=== PATIENT | male | born 1955 | race Caucasian/White ===

== ENCOUNTER 2017-02-09 18:12 | Inpatient (IN) | payer OTHER ==
[~2017-02-09] VITALS: Ht 177.8 cm; Wt 50.4 kg
[~2017-02-09 18:12] MED LIST: DICL75 PO; ROBA750T3 PO
[2017-02-09 18:24] VITALS: BP 123/77; PULSE 144; RESP 22; TEMP 100; TEMP 101.3; O2SAT 97
[2017-02-09 18:28] VITALS: O2SAT 97
--- NOTE | 2017-02-09 18:53 | PD ---
HPI Chief Complaint: Altered Mental Status Time Seen by Provider: 18:18 Travel History International Travel<30 days: No Contact w/Intl Traveler<30days: No Traveled to known affect area: No History of Present Illness HPI This is a 61-year-old gentleman with a history of alcoholism, who is brought in via [facility] under [place] act after [place] The beach district resource officer states he saw him earlier this morning and he was appropriate and talking to him. He states he saw him several hours later laying in the same spot confused and not responding. When [facility] arrived they found his temperature to be 103. He had obvious sunburns to his face chest and arms. The patient was given 1 L of IV fluid. His GCS went from a 6 to 12-13. The patient is confused he knows he is at the hospital does not know the day of the week or the year or month. PFSH Past Medical History Diminished Hearing: No Hypertension: Yes Tetanus Vaccination: Unknown Influenza Vaccination: No Past Surgical History Surgical History: No Previous Surgery Social History Alcohol Use: Yes (1 PINT OF VODKA/WEEKLY OR 1 6-PK OF BEER/DAILY X 20 YRS) Tobacco Use: Yes (2 PKS/DAILY X 35 YRS) Substance Use: No Allergies-Medications (Allergen,Severity, Reaction): Coded Allergies: No Known Allergies (Verified , 02/09/17) Reported Meds & Prescriptions Reported Meds & Active Scripts Active No Active Prescriptions or Reported Medications Review of Systems ROS Limitations: Clinical Condition (able to obtain review of systems.), Altered Mental Status Physical Exam Narrative GENERAL: Ill appearing gentleman in no acute respiratory distress. SKIN: Focused skin assessment warm/dry. Sunburn to face chest and arms. HEAD: Atraumatic. Normocephalic. EYES: Extraocular muscles were intact. No scleral icterus. Slight injected sclera.. ENT: No nasal bleeding or discharge. Mucous membranes pink and dry. NECK: Trachea midline. Supple. CARDIOVASCULAR: Tachycardic in the 130s. No murmur appreciated. RESPIRATORY: No accessory muscle use. Clear to auscultation. Breath sounds equal bilaterally. GASTROINTESTINAL: Abdomen soft, non-tender, nondistended. MUSCULOSKELETAL: No obvious deformities. No clubbing. No cyanosis. No edema. No tenting. NEUROLOGICAL: Awake and confused. No obvious cranial nerve deficits. Motor grossly within normal limits. Normal speech. PSYCHIATRIC: Appropriate mood and affect; insight and judgment normal. Data Data Last Documented VS Vital Signs Date Time Temp Pulse Resp B/P Pulse Ox O2 Delivery O2 Flow Rate FiO2 02/09/17 18:29 Nasal Cannula 2 02/09/17 18:28 97 02/09/17 18:24 101.3 144 22 123/77 Orders Electrocardiogram (02/09/17 18:18) Complete Blood Count With Diff (02/09/17 18:18) Comprehensive Metabolic Panel (02/09/17 18:18) Ckmb (Isoenzyme) Profile (02/09/17 18:18) Troponin I (02/09/17 18:18) Urinalysis - C+S If Indicated (02/09/17 18:18) Magnesium (Mg) (02/09/17 18:18) Phosphorus (Po4) (02/09/17 18:18) Chest, Single Ap (02/09/17 18:18) Ct Brain W/O Iv Contrast(Rout) (02/09/17 18:18) Ecg Monitoring (02/09/17 18:18) Oximetry (02/09/17 18:18) Urinary Catheter Insert/Apply (02/09/17 18:18) Drug Screen, Random Urine (02/09/17 18:18) Alcohol (Ethanol) (02/09/17 18:18) Sodium Chlor 0.9% 1000 Ml Inj (Ns 1000 M (02/09/17 19:00) MDM Medical Decision Making Medical Screen Exam Complete: Yes Emergency Medical Condition: Yes Differential Diagnosis Heat stroke versus metabolic arrangement versus CVA Narrative Course 61 year-old gentleman [place] the beach with altered mental status. The patient was hyperthermic when [facility] arrived. His temperature was 103. Is currently 101.3. He has ice packs in his axillary areas. A temperature probe has been placed in his bladder. He has had no urine output. He's been given 2 L of IVD fluid. Labs and CT are pending at this time. She'll be signed out to Dr. Ladd, physician placing me at change of shift. Diagnosis Primary Impression: Heat stroke Scripts No Active Prescriptions or Reported Meds Brian Leyva MD Feb 09, 2017 18:53
[2017-02-09] MEDS ORDERED: SODIUM CHLOR 0.9% 1000 ML INJ 1,000 ML IV ONE (19:00)
[2017-02-09 19:10] LABS: AUTOMATED NEUTROPHIL # 9.1 TH/MM3 (1.8-7.7); BASOPHIL % 0.2 % (0.0-2.0); EOSINOPHIL % 0.1 % (0.0-4.0); HEMATOCRIT 38.4 % (39.0-51.0); HEMO FLAGS DIFF FINAL; LYMPH % 7.4 % (9.0-44.0); LYMPHOCYTE # 0.8 TH/MM3 (1.0-4.8); MEAN CORPUSCULAR HEMOGLOBIN 36.6 PG (27.0-34.0); MEAN CORPUSCULAR HGB CONC 34.2 % (32.0-36.0); NEUT % 81.3 % (16.0-70.0); PLATELET COUNT 175 TH/MM3 (150-450); RED BLOOD COUNT 3.59 MIL/MM3 (4.50-5.90); RED CELL DISTRIBUTION WIDTH 15.8 % (11.6-17.2); WHITE BLOOD COUNT 11.2 TH/MM3 (4.0-11.0)
--- NOTE | 2017-02-09 19:30 | RADRPT ---
EXAM DATE/TIME: 02/09/2017 18:40 [facility] COMPARISON: No previous studies available for comparison. INDICATIONS : Shortness of breath. Fever. MEDICAL HISTORY : Unobtainable. SURGICAL HISTORY : Unobtainable. ENCOUNTER: Initial ACUITY: 1 day PAIN SCORE: Non-responsive. LOCATION: chest FINDINGS: The heart size is normal. The lungs are free of focal consolidation. There is a calcified granuloma a t the right lower lung. The hilar regions are normal. A significant effusion is not seen. Old left ri b fractures are seen. There is compressive changes at the T8 and L1 vertebral bodies. CONCLUSION: 1. No acute cardiopulmonary process. 2. Old left rib fractures. 3. Compression deformities at T8 and L1. The age of these deformities is not known. Heranndez Santillan MD on February 09, 2017 at 19:27 Board Certified Radiologist. This report was verified electronically.
[2017-02-09 19:52] LABS: ALKALINE PHOSPHATASE 183 U/L (45-117); ALT (GPT) 89 U/L (12-78); ANION GAP 28 MEQ/L (5-15); AST (GOT) 150 U/L (15-37); BICARBONATE 14.2 MEQ/L (21.0-32.0); BLOOD UREA NITROGEN 27 MG/DL (7-18); CHLORIDE 97 MEQ/L (98-107); GLOMERULAR FILTRATION RATE 40 ML/MIN (>89); MAGNESIUM 1.9 MG/DL (1.5-2.5); SODIUM (NA) 139 MEQ/L (136-145); TOTAL BILIRUBIN ADULT 2.3 MG/DL (0.2-1.0)
[2017-02-09 19:53] LABS: ALCOHOL LESS THAN 3 MG/DL (0-5); CREATINE KINASE 100 U/L (39-308)
--- NOTE | 2017-02-09 19:53 | RADRPT ---
EXAM DATE/TIME: 02/09/2017 19:19 [facility] COMPARISON: CT BRAIN W/O CONTRAST, April 09, 2016, 23:22. INDICATIONS : Altered mental status. RADIATION DOSE: 33.87 CTDIvol (mGy) MEDICAL HISTORY : Hypertension. SURGICAL HISTORY : None. ENCOUNTER: Initial ACUITY: 1 day PAIN SCALE: Non-responsive LOCATION: cranial TECHNIQUE: Multiple contiguous axial images were obtained of the head. Using automated exposure control and adj ustment of the mA and/or kV according to patient size, radiation dose was kept as low as reasonably a chievable to obtain optimal diagnostic quality images. DICOM format image data is available electro nically for review and comparison. FINDINGS: CEREBRUM: The ventricles and cortical sulci are widened. No evidence of midline shift, mass lesion, hemorrhage or acute infarction. No extra-axial fluid collections are seen. POSTERIOR FOSSA: The cerebellum and brainstem are intact. The 4th ventricle is midline. The cerebellopontine angle i s unremarkable. EXTRACRANIAL: The visualized portion of the orbits is intact. SKULL: The calvaria is intact. No evidence of skull fracture. CONCLUSION: 1. No acute abnormality is seen. 2. Atrophy. Hernandez Santillan MD on February 09, 2017 at 19:51 Board Certified Radiologist. This report was verified electronically.
[2017-02-09 19:59] LABS: POTASSIUM 2.6 MEQ/L (3.5-5.1)
--- NOTE | 2017-02-09 20:00 | PD ---
Physical Exam Exam Limitations: Altered Mental Status Date Seen by Provider: Feb 09, 2017 Narrative GENERAL: disheveled appearance, unkempt aldrich/hair SKIN: Warm and dry.sunburn to exposed areas (wearing paper blue scrubs) HEAD: Atraumatic. Normocephalic. EYES: Pupils equal and round. No scleral icterus. No injection or drainage. ENT: No nasal bleeding or discharge. Mucous membranes pink and moist. NECK: Trachea midline. No JVD. CARDIOVASCULAR: tachycardic but Regular rhythm. RESPIRATORY: No accessory muscle use. Clear to auscultation. Breath sounds equal bilaterally, however tachypneic GASTROINTESTINAL: Abdomen soft, non-tender, nondistended. Hepatic and splenic margins not palpable. MUSCULOSKELETAL: Extremities without clubbing, cyanosis, or edema. No obvious deformities. NEUROLOGICAL: easily arousable responsive, gcs 14/15 (knows name, place but not time/year). No obvious cranial nerve deficits. Motor grossly within normal limits. Five out of 5 muscle strength in the arms and legs. Normal speech. PSYCHIATRIC: Appropriate mood and affect; insight and judgment normal. Data Data Last Documented VS Vital Signs Date Time Temp Pulse Resp B/P Pulse Ox O2 Delivery O2 Flow Rate FiO2 02/09/17 20:10 99.3 110 22 141/68 100 Nasal Cannula 2 Orders Electrocardiogram (02/09/17 18:18) Complete Blood Count With Diff (02/09/17 18:18) Comprehensive Metabolic Panel (02/09/17 18:18) Ckmb (Isoenzyme) Profile (02/09/17 18:18) Troponin I (02/09/17 18:18) Urinalysis - C+S If Indicated (02/09/17 18:18) Magnesium (Mg) (02/09/17 18:18) Phosphorus (Po4) (02/09/17 18:18) Chest, Single Ap (02/09/17 18:18) Ct Brain W/O Iv Contrast(Rout) (02/09/17 18:18) Ecg Monitoring (02/09/17 18:18) Oximetry (02/09/17 18:18) Urinary Catheter Insert/Apply (02/09/17 18:18) Drug Screen, Random Urine (02/09/17 18:18) Alcohol (Ethanol) (02/09/17 18:18) Sodium Chlor 0.9% 1000 Ml Inj (Ns 1000 M (02/09/17 19:00) Enteric Path (Stool) (02/09/17 19:44) C Diff Toxin Pcr (02/09/17 19:44) Giardia Antigen (Stool) (02/09/17 19:44) Stool Ova And Parasite Screen (02/09/17 19:44) Stool Wbc (Leukocytes) (02/09/17 19:44) Arterial Blood Gas (Abg) (02/09/17 20:03) Potassium Chlor 20 Meq Premix (Kcl 20 Me (02/09/17 20:15) Metronidazole 500 Mg Inj (Flagyl 500 Mg (02/09/17 20:30) Urine Culture (02/09/17 18:40) Labs Laboratory Tests Test 02/09/17 02/09/17 18:30 18:40 White Blood Count 11.2 TH/MM3 Red Blood Count 3.59 MIL/MM3 Hemoglobin 13.1 GM/DL Hematocrit 38.4 % Mean Corpuscular Volume 107.0 FL Mean Corpuscular Hemoglobin 36.6 PG Mean Corpuscular Hemoglobin 34.2 % Concent Red Cell Distribution Width 15.8 % Platelet Count 175 TH/MM3 Mean Platelet Volume 10.1 FL Neutrophils (%) (Auto) 81.3 % Lymphocytes (%) (Auto) 7.4 % Monocytes (%) (Auto) 11.0 % Eosinophils (%) (Auto) 0.1 % Basophils (%) (Auto) 0.2 % Neutrophils # (Auto) 9.1 TH/MM3 Lymphocytes # (Auto) 0.8 TH/MM3 Monocytes # (Auto) 1.2 TH/MM3 Eosinophils # (Auto) 0.0 TH/MM3 Basophils # (Auto) 0.0 TH/MM3 CBC Comment DIFF FINAL Differential Comment Sodium Level 139 MEQ/L Potassium Level 2.6 MEQ/L Chloride Level 97 MEQ/L Carbon Dioxide Level 14.2 MEQ/L Anion Gap 28 MEQ/L Blood Urea Nitrogen 27 MG/DL Creatinine 1.75 MG/DL Estimat Glomerular Filtration 40 ML/MIN Rate Random Glucose 104 MG/DL Calcium Level 8.2 MG/DL Phosphorus Level 5.4 MG/DL Magnesium Level 1.9 MG/DL Total Bilirubin 2.3 MG/DL Aspartate Amino Transf 150 U/L (AST/SGOT) Alanine Aminotransferase 89 U/L (ALT/SGPT) Alkaline Phosphatase 183 U/L Total Creatine Kinase 100 U/L Troponin I 0.05 NG/ML Total Protein 7.4 GM/DL Albumin 3.4 GM/DL Ethyl Alcohol Level LESS THAN 3 MG/DL Urine Color DARK-YELLOW Urine Turbidity HAZY Urine pH 6.0 Urine Specific [place] 1.016 Urine Protein 100 mg/dL Urine Glucose (UA) TRACE mg/dL Urine Ketones 40 mg/dL Urine Occult Blood SMALL Urine Nitrite NEG Urine Bilirubin SMALL Urine Urobilinogen 4.0 MG/DL Urine Leukocyte Esterase NEG Urine RBC 8 /hpf Urine WBC 12 /hpf Urine Squamous Epithelial 9 /hpf Cells Urine Transitional Epithelial 1 /hpf Cells Urine Amorphous Sediment RARE Urine Bacteria FEW /hpf Urine Hyaline Casts 96 /lpf Urine Mucus MANY /lpf Microscopic Urinalysis Comment CULTURE INDICATED Urine Opiates Screen NEG Urine Barbiturates Screen NEG Urine Amphetamines Screen NEG Urine Benzodiazepines Screen NEG Urine Cocaine Screen NEG Urine Cannabinoids Screen NEG MDM Medical Record Reviewed: Yes Supervised Visit with KAYLEY: No Critical Care Narrative CRITICAL CARE NOTE: With evaluation of the patient, labs, EKG, receipt of radiologic studies, administration of medications, reevaluation the patient and discussion of the patient with the admitting physicians, the total critical care time was [60] minutes. Time to perform other separately billable procedures was not included in the critical care time. Physician Communication Physician Communication d/w dr alvarado, currently awaiting for abg results and if no severe acidosis, patient may be eligible for stepdown to hospitalist. Diagnosis Primary Impression: Heat stroke Qualified Code: T67.0XXA - Heat stroke, initial encounter Additional Impressions: Hypokalemia Metabolic acidosis, increased anion gap Admitting Information Admitting Physician Requests: Admit Scripts No Active Prescriptions or Reported Jeanmarie Gomez MD Feb 09, 2017 20:00
[2017-02-09 20:10] VITALS: BP 141/68; PULSE 110; RESP 22; TEMP 99.3; O2SAT 100
[2017-02-09 20:20] LABS: BACTERIA, URINE FEW /hpf; BLOOD, URINE SMALL (NEG); COMMENT (UR) CULTURE INDICATED; CULTURE IF INDICATED CULTURE INDICATED; GLUCOSE,URINE TRACE mg/dL (NEG); HYALINE CAST, URINE 96 /lpf (RARE); KETONE, URINE 40 mg/dL (NEG); MUCUS URINE MANY /lpf (OCC); NITRITE,URINE NEG (NEG); SQUAMOUS EPITHELIAL CELL URINE 9 /hpf (0-5); TRANSITIONAL EPI CELLS, URINE 1 /hpf; URINE COLOR DARK-YELLOW (YELLW/STRAW)
[2017-02-09] MEDS: POTASSIUM CHLOR 20 MEQ PREMIX 100 ML IV SCH ×2 (20:24→23:23)
[2017-02-09] MEDS ORDERED: metroNIDAZOLE 500 MG INJ 100 ML IV ONE (20:30)
[2017-02-09 20:47] LABS: BLOOD GAS BASE EXCESS -13.7 mmol/L (-2-2); BLOOD GAS CARBOXYHEMOGLOBIN 1.7 % (0-4); BLOOD GAS HCO3 11 mmol/L (22-26); BLOOD GAS METHEMOGLOBIN 0.6 % (0-2); BLOOD GAS O2 HGB SATURATION 95 % (90-100); BLOOD GAS OXYGEN CONTENT 15.5 Vol % (12.0-20.0); BLOOD GAS PCO2 22 mmHg (38-42); BLOOD GAS PO2 110 mmHG (61-120); BLOOD GAS TOTAL HGB 11.5 G/DL (12.0-16.0); TEMP CORR TO 98.6
[2017-02-09 20:48] LABS: CRITICAL VALUE YES; DRAW SITE LT RADIAL; FIO2 21 %; NUMBER OF ARTERIAL PUNCTURES 1; ULNAR PULSE PRESENT
[2017-02-09 20:49] LABS: STAT YES
[2017-02-09 21:01] VITALS: BP 108/66; PULSE 97; RESP 18; O2SAT 100
[2017-02-09 21:17] LABS: C. DIFF EPI 027 PRESUMPTIVE NEGATIVE (NEGATIVE)
[2017-02-09] MEDS ORDERED: SODIUM CHLORIDE 0.9% FLUSH 10 ML FLUSH IV FLUSH PRN (21:30)
[2017-02-09] MEDS ORDERED: NALOXONE HCL 0.4 MG/ML AMP IV PRN (21:30)
[2017-02-09 22:51] LABS: BICARBONATE 13.4 MEQ/L (21.0-32.0)
[2017-02-09 23:09] LABS: POTASSIUM 2.8 MEQ/L (3.5-5.1)
[2017-02-09 23:45] VITALS: BP 122/83; PULSE 103; RESP 20; TEMP 97.7; O2SAT 92
[2017-02-09 23:47] LABS: CALCIUM-PROTEIN CORRECTED 7.2 MG/DL (8.5-10.1)
[2017-02-10] VITALS (12 sets, daily range): BP systolic 97–110; BP diastolic 58–65; PULSE 69–102; RESP 13–24; TEMP 97.5–98.8; O2SAT 98–100
--- NOTE | 2017-02-10 02:54 | HHI.HP ---
HPI Service [facility] Primary Care Physician No Primary Care Physician Admission Diagnosis HEAT STROKE, ANION GAP ACIDOSIS, HYPOKALEMIA Diagnoses: Chief Complaint: heat stroke Travel History International Travel<30 Days: No Contact w/Intl Traveler <30 Da: No Traveled to Known Affected Are: No History of Present Illness Written by Nicol Logan, acting as scribe for [Tate] on 02/10/17 at 02:50. 61 y/o male with no medical history and on no medication was brought in by [facility] after being found on the beach. Patient states he went to the beach, had a beer and then fell asleep. He was then found by beach patrol in the evening after being in the sun all day long. Per ER he did have diarrhea when he arrived. He denies any chest pain, worsening sob, fever, chills, nausea, or vomiting. He does complaining of getting dizzy at times when he stands up and it has been going on for at least a year. Also reports of urinary burning and pain. Noted to have poor dentition, congested cough (which according to him is chronic with worsening, and due to smoking). Reports he has been on the streets/ homeless. Review of Systems Except as stated in HPI: all other systems reviewed are Neg Past Family Social History Past Medical History Patient denies any medical history Past Surgical History Right hip and femur repair Reported Medications Reported Meds & Active Scripts Active No Active Prescriptions or Reported Medications Allergies: Coded Allergies: No Known Allergies (Verified , 02/09/17) Active Ordered Medications Current Medications Medications (Trade) Dose Ordered Sig/[place] Route Start Time Stop Time Status Last Admin (NS Flush) 2 ml UNSCH PRN IV FLUSH 02/09/17 21:30 (NS Flush) 2 ml BID IV FLUSH 02/10/17 09:00 (Narcan Inj) 0.4 mg UNSCH PRN IV 02/09/17 21:30 Family History Patient denies any family history, no heart disease or cancer. Social History Tobacco use: 1 PPD Alcohol use: at least 6 beers a day Illicit drug use: Marijuana Patient is homeless, Physical Exam Vital Signs Vital Signs Date Time Temp Pulse Resp B/P Pulse Ox O2 Delivery O2 Flow Rate FiO2 02/10/17 00:00 102 02/09/17 23:45 97.7 103 20 122/83 92 02/09/17 21:01 97 18 108/66 100 Nasal Cannula 2 02/09/17 20:10 99.3 110 22 141/68 100 Nasal Cannula 2 02/09/17 18:29 Nasal Cannula 2 02/09/17 18:28 97 Nasal Cannula 2 02/09/17 18:24 101.3 144 22 123/77 97 Physical Exam GENERAL: This is a thin in no apparent distress. SKIN: dry scaly skin, sun burned skin, HEAD: Atraumatic. Normocephalic. EYES: Pupils equal round and reactive. ENT: Nose without bleeding, purulent drainage or septal hematoma. Airway patent. Poor dentition NECK: Trachea midline. No JVD CARDIOVASCULAR: Regular rate and rhythm without murmurs, gallops, or rubs. RESPIRATORY: Clear to auscultation. Breath sounds equal bilaterally. Expiratory wheezes. GASTROINTESTINAL: Abdomen soft, non-tender, nondistended. No hepato-splenomegaly , or palpable masses. No guarding. MUSCULOSKELETAL: Extremities without clubbing, cyanosis, or edema. No joint tenderness, effusion, or edema noted. No calf tenderness. NEUROLOGICAL: Awake and alert. Motor and sensory grossly within normal limits. Normal speech. Laboratory Laboratory Tests Test 02/09/17 02/09/17 02/09/17 02/09/17 18:30 18:40 19:50 20:31 White Blood Count 11.2 Red Blood Count 3.59 Hemoglobin 13.1 Hematocrit 38.4 Mean Corpuscular Volume 107.0 Mean Corpuscular Hemoglobin 36.6 Mean Corpuscular Hemoglobin 34.2 Concent Red Cell Distribution Width 15.8 Platelet Count 175 Mean Platelet Volume 10.1 Neutrophils (%) (Auto) 81.3 Lymphocytes (%) (Auto) 7.4 Monocytes (%) (Auto) 11.0 Eosinophils (%) (Auto) 0.1 Basophils (%) (Auto) 0.2 Neutrophils # (Auto) 9.1 Lymphocytes # (Auto) 0.8 Monocytes # (Auto) 1.2 Eosinophils # (Auto) 0.0 Basophils # (Auto) 0.0 CBC Comment DIFF FINAL Differential Comment Sodium Level 139 Potassium Level 2.6 Chloride Level 97 Carbon Dioxide Level 14.2 Anion Gap 28 Blood Urea Nitrogen 27 Creatinine 1.75 Estimat Glomerular Filtration 40 Rate Random Glucose 104 Calcium Level 8.2 Phosphorus Level 5.4 Magnesium Level 1.9 Total Bilirubin 2.3 Aspartate Amino Transf 150 (AST/SGOT) Alanine Aminotransferase 89 (ALT/SGPT) Alkaline Phosphatase 183 Total Creatine Kinase 100 Troponin I 0.05 Total Protein 7.4 Albumin 3.4 Ethyl Alcohol Level LESS THAN 3 Urine Color DARK-YELLOW Urine Turbidity HAZY Urine pH 6.0 Urine Specific [place] 1.016 Urine Protein 100 Urine Glucose (UA) TRACE Urine Ketones 40 Urine Occult Blood SMALL Urine Nitrite NEG Urine Bilirubin SMALL Urine Urobilinogen 4.0 Urine Leukocyte Esterase NEG Urine RBC 8 Urine WBC 12 Urine Squamous Epithelial 9 Cells Urine Transitional Epithelial 1 Cells Urine Amorphous Sediment RARE Urine Bacteria FEW Urine Hyaline Casts 96 Urine Mucus MANY Microscopic Urinalysis Comment CULTURE INDICATED Urine Opiates Screen NEG Urine Barbiturates Screen NEG Urine Amphetamines Screen NEG Urine Benzodiazepines Screen NEG Urine Cocaine Screen NEG Urine Cannabinoids Screen NEG Stool C. difficile Toxin (PCR) NEGATIVE Stl C. difficile Toxin PRESUMPTIVE Epiderm 027 NEGATIVE Blood Gas Puncture Site LT RADIAL Blood Gas Patient Temperature 98.6 Blood Gas HCO3 11 Blood Gas Base Excess -13.7 Blood Gas Oxygen Saturation 95 Arterial Blood pH 7.33 Arterial Blood Partial 22 Pressure CO2 Arterial Blood Partial 110 Pressure O2 Arterial Blood Oxygen Content 15.5 Arterial Blood 1.7 Carboxyhemoglobin Arterial Blood Methemoglobin 0.6 Blood Gas Hemoglobin 11.5 Blood Gas Inspired Oxygen 21 Test 02/09/17 02/09/17 21:05 21:50 Lactic Acid Level 1.4 Sodium Level 141 Potassium Level 2.8 Chloride Level 108 Carbon Dioxide Level 13.4 Anion Gap 20 Blood Urea Nitrogen 26 Creatinine 1.20 Estimat Glomerular Filtration 62 Rate Random Glucose 61 Calcium Level 6.7 Protein Corrected Calcium 7.2 Total Protein 6.1 Date/Time Procedure Status Source Growth 02/09/17 21:05 Aerobic Blood Culture Received Blood Peripheral Pending 02/09/17 21:05 Anaerobic Blood Culture Received Blood Peripheral Pending 02/09/17 19:50 Cryptosporidium Exam Received Stool Stool Pending 02/09/17 19:50 Stool Pus (RICH) Received Stool Stool Pending 02/09/17 19:50 Giardia Antigen (RICH) Received Stool Stool Pending 02/09/17 19:50 Received Stool Stool Pending 02/09/17 18:40 Urine Culture Received Urine Random Urine Pending Result Diagram: 02/09/17 1830 02/09/172149 Imaging Last Impressions Head CT 02/09/171817 Signed Impressions: Service Date/Time: Thursday, February 09, 2017 19:19 - CONCLUSION: 1. No acute abnormality is seen. 2. Atrophy. Hernandez Santillan MD Chest X-Ray 02/09/171817 Signed Impressions: Service Date/Time: Thursday, February 09, 2017 18:40 - CONCLUSION: 1. No acute cardiopulmonary process. 2. Old left rib fractures. 3. Compression deformities at T8 and L1. The age of these deformities is not known. Hernandez Santillan MD Assessment and Plan Problem List: (1) Heat stroke ICD Code: T67.0XXA Status: Acute (2) Metabolic acidosis, increased anion gap ICD Code: E87.2 Status: Acute Assessment and Plan 61 y/o male with no medical history and on no medication was brought in by [facility] [place] being found [place] the [place]. Patient states he went to the beach, had a beer and then fell asleep. Metabolic acidosis, increased anion gap related to heart stroke Head CT reviewed and was unremarkable Anion gap improving 28-->20, lactic 1.4 -IVF for hydration -Monitor telemetry Hypocalcemia and hypokalemia Potassium 2.6, protein corrected calcium 7.2 -Supplementation ordered -BMP in AM - check Mag Acute renal failure- secondary to dehydration- improving with fluid resuscitation DVT prophylaxis: SCDs This note was transcribed by julien [Nicol Logan]. I, Dr. Jerrica Ybarra personally performed the history, physical exam, and medical decision making; and confirmed the accuracy of the information in the transcribed note. Authenticated by Dr. Jerrica Ybarra on 02/10/17 at 02:50. Discussed Condition With Patient, RN and ED physician. Physician Certification 2 Midnight Certification Type: Admission for Inpatient Services Order for Inpatient Services The services are ordered in accordance with Medicare regulations or non- Medicare payer requirements, as applicable. In the case of services not specified as inpatient-only, they are appropriately provided as inpatient services in accordance with the 2-midnight benchmark. Estimated LOS (days): 2 days is the estimated time the patient will need to remain in the hospital, assuming treatment plan goals are met and no additional complications. Post-Hospital Plan: Home Problem Qualifiers (1) Heat stroke: Qualified Code: T67.0XXA - Heat stroke, initial encounter Nicol Logan Feb 10, 2017 02:54 Jerrica Ybarra MD Feb 10, 2017 09:53
[2017-02-10] MEDS ORDERED: CALCIUM GLUCONATE 10% 1 GM/10 ML VIAL IV PUSH ONE (03:45)
[2017-02-10] MEDS ORDERED: POTASSIUM CHLORIDE 25 MEQ EFFERVESCENT TAB PO ONE (03:45)
[2017-02-10] MEDS: POTASSIUM CHLOR 20 MEQ PREMIX 100 ML IV SCH ×2 (04:07→06:01)
[2017-02-10] MEDS: SODIUM CHLORIDE 0.9% FLUSH 10 ML FLUSH IV FLUSH SCH ×2 (09:00→21:00)
--- NOTE | 2017-02-10 09:11 | EKG ---
Date Performed: 02/09/2017 Time Performed: 18:32:03 PTAGE: 61 years EKG: SINUS TACHYCARDIA MARKED RIGHT AXIS DEVIATION PATTERN CONSISTENT WITH PULMONARY DISEASE INC OMPLETE RIGHT BUNDLE BRANCH BLOCK ABNORMAL ECG NO PREVIOUS TRACING DOCTOR: Jerrell Nair Interpretating Date/Time 02/10/2017 09:03:15
--- NOTE | 2017-02-10 09:19 | HHI.PR ---
Subjective Remarks Follow-up dehydration, hypokalemia, acidosis. The patient states that he feels a little better today. No chest pain or dyspnea. Denies nausea or vomiting. Objective Vitals Vital Signs Date Time Temp Pulse Resp B/P Pulse Ox O2 Delivery O2 Flow Rate FiO2 02/10/17 06:00 85 02/10/17 04:00 79 02/10/17 04:00 98.2 79 24 99/65 100 02/10/17 02:00 92 02/10/17 00:00 102 02/09/17 23:45 97.7 103 20 122/83 92 02/09/17 21:01 97 18 108/66 100 Nasal Cannula 2 02/09/17 20:10 99.3 110 22 141/68 100 Nasal Cannula 2 02/09/17 18:29 Nasal Cannula 2 02/09/17 18:28 97 Nasal Cannula 2 02/09/17 18:24 101.3 144 22 123/77 97 I/O 02/09/17 02/09/17 02/09/17 02/10/17 02/10/17 02/10/17 07:00 15:00 23:00 07:00 15:00 23:00 Intake Total 1733 ml Output Total 900 ml Balance 833 ml Intake Oral 720 ml IV Total 1013 ml Output Urine Total 900 ml # Bowel Movements 1 Result Diagram: 02/09/17 1830 02/09/17 2150 Imaging Last Impressions Head CT 02/09/171817 Signed Impressions: Service Date/Time: Thursday, February 09, 2017 19:19 - CONCLUSION: 1. No acute abnormality is seen. 2. Atrophy. Hernandez Santillan MD Chest X-Ray 02/09/171817 Signed Impressions: Service Date/Time: Thursday, February 09, 2017 18:40 - CONCLUSION: 1. No acute cardiopulmonary process. 2. Old left rib fractures. 3. Compression deformities at T8 and L1. The age of these deformities is not known. Hernandez Santillan MD Objective Remarks General: Thin male in no acute distress. Heart: Regular rate and rhythm. No murmur. Lungs: Scattered wheeze. Breathing is nonlabored. Abdomen: Soft, nontender, nondistended. Extremities: No lower extremity edema. Psych: Alert and oriented. Procedures None Urinary Catheter: Yes Assessment to: Remove Vascular Central Line Catheter: No A/P Problem List: (1) Heat stroke ICD Code: T67.0XXA Status: Acute (2) Metabolic acidosis, increased anion gap ICD Code: E87.2 Status: Acute (3) Hypokalemia ICD Code: E87.6 Status: Acute Assessment and Plan 1. Heat stroke with metabolic acidosis, increased anion gap: Continue IV fluid hydration. Monitor on telemetry. Labs are pending this morning. 2. Hypocalcemia, hypokalemia: Supplement. Labs are pending this morning. 3. Tobacco abuse: Counseled quit smoking. 4. Alcohol abuse: Monitor for signs of withdrawal. CIWA protocol. 5. DVT prophylaxis: SCDsIVET. Problem Qualifiers (1) Heat stroke: Qualified Code: T67.0XXA - Heat stroke, initial encounter Rolo Garcia MD Feb 10, 2017 09:18
[2017-02-10] MEDS ORDERED: LORazepam 2 MG TAB PO PRN (09:30)
[2017-02-10] MEDS ORDERED: LORazepam 1 MG TAB PO PRN (09:30)
[2017-02-10] MEDS ORDERED: LORazepam 2 MG/ML VIAL IV PUSH PRN ×3 (09:30)
[2017-02-10] MEDS ORDERED: FLUMAZENIL 0.5 MG/5 ML VIAL IV PUSH PRN (09:30)
[2017-02-10] MEDS ORDERED: SODIUM CHLOR 0.45% 1000 ML INJ 1,000 ML IV SCH (10:00)
[2017-02-10] MEDS ORDERED: THIAMINE HCL 100 MG TAB PO ONE (10:00)
[2017-02-10 10:34] LABS: AUTOMATED NEUTROPHIL # 5.6 TH/MM3 (1.8-7.7); BASOPHIL % 0.3 % (0.0-2.0); HEMATOCRIT 39.5 % (39.0-51.0); HEMO FLAGS DIFF FINAL; LYMPH % 13.6 % (9.0-44.0); LYMPHOCYTE # 1.1 TH/MM3 (1.0-4.8); MEAN CELL VOLUME 111.5 FL (80.0-100.0); MEAN CORPUSCULAR HEMOGLOBIN 36.8 PG (27.0-34.0); MONO % 13.8 % (0.0-8.0); NEUT % 72.3 % (16.0-70.0); PLATELET COUNT 121 TH/MM3 (150-450); RED BLOOD COUNT 3.55 MIL/MM3 (4.50-5.90); RED CELL DISTRIBUTION WIDTH 16.7 % (11.6-17.2); WHITE BLOOD COUNT 7.8 TH/MM3 (4.0-11.0)
[2017-02-10 10:56] LABS: ALKALINE PHOSPHATASE 150 U/L (45-117); ALT (GPT) 79 U/L (12-78); ANION GAP 15 MEQ/L (5-15); BLOOD UREA NITROGEN 21 MG/DL (7-18); CHLORIDE 104 MEQ/L (98-107); GLOMERULAR FILTRATION RATE 85 ML/MIN (>89); MAGNESIUM 1.9 MG/DL (1.5-2.5); SODIUM (NA) 138 MEQ/L (136-145); TOTAL BILIRUBIN ADULT 1.4 MG/DL (0.2-1.0)
[2017-02-10 10:57] LABS: AST (GOT) 139 U/L (15-37); POTASSIUM 4.3 MEQ/L (3.5-5.1)
[2017-02-10] MEDS: NS + KCL 20 MEQ INJ 1,000 ML IV SCH (17:51)
[2017-02-11] VITALS (13 sets, daily range): BP systolic 115–158; BP diastolic 69–85; PULSE 63–101; RESP 16–18; TEMP 98.4–99.3; O2SAT 99–100
[2017-02-11] MEDS: NS + KCL 20 MEQ INJ 1,000 ML IV SCH ×3 (00:15→17:19)
[2017-02-11] MEDS: SODIUM CHLORIDE 0.9% FLUSH 10 ML FLUSH IV FLUSH SCH ×2 (08:46→20:51)
[2017-02-11] MEDS: THIAMINE HCL 100 MG TAB PO SCH (08:47)
[2017-02-11] MEDS ORDERED: cefTRIAXone INJ 1,000 MG in SODIUM CHLORIDE 0.9% INJ 100 ML IV SCH (11:00)
[2017-02-11] MEDS ORDERED: Vancomycin Consult Pharmacy 1 EA OTHER SCH (11:30)
--- NOTE | 2017-02-11 11:35 | HHI.PR ---
Subjective Remarks Follow-up electrolyte abnormalities, bacteremia. The patient states that he feels better today. Reporting left upper chest pain that is pleuritic in nature. It is worse with coughing or deep breaths. Pain is described as sharp. Objective Vitals Vital Signs Date Time Temp Pulse Resp B/P Pulse Ox O2 Delivery O2 Flow Rate FiO2 02/11/17 10:00 87 02/11/17 08:00 99.0 80 18 118/69 99 02/11/17 08:00 81 02/11/17 06:00 84 02/11/17 04:00 98.4 85 16 136/79 100 02/11/17 04:00 84 02/11/17 02:00 101 02/11/17 00:00 76 02/11/17 00:00 98.8 78 16 115/69 99 02/10/17 22:00 76 02/10/17 20:00 98.4 83 16 97/63 98 02/10/17 20:00 87 02/10/17 18:00 77 02/10/17 16:00 98.8 69 13 97/58 99 02/10/17 16:00 69 02/10/17 14:00 91 02/10/17 12:00 78 02/10/17 12:00 98.0 78 22 110/59 98 I/O 02/10/17 02/10/17 02/10/17 02/11/17 02/11/17 02/11/17 07:00 15:00 23:00 07:00 15:00 23:00 Intake Total 1733 ml 1648 ml 1537 ml 1173 ml Output Total 900 ml 415 ml 300 ml 350 ml Balance 833 ml 1233 ml 1237 ml 823 ml Intake Oral 720 ml 680 ml 620 ml 240 ml IV Total 1013 ml 968 ml 917 ml 933 ml Output Urine Total 900 ml 415 ml 300 ml 350 ml # Bowel Movements 1 1 0 Result Diagram: 02/10/1791602/10/17916 Imaging Last Impressions Head CT 02/09/171817 Signed Impressions: Service Date/Time: Thursday, February 09, 2017 19:19 - CONCLUSION: 1. No acute abnormality is seen. 2. Atrophy. Hernandez Santillan MD Chest X-Ray 02/09/171817 Signed Impressions: Service Date/Time: Thursday, February 09, 2017 18:40 - CONCLUSION: 1. No acute cardiopulmonary process. 2. Old left rib fractures. 3. Compression deformities at T8 and L1. The age of these deformities is not known. Hernandez Santillan MD Objective Remarks General: Thin male in no acute distress. Heart: Regular rate and rhythm. No murmur. Lungs: Diffuse wheeze. Breathing is nonlabored. Abdomen: Soft, nontender, nondistended. Extremities: No lower extremity edema. Psych: Alert and oriented. Procedures None Urinary Catheter: No Vascular Central Line Catheter: No A/P Problem List: (1) Heat stroke ICD Code: T67.0XXA Status: Acute (2) Metabolic acidosis, increased anion gap ICD Code: E87.2 Status: Acute (3) Hypokalemia ICD Code: E87.6 Status: Acute (4) Bacteremia ICD Code: R78.81 Status: Acute Assessment and Plan 1. Heat stroke with metabolic acidosis, increased anion gap: Continue IV fluid hydration. Monitor on telemetry. Labs are pending this morning. 2. Hypocalcemia, hypokalemia: Supplement. Labs are pending this morning. 3. Tobacco abuse: Counseled to quit smoking. 4. Alcohol abuse: Monitor for signs of withdrawal. [facility] protocol. 5. Wheezing on exam: Suspect COPD given long-term smoking history. Add bronchodilators, steroids. 6. Bacteremia: Blood cultures growing staph coag negative. Start vancomycin. Consult infectious disease. 7. DVT prophylaxis: SCDs, IVET alonzo. Problem Qualifiers (1) Heat stroke: Qualified Code: T67.0XXA - Heat stroke, initial encounter Rolo Garcia MD Feb 11, 2017 11:35
[2017-02-11 11:47] LABS: AUTOMATED NEUTROPHIL # 6.2 TH/MM3 (1.8-7.7); BASOPHIL % 0.6 % (0.0-2.0); EOSINOPHIL % 0.2 % (0.0-4.0); HEMATOCRIT 31.5 % (39.0-51.0); HEMO FLAGS AUTO DIFF; LYMPH % 9.6 % (9.0-44.0); LYMPHOCYTE # 0.7 TH/MM3 (1.0-4.8); MEAN CELL VOLUME 108.2 FL (80.0-100.0); MEAN CORPUSCULAR HEMOGLOBIN 37.1 PG (27.0-34.0); MEAN CORPUSCULAR HGB CONC 34.3 % (32.0-36.0); NEUT % 79.6 % (16.0-70.0); PLATELET COUNT 89 TH/MM3 (150-450); RED BLOOD COUNT 2.91 MIL/MM3 (4.50-5.90); WHITE BLOOD COUNT 7.8 TH/MM3 (4.0-11.0)
[2017-02-11 11:50] LABS: BICARBONATE 23.7 MEQ/L (21.0-32.0); MAGNESIUM 1.3 MG/DL (1.5-2.5); POTASSIUM 3.5 MEQ/L (3.5-5.1)
[2017-02-11] MEDS ORDERED: VANCOMYCIN 1,000 MG/NS 250 ML IV ONE ×2 (12:15)
[2017-02-11] MEDS: MAGNESIUM SULFATE 1 GM PREMIX 100 ML IV SCH ×2 (12:27→13:54)
[2017-02-11 13:06] LABS: PLATELET ESTIMATE SMEAR LOW (NORMAL); PLATELET MORPHOLOGY NORMAL (NORMAL); SCAN/DIFF AUTO DIFF CONFIRMED
--- NOTE | 2017-02-11 14:25 | MB ---
cc: VANIA LAO MD DATE OF CONSULTATION: 02/11/2017 REQUESTING PHYSICIAN: Dr. Garcia. REASON FOR CONSULTATION: Bacteremia. HISTORY OF PRESENT ILLNESS: This is a 61-year-old white male who was brought to emergency department by paramedics after he was found laying [place] the beach with altered mental status and unresponsive. The patient reportedly went to the beach during the day and he recalls having 1 beer and then the never waking up. It appears that he was in the sun all day and had a temperature of 103 degrees and also he was confused when he was brought to emergency department. The patient is a heavy drinker. In emergency department he had temperature of 101.3 degrees and heart rate of 144. He also had a acidosis and a white blood cell count was elevated at 11.2. A CT scan of the head showed no acute abnormality. Chest x-ray also showed no acute cardiopulmonary process. Old rib fractures on the left side was noted on the x-ray and compression deformities was noted of T8 and L1. The patient has no complaints of pain. He is currently laying in bed and he is awake and is responsive. He looks chronically ill. His temperature this is now back to normal and the white blood cell count has improved. Blood cultures taken yesterday has staph coagulase negative, in one bottle of one set and a second set has staph coagulase negative, in one bottle and gram-positive cocci in another. He denies chills, nausea or vomiting. The patient tells me that he was in the hospital a couple weeks ago and treated for pneumonia. He thinks he was here, but there is nothing in medical record indicates recent hospitalization. His last evaluation at the hospital here was in March 2016 for acute alcohol intoxication. The patient denies headache. Abdominal pain, back pain, dysuria, cough or shortness of breath. PAST MEDICAL HISTORY 1. Alcohol abuse. 2. The right hip and femur repair. ALLERGIES NO KNOWN DRUG ALLERGIES. MEDICATIONS: Vancomycin and ceftriaxone given in the emergency room. Thiamine Ativan SOCIAL HISTORY Positive tobacco use one pack a day. The patient reports drinking four drinks of Vodka per day. He also drinks beers. The patient denies IV drug use. Patient is unemployed. FAMILY HISTORY Noncontributory. REVIEW OF SYSTEMS Pertinent mentioned above in history of present illness. PHYSICAL EXAMINATION IN GENERAL: This is a disheveled male who appears older than stated age. He is awake and he is in no acute distress. He is alert. VITAL SIGNS: Temperature 98.9, BP 121/70, respirations 1679. HEAD, EYES, EARS, NOSE, AND THROAT: The head has had bruises at the anterior forehead which is dry. There are three separate areas with bruising. There is no edema. Extraocular movements grossly intact, pupils reactive to light. No icterus. The sclerae is pale daily. Oropharynx reveals poor dentition. No visible lesions. Mucosa is moist. NECK: Supple. No adenopathy. No swelling. LUNGS: Mild rhonchi and wheezing at both bases. HEART: Regular sinus without audible murmurs or rubs or gallops. ABDOMEN: Bowel sounds present, soft, no tenderness appreciated. RECTAL: Not performed. EXTREMITIES: No clubbing or cyanosis or edema. No embolic lesions. SKIN: He has a sun tanned appearance of the face, chest, arms, legs. The patient has also multiple ecchymotic areas on the arms. No edema. NEUROLOGIC: No gross focal findings. PSYCHIATRIC: calm and cooperative. LABORATORY DATA WBC 7.8, platelets 89,000, hemoglobin 10.8, 76% neutrophils, 9% lymphocytes, creatinine 0.69, BUN 13, sodium 133, AST 139, ALT 79, alk phos 150. IMPRESSION 1. Positive blood cultures with Staph coagulase negative. The patient presented with fever and tachycardia and his white count was also mildly elevated. I think that all of this can be explained by extreme sun exposure and heat stroke. Bacteremia. He is very likely, pseudo bacteremia in this patient who had indwelling catheters. 2. Heat stroke. 3. Currently the patient is clinically stable appearing and does not appear septic. RECOMMENDATIONS 1. Repeat the blood cultures. 2. Withhold antibiotics and observe his temperature and observe clinical status. 3. Follow the repeat blood cultures and antibiotics can be reinstated depending on the culture results or if he deteriorates clinically. Thank you for this consultation. The patient's progress will be monitored and further recommendations will be given upon followup if necessary. Vania Lao MD FD/marine /1:41 PM /2:01 PM [place]
[2017-02-12] VITALS (12 sets, daily range): BP systolic 116–165; BP diastolic 63–89; PULSE 72–104; RESP 17–21; TEMP 97–98.7; O2SAT 94–100
[2017-02-12] MEDS: NS + KCL 20 MEQ INJ 1,000 ML IV SCH ×3 (00:15→13:08)
[2017-02-12] MEDS: THIAMINE HCL 100 MG TAB PO SCH (08:21)
[2017-02-12] MEDS: SODIUM CHLORIDE 0.9% FLUSH 10 ML FLUSH IV FLUSH SCH ×2 (08:22→21:14)
[2017-02-12 13:05] LABS: AUTOMATED NEUTROPHIL # 3.6 TH/MM3 (1.8-7.7); BASOPHIL % 0.3 % (0.0-2.0); EOSINOPHIL % 0.6 % (0.0-4.0); HEMATOCRIT 29.3 % (39.0-51.0); MEAN CORPUSCULAR HEMOGLOBIN 36.8 PG (27.0-34.0); MEAN CORPUSCULAR HGB CONC 34.1 % (32.0-36.0); MONO % 13.6 % (0.0-8.0); NEUT % 67.5 % (16.0-70.0); PLATELET COUNT 96 TH/MM3 (150-450); RED BLOOD COUNT 2.72 MIL/MM3 (4.50-5.90); RED CELL DISTRIBUTION WIDTH 16.1 % (11.6-17.2); WHITE BLOOD COUNT 5.3 TH/MM3 (4.0-11.0)
[2017-02-12 13:10] LABS: HEMO FLAGS AUTO DIFF
[2017-02-12 13:34] LABS: POTASSIUM 3.9 MEQ/L (3.5-5.1)
--- NOTE | 2017-02-12 13:43 | HHI.PR ---
Subjective Remarks Acute events overnight. Afebrile, vital signs stable. Patient with no complaints at this time. Objective Vitals Vital Signs Date Time Temp Pulse Resp B/P Pulse Ox O2 Delivery O2 Flow Rate FiO2 02/12/17 12:27 97.6 104 20 148/85 95 02/12/17 08:00 97.9 80 19 165/82 100 02/12/17 04:06 101 02/12/17 04:00 97.8 78 18 125/63 99 02/12/17 00:02 84 02/12/17 00:00 97.0 78 17 144/89 98 02/11/17 20:09 84 02/11/17 20:00 98.9 89 17 158/85 99 02/11/17 18:28 86 02/11/17 18:00 99.3 63 18 137/77 99 02/11/17 16:00 98.8 82 18 134/76 100 02/11/17 16:00 82 02/11/17 14:00 76 I/O 02/11/17 02/11/17 02/11/17 02/12/17 02/12/17 02/12/17 06:59 14:59 22:59 06:59 14:59 22:59 Intake Total 1173 ml 1914 ml 1473 ml Output Total 350 ml 800 ml 500 ml 200 ml Balance 823 ml 1114 ml -500 ml 1273 ml Intake Oral 240 ml 700 ml IV Total 933 ml 1214 ml 1473 ml Output Urine Total 350 ml 800 ml 500 ml 200 ml # Bowel Movements 0 Result Diagram: 02/12/17 1228 02/12/17 1228 Objective Remarks Gen.: No acute distress Head: Normocephalic. Atraumatic. EENT: Pupils equal round and reactive to light. Nose without drainage. Airway intact. Throat without injection. Cardiovascular: Regular rate and rhythm. No murmurs, rubs or gallops. Respiratory: Diffuse wheeze. No rhonchi. Abdomen: Soft, nontender, nondistended. No peritoneal signs. Musculoskeletal: No gross deformities. No edema. Skin: No obvious rashes or erythema. Neuro: Sensory and motor grossly intact. Cranial nerves II through XII grossly intact. Psych: Appropriate mood and affect Procedures None A/P Problem List: (1) Heat stroke ICD Code: T67.0XXA Status: Acute (2) Metabolic acidosis, increased anion gap ICD Code: E87.2 Status: Acute (3) Hypokalemia ICD Code: E87.6 Status: Acute (4) Bacteremia ICD Code: R78.81 Status: Acute Assessment and Plan 1. Heat stroke with metabolic acidosis, increased anion gap: Resolved with IV fluid hydration. DC IV fluids. 2. Hypocalcemia, hypokalemia: Resolved with supplementation. 3. Tobacco abuse: Counseled to quit smoking. 4. Alcohol abuse: Monitor for signs of withdrawal. [facility] protocol. 5. Wheezing on exam: Suspect COPD given long-term smoking history. Continue bronchodilators, steroids. 6. Bacteremia: Blood cultures growing staph coag negative. Patient initially treated with vancomycin and infectious disease was consulted. ID recommends dc antibiotics and following cultures. Restart abx if patient deteriorates clinically or if cultures are positive. 7. DVT prophylaxis: IVET Guerrero. Discharge Planning Pending culture results Problem Qualifiers (1) Heat stroke: Qualified Code: T67.0XXA - Heat stroke, initial encounter Venus Cintron MD R3 Feb 12, 2017 13:42
[2017-02-12 13:57] LABS: PLATELET ESTIMATE SMEAR LOW (NORMAL); PLATELET MORPHOLOGY NORMAL (NORMAL); SCAN/DIFF AUTO DIFF CONFIRMED
[2017-02-12] MEDS: RESP: ALBUTEROL 2.5 MG/IPRATROPIUM 0.5 MG NEB (SCH) NEB ×3 (16:37→23:10)
[2017-02-13] VITALS (10 sets, daily range): BP systolic 108–160; BP diastolic 58–92; PULSE 70–98; RESP 17–21; TEMP 97.1–98.5; O2SAT 92–100
[2017-02-13] MEDS: RESP: ALBUTEROL 2.5 MG/IPRATROPIUM 0.5 MG NEB (SCH) NEB ×6 (04:02→23:27)
[2017-02-13 05:38] LABS: AUTOMATED NEUTROPHIL # 2.6 TH/MM3 (1.8-7.7); BASOPHIL % 0.6 % (0.0-2.0); EOSINOPHIL % 0.8 % (0.0-4.0); HEMATOCRIT 27.6 % (39.0-51.0); LYMPH % 23.4 % (9.0-44.0); MEAN CELL VOLUME 108.2 FL (80.0-100.0); MEAN CORPUSCULAR HEMOGLOBIN 36.9 PG (27.0-34.0); MEAN CORPUSCULAR HGB CONC 34.1 % (32.0-36.0); MONO % 12.8 % (0.0-8.0); NEUT % 62.4 % (16.0-70.0); PLATELET COUNT 90 TH/MM3 (150-450); RED BLOOD COUNT 2.55 MIL/MM3 (4.50-5.90); RED CELL DISTRIBUTION WIDTH 15.7 % (11.6-17.2); WHITE BLOOD COUNT 4.1 TH/MM3 (4.0-11.0)
[2017-02-13 05:45] LABS: HEMO FLAGS AUTO DIFF
[2017-02-13 06:18] LABS: BICARBONATE 30.2 MEQ/L (21.0-32.0); POTASSIUM 3.2 MEQ/L (3.5-5.1)
[2017-02-13 06:56] LABS: SCAN/DIFF AUTO DIFF CONFIRMED
[2017-02-13] MEDS: THIAMINE HCL 100 MG TAB PO SCH (08:10)
[2017-02-13] MEDS: SODIUM CHLORIDE 0.9% FLUSH 10 ML FLUSH IV FLUSH SCH ×2 (08:10→21:00)
[2017-02-13] MEDS ORDERED: predniSONE 50 MG TAB PO SCH (09:00)
[2017-02-13] MEDS ORDERED: POTASSIUM CHLORIDE 20 MEQ CONTROLLED RELEASE TAB PO ONE ×2 (10:20→14:00)
--- NOTE | 2017-02-13 13:07 | HHI.PR ---
Subjective Remarks No acute events overnight. Afebrile, vital signs stable. Patient with no complaints this morning. Denies fever/chills. Objective Vitals Vital Signs Date Time Temp Pulse Resp B/P (MAP) Pulse Ox O2 Delivery O2 Flow Rate FiO2 02/13/17 04:18 89 02/13/17 04:00 98.2 76 18 118/66 (83) 98 02/13/17 00:16 77 02/13/17 00:00 98.3 72 17 108/72 (84) 100 02/12/17 20:21 82 02/12/17 20:02 95 Nasal Cannula 2.00 02/12/17 20:00 98.7 78 17 116/76 (89) 100 02/12/17 16:40 94 Nasal Cannula 2.00 02/12/17 16:10 98.7 78 21 154/84 (107) 100 I/O 02/12/17 02/12/17 02/12/17 02/13/17 02/13/17 02/13/17 07:00 15:00 23:00 07:00 15:00 23:00 Intake Total 1473 ml 480 ml 480 ml 240 ml Output Total 200 ml 600 ml 1500 ml 1200 ml Balance 1273 ml -120 ml -1020 ml -960 ml Intake Oral 480 ml 480 ml 240 ml IV Total 1473 ml Output Urine Total 200 ml 600 ml 1500 ml 1200 ml # Bowel Movements 0 0 Result Diagram: 02/13/17 0400 02/13/17 0400 Objective Remarks Gen.: No acute distress Head: Normocephalic. Atraumatic. EENT: Pupils equal round and reactive to light. Nose without drainage. Airway intact. Throat without injection. Cardiovascular: Regular rate and rhythm. No murmurs, rubs or gallops. Respiratory: Diffuse wheeze. No rhonchi. Abdomen: Soft, nontender, nondistended. No peritoneal signs. Musculoskeletal: No gross deformities. No edema. Skin: No obvious rashes or erythema. Neuro: Sensory and motor grossly intact. Cranial nerves II through XII grossly intact. Psych: Appropriate mood and affect Procedures None A/P Problem List: (1) Heat stroke ICD Code: T67.0XXA - Heatstroke and sunstroke, initial encounter Status: Acute (2) Metabolic acidosis, increased anion gap ICD Code: E87.2 - Acidosis Status: Acute (3) Hypokalemia ICD Code: E87.6 - Hypokalemia Status: Acute (4) Bacteremia ICD Code: R78.81 - Bacteremia Status: Acute Assessment and Plan 1. Heat stroke with metabolic acidosis, increased anion gap: Resolved with IV fluid hydration. DC IV fluids. 2. Hypocalcemia, hypokalemia: Resolved with supplementation. 3. Tobacco abuse: Counseled to quit smoking. 4. Alcohol abuse: Monitor for signs of withdrawal. [facility] protocol. 5. Wheezing on exam: Suspect COPD given long-term smoking history. Continue bronchodilators, steroids. 6. Bacteremia: Blood cultures growing staph coag negative. Patient initially treated with vancomycin and infectious disease was consulted. ID recommends dc antibiotics and following cultures. No growth to date 1 day. Restart abx if patient deteriorates clinically or if cultures are positive. 7. DVT prophylaxis: IVET Guerrero. Discharge Planning Pending culture results Problem Qualifiers (1) Heat stroke: Venus Cintron MD R3 Feb 13, 2017 13:07
[2017-02-14] VITALS (7 sets, daily range): BP systolic 126–157; BP diastolic 76–97; PULSE 75–94; RESP 18–21; TEMP 97–98.2; O2SAT 96–100
[2017-02-14] MEDS: RESP: ALBUTEROL 2.5 MG/IPRATROPIUM 0.5 MG NEB (SCH) NEB ×5 (03:29→21:22)
[2017-02-14 08:04] LABS: AUTOMATED NEUTROPHIL # 2.9 TH/MM3 (1.8-7.7); BASOPHIL % 0.3 % (0.0-2.0); EOSINOPHIL % 0.6 % (0.0-4.0); HEMO FLAGS DIFF FINAL; LYMPH % 22.5 % (9.0-44.0); LYMPHOCYTE # 1.1 TH/MM3 (1.0-4.8); MEAN CELL VOLUME 107.3 FL (80.0-100.0); MEAN CORPUSCULAR HEMOGLOBIN 36.6 PG (27.0-34.0); MEAN CORPUSCULAR HGB CONC 34.1 % (32.0-36.0); MONO % 15.4 % (0.0-8.0); NEUT % 61.2 % (16.0-70.0); PLATELET COUNT 118 TH/MM3 (150-450); RED CELL DISTRIBUTION WIDTH 15.8 % (11.6-17.2); WHITE BLOOD COUNT 4.7 TH/MM3 (4.0-11.0)
[2017-02-14 08:33] LABS: BICARBONATE 32.6 MEQ/L (21.0-32.0)
[2017-02-14 08:45] LABS: POTASSIUM 2.8 MEQ/L (3.5-5.1)
--- NOTE | 2017-02-14 09:40 | HHI.PR ---
Subjective Remarks no complains of pain states baseline- uses a cane- "hardware on right hip" good po admits to drinking beer, "in between homes" no diarrhea, no dysuria Objective Vitals Vital Signs Date Time Temp Pulse Resp B/P (MAP) Pulse Ox O2 Delivery O2 Flow Rate FiO2 02/14/17 08:44 99 02/14/17 08:00 97.0 75 20 147/76 (99) 98 02/14/17 04:00 97.1 94 18 157/84 (108) 98 02/13/17 21:18 95 02/13/17 20:00 98.2 94 17 129/75 (93) 98 02/13/17 16:48 98.2 73 20 136/75 (95) 99 02/13/17 12:00 97.1 98 20 159/92 (114) 97 I/O 02/13/17 02/13/17 02/13/17 02/14/17 02/14/17 02/14/17 07:00 15:00 23:00 07:00 15:00 23:00 Intake Total 240 ml 480 ml 720 ml 480 ml Output Total 1200 ml 950 ml 1200 ml 2000 ml Balance -960 ml -470 ml -480 ml -1520 ml Intake Oral 240 ml 480 ml 720 ml 480 ml Output Urine Total 1200 ml 950 ml 1200 ml 2000 ml # Bowel Movements 0 0 0 Result Diagram: 02/14/17 0637 02/14/17636 Imaging Last Impressions Head CT 02/09/171817 Signed Impressions: Service Date/Time: Thursday, February 09, 2017 19:19 - CONCLUSION: 1. No acute abnormality is seen. 2. Atrophy. Hernandez Santillan MD Chest X-Ray 02/09/171817 Signed Impressions: Service Date/Time: Thursday, February 09, 2017 18:40 - CONCLUSION: 1. No acute cardiopulmonary process. 2. Old left rib fractures. 3. Compression deformities at T8 and L1. The age of these deformities is not known. Hernandez Santillan MD Objective Remarks awake and alert, NAD, not tremulous anicteric lungs no rales regular rhythm abdomen soft, nontender extremities no edema, goo peripheral pulses neuro exam- non focal Procedures None A/P Problem List: (1) Heat stroke ICD Code: T67.0XXA - Heatstroke and sunstroke, initial encounter Status: Acute (2) Metabolic acidosis, increased anion gap ICD Code: E87.2 - Acidosis Status: Acute (3) Hypokalemia ICD Code: E87.6 - Hypokalemia Status: Acute (4) Bacteremia ICD Code: R78.81 - Bacteremia Status: Acute Assessment and Plan 87 years old male, homeless Heat stroke with metabolic acidosis, increased anion gap: Resolved with IV fluid hydration. DC IV fluids.- good po Hypokalemia- replace IV and po. Hypomagnesemia- check Mg level Hypocalcemia- improved, Tobacco abuse: Counseled to quit smoking. Alcohol abuse: Monitor for signs of withdrawal. [facility] protocol. Wheezing on exam 02/13- resolved : Suspect COPD given long-term smoking history. start scheduled MDI- albuterol and spririva. Bacteremia: Blood cultures growing staph coag negative. Patient initially treated with vancomycin and infectious disease was consulted. - likelu contaminant. Monitor T and cultures ID recommends dc antibiotics and following cultures. No growth to date DVT prophylaxis: SCDs, IVET hose. Increase activity- PT eval Discharge Planning Pending culture results Cm consult- DC needs Problem Qualifiers (1) Heat stroke: Nancy Jamison MD Feb 14, 2017 09:40
[2017-02-14 09:59] LABS: MAGNESIUM 1.3 MG/DL (1.5-2.5)
[2017-02-14] MEDS: ALBUTEROL SULFATE 90 MCG/ACT HFA 8 GM INHALER INH SCH ×3 (10:00→22:00)
[2017-02-14] MEDS: POTASSIUM CHLOR 10 MEQ PREMIX 100 ML IV SCH ×5 (11:00→19:43)
--- NOTE | 2017-02-14 13:07 | HHI.IDPN ---
Note Infectious Disease Note Patient feels okay. No complaints Afebrile. Repeat blood culture beltran no growth 48 hours. PAST MEDICAL HISTORY 1. Alcohol abuse. 2. The right hip and femur repair. ALLERGIES NO KNOWN DRUG ALLERGIES. ANTIBIOTICS: None OBJECTIVE: Vital Signs Date Time Temp Pulse Resp B/P (MAP) Pulse Ox O2 Delivery O2 Flow Rate FiO2 02/14/17 12:47 97.5 80 21 131/81 (98) 97 02/14/17 08:44 99 02/14/17 08:00 97.0 75 20 147/76 (99) 98 02/14/17 04:00 97.1 94 18 157/84 (108) 98 02/13/17 21:18 95 02/13/17 20:00 98.2 94 17 129/75 (93) 98 02/13/17 16:48 98.2 73 20 136/75 (95) 99 Laboratory Tests Test 02/13/17 04:00 02/14/17 06:37 White Blood Count 4.1 TH/MM3 4.7 TH/MM3 Red Blood Count 2.55 MIL/MM3 2.80 MIL/MM3 Hemoglobin 9.4 GM/DL 10.3 GM/DL Hematocrit 27.6 % 30.0 % Mean Corpuscular Volume 108.2 FL 107.3 FL Mean Corpuscular Hemoglobin 36.9 PG 36.6 PG Mean Corpuscular Hemoglobin Concent 34.1 % 34.1 % Red Cell Distribution Width 15.7 % 15.8 % Platelet Count 90 TH/MM3 118 TH/MM3 Mean Platelet Volume 9.4 FL 9.5 FL Neutrophils (%) (Auto) 62.4 % 61.2 % Lymphocytes (%) (Auto) 23.4 % 22.5 % Monocytes (%) (Auto) 12.8 % 15.4 % Eosinophils (%) (Auto) 0.8 % 0.6 % Basophils (%) (Auto) 0.6 % 0.3 % Neutrophils # (Auto) 2.6 TH/MM3 2.9 TH/MM3 Lymphocytes # (Auto) 1.0 TH/MM3 1.1 TH/MM3 Monocytes # (Auto) 0.5 TH/MM3 0.7 TH/MM3 Eosinophils # (Auto) 0.0 TH/MM3 0.0 TH/MM3 Basophils # (Auto) 0.0 TH/MM3 0.0 TH/MM3 CBC Comment AUTO DIFF DIFF FINAL Differential Comment AUTO DIFF CONFIRMED Laboratory Tests Test 02/13/17 04:00 02/14/17 06:37 Blood Urea Nitrogen 6 MG/DL 7 MG/DL Creatinine 0.39 MG/DL 0.49 MG/DL Random Glucose 97 MG/DL 99 MG/DL Calcium Level 8.2 MG/DL 9.2 MG/DL Sodium Level 136 MEQ/L 136 MEQ/L Potassium Level 3.2 MEQ/L 2.8 MEQ/L Chloride Level 99 MEQ/L 97 MEQ/L Carbon Dioxide Level 30.2 MEQ/L 32.6 MEQ/L Anion Gap 7 MEQ/L 6 MEQ/L Estimat Glomerular Filtration Rate 227 ML/MIN 174 ML/MIN Magnesium Level 1.3 MG/DL Microbiology Date/Time Source Procedure Growth Status 02/12/17 12:33 Blood Peripheral Aerobic Blood Culture - Preliminary NO GROWTH IN 2 DAYS Resulted 02/12/17 12:33 Blood Peripheral Anaerobic Blood Culture - Preliminary NO GROWTH IN 2 DAYS Resulted 02/12/17 12:28 Blood Peripheral Aerobic Blood Culture - Preliminary NO GROWTH IN 2 DAYS Resulted 02/12/17 12:28 Blood Peripheral Anaerobic Blood Culture - Preliminary NO GROWTH IN 2 DAYS Resulted PHYSICAL EXAMINATION GENERAL: Awake and he is in no acute distress. He is alert. HEENT: Extraocular movements grossly intact, pupils reactive to light. No icterus. The sclerae is pale daily. Oropharynx reveals poor dentition. No visible lesions. Mucosa is moist. NECK: Supple. No adenopathy. No swelling. LUNGS: Decreased clear breath sounds. HEART: Regular S1S2 without audible murmurs or rubs or gallops. ABDOMEN: Bowel sounds present, soft, no tenderness EXTREMITIES: No clubbing or cyanosis or edema. SKIN: No rash. NEUROLOGIC: No gross focal findings. PSYCHIATRIC: Calm and is cooperative. IMPRESSION 1. Positive blood cultures with Staph coagulase negative. Bacteremia. pseudobacteremia. 2. Heat stroke. 3. Currently the patient is clinically stable. RECOMMENDATIONS No antibiotics. Follow the blood culture until 72 hours. If negative he can be discharged from my standpoint. Issac Lao MD Feb 14, 2017 13:07
[2017-02-14] MEDS: THIAMINE HCL 100 MG TAB PO SCH (13:28)
[2017-02-14] MEDS: POTASSIUM CHLORIDE 20 MEQ CONTROLLED RELEASE TAB PO SCH ×2 (13:28→23:31)
[2017-02-14] MEDS: SODIUM CHLORIDE 0.9% FLUSH 10 ML FLUSH IV FLUSH SCH ×2 (13:29→23:31)
[2017-02-14] MEDS: TIOTROPIUM BROMIDE 18 MCG INH INH SCH (13:30)
[2017-02-14] MEDS: MAGNESIUM SULFATE 1 GM PREMIX 100 ML IV SCH ×2 (21:00→23:31)
[2017-02-15] VITALS (9 sets, daily range): BP systolic 97–151; BP diastolic 63–88; PULSE 79–113; RESP 14–18; TEMP 96.6–98.4; O2SAT 94–98
[2017-02-15] MEDS: RESP: ALBUTEROL 2.5 MG/IPRATROPIUM 0.5 MG NEB (SCH) NEB ×6 (01:30→20:32)
[2017-02-15] MEDS: ALBUTEROL SULFATE 90 MCG/ACT HFA 8 GM INHALER INH SCH ×3 (03:05→21:56)
[2017-02-15] MEDS: LORazepam 2 MG/ML VIAL IV PUSH PRN ×2 (03:25→07:31)
[2017-02-15] MEDS ORDERED: HALOPERIDOL LACTATE 5 MG/ML AMP IM PRN (03:45)
[2017-02-15] MEDS ORDERED: SODIUM CHLOR 0.9% 1000 ML INJ 1,000 ML IV SCH (04:00)
[2017-02-15 06:13] LABS: BICARBONATE 28.4 MEQ/L (21.0-32.0); MAGNESIUM 1.8 MG/DL (1.5-2.5); POTASSIUM 3.7 MEQ/L (3.5-5.1)
[2017-02-15] MEDS: SODIUM CHLORIDE 0.9% FLUSH 10 ML FLUSH IV FLUSH SCH ×2 (09:00→21:57)
[2017-02-15 09:37] LABS: BLOOD, URINE NEG (NEG); GLUCOSE,URINE NEG (NEG); KETONE, URINE NEG (NEG); NITRITE,URINE NEG (NEG); PH, URINE 7.5 (5.0-8.5); SQUAMOUS EPITHELIAL CELL URINE <1 /hpf (0-5); URINE COLOR LIGHT-YELLOW (YELLW/STRAW)
[2017-02-15 09:38] LABS: COMMENT (UR) CULT NOT INDICATED; CULTURE IF INDICATED CULT NOT INDICATED
[2017-02-15] MEDS: THIAMINE HCL 100 MG TAB PO SCH (10:04)
[2017-02-15] MEDS: POTASSIUM CHLORIDE 20 MEQ CONTROLLED RELEASE TAB PO SCH ×2 (10:05→21:57)
--- NOTE | 2017-02-15 10:42 | HHI.PR ---
Subjective Remarks patient confused- thinks he is in [employer] [facility] episodes of restlessness keeps getting out of bed- states uses a cane baseline denies any pain Objective Vitals Vital Signs Date Time Temp Pulse Resp B/P (MAP) Pulse Ox O2 Delivery O2 Flow Rate FiO2 02/15/17 09:07 96 02/15/17 08:00 97.0 84 18 140/82 (101) 95 02/15/17 04:00 96.6 91 17 132/81 (98) 94 02/15/17 01:30 98 02/15/17 00:00 97.7 82 14 151/88 (109) 96 02/14/17 21:22 96 21 02/14/17 21:16 97.3 90 18 157/97 (117) 100 02/14/17 16:59 98.2 84 20 126/77 (93) 97 02/14/17 12:47 97.5 80 21 131/81 (98) 97 I/O 02/14/17 02/14/17 02/14/17 02/15/17 02/15/17 02/15/17 07:00 15:00 23:00 07:00 15:00 23:00 Intake Total 480 ml 480 ml Output Total 2000 ml 600 ml 300 ml 350 ml Balance -1520 ml -120 ml -300 ml -350 ml Intake Oral 480 ml 480 ml Output Urine Total 2000 ml 600 ml 300 ml 350 ml # Voids 2 3 # Bowel Movements 0 Result Diagram: 02/14/17 0637 02/15/17 0450 Imaging Last Impressions Head CT 02/09/171817 Signed Impressions: Service Date/Time: Thursday, February 09, 2017 19:19 - CONCLUSION: 1. No acute abnormality is seen. 2. Atrophy. Hernandez Santillan MD Chest X-Ray 02/09/171817 Signed Impressions: Service Date/Time: Thursday, February 09, 2017 18:40 - CONCLUSION: 1. No acute cardiopulmonary process. 2. Old left rib fractures. 3. Compression deformities at T8 and L1. The age of these deformities is not known. Hernandez Santillan MD Objective Remarks awake and alert, NAD, not tremulous, confused, ff all commands appropriately anicteric lungs no rales regular rhythm abdomen soft, nontender extremities no edema, goo peripheral pulses, mvoes all extremities neuro exam- non focal Procedures None A/P Problem List: (1) Heat stroke ICD Code: T67.0XXA - Heatstroke and sunstroke, initial encounter Status: Acute (2) Metabolic acidosis, increased anion gap ICD Code: E87.2 - Acidosis Status: Acute (3) Hypokalemia ICD Code: E87.6 - Hypokalemia Status: Acute (4) Bacteremia ICD Code: R78.81 - Bacteremia Status: Acute Assessment and Plan 87 years old male, homeless Heat stroke with metabolic acidosis, increased anion gap: Resolved with IV fluid hydration. DC IV fluids.- good po Hypokalemia- replaced Hypomagnesemia- improved Hypocalcemia- improved, Tobacco abuse: Counseled to quit smoking. Alcohol abuse: Monitor for signs of withdrawal. [facility] protocol. Wheezing on exam 02/13- resolved : Suspect COPD given long-term smoking history. start scheduled MDI- albuterol and spririva. Bacteremia: Blood cultures growing staph coag negative. Patient initially treated with vancomycin and infectious disease was consulted. - likelu contaminant. Monitor T and cultures ID recommends dc antibiotics and following cultures if negative for 72 hours. No growth to date DVT prophylaxis: SCDs, IVET hose. Increase activity- PT eval Acute Deleirium- r/o ETOH dementia get psychiatry consult Discharge Planning Pending culture results Cm consult- DC needs- homeless Problem Qualifiers (1) Heat stroke: Nancy Jamison MD Feb 15, 2017 10:42
[2017-02-15] MEDS: TIOTROPIUM BROMIDE 18 MCG INH INH SCH (11:51)
[2017-02-15] MEDS ORDERED: MAGNESIUM OXIDE 400 MG TAB PO ONE (18:30)
--- NOTE | 2017-02-15 20:00 | PD.PSY.CON ---
Provisional Diagnosis Admission Date Feb 09, 2017 at 21:32 [place]. Delirium due an underline medical condition History of Present Illness Service Psychiatry Consult Requested By Reason for Consult Confusion and agitation Primary Care Physician No Primary Care Physician HPI The patient is a 61 year-old Telugu man, homeless, single, no family, no social support, with no previous psychiatric history other than alcohol use disorder, no psychiatric hospitalizations, no previous SAs, no significant medical history , hospitalized due to Heat stroke with metabolic acidosis, increased anion gap: Resolved with IV fluid hydration, also metabolic acidosis and delirium and alcohol withdrawal managed with CIWA. Consulted to psychiatry due to agitation. On psychiatric evaluation patient is found guarded, but redirectable and partially cooperative. Patient explains he is here due to heat stroke and due to alcoholism. He says he now is starting to fell much better and recognized has been episodically confused. He denies depressive symptoms, anxiety, brenda and psychosis. He denies paranoia, delusions. No disorganized behavior or thought, tangentiality, ideas of reference, agitation or aggressive behavior observed. He denies SI/HIVH/AH. He is oriented times 3. he knows [employer] of [employer] is [employer], can repeat three words, but jus recall 1 in 5 minutes, with conserved recognition and unable to fully assessed other aspects of cognition due to lack of cooperation. But attention seems to be fine, concentration also, no fluctuation of consciousness present at this moment. But , as per conversation with Nurse in charge Nancy, agitation and impaired level of consciousness have been episodic. At some point patient has become even kind of difficult to manage in the floor to the point he had to be medicated with haldol im. patient denies use of illicit drugs, but reporst daily use of alcohol , failing to quantifying and qualifying. Review of Systems Constitutional: DENIES: Diaphoretic episodes, Fatigue, Fever, Weight gain, Weight loss, Chills, Dizziness, Change in appetite, Night Sweats Endocrine: DENIES: Heat/cold intolerance, Polydipsia, Polyuria, Polyphagia Eyes: DENIES: Blurred vision, Diplopia, Eye inflammation, Eye pain, Vision loss , Photosensitivity, Double Vision Ears, nose, mouth, throat: DENIES: Tinnitus, Hearing loss, Vertigo, Nasal discharge, Oral lesions, Throat pain, Hoarseness, Ear Pain, Running Nose, Epistaxis, Sinus Pain, Toothache, Odynophagia Respiratory: DENIES: Apneas, Cough, Snoring, Wheezing, Hemoptysis, Sputum production, Shortness of breath Cardiovascular: DENIES: Chest pain, Palpitations, Syncope, Dyspnea on Exertion , PND, Lower Extremity Edema, Orthopnea, Claudication Gastrointestinal: DENIES: Abdominal pain, Black stools, Bloody stools, Constipation, Diarrhea, Nausea, Vomiting, Difficulty Swallowing, Anorexia Musculoskeletal: DENIES: Joint pain, Muscle aches, Stiffness, Joint Swelling, Back pain, Neck pain Integumentary: DENIES: Abnormal pigmentation, Nail changes, Pruritus, Rash Hematologic/lymphatic: DENIES: Bruising, Lymphadenopathy Immunologic/allergic: DENIES: Eczema, Urticaria Psychiatric: COMPLAINS OF: Confusion, DENIES: Anxiety, Mood changes, Depression , Hallucinations, Agitation, Suicidal Ideation, Homicidal Ideation, Delusions Past Family Social History Coded Allergies: No Known Allergies (Verified , 02/09/17) No Active Prescriptions or Reported Meds Current Medications Medications (Trade) Dose Ordered Sig/[place] Route Start Time Stop Time Status Last Admin (NS Flush) 2 ml UNSCH PRN IV FLUSH 02/09/17 21:30 (NS Flush) 2 ml BID IV FLUSH 02/10/17 09:00 02/14/17 23:31 (Narcan Inj) 0.4 mg UNSCH PRN IV 02/09/17 21:30 (Romazicon Inj) 0.2 mg Q1M PRN IV PUSH 02/10/17 09:30 (Ativan) 1 mg Q4H PRN PO 02/10/17 09:30 02/14/17 23:31 (Ativan Inj) 1 mg Q4H PRN IV PUSH 02/10/17 09:30 (Ativan) 2 mg Q2H PRN PO 02/10/17 09:30 (Ativan Inj) 2 mg Q2H PRN IV PUSH 02/10/17 09:30 02/15/17 07:31 (Ativan Inj) 2 mg Q1H PRN IV PUSH 02/10/17 09:30 02/15/17 04:20 (Ativan Inj) 2 mg Q15M PRN IV PUSH 02/10/17 09:30 (Vitamin B1) 100 mg DAILY PO 02/11/17 09:00 02/15/17 10:04 (Duoneb Neb) 1 ampule Q4HR NEB NEB 02/12/17 16:00 02/15/17 16:53 (Proair Hfa Inh) 2 puff Q6H INH 02/14/17 10:00 02/14/17 22:00 (Spiriva Inh) 18 mcg DAILY INH 02/14/17 10:00 02/15/17 11:51 (KCl) 20 meq Q12HR PO 02/14/17 10:00 02/15/17 10:05 (Haldol Inj) 2 mg Q15M PRN IM 02/15/17 03:45 02/15/17 04:06 Family History he denies psychiatric history in his family Social History born and raised in [place], he is homeless in the area of [place], single, unemployed, no social or family support. Patient's Strengths (min. 2) verbal communication Physical Exam no tremors, No withdrawal symptoms, no EPS, no pupillaries abnormalities, Vital Signs Vital Signs Date Time Temp Pulse Resp B/P (MAP) Pulse Ox O2 Delivery O2 Flow Rate FiO2 02/15/17 16:00 96.9 88 18 142/84 (103) 97 02/14/17 21:22 21 02/12/17 20:02 Nasal Cannula 2.00 I/O 02/15/17 02/15/17 02/16/17 08:00 16:00 00:00 Intake Total 360 ml Output Total 350 ml Balance -350 ml 360 ml Lab Results Test 02/15/17 04:50 02/15/17 07:00 Blood Urea Nitrogen 11 MG/DL Creatinine 0.61 MG/DL Random Glucose 89 MG/DL Calcium Level 9.4 MG/DL Magnesium Level 1.8 MG/DL Sodium Level 133 MEQ/L Potassium Level 3.7 MEQ/L Chloride Level 94 MEQ/L Carbon Dioxide Level 28.4 MEQ/L Anion Gap 11 MEQ/L Estimat Glomerular Filtration Rate 135 ML/MIN Urine Color LIGHT-YELLOW Urine Turbidity CLEAR Urine pH 7.5 Urine Specific [place] 1.005 Urine Protein NEG mg/dL Urine Glucose (UA) NEG mg/dL Urine Ketones NEG mg/dL Urine Occult Blood NEG Urine Nitrite NEG Urine Bilirubin NEG Urine Urobilinogen LESS THAN 2.0 MG/DL Urine Leukocyte Esterase SMALL Urine WBC LESS THAN 1 /hpf Urine Squamous Epithelial Cells <1 /hpf Microscopic Urinalysis Comment CULT NOT INDICATED Date/Time Source Procedure Growth Status 8/19/17 12:33 Blood Peripheral Aerobic Blood Culture - Preliminary NO GROWTH IN 3 DAYS Resulted 02/12/17 12:33 Blood Peripheral Anaerobic Blood Culture - Preliminary NO GROWTH IN 3 DAYS Resulted 02/09/17 19:50 Stool Stool Cryptosporidium Exam - Final NEGATIVE - NO CRYPTOSPORIDIUM ANTIGEN... Complete 02/09/17 19:50 Stool Stool Stool Pus (RICH) - Final RARE WBC Complete 02/09/17 19:50 Stool Stool Giardia Antigen (RICH) - Final NEGATIVE - NO GIARDIA ANTIGEN DETECTE... Complete 02/09/17 18:40 Urine Random Urine Urine Culture - Final NO GROWTH IN 48 HOURS. Complete Mental Status Examination Appearance cachetic, acutely-chronically ill man, poor hygiene, superficially cooperative Speech: Hesitant, Slow Orientation: x3 Thought Process: Logical, Goal Directed Thought Content: Unremarkable Hallucination Type: None Suicidal Ideation: No Previous Suicide Attempts: No Homicidal Ideation: No Previous Homicide Attempts: No Judgment: WNL Affect: Irritable Affect if Inappropriate: Flat Mood: Irritable Motor Activity: Normal gait Assessment & Plan Problem List: (1) Delirium due to another medical condition ICD Codes: F05 - Delirium due to known physiological condition Assessment & Plan: Patient does not present any acute neuropsychiatric symptoms at the moment of this evaluation that requires an immediate psychiatric intervention. Patient denies depressive symptoms, denies anxiety, brenda and psychosis. No agitation, aggressive behavior, no paranoia, delusion, attention deficit, fluctuation of consciousness, gross memory deficits present at the moment of this evaluation. Periodic agitation, disorganization, restlessness, confusion seems to be related with delirium secondary to underline medical conditions. Patient also high risk for alcohol withdrawal.Continue CIWA protocol. Haldol 1-2 mg Q4 hours IM PRN agitation and aggressiveness. Add Seroquel 25 mg bid for behavioral dysregulation prevention and delirium. Will follow up. Assessment & Plan Estimated LOS: Paulo Gupta MD Feb 15, 2017 20:00
[2017-02-16] VITALS: BP 98/64; PULSE 112; RESP 18; TEMP 98.4; O2SAT 95
[2017-02-16] MEDS: RESP: ALBUTEROL 2.5 MG/IPRATROPIUM 0.5 MG NEB (SCH) NEB ×4 (00:38→12:44)
[2017-02-16 04:00] VITALS: BP 112/74; PULSE 100; RESP 18; TEMP 98; O2SAT 97
[2017-02-16] MEDS: ALBUTEROL SULFATE 90 MCG/ACT HFA 8 GM INHALER INH SCH ×3 (04:39→20:47)
[2017-02-16 07:11] LABS: BICARBONATE 29.2 MEQ/L (21.0-32.0); POTASSIUM 4.2 MEQ/L (3.5-5.1)
[2017-02-16 07:50] VITALS: BP 121/84; PULSE 91; RESP 20; TEMP 97.6; O2SAT 98
[2017-02-16] MEDS ORDERED: QUEtiapine FUMARATE 25 MG TAB PO SCH (09:00)
--- NOTE | 2017-02-16 10:02 | HHI.PR ---
Subjective Remarks patient awake and alert, appropriate- not confused- more interactive- more info obtained from him- seen with CM homeless good po 100% baseline ambulates with a cane Objective Vitals Vital Signs Date Time Temp Pulse Resp B/P (MAP) Pulse Ox O2 Delivery O2 Flow Rate FiO2 02/16/17 07:50 97.6 91 20 121/84 (96) 98 02/16/17 04:00 98.0 100 18 112/74 (87) 97 02/16/17 00:00 98.4 112 18 98/64 (75) 95 02/15/17 20:32 98 21 02/15/17 20:00 98.4 113 18 97/63 (74) 96 02/15/17 16:00 96.9 88 18 142/84 (103) 97 02/15/17 12:00 98.1 79 18 138/79 (98) 96 I/O 02/15/17 02/15/17 02/15/17 02/16/17 02/16/17 02/16/17 07:00 15:00 23:00 07:00 15:00 23:00 Intake Total 360 ml 240 ml Output Total 350 ml 120 ml 400 ml Balance -350 ml 360 ml -120 ml -160 ml Intake Oral 360 ml 240 ml Output Urine Total 350 ml 120 ml 400 ml # Voids 2 5 2 # Bowel Movements 0 Result Diagram: 02/14/17 0637 02/16/17 0635 Imaging Last Impressions Head CT 02/09/171817 Signed Impressions: Service Date/Time: Thursday, February 09, 2017 19:19 - CONCLUSION: 1. No acute abnormality is seen. 2. Atrophy. Hernandez Santillan MD Chest X-Ray 02/09/171817 Signed Impressions: Service Date/Time: Thursday, February 09, 2017 18:40 - CONCLUSION: 1. No acute cardiopulmonary process. 2. Old left rib fractures. 3. Compression deformities at T8 and L1. The age of these deformities is not known. Hernandez Santillan MD Objective Remarks awake and alert, NAD, oriented x 3 anicteric lungs no rales regular rhythm abdomen soft, nontender extremities no edema, goo peripheral pulses, moves all extremities ambulated with a cane around his room- slow but steady neuro exam- non focal Procedures None A/P Problem List: (1) Heat stroke ICD Code: T67.0XXA - Heatstroke and sunstroke, initial encounter Status: Acute (2) Metabolic acidosis, increased anion gap ICD Code: E87.2 - Acidosis Status: Acute (3) Hypokalemia ICD Code: E87.6 - Hypokalemia Status: Acute (4) Bacteremia ICD Code: R78.81 - Bacteremia Status: Acute Assessment and Plan 87 years old male, homeless Heat stroke with metabolic acidosis, increased anion gap: Resolved with IV fluid hydration. DC IV fluids.- good po Hypokalemia- corrected Hypomagnesemia- improved Hypocalcemia- improved, Tobacco abuse: Counseled to quit smoking. Alcohol abuse: Monitor for signs of withdrawal. CIWA protocol. Suspect COPD given long-term smoking history.- lungs no wheezes on exam. scheduled MDI- albuterol and spririva. Bacteremia: Blood cultures growing staph coag negative. Patient initially treated with vancomycin and infectious disease was consulted. - likelu contaminant. Monitor T and cultures ID recommends dc antibiotics and following cultures if negative for 72 hours. No growth to date negative x 3 days. will discontinue antibiotics DVT prophylaxis: SCDs, IVET hose. Increase activity- PT eval Acute Delirium- MS much improved. appropriate and gave accurate info started on Seroquel- decrease to 12.5 mg po bid Discharge Planning Cm consult- DC needs- homeless Problem Qualifiers (1) Heat stroke: Nancy Jamison MD Feb 16, 2017 10:02
[2017-02-16] MEDS: POTASSIUM CHLORIDE 20 MEQ CONTROLLED RELEASE TAB PO SCH ×2 (10:10→20:46)
[2017-02-16] MEDS: TIOTROPIUM BROMIDE 18 MCG INH INH SCH (10:10)
[2017-02-16] MEDS: THIAMINE HCL 100 MG TAB PO SCH (10:10)
[2017-02-16] MEDS ORDERED: PILL SPLITTER OTHER PRN (11:00)
[2017-02-16 11:50] VITALS: BP 114/69; PULSE 105; RESP 20; TEMP 97.7; O2SAT 97
[2017-02-16] MEDS: QUEtiapine FUMARATE 25 MG TAB PO SCH (13:43)
[2017-02-16 15:50] VITALS: BP 98/63; PULSE 100; RESP 20; TEMP 98.1; O2SAT 97
[2017-02-16 20:00] VITALS: BP 116/80; PULSE 93; RESP 18; TEMP 97.4; O2SAT 100
[2017-02-16] MEDS: SODIUM CHLORIDE 0.9% FLUSH 10 ML FLUSH IV FLUSH SCH (20:50)
[2017-02-17] VITALS: BP 120/81; PULSE 99; RESP 18; TEMP 97; O2SAT 98
[2017-02-17 04:00] VITALS: BP 119/80; PULSE 98; RESP 18; TEMP 97.6; O2SAT 97
[2017-02-17] MEDS: ALBUTEROL SULFATE 90 MCG/ACT HFA 8 GM INHALER INH SCH ×2 (04:00→10:13)
[2017-02-17 07:50] VITALS: BP 117/82; PULSE 107; RESP 18; TEMP 99.8; O2SAT 99
--- NOTE | 2017-02-17 07:50 | HHI.PR ---
Subjective Remarks no complains- good po 100% no nausea or vomiting ambulating well no trmors, gait steady Objective Vitals Vital Signs Date Time Temp Pulse Resp B/P (MAP) Pulse Ox O2 Delivery O2 Flow Rate FiO2 02/17/17 04:00 97.6 98 18 119/80 (93) 97 02/17/17 00:00 97.0 99 18 120/81 (94) 98 02/16/17 20:00 97.4 93 18 116/80 (92) 100 02/16/17 15:50 98.1 100 20 98/63 (75) 97 02/16/17 11:50 97.7 105 20 114/69 (84) 97 02/16/17 07:50 97.6 91 20 121/84 (96) 98 I/O 02/16/17 02/16/17 02/16/17 02/17/17 02/17/17 02/17/17 07:00 15:00 23:00 07:00 15:00 23:00 Intake Total 240 ml 541 ml 480 ml 720 ml Output Total 400 ml 300 ml 1225 ml 700 ml Balance -160 ml 241 ml -745 ml 20 ml Intake Oral 240 ml 541 ml 480 ml 720 ml Output Urine Total 400 ml 300 ml 1225 ml 700 ml # Bowel Movements 1 Result Diagram: 02/14/17 0637 02/16/17 0635 Imaging Last Impressions Head CT 02/09/171817 Signed Impressions: Service Date/Time: Thursday, February 09, 2017 19:19 - CONCLUSION: 1. No acute abnormality is seen. 2. Atrophy. Hernandez Santillan MD Chest X-Ray 02/09/171817 Signed Impressions: Service Date/Time: Thursday, February 09, 2017 18:40 - CONCLUSION: 1. No acute cardiopulmonary process. 2. Old left rib fractures. 3. Compression deformities at T8 and L1. The age of these deformities is not known. Hernandez Santillan MD Objective Remarks awake and alert, NAD, oriented x 3 anicteric lungs no rales regular rhythm abdomen soft, nontender extremities no edema, good peripheral pulses moves all extremities ambulated with a cane around his room- slow but steady neuro exam- non focal Procedures None A/P Problem List: (1) Heat stroke ICD Code: T67.0XXA - Heatstroke and sunstroke, initial encounter Status: Acute (2) Metabolic acidosis, increased anion gap ICD Code: E87.2 - Acidosis Status: Acute (3) Hypokalemia ICD Code: E87.6 - Hypokalemia Status: Acute (4) Bacteremia ICD Code: R78.81 - Bacteremia Status: Acute Assessment and Plan 87 years old male, homeless Heat stroke with metabolic acidosis, increased anion gap: off fluids.- good po Hypokalemia- corrected, KCL daily Hypomagnesemia- improved Hypocalcemia- improved, Tobacco abuse: Counseled to quit smoking. Alcohol abuse: Monitor for signs of withdrawal. CIWA protocol.- no signs of DTs. advised extensively Suspect COPD given long-term smoking history.- lungs no wheezes on exam. scheduled MDI- albuterol and spririva.- lungs clear Bacteremia: Blood cultures growing staph coag negative. Patient initially treated with vancomycin and infectious disease was consulted. - likelu contaminant. Monitor T and cultures No growth to date repeat cultures negative -off antibiotics DVT prophylaxis: SCDs, IVET hose. Increase activity- PT eval Acute Delirium- Resolved. appropriate and gave accurate info on Seroquel- decrease to 12.5 mg po bid Discharge Planning Cm consult- DC needs- homeless- [employer]- been there="refused" assist with DC meeds- meds. transport etch also to give info on [facility]- for supprt system Problem Qualifiers (1) Heat stroke: Nancy Jamison MD Feb 17, 2017 07:50
[2017-02-17] MEDS ORDERED: SPIRCAP INH (07:55)
[2017-02-17] MEDS ORDERED: POTA20TA5 PO (07:55)
[2017-02-17] MEDS ORDERED: QUET1TAB7 PO (07:55)
[2017-02-17] MEDS ORDERED: VENTAER INH (07:55)
[2017-02-17] MEDS: THIAMINE HCL 100 MG TAB PO SCH (10:11)
[2017-02-17] MEDS: POTASSIUM CHLORIDE 20 MEQ CONTROLLED RELEASE TAB PO SCH (10:12)
[2017-02-17] MEDS: QUEtiapine FUMARATE 25 MG TAB PO SCH (10:12)
[2017-02-17] MEDS: TIOTROPIUM BROMIDE 18 MCG INH INH SCH (10:16)
[2017-02-17 11:25] VITALS: BP 117/76; PULSE 97; RESP 17; TEMP 96.6; O2SAT 99
--- NOTE | 2017-03-15 15:22 | HHI.DS ---
Discharge Summary Admission Date Feb 09, 2017 at 21:32 Discharge Date: Feb 17, 2017 Admitting Diagnosis HEAT STROKE, ANION GAP ACIDOSIS, HYPOKALEMIA (1) Heat stroke ICD Code: T67.0XXA - Heatstroke and sunstroke, initial encounter Diagnosis: Principal Status: Acute (2) Metabolic acidosis, increased anion gap ICD Code: E87.2 - Acidosis Diagnosis: Principal Status: Acute (3) Hypokalemia ICD Code: E87.6 - Hypokalemia Diagnosis: Principal Status: Acute (4) Bacteremia ICD Code: R78.81 - Bacteremia Diagnosis: Secondary Status: Acute Procedures None Brief History - From Admission Written by Nicol Logan, acting as scribe for [Tate] on 02/10/17 at 02:50. 61 y/o male with no medical history and on no medication was [place] in by [facility] [place]. Patient states he went to the beach, had a beer and then fell asleep. He was then found by beach patrol in the evening after being in the sun all day long. Per ER he did have diarrhea when he arrived. He denies any chest pain, worsening sob, fever, chills, nausea, or vomiting. He does complaining of getting dizzy at times when he stands up and it has been going on for at least a year. Also reports of urinary burning and pain. Noted to have poor dentition, congested cough (which according to him is chronic with worsening, and due to smoking). Reports he has been on the streets/ homeless. Imaging Last Impressions Head CT 02/09/171817 Signed Impressions: Service Date/Time: Thursday, February 09, 2017 19:19 - CONCLUSION: 1. No acute abnormality is seen. 2. Atrophy. Hernandez Santillan MD Chest X-Ray 02/09/171817 Signed Impressions: Service Date/Time: Tuesday, February 09, 2017 18:40 - CONCLUSION: 1. No acute cardiopulmonary process. 2. Old left rib fractures. 3. Compression deformities at T8 and L1. The age of these deformities is not known. Hernandez Santillan MD PE at Discharge awake and alert, NAD, oriented x 3 anicteric lungs no rales regular rhythm abdomen soft, nontender extremities no edema, good peripheral pulses moves all extremities ambulated with a cane around his room- slow but steady neuro exam- non focal Pt update on day of discharge no complains- good po 100% no nausea or vomiting ambulating well no trmors, gait steady Hospital Course 87 years old male, homeless Heat stroke with metabolic acidosis, increased anion gap: off fluids.- good po Hypokalemia- corrected, KCL daily Hypomagnesemia- improved Hypocalcemia- improved, Tobacco abuse: Counseled to quit smoking. Alcohol abuse: Monitor for signs of withdrawal. CIWA protocol.- no signs of DTs. advised extensively Suspect COPD given long-term smoking history.- lungs no wheezes on exam. scheduled MDI- albuterol and spririva.- lungs clear Bacteremia: Blood cultures growing staph coag negative. Patient initially treated with vancomycin and infectious disease was consulted. - likelu contaminant. Monitor T and cultures No growth to date repeat cultures negative -off antibiotics DVT prophylaxis: SCDs, IVET hose. Increase activity- PT eval Acute Delirium- Resolved. appropriate and gave accurate info on Seroquel- decrease to 12.5 mg po bid Discharge Planning Cm consult- DC needs- homeless- [employer]- been there="refused" assist with DC meeds- meds. transport etch also to give info on [facility]- for supprt system Pt Condition on Discharge: Stable Discharge Disposition: Discharge Home Discharge Time: <= 30 minutes Discharge Instructions DIET: Follow Instructions for: As Tolerated, No Restrictions Speech Therapy-Diet Recommends: Regular Activities you can perform: Weight Bearing as [place] Activities to Avoid: Strenuous Activity Follow up Referrals: PCP Follow-up - 1 Week with [facility] Psychiatry Adult - 2-3 Days with [facility] New Orders: BASIC METABOLIC PROF - 10 Days New Medications: Albuterol 18 GM Inh (Ventolin Hfa 18 GM Inh) 90 Mcg/Act Aer 2 PUFF INH Q6H for COPD for 30 Days, #1 INHALER 1 Refill Potassium Chloride Microencaps (Potassium Chloride Microencaps) 20 Meq Tab 20 MEQ PO Q12HR for elect for 10 Days, TAB Quetiapine (Quetiapine) 25 Mg Tab 12.5 MG PO BID@09,12 for DELI for 30 Days, #60 TAB Tiotropium Inh (Spiriva Handihaler) 18 Mcg Cap 18 MCG INH DAILY for COPD for 30 Days, #1 CAP 1 Refill 1 capsule = 18 mcg Nancy Jamison MD Mar 15, 2017 15:22
== END 2017-02-17 13:13 | disposition home or self-care (01) | DRG 923 ==
LOC: NEPC 18:12 → NEDA 21:32 → HIME 23:35 → HOCB 02-11 18:00
PROVIDERS: ADMIT Internal Medicine; ATTEND Internal Medicine
DX: T67.0XXA Heatstroke and sunstroke, initial encounter (principal); N17.9 Acute kidney failure, unspecified; R64 Cachexia; E87.2 Acidosis; F05 Delirium due to known physiological condition; Z68.1 Body mass index [BMI] 19.9 or less, adult; E83.51 Hypocalcemia; E87.6 Hypokalemia; F17.210 Nicotine dependence, cigarettes, uncomplicated; R40.4 Transient alteration of awareness; E86.0 Dehydration; F10.20 Alcohol dependence, uncomplicated; J44.9 Chronic obstructive pulmonary disease, unspecified; E83.42 Hypomagnesemia; I10 Essential (primary) hypertension; R45.1 Restlessness and agitation; Z59.0 Homelessness
CPT/HCPCS: 36600; 51702; 70450; 71010; 80048; 80053; 80307; 81001; 82550; 82805; 83605; 83735; 84100; 84155; 84484; 85025; 86403; 87040; 87077; 87086; 87186; 87205; 87328; 87329; 87493; 87506; 87641; 93005; 94640; 94664; 96361; 96365; 96368; J0610; J1630; J2060; J3370; J3475; J3480; J7030; J7050; J7512

== ENCOUNTER 2017-02-18 14:38 | Emergency (ER) | payer SELFPAY ==
[~2017-02-18] VITALS: Ht 167.6 cm; Wt 65.0 kg
[~2017-02-18 14:38] MED LIST changes: -DICL75 PO; +POTA20TA5 PO; +QUET1TAB7 PO; -ROBA750T3 PO; +SPIRCAP INH; +VENTAER INH
[2017-02-18 14:49] VITALS: BP 124/75; PULSE 106; RESP 15; TEMP 98; O2SAT 98
[2017-02-18] MEDS ORDERED: SODIUM CHLOR 0.9% 1000 ML INJ 1,000 ML IV SCH (22:18)
--- NOTE | 2017-02-18 22:25 | PD ---
HPI Chief Complaint: General Weakness Time Seen by Provider: 22:13 Travel History International Travel<30 days: No Contact w/Intl Traveler<30days: No Traveled to known affect area: No History of Present Illness HPI 61-year-old male complains of generalized malaise and weakness and shaky. Patient states that the symptoms started about 2 weeks ago. Patient was admitted to [facility] February 09 and discharged yesterday with diagnosis of, metabolic acidosis, hypokalemia, bacteremia, and homelessness. Patient states that he has not had any alcohol drinking for the past week. Patient states that he ate breakfast today and drink some water today. Patient denies any headache. Patient denies any chest pain or shortness of breath. Patient denies abdominal pain. Patient denies any back pain. Patient denies any focal weakness or numbness of extremity. Patient denies any nausea vomiting diarrhea. Patient denies any illicit drug abuse. Patient has history of COPD. PFSH Past Medical History Cardiovascular Problems: No Diminished Hearing: No Hypertension: Yes Musculoskeletal: No Neurologic: No Respiratory: No Social History Alcohol Use: Yes (1 PINT OF VODKA/WEEKLY OR 1 6-PK OF BEER/DAILY X 20 YRS) Tobacco Use: Yes (2 PKS/DAILY X 35 YRS) Substance Use: No Allergies-Medications (Allergen,Severity, Reaction): Coded Allergies: No Known Allergies (Verified , 02/09/17) Reported Meds & Prescriptions Reported Meds & Active Scripts Active Potassium Chloride Microencaps 20 Meq Tab 20 Meq PO Q12HR 10 Days Quetiapine (Quetiapine Fumarate) 25 Mg Tab 12.5 Mg PO BID@09,12 30 Days Ventolin Hfa 18 GM Inh (Albuterol Sulfate) 90 Mcg/Act Aer 2 Puff INH Q6H 30 Days Spiriva Handihaler (Tiotropium Inh) 18 Mcg Cap 18 Mcg INH DAILY 30 Days 1 capsule = 18 mcg Review of Systems General / Constitutional: No: Fever Eyes: No: Visual changes HENT: No: Headaches Cardiovascular: No: Chest Pain or Discomfort Respiratory: No: Shortness of Breath Gastrointestinal: No: Abdominal Pain Genitourinary: No: Dysuria Musculoskeletal: No: Pain Skin: No Rash Neurologic: No: Weakness Psychiatric: No: Depression Endocrine: No: Polydipsia Hematologic/Lymphatic: No: Easy Bruising Physical Exam Narrative GENERAL: Well-nourished, well-developed patient. SKIN: Focused skin assessment warm/dry. HEAD: Normocephalic. EYES: No scleral icterus. No injection or drainage. NECK: Supple, trachea midline. No JVD or lymphadenopathy. CARDIOVASCULAR: Regular rate and rhythm without murmurs, gallops, or rubs. RESPIRATORY: Breath sounds equal bilaterally. No accessory muscle use. GASTROINTESTINAL: Abdomen soft, non-tender, nondistended. MUSCULOSKELETAL: No cyanosis, or edema. BACK: Nontender without obvious deformity. No CVA tenderness. Neurologic exam: Patient's awake and alert oriented 3. Patient has mild shaking of extremity. No obvious focal neurological deficit. Data Data Last Documented VS Vital Signs Date Time Temp Pulse Resp B/P (MAP) Pulse Ox O2 Delivery O2 Flow Rate FiO2 02/18/17 23:17 88 16 128/71 (90) 99 02/18/17 14:49 98.0 Orders Orders Complete Blood Count With Diff (02/18/17 22:18) Comprehensive Metabolic Panel (02/18/17 22:18) Urinalysis - C+S If Indicated (02/18/17 22:18) Iv Access Insert/Monitor (02/18/17 22:18) Ecg Monitoring (02/18/17 22:18) Oximetry (02/18/17 22:18) Sodium Chlor 0.9% 1000 Ml Inj (Ns 1000 M (02/18/17 22:18) Lorazepam Inj (Ativan Inj) (02/18/17 22:30) Thiamine Inj (Thiamine Inj) (02/18/17 22:30) Labs Laboratory Tests Test 02/18/17 22:34 White Blood Count 5.4 TH/MM3 Red Blood Count 2.96 MIL/MM3 Hemoglobin 10.9 GM/DL Hematocrit 31.8 % Mean Corpuscular Volume 107.7 FL Mean Corpuscular Hemoglobin 36.8 PG Mean Corpuscular Hemoglobin Concent 34.2 % Red Cell Distribution Width 15.5 % Platelet Count 289 TH/MM3 Mean Platelet Volume 9.9 FL Neutrophils (%) (Auto) 60.0 % Lymphocytes (%) (Auto) 22.6 % Monocytes (%) (Auto) 15.6 % Eosinophils (%) (Auto) 0.5 % Basophils (%) (Auto) 1.3 % Neutrophils # (Auto) 3.2 TH/MM3 Lymphocytes # (Auto) 1.2 TH/MM3 Monocytes # (Auto) 0.8 TH/MM3 Eosinophils # (Auto) 0.0 TH/MM3 Basophils # (Auto) 0.1 TH/MM3 CBC Comment DIFF FINAL Differential Comment Urine Color LIGHT-YELLOW Urine Turbidity CLEAR Urine pH 6.0 Urine Specific [place] 1.004 Urine Protein NEG mg/dL Urine Glucose (UA) NEG mg/dL Urine Ketones NEG mg/dL Urine Occult Blood NEG Urine Nitrite NEG Urine Bilirubin NEG Urine Urobilinogen LESS THAN 2.0 MG/DL Urine Leukocyte Esterase NEG Urine WBC LESS THAN 1 /hpf Microscopic Urinalysis Comment CULT NOT INDICATED Blood Urea Nitrogen 21 MG/DL Creatinine 0.68 MG/DL Random Glucose 105 MG/DL Total Protein 7.6 GM/DL Albumin 3.2 GM/DL Calcium Level 8.2 MG/DL Alkaline Phosphatase 130 U/L Aspartate Amino Transf (AST/SGOT) 55 U/L Alanine Aminotransferase (ALT/SGPT) 71 U/L Total Bilirubin 0.3 MG/DL Sodium Level 128 MEQ/L Potassium Level 4.6 MEQ/L Chloride Level 95 MEQ/L Carbon Dioxide Level 22.9 MEQ/L Anion Gap 10 MEQ/L Estimat Glomerular Filtration Rate 119 ML/MIN [facility] Medical Decision Making Medical Screen Exam Complete: Yes Emergency Medical Condition: Yes Interpretation(s) 1:42 AM. CBC WBC 5.4. Hemoglobin 10 point hematocrit 31.8. MCV 107.7. Sodium 128. BUN 21. AST 55. Alkaline phosphatase 130. UA negative. Differential Diagnosis Differential diagnosis including alcohol withdrawal, dehydration, electrolyte imbalance, sepsis. Narrative Course 61-year-old male with generalized malaise and trembling. History EtOH abuse. Patient has not had any alcohol for the past week. Could be in withdrawal. Normal saline solution 1 L IV bolus. Thiamine 100 mg IV. Ativan 1 mg IV. Diagnosis Primary Impression: Alcohol withdrawal Qualified Codes: F10.230 - Alcohol dependence with withdrawal, uncomplicated Additional Impression: Dehydration Patient Instructions: General Instructions Additional Instructions: Librium as directed. Encouraged by mouth fluids. Advised [facility] detox program. Med/Other Pt SpecificInfo: Prescription(s) given Scripts [Librium] No Conflict Check 25 MG PO TID for Agitation, #21 Prov: Noe Griffin MD 02/19/17 Disposition: 01 DISCHARGE HOME Condition: Stable Noe Griffin MD Feb 18, 2017 22:25
[2017-02-18] MEDS ORDERED: THIAMINE INJ 100 MG in SODIUM CHLORIDE 0.9% INJ 100 ML IV ONE (22:30)
[2017-02-18] MEDS ORDERED: LORazepam 2 MG/ML VIAL IV PUSH ONE (22:30)
[2017-02-18 22:47] VITALS: RESP 16; O2SAT 97
[2017-02-18 23:08] LABS: AUTOMATED NEUTROPHIL # 3.2 TH/MM3 (1.8-7.7); BASOPHIL # 0.1 TH/MM3 (0-0.2); BASOPHIL % 1.3 % (0.0-2.0); EOSINOPHIL % 0.5 % (0.0-4.0); HEMATOCRIT 31.8 % (39.0-51.0); HEMO FLAGS DIFF FINAL; LYMPH % 22.6 % (9.0-44.0); LYMPHOCYTE # 1.2 TH/MM3 (1.0-4.8); MEAN CELL VOLUME 107.7 FL (80.0-100.0); MEAN CORPUSCULAR HEMOGLOBIN 36.8 PG (27.0-34.0); MEAN CORPUSCULAR HGB CONC 34.2 % (32.0-36.0); MONO % 15.6 % (0.0-8.0); PLATELET COUNT 289 TH/MM3 (150-450); RED BLOOD COUNT 2.96 MIL/MM3 (4.50-5.90); RED CELL DISTRIBUTION WIDTH 15.5 % (11.6-17.2); WHITE BLOOD COUNT 5.4 TH/MM3 (4.0-11.0)
[2017-02-18 23:17] VITALS: BP 128/71; PULSE 88; RESP 16; O2SAT 99
[2017-02-18 23:19] LABS: ANION GAP 10 MEQ/L (5-15); AST (GOT) 55 U/L (15-37); BICARBONATE 22.9 MEQ/L (21.0-32.0); BLOOD UREA NITROGEN 21 MG/DL (7-18); CHLORIDE 95 MEQ/L (98-107); GLOMERULAR FILTRATION RATE 119 ML/MIN (>89); POTASSIUM 4.6 MEQ/L (3.5-5.1); SODIUM (NA) 128 MEQ/L (136-145)
[2017-02-18 23:20] LABS: BLOOD, URINE NEG (NEG); GLUCOSE,URINE NEG (NEG); KETONE, URINE NEG (NEG); NITRITE,URINE NEG (NEG); URINE COLOR LIGHT-YELLOW (YELLW/STRAW)
[2017-02-18 23:21] LABS: ALT (GPT) 71 U/L (12-78)
[2017-02-18 23:23] LABS: ALKALINE PHOSPHATASE 130 U/L (45-117); TOTAL BILIRUBIN ADULT 0.3 MG/DL (0.2-1.0)
[2017-02-18 23:26] LABS: COMMENT (UR) CULT NOT INDICATED; CULTURE IF INDICATED CULT NOT INDICATED
[2017-02-19] MEDS ORDERED: LIBRIUM PO (01:46)
[2017-02-19 05:00] VITALS: BP 118/66; PULSE 84; RESP 16; O2SAT 97
== END 2017-02-19 06:53 | disposition home or self-care (01) ==
LOC: NEPC 14:38 → NEDAMB 02-19 06:53
DX: F10.239 Alcohol dependence with withdrawal, unspecified (principal); E86.0 Dehydration; R53.81 Other malaise; R53.1 Weakness; E87.2 Acidosis; E87.6 Hypokalemia; J44.9 Chronic obstructive pulmonary disease, unspecified; I10 Essential (primary) hypertension; F17.200 Nicotine dependence, unspecified, uncomplicated
CPT/HCPCS: 80053; 81001; 85025; 96365; 96366; 96375; 99284; J2060; J3411; J7030

== ENCOUNTER 2017-04-12 14:48 | Emergency (ER) | payer OTHER ==
[~2017-04-12] VITALS: Ht 177.8 cm; Wt 54.0 kg
[~2017-04-12 14:48] MED LIST changes: +LIBRIUM PO
[2017-04-12 15:14] VITALS: BP 135/82; PULSE 74; RESP 16; TEMP 98.6; O2SAT 100
[2017-04-12 15:48] VITALS: BP 111/76; PULSE 72; RESP 19; TEMP 98.6; O2SAT 100
[2017-04-12] MEDS ORDERED: THIAMINE HCL 100 MG TAB PO ONE (16:00)
--- NOTE | 2017-04-12 16:02 | PD ---
HPI Chief Complaint: Alcohol/Drug Intoxication Time Seen by Provider: 15:54 Travel History International Travel<30 days: No Contact w/Intl Traveler<30days: No Traveled to known affect area: No History of Present Illness HPI 61yo M with PMH of COPD and alcohol abuse presents to the ED under [place] [facility] for alcohol intoxication. Pt was found sitting in front of a business and had beer and unable to care for himself. Pt said last time he drank was yesterday. Denies any fall today. Denies any fever, cough, chest pain, sob, n/v, abdominal pain, focal weakness or numbness. PFSH Past Medical History Cardiovascular Problems: No Diminished Hearing: No Hypertension: Yes Musculoskeletal: No Neurologic: No Respiratory: No Social History Alcohol Use: Yes (1 PINT OF VODKA/WEEKLY OR 1 6-PK OF BEER/DAILY X 20 YRS) Tobacco Use: Yes (2 PKS/DAILY X 35 YRS) Substance Use: No Allergies-Medications (Allergen,Severity, Reaction): Coded Allergies: No Known Allergies (Verified , 04/12/17) Reported Meds & Prescriptions Reported Meds & Active Scripts Active [Librium] 25 Mg PO TID Potassium Chloride Microencaps 20 Meq Tab 20 Meq PO Q12HR 10 Days Quetiapine (Quetiapine Fumarate) 25 Mg Tab 12.5 Mg PO BID@09,12 30 Days Ventolin Hfa 18 GM Inh (Albuterol Sulfate) 90 Mcg/Act Aer 2 Puff INH Q6H 30 Days Spiriva Handihaler (Tiotropium Inh) 18 Mcg Cap 18 Mcg INH DAILY 30 Days 1 capsule = 18 mcg Review of Systems Except as stated in HPI: all other systems reviewed are Neg Physical Exam Narrative GENERAL: 61yo M not in distress. SKIN: Focused skin assessment warm/dry. HEAD: Old ecchymoses in left forehead. EYES: Pupils equal and round at 3mm bilaterally. ENT: No nasal bleeding or discharge. Mucous membranes pink and moist. NECK: Trachea midline. No JVD. CARDIOVASCULAR: Regular rate and rhythm. No murmur appreciated. RESPIRATORY: No accessory muscle use. Coarse breath sounds bilaterally. GASTROINTESTINAL: Abdomen soft, non-tender, nondistended. No rebound tenderness or guarding. MUSCULOSKELETAL: No obvious deformities. No clubbing. No cyanosis. No edema. NEUROLOGICAL: Awake and alert. No obvious cranial nerve deficits. Motor grossly within normal limits. Normal speech. Data Data Last Documented VS Vital Signs Date Time Temp Pulse Resp B/P (MAP) Pulse Ox O2 Delivery O2 Flow Rate FiO2 04/13/17 05:30 85 15 116/74 (88) 97 04/13/17 04:00 Room Air 04/12/17 15:48 98.6 Orders Orders Complete Blood Count With Diff (04/12/17 15:54) Basic Metabolic Panel (Bmp) (04/12/17 15:54) Magnesium (Mg) (04/12/17 15:54) Alcohol (Ethanol) (04/12/17 15:54) Thiamine (Vit B1) (Vitamin B1) (04/12/17 16:00) Potassium Chloride (Kcl) (04/12/17 17:45) Ed Discharge Order (04/13/17 05:20) Labs Laboratory Tests Test 04/12/17 15:40 04/12/17 16:47 White Blood Count 7.5 TH/MM3 Red Blood Count 3.34 MIL/MM3 Hemoglobin 12.2 GM/DL Hematocrit 35.6 % Mean Corpuscular Volume 106.4 FL Mean Corpuscular Hemoglobin 36.6 PG Mean Corpuscular Hemoglobin Concent 34.4 % Red Cell Distribution Width 16.1 % Platelet Count 174 TH/MM3 Mean Platelet Volume 9.7 FL Neutrophils (%) (Auto) 64.4 % Lymphocytes (%) (Auto) 24.7 % Monocytes (%) (Auto) 10.1 % Eosinophils (%) (Auto) 0.3 % Basophils (%) (Auto) 0.5 % Neutrophils # (Auto) 4.9 TH/MM3 Lymphocytes # (Auto) 1.9 TH/MM3 Monocytes # (Auto) 0.8 TH/MM3 Eosinophils # (Auto) 0.0 TH/MM3 Basophils # (Auto) 0.0 TH/MM3 CBC Comment DIFF FINAL Differential Comment Blood Urea Nitrogen 8 MG/DL Creatinine 0.40 MG/DL Random Glucose 86 MG/DL Calcium Level 8.7 MG/DL Magnesium Level 1.6 MG/DL Sodium Level 128 MEQ/L Potassium Level 3.2 MEQ/L Chloride Level 90 MEQ/L Carbon Dioxide Level 27.6 MEQ/L Anion Gap 10 MEQ/L Estimat Glomerular Filtration Rate 220 ML/MIN Ethyl Alcohol Level 280 MG/DL [facility] Medical Decision Making Medical Screen Exam Complete: Yes Emergency Medical Condition: Yes Differential Diagnosis Alcohol intoxication vs. homelessness Narrative Course 61yo M with alcohol abuse brought in as Act. Pt has coarse breath sounds bilaterally and has COPD but not sob and saturating at 100% on RA. Vital signs stable, pt is not tremulous but will monitor for withdrawal. Will do labs to check electrolytes and give thiamine. Sign out to next team Dr. Griffin to follow up labs and reevaluate. Diagnosis Primary Impression: Acute alcohol intoxication Qualified Codes: F10.929 - Alcohol use, unspecified with intoxication, unspecified Letty Sutherland DO Apr 12, 2017 16:01
[2017-04-12 16:28] LABS: AUTOMATED NEUTROPHIL # 4.9 TH/MM3 (1.8-7.7); BASOPHIL % 0.5 % (0.0-2.0); EOSINOPHIL % 0.3 % (0.0-4.0); HEMATOCRIT 35.6 % (39.0-51.0); HEMO FLAGS DIFF FINAL; LYMPH % 24.7 % (9.0-44.0); LYMPHOCYTE # 1.9 TH/MM3 (1.0-4.8); MEAN CELL VOLUME 106.4 FL (80.0-100.0); MEAN CORPUSCULAR HEMOGLOBIN 36.6 PG (27.0-34.0); MEAN CORPUSCULAR HGB CONC 34.4 % (32.0-36.0); MONO % 10.1 % (0.0-8.0); NEUT % 64.4 % (16.0-70.0); PLATELET COUNT 174 TH/MM3 (150-450); RED BLOOD COUNT 3.34 MIL/MM3 (4.50-5.90); RED CELL DISTRIBUTION WIDTH 16.1 % (11.6-17.2); WHITE BLOOD COUNT 7.5 TH/MM3 (4.0-11.0)
[2017-04-12 17:26] LABS: BICARBONATE 27.6 MEQ/L (21.0-32.0); MAGNESIUM 1.6 MG/DL (1.5-2.5); POTASSIUM 3.2 MEQ/L (3.5-5.1)
--- NOTE | 2017-04-12 17:41 | PD ---
Physical Exam Narrative Patient was seen by ED physician and signed out to me. Data Data Last Documented VS Vital Signs Date Time Temp Pulse Resp B/P (MAP) Pulse Ox O2 Delivery O2 Flow Rate FiO2 04/12/17 15:48 71 19 100 Room Air 04/12/17 15:48 98.6 111/76 (88) Orders Orders Complete Blood Count With Diff (04/12/17 15:54) Basic Metabolic Panel (Bmp) (04/12/17 15:54) Magnesium (Mg) (04/12/17 15:54) Alcohol (Ethanol) (04/12/17 15:54) Thiamine (Vit B1) (Vitamin B1) (04/12/17 16:00) Potassium Chloride (Kcl) (04/12/17 17:45) Labs Laboratory Tests Test 04/12/17 15:40 04/12/17 16:47 White Blood Count 7.5 TH/MM3 Red Blood Count 3.34 MIL/MM3 Hemoglobin 12.2 GM/DL Hematocrit 35.6 % Mean Corpuscular Volume 106.4 FL Mean Corpuscular Hemoglobin 36.6 PG Mean Corpuscular Hemoglobin Concent 34.4 % Red Cell Distribution Width 16.1 % Platelet Count 174 TH/MM3 Mean Platelet Volume 9.7 FL Neutrophils (%) (Auto) 64.4 % Lymphocytes (%) (Auto) 24.7 % Monocytes (%) (Auto) 10.1 % Eosinophils (%) (Auto) 0.3 % Basophils (%) (Auto) 0.5 % Neutrophils # (Auto) 4.9 TH/MM3 Lymphocytes # (Auto) 1.9 TH/MM3 Monocytes # (Auto) 0.8 TH/MM3 Eosinophils # (Auto) 0.0 TH/MM3 Basophils # (Auto) 0.0 TH/MM3 CBC Comment DIFF FINAL Differential Comment Blood Urea Nitrogen 8 MG/DL Creatinine 0.40 MG/DL Random Glucose 86 MG/DL Calcium Level 8.7 MG/DL Magnesium Level 1.6 MG/DL Sodium Level 128 MEQ/L Potassium Level 3.2 MEQ/L Chloride Level 90 MEQ/L Carbon Dioxide Level 27.6 MEQ/L Anion Gap 10 MEQ/L Estimat Glomerular Filtration Rate 220 ML/MIN Ethyl Alcohol Level 280 MG/DL [facility] Supervised Visit with KAYLEY: No Interpretation(s) 1739 PM. CBC t WBC 7.5. Hemoglobin 12.2 hematocrit 35.6. MCV 106.4. Normal differential. Sodium 128. Potassium 3.2. Alcohol 280. Normal saline solution 500 cc IV bolus. KCl 40 mEq by mouth given. Narrative Course Patient has sodium 128. Chronically low sodium. Diagnosis Primary Impression: Acute alcohol intoxication Qualified Codes: F10.929 - Alcohol use, unspecified with intoxication, unspecified Additional Impressions: Hypokalemia Hyponatremia Patient Instructions: General Instructions Additional Instruction: Advised patient to increase sodium in diet. Advised potassium-rich diet. Advised [facility] alcohol problem. Return as needed. Med/Other Pt SpecificInfo: No Change to Meds Disposition: 01 DISCHARGE HOME Condition: Stable Noe Griffin MD Apr 12, 2017 17:41
[2017-04-12] MEDS ORDERED: POTASSIUM CHLORIDE 20 MEQ CONTROLLED RELEASE TAB PO ONE (17:45)
[2017-04-12 18:45] VITALS: BP 101/60; PULSE 85; RESP 16; O2SAT 98
[2017-04-12 19:00] VITALS: BP 107/66; PULSE 70; RESP 16; O2SAT 98
[2017-04-12 23:00] VITALS: BP 102/68; PULSE 68; RESP 16; O2SAT 99
[2017-04-13 04:00] VITALS: BP 105/62; PULSE 72; RESP 16; O2SAT 98
--- NOTE | 2017-04-13 05:27 | PD ---
Physical Exam Date Seen by Provider: Apr 13, 2017 Time Seen by Provider: 05:23 Narrative For full history and physical examinations please see previous provider's notes. Patient was acutely intoxicated when he presented to the emergency room. Data Data Last Documented VS Vital Signs Date Time Temp Pulse Resp B/P (MAP) Pulse Ox O2 Delivery O2 Flow Rate FiO2 04/13/17 05:30 85 15 116/74 (88) 97 04/13/17 04:00 Room Air 04/12/17 15:48 98.6 Orders Orders Complete Blood Count With Diff (04/12/17 15:54) Basic Metabolic Panel (Bmp) (04/12/17 15:54) Magnesium (Mg) (04/12/17 15:54) Alcohol (Ethanol) (04/12/17 15:54) Thiamine (Vit B1) (Vitamin B1) (04/12/17 16:00) Potassium Chloride (Kcl) (04/12/17 17:45) Ed Discharge Order (04/13/17 05:20) Labs Laboratory Tests Test 04/12/17 15:40 04/12/17 16:47 White Blood Count 7.5 TH/MM3 Red Blood Count 3.34 MIL/MM3 Hemoglobin 12.2 GM/DL Hematocrit 35.6 % Mean Corpuscular Volume 106.4 FL Mean Corpuscular Hemoglobin 36.6 PG Mean Corpuscular Hemoglobin Concent 34.4 % Red Cell Distribution Width 16.1 % Platelet Count 174 TH/MM3 Mean Platelet Volume 9.7 FL Neutrophils (%) (Auto) 64.4 % Lymphocytes (%) (Auto) 24.7 % Monocytes (%) (Auto) 10.1 % Eosinophils (%) (Auto) 0.3 % Basophils (%) (Auto) 0.5 % Neutrophils # (Auto) 4.9 TH/MM3 Lymphocytes # (Auto) 1.9 TH/MM3 Monocytes # (Auto) 0.8 TH/MM3 Eosinophils # (Auto) 0.0 TH/MM3 Basophils # (Auto) 0.0 TH/MM3 CBC Comment DIFF FINAL Differential Comment Blood Urea Nitrogen 8 MG/DL Creatinine 0.40 MG/DL Random Glucose 86 MG/DL Calcium Level 8.7 MG/DL Magnesium Level 1.6 MG/DL Sodium Level 128 MEQ/L Potassium Level 3.2 MEQ/L Chloride Level 90 MEQ/L Carbon Dioxide Level 27.6 MEQ/L Anion Gap 10 MEQ/L Estimat Glomerular Filtration Rate 220 ML/MIN Ethyl Alcohol Level 280 MG/DL [facility] Medical Record Reviewed: Yes Supervised Visit with KAYLEY: No Narrative Course Patient is a 61-year-old male that presented to the emergency department acutely intoxicated. His blood alcohol level was 280, he's been the emergency department for approximately 14 hours. Patient is arousable, he is alert. He was offered something to drink and something to eat. Patient appears and is acting clinically sober. No signs of delirium tremens at this time. Patient demonstrates safe ambulation in the emergency department. He requested a bus pass. Patient is stable for discharge. Diagnosis Primary Impression: Acute alcohol intoxication Qualified Codes: F10.929 - Alcohol use, unspecified with intoxication, unspecified Additional Impressions: Hyponatremia Hypokalemia Patient Instructions: General Instructions Additional Instruction: Advised patient to increase sodium in diet. Advised potassium-rich diet. Advised [facility] alcohol problem. Return as needed. Disposition: DISCHARGE HOME Condition: Stable Ivette Kirby Apr 13, 2017 05:27
[2017-04-13 05:30] VITALS: BP 116/74
== END 2017-04-13 06:22 | disposition home or self-care (01) ==
LOC: NEPD 14:48
DX: F10.129 Alcohol abuse with intoxication, unspecified (principal); E87.1 Hypo-osmolality and hyponatremia; E87.6 Hypokalemia; F17.200 Nicotine dependence, unspecified, uncomplicated; Y90.8 Blood alcohol level of 240 mg/100 ml or more; Z79.899 Other long term (current) drug therapy
CPT/HCPCS: 80048; 80307; 83735; 85025; 99284

== ENCOUNTER 2017-05-06 16:21 | Emergency (ER) | payer SELFPAY ==
[~2017-05-06] VITALS: Ht 177.8 cm; Wt 59.0 kg
[2017-05-06 16:22] VITALS: BP 118/63; PULSE 97; RESP 14; TEMP 98.4; O2SAT 96
[2017-05-06 19:23] VITALS: BP 119/63; PULSE 85; RESP 18; O2SAT 94
[2017-05-06] MEDS ORDERED: SODIUM CHLOR 0.9% 1000 ML INJ 1,000 ML IV ONE (19:30)
[2017-05-06 19:50] LABS: AUTOMATED NEUTROPHIL # 1.8 TH/MM3 (1.8-7.7); BASOPHIL % 1.1 % (0.0-2.0); EOSINOPHIL # 0.1 TH/MM3 (0-0.4); EOSINOPHIL % 1.7 % (0.0-4.0); HEMATOCRIT 33.6 % (39.0-51.0); HEMO FLAGS DIFF FINAL; LYMPH % 43.9 % (9.0-44.0); LYMPHOCYTE # 1.8 TH/MM3 (1.0-4.8); MEAN CORPUSCULAR HGB CONC 34.3 % (32.0-36.0); MONO % 9.6 % (0.0-8.0); NEUT % 43.7 % (16.0-70.0); PLATELET COUNT 147 TH/MM3 (150-450); RED BLOOD COUNT 3.11 MIL/MM3 (4.50-5.90); RED CELL DISTRIBUTION WIDTH 16.4 % (11.6-17.2); WHITE BLOOD COUNT 4.1 TH/MM3 (4.0-11.0)
[2017-05-06 20:02] LABS: ANION GAP 8 MEQ/L (5-15); AST (GOT) 63 U/L (15-37); BICARBONATE 28.8 MEQ/L (21.0-32.0); BLOOD UREA NITROGEN 19 MG/DL (7-18); CHLORIDE 102 MEQ/L (98-107); GLOMERULAR FILTRATION RATE 170 ML/MIN (>89); POTASSIUM 3.3 MEQ/L (3.5-5.1); SODIUM (NA) 139 MEQ/L (136-145)
[2017-05-06 20:03] LABS: ALT (GPT) 31 U/L (12-78)
[2017-05-06 20:07] LABS: ALKALINE PHOSPHATASE 116 U/L (45-117); TOTAL BILIRUBIN ADULT 0.3 MG/DL (0.2-1.0)
[2017-05-06 20:12] LABS: ALCOHOL 320 MG/DL (0-5)
--- NOTE | 2017-05-06 20:44 | PD ---
HPI Chief Complaint: Alcohol/Drug Intoxication Time Seen by Provider: 18:39 Travel History International Travel<30 days: No Contact w/Intl Traveler<30days: No Traveled to known affect area: No History of Present Illness HPI 61-year-old chronic alcoholic male who is well known to the emergency room presents today for weakness and fatigue. Patient states he has not been able to sleep in a long time and would just like to place to get some rest so that he can become energized again. He is homeless. States he typically drinks about a pint of vodka and a few beers per day. Denies any chronic medical conditions or daily medications for which she is being treated. He reports some healing wounds to his bilateral shoulders from a fall a few weeks ago. Denies any other medical complaints at this time. PFS Past Medical History Cardiovascular Problems: No Diminished Hearing: No Hypertension: Yes Musculoskeletal: No Neurologic: No Respiratory: No Immunizations Current: Yes Social History Alcohol Use: Yes (daily heavy ) Tobacco Use: Yes (pack a day ) Substance Use: Yes (marijuanna ) Allergies-Medications (Allergen,Severity, Reaction): Coded Allergies: No Known Allergies (Verified Allergy, Unknown, 05/06/17) Reported Meds & Prescriptions Reported Meds & Active Scripts Active No Active Prescriptions or Reported Medications Review of Systems Except as stated in HPI: all other systems reviewed are Neg Physical Exam Narrative GENERAL: Well-nourished, unkempt male in no acute distress. Afebrile. Ambulatory. SKIN: Focused skin assessment warm/dry. 2 healing scabs to bilateral shoulders without evidence of secondary infection. No erythema, edema, drainage, impetiginization, or lymphangitis. HEAD: Normocephalic. EYES: No scleral icterus. No injection or drainage. NECK: Supple, trachea midline. No JVD or lymphadenopathy. CARDIOVASCULAR: Regular rate and rhythm without murmurs, gallops, or rubs. RESPIRATORY: Breath sounds equal bilaterally. No accessory muscle use. PSYCHIATRIC: No delusional thought processes. No hallucinations. Data Data Last Documented VS Vital Signs Date Time Temp Pulse Resp B/P (MAP) Pulse Ox O2 Delivery O2 Flow Rate FiO2 05/06/17 19:23 85 18 119/63 (81) 94 Room Air 05/06/17 16:22 98.4 Orders Orders Complete Blood Count With Diff (05/06/17 19:19) Comprehensive Metabolic Panel (05/06/17 19:19) Alcohol (Ethanol) (05/06/17 19:19) Sodium Chlor 0.9% 1000 Ml Inj (Ns 1000 M (05/06/17 19:30) Iv Access Insert/Monitor (05/06/17 19:19) Potassium Chloride Powder (Kcl Powder) (05/06/17 20:45) Labs Laboratory Tests Test 05/06/17 19:35 White Blood Count 4.1 TH/MM3 Red Blood Count 3.11 MIL/MM3 Hemoglobin 11.5 GM/DL Hematocrit 33.6 % Mean Corpuscular Volume 108.0 FL Mean Corpuscular Hemoglobin 37.0 PG Mean Corpuscular Hemoglobin Concent 34.3 % Red Cell Distribution Width 16.4 % Platelet Count 147 TH/MM3 Mean Platelet Volume 9.5 FL Neutrophils (%) (Auto) 43.7 % Lymphocytes (%) (Auto) 43.9 % Monocytes (%) (Auto) 9.6 % Eosinophils (%) (Auto) 1.7 % Basophils (%) (Auto) 1.1 % Neutrophils # (Auto) 1.8 TH/MM3 Lymphocytes # (Auto) 1.8 TH/MM3 Monocytes # (Auto) 0.4 TH/MM3 Eosinophils # (Auto) 0.1 TH/MM3 Basophils # (Auto) 0.0 TH/MM3 CBC Comment DIFF FINAL Differential Comment Blood Urea Nitrogen 19 MG/DL Creatinine 0.50 MG/DL Random Glucose 87 MG/DL Total Protein 6.9 GM/DL Albumin 3.1 GM/DL Calcium Level 8.2 MG/DL Alkaline Phosphatase 116 U/L Aspartate Amino Transf (AST/SGOT) 63 U/L Alanine Aminotransferase (ALT/SGPT) 31 U/L Total Bilirubin 0.3 MG/DL Sodium Level 139 MEQ/L Potassium Level 3.3 MEQ/L Chloride Level 102 MEQ/L Carbon Dioxide Level 28.8 MEQ/L Anion Gap 8 MEQ/L Estimat Glomerular Filtration Rate 170 ML/MIN Ethyl Alcohol Level 320 MG/DL MDM Medical Decision Making Medical Screen Exam Complete: Yes Emergency Medical Condition: Yes Medical Record Reviewed: Yes Differential Diagnosis Alcohol intoxication, dehydration, metabolic acidosis Narrative Course 61-year-old male well-known to the emergency room with history of chronic alcoholism presents to the emergency room for evaluation of weakness. Patient has had this chief complaint the past several times he has been here. He is requesting a place to sleep and states as soon as he rests he will be on his way. His only complaint is healing bilateral shoulder wounds from falling a while ago. Physical exam is reassuring. There is an unkempt male sleeping comfortably. Vital signs stable. CBC is consistent from previous. CMP shows very mild hypokalemia of 3.3. Potassium is replaced with 20 mEq of KCl. Otherwise unremarkable. Alcohol is 320. Patient will be allowed to sleep in the emergency room until clinically sober. Diagnosis Primary Impression: Acute alcohol intoxication Qualified Codes: F10.929 - Alcohol use, unspecified with intoxication, unspecified Referrals: [facility] (Out patient) Additional Instructions: Drink alcohol in moderation. Follow-up with tracy Rainey. Return to the emergency room for worsening symptoms. Scripts No Active Prescriptions or Reported Meds Disposition: 01 DISCHARGE HOME Condition: Stable Angelita Koehler May 06, 2017 20:44
[2017-05-06] MEDS ORDERED: POTASSIUM CHLORIDE 20 MEQ PWD PACKET PO ONE (20:45)
[2017-05-07 06:07] VITALS: BP 192/93; PULSE 96; RESP 18; O2SAT 95
[2017-05-07] MEDS ORDERED: chlordiazePOXIDE 25 MG CAP PO ONE (06:15)
[2017-05-07] MEDS ORDERED: cloNIDine HCL 0.1 MG TAB PO ONE (06:15)
[2017-05-07 07:34] VITALS: BP 149/82; PULSE 95; RESP 14; O2SAT 98
== END 2017-05-07 07:50 | disposition home or self-care (01) ==
LOC: NEPD 16:21
DX: F10.129 Alcohol abuse with intoxication, unspecified (principal); E87.6 Hypokalemia; R53.1 Weakness; R53.83 Other fatigue; I10 Essential (primary) hypertension; F17.200 Nicotine dependence, unspecified, uncomplicated; Z59.0 Homelessness
CPT/HCPCS: 80053; 80307; 85025; 96360; 99284; J7030

== ENCOUNTER 2017-05-20 13:30 | Emergency (ER) | payer SELFPAY ==
[~2017-05-20] VITALS: Ht 177.8 cm; Wt 60.0 kg
[2017-05-20 13:48] VITALS: BP 136/75; PULSE 85; RESP 18; TEMP 98.4; O2SAT 99
[2017-05-20] MEDS ORDERED: RESP: ALBUTEROL 2.5 MG/IPRATROPIUM 0.5 MG NEB (SCH) INH ONE (14:30)
--- NOTE | 2017-05-20 14:32 | PD ---
HPI Chief Complaint: Medical Clearance Time Seen by Provider: 14:09 Travel History International Travel<30 days: No Contact w/Intl Traveler<30days: No Traveled to known affect area: No History of Present Illness HPI 61-year-old male presents to the emergency Department, sent from [facility] for medical clearance with concern of patient with postinjury, and lung sounds with gurgling ronchi and complaint of shortness of breath. History of COPD. Patient says he fell off of the bench 3 times, 2 nights ago and landed on his face all three times. Denies loss of consciousness. Denies anticoagulant therapy. Denies vomiting. Denies neck pain or back pain. Denies fever. Says he was evaluated at [facility] and was told that nothing was wrong. He has facial swelling around both of his eyes and his right eye is completely swollen shut. Denies change in vision. Reports alcohol use daily and last drank yesterday. Denies illicit drug use. Reports tobacco use. Denies suicidal or homicidal ideations. Reports shortness of breath is "a little bit. " Has not taken any medications or current treatments to alleviate symptoms. No known relieving or aggravating factors. Rates pain 5/10 and describes it as a throbbing sensation. Does not have an established primary care provider. No known allergies. Has no other medical complaints. No other modifying factors or associated signs and symptoms. PFSH Past Medical History Cardiovascular Problems: No Diminished Hearing: No Hypertension: Yes Musculoskeletal: No Neurologic: No Respiratory: No Immunizations Current: Yes Tetanus Vaccination: Unknown Influenza Vaccination: No Past Surgical History Other Surgery: No Social History Alcohol Use: Yes (daily heavy ) Tobacco Use: Yes (pack a day ) Substance Use: Yes (marijuanna ) Allergies-Medications (Allergen,Severity, Reaction): Coded Allergies: No Known Allergies (Verified Allergy, Unknown, 05/20/17) Reported Meds & Prescriptions Reported Meds & Active Scripts Active Augmentin (Amoxicillin-Clavulanate) 875-125 Mg Tab 1 Tab PO BID 10 Days Deltasone (Prednisone) 20 Mg Tab 20 Mg PO DAILY 5 Days Ventolin Hfa 18 GM Inh (Albuterol Sulfate) 90 Mcg/Act Aer 2 Puff INH Q4-6H PRN Clindamycin (Clindamycin HCl) 150 Mg Cap 450 Mg PO Q6H 10 Days Erythromycin Opth Oint 5 Mg/Gm Oint 1 Applic RIGHT EYE QID 7 Days Review of Systems Except as stated in HPI: all other systems reviewed are Neg Physical Exam Narrative GENERAL: Thin, disheveled, male patient, in no acute distress; afebrile, nontoxic-appearing SKIN: Warm and dry. No rash. Multiple facial abrasions noted some equal and forehead, nose, around eyes. HEAD: Atraumatic. Normocephalic. EYES: Pupils equal and round. No scleral icterus. No injection or drainage. Raccoon eyes bilaterally; right worse than left. Right eye with purulent drainage noted; cannot rule out orbital cellulitis. Orbital tenderness on palpation bilaterally. PERRLA. Pupils equal and round at 3 mm with sluggish reaction. EOMI. ENT: Mucosa pink and moist. No erythema or exudates. No uvular edema. No uvular , palatal, or tonsillar deviation. Airway patent. Left nares impacted with dried blood. Nostrils cleaned out: Bilateral Nasal turbinates appear normal without nasal blood, purulent drainage or septal hematoma. EARS: Bilateral pinnae and external canals appear within normal limits. Bilateral tympanic membranes without erythema, dullness or perforation. NECK: Trachea midline. No lymphadenopathy. CARDIOVASCULAR: Regular rate and rhythm. No murmur appreciated. RESPIRATORY: No accessory muscle use. Rhonchi throughout to auscultation; clears with throat clearing. Breath sounds equal bilaterally. No retractions or tachypnea. GASTROINTESTINAL: Abdomen soft, non-tender, nondistended. Hepatic and splenic margins not palpable. Bowel sounds are active 4 quadrants. MUSCULOSKELETAL: No obvious deformities. No clubbing. No cyanosis. No edema. NEUROLOGICAL: Awake and alert. Oriented 3. No obvious cranial nerve deficits. Motor grossly within normal limits. Normal speech. Moves all extremities. 5/5 strength to all extremities. PSYCHIATRIC: Appropriate mood and affect; insight and judgment normal. Data Data Last Documented VS Vital Signs Date Time Temp Pulse Resp B/P (MAP) Pulse Ox O2 Delivery O2 Flow Rate FiO2 05/20/17 17:17 80 18 160/70 (100) 98 05/20/17 13:[address] Brain W/O Iv Contrast(Rout) (05/20/17 ) Ct Facial Bones W/O Iv Cont (05/20/17 ) Chest, Single Ap (05/20/17 14:28) Albuterol-Ipratropium Neb (Duoneb Neb) (05/20/17 14:30) Clindamycin (Cleocin) (05/20/17 15:00) Complete Blood Count With Diff (05/20/17 14:56) Comprehensive Metabolic Panel (05/20/17 14:56) Ed Discharge Order (05/20/17 17:27) Iv Access Insert/Monitor (05/20/17 17:41) Sodium Chlor 0.9% 1000 Ml Inj (Ns 1000 M (05/20/17 17:41) Labs Laboratory Tests Test 05/20/17 14:20 White Blood Count 6.1 TH/MM3 Red Blood Count 3.05 MIL/MM3 Hemoglobin 11.1 GM/DL Hematocrit 32.8 % Mean Corpuscular Volume 107.6 FL Mean Corpuscular Hemoglobin 36.4 PG Mean Corpuscular Hemoglobin Concent 33.8 % Red Cell Distribution Width 16.4 % Platelet Count 118 TH/MM3 Mean Platelet Volume 9.8 FL Neutrophils (%) (Auto) 66.4 % Lymphocytes (%) (Auto) 21.4 % Monocytes (%) (Auto) 11.5 % Eosinophils (%) (Auto) 0.2 % Basophils (%) (Auto) 0.5 % Neutrophils # (Auto) 4.1 TH/MM3 Lymphocytes # (Auto) 1.3 TH/MM3 Monocytes # (Auto) 0.7 TH/MM3 Eosinophils # (Auto) 0.0 TH/MM3 Basophils # (Auto) 0.0 TH/MM3 CBC Comment DIFF FINAL Differential Comment Blood Urea Nitrogen 11 MG/DL Creatinine 0.35 MG/DL Random Glucose 94 MG/DL Total Protein 7.5 GM/DL Albumin 3.5 GM/DL Calcium Level 8.5 MG/DL Alkaline Phosphatase 100 U/L Aspartate Amino Transf (AST/SGOT) 74 U/L Alanine Aminotransferase (ALT/SGPT) 39 U/L Total Bilirubin 1.1 MG/DL Sodium Level 129 MEQ/L Potassium Level 3.6 MEQ/L Chloride Level 94 MEQ/L Carbon Dioxide Level 25.5 MEQ/L Anion Gap 10 MEQ/L Estimat Glomerular Filtration Rate 257 ML/MIN [facility] Medical Decision Making Medical Screen Exam Complete: Yes Emergency Medical Condition: Yes Medical Record Reviewed: Yes Differential Diagnosis COPD exacerbation, facial contusion, nasal bone fracture, pneumonia Narrative Course 1700: CBC unremarkable. Sodium 129; 1 L normal saline bolus ordered. AST 74. Otherwise CMP unremarkable. Chest x-ray, head CT, maxillofacial CT concludes : Chest X-Ray 05/20/17 1428 Signed Impressions: Service Date/Time: Saturday, May 20, 2017 15:04 - CONCLUSION: Normal examination. Theodore Mann MD Maxillofacial CT 05/20/17 0000 Signed Impressions: Service Date/Time: Saturday, May 20, 2017 15:28 - CONCLUSION: Fluid and sinus disease in the right maxillary sinus. No fracture other than a small nondisplaced right nasal bone fracture. Theodore Mann MD Head CT 05/20/17 0000 Signed Impressions: Service Date/Time: Saturday, May 20, 2017 15:28 - CONCLUSION: Normal examination. Air-fluid level right maxillary sinus, facial bone CT scan is pending. Theodore Mann MD Chest x-ray and CT findings discussed with the patient. On reevaluation the patient reports improvement in symptoms and denies shortness of breath. His lung sounds are clear and equal throughout. Patient was discussed with Dr. Leyva and he agrees patient for discharge to return to [facility] for detox. Clindamycin, erythromycin eye ointment, Augmentin, Ventolin inhaler, Deltasone prescribed for home. Instructed patient to follow up with primary care provider. Patient verbalizes understanding and agreement with treatment plan. Patient is medically cleared and stable for discharge. Discussed reasons to return to the emergency department. Patient agrees with treatment plan. The patients vital signs are stable and the patient is stable for outpatient follow- up and treatment. Patient discharged home, stable and in no acute distress. Diagnosis Primary Impression: Nasal bone fracture Qualified Codes: S02.2XXA - Fracture of nasal bones, initial encounter for closed fracture Additional Impressions: Facial contusion Qualified Codes: S00.83XA - Contusion of other part of head, initial encounter COPD exacerbation Referrals: [facility] Oral Maxillofacial Surgeon Primary Care Physician Patient Instructions: COPD (Chronic Obstructive Pulmonary Disease) (ED), Facial Contusion (ED), General Instructions, Nasal Fracture (ED) Additional Instructions: Antibiotics as prescribed Ventolin inhaler as directed and as needed for shortness of breath/wheezing Deltasone as prescribed Do not blow your nose Sucking precautions such as do not suck on a straw, smoke cigarettes, etc Ibuprofen or Tylenol as directed and as needed for pain and inflammation Ice to affected area to reduce pain and inflammation Stop smoking cigarettes Stop drinking alcohol Follow-up with maxillofacial surgeon Follow-up with primary care provider Return to emergency department immediately with worsening of symptoms Med/Other Pt SpecificInfo: Prescription(s) given Scripts Amoxicillin-Clavulanate (Augmentin) 875-125 Mg Tab 1 TAB PO BID for Infection for 10 Days, #20 TAB 0 Refills Prov: Antonia Bellamy 05/20/17 Prednisone (Deltasone) 20 Mg Tab 20 MG PO DAILY for 5 Days, #5 TAB 0 Refills Prov: Antonia Bellamy 05/20/17 Albuterol 18 GM Inh (Ventolin Hfa 18 GM Inh) 90 Mcg/Act Aer 2 PUFF INH Q4-6H Y for SOB/WHEEZING, #1 INHALER 0 Refills Prov: Antonia Bellamy 05/20/17 Clindamycin (Clindamycin) 150 Mg Cap 450 MG PO Q6H for Infection for 10 Days, #120 CAP 0 Refills Prov: Antonia Bellamy 05/20/17 Erythromycin Opth Oint (Erythromycin Opth Oint) 5 Mg/Gm Oint 1 APPLIC RIGHT EYE QID for Infection for 7 Days, #1 TUBE 0 Refills Prov: Antonia Bellamy 05/20/17 Disposition: 01 DISCHARGE HOME Condition: Stable Antonia Bellamy May 20, 2017 14:32
[2017-05-20] MEDS ORDERED: CLINDAMYCIN 150 MG CAP PO SCH (15:00)
[2017-05-20 15:09] LABS: AUTOMATED NEUTROPHIL # 4.1 TH/MM3 (1.8-7.7); BASOPHIL % 0.5 % (0.0-2.0); EOSINOPHIL % 0.2 % (0.0-4.0); HEMATOCRIT 32.8 % (39.0-51.0); HEMO FLAGS DIFF FINAL; LYMPH % 21.4 % (9.0-44.0); LYMPHOCYTE # 1.3 TH/MM3 (1.0-4.8); MEAN CELL VOLUME 107.6 FL (80.0-100.0); MEAN CORPUSCULAR HEMOGLOBIN 36.4 PG (27.0-34.0); MEAN CORPUSCULAR HGB CONC 33.8 % (32.0-36.0); MONO % 11.5 % (0.0-8.0); NEUT % 66.4 % (16.0-70.0); PLATELET COUNT 118 TH/MM3 (150-450); RED BLOOD COUNT 3.05 MIL/MM3 (4.50-5.90); RED CELL DISTRIBUTION WIDTH 16.4 % (11.6-17.2); WHITE BLOOD COUNT 6.1 TH/MM3 (4.0-11.0)
--- NOTE | 2017-05-20 15:20 | RADRPT ---
EXAM DATE/TIME: 05/20/2017 15:04 [facility] COMPARISON: No previous studies available for comparison. INDICATIONS : Wheezing and short of breath after fall. MEDICAL HISTORY : Hypertension. Chronic obstructive pulmonary disease. SURGICAL HISTORY : None. ENCOUNTER: Initial ACUITY: 1 day PAIN SCORE: 0/10 LOCATION: Bilateral chest FINDINGS: A single view of the chest demonstrates the lungs to be symmetrically aerated without evidence of mas s, infiltrate or effusion. The cardiomediastinal contours are unremarkable. Osseous structures are intact. Numerous healed left-sided rib fractures. CONCLUSION: Normal examination. Theodore Mann MD on May 20, 2017 at 15:18 Board Certified Radiologist. This report was verified electronically.
[2017-05-20 15:39] LABS: ALKALINE PHOSPHATASE 100 U/L (45-117); ALT (GPT) 39 U/L (12-78); TOTAL BILIRUBIN ADULT 1.1 MG/DL (0.2-1.0)
--- NOTE | 2017-05-20 15:43 | RADRPT ---
EXAM DATE/TIME: 05/20/2017 15:28 [facility] COMPARISON: CT BRAIN W/O CONTRAST, February 09, 2017, 19:19. INDICATIONS : Trauma; fall. RADIATION DOSE: 37.65 CTDIvol (mGy) MEDICAL HISTORY : Hypertension. SURGICAL HISTORY : None. ENCOUNTER: Initial ACUITY: 1 day PAIN SCALE: 5/10 LOCATION: cranial TECHNIQUE: Multiple contiguous axial images were obtained of the head. Using automated exposure control and adj ustment of the mA and/or kV according to patient size, radiation dose was kept as low as reasonably a chievable to obtain optimal diagnostic quality images. DICOM format image data is available electro nically for review and comparison. FINDINGS: CEREBRUM: The ventricles are normal for age. No evidence of midline shift, mass lesion, hemorrhage or acute in farction. No extra-axial fluid collections are seen. POSTERIOR FOSSA: The cerebellum and brainstem are intact. The 4th ventricle is midline. The cerebellopontine angle i s unremarkable. EXTRACRANIAL: The visualized portion of the orbits is intact. Air-fluid level right maxillary sinus SKULL: The calvaria is intact. No evidence of skull fracture. Infraorbital soft tissue swelling bilaterally CONCLUSION: Normal examination. Air-fluid level right maxillary sinus, facial bone CT scan is pending. Theodore Mann MD on May 20, 2017 at 15:40 Board Certified Radiologist. This report was verified electronically.
[2017-05-20 15:46] LABS: ANION GAP 10 MEQ/L (5-15); AST (GOT) 74 U/L (15-37); BICARBONATE 25.5 MEQ/L (21.0-32.0); BLOOD UREA NITROGEN 11 MG/DL (7-18); CHLORIDE 94 MEQ/L (98-107); GLOMERULAR FILTRATION RATE 257 ML/MIN (>89); SODIUM (NA) 129 MEQ/L (136-145)
--- NOTE | 2017-05-20 15:55 | RADRPT ---
EXAM DATE/TIME: 05/20/2017 15:28 [facility] COMPARISON: No previous studies available for comparison. INDICATIONS : Trauma; fall. RADIATION DOSE: 56.80 CTDIvol (mGy) MEDICAL HISTORY : Hypertension. SURGICAL HISTORY : None. ENCOUNTER: Initial ACUITY: 1 day PAIN SCORE: 5/10 LOCATION: Bilateral facial TECHNIQUE: Volumetric scanning of the facial bones was performed. Using automated exposure control and adjustme nt of the mA and/or kV according to patient size, radiation dose was kept as low as reasonably achiev able to obtain optimal diagnostic quality images. DICOM format image data is available electronicall y for review and comparison. FINDINGS: ORBITS: The orbital and infraorbital osseous structures are intact. The retroconal structures have a normal configuration. No radiopaque foreign bodies are seen. NASAL BONE: There may be a small fracture at the base of the right nasal bone ZYGOMATIC ARCHES: Symmetric without evidence of fracture. SINUSES: There is extensive mucoperiosteal thickening in the right maxillary sinus. There is an air-fluid leve l in the right maxillary sinus. There is a small dehiscent area involving the inferior orbital rim bu t I do not see a displaced fracture. The anteriorly maxillary sinus wall is clearly intact. NASAL CAVITY: The nasal septum is bowed to the right. The lacrimal ducts are intact. SOFT TISSUES: No radiopaque foreign bodies seen. No soft-tissue swelling is seen. INTRACRANIAL: No intracranial air seen. CRIBIFORM PLATE: Grossly intact. CONCLUSION: Fluid and sinus disease in the right maxillary sinus. No fracture other than a small nondisplaced rig ht nasal bone fracture. Theodore Mann MD on May 20, 2017 at 15:50 Board Certified Radiologist. This report was verified electronically.
[2017-05-20 16:18] LABS: POTASSIUM 3.6 MEQ/L (3.5-5.1)
[2017-05-20] MEDS ORDERED: CLIN150C14 PO (17:05)
[2017-05-20] MEDS ORDERED: ERYTOIN10 RIGHT EYE (17:05)
[2017-05-20] MEDS ORDERED: VENTAER INH (17:05)
[2017-05-20] MEDS ORDERED: AZIT500T2 PO (17:05)
[2017-05-20] MEDS ORDERED: PRED-503 PO (17:05)
[2017-05-20] MEDS ORDERED: AUGM875T3 PO (17:14)
[2017-05-20 17:17] VITALS: BP 160/70; PULSE 80; RESP 18; O2SAT 98
[2017-05-20] MEDS ORDERED: SODIUM CHLOR 0.9% 1000 ML INJ 1,000 ML IV SCH (17:41)
[2017-05-20 18:42] VITALS: BP 175/80; PULSE 75; RESP 16; O2SAT 98
== END 2017-05-20 18:59 | disposition home or self-care (01) ==
LOC: NEPE 13:30
DX: S02.2XXA Fracture of nasal bones, initial encounter for closed fracture (principal); S00.83XA Contusion of other part of head, initial encounter; S00.31XA Abrasion of nose, initial encounter; S00.81XA Abrasion of other part of head, initial encounter; J44.1 Chronic obstructive pulmonary disease with (acute) exacerbation; F17.200 Nicotine dependence, unspecified, uncomplicated; W08.XXXA Fall from other furniture, initial encounter; Z88.1 Allergy status to other antibiotic agents; Z88.8 Allergy status to other drugs, medicaments and biological substances
CPT/HCPCS: 70450; 70486; 71010; 80053; 85025; 94664; 96360; 99285; J7030

== ENCOUNTER 2017-06-25 22:52 | Inpatient (IN) | payer SELFPAY ==
[~2017-06-25] VITALS: Ht 180.3 cm; Wt 50.0 kg
[~2017-06-25 22:52] MED LIST changes: +AUGM875T3 PO; +CLIN150C14 PO; +ERYTOIN10 RIGHT EYE; -LIBRIUM PO; -POTA20TA5 PO; +PRED-503 PO; -QUET1TAB7 PO; -SPIRCAP INH
[2017-06-25 22:54] VITALS: BP 147/72; PULSE 114; RESP 16; TEMP 98; O2SAT 95
[2017-06-25] MEDS ORDERED: SODIUM CHLORIDE 0.9% FLUSH 10 ML FLUSH IVF PRN (23:30)
[2017-06-25] MEDS ORDERED: methylPREDNISolone SOD SUCC 125 MG/2 ML VIAL IV PUSH ONE (23:30)
[2017-06-25] MEDS ORDERED: AZITHROMYCIN INJ 500 MG in SODIUM CHLOR 0.9% 250 ML INJ 250 ML IV ONE (23:30)
[2017-06-25] MEDS ORDERED: CEFEPIME INJ 1,000 MG in SODIUM CHLORIDE 0.9% INJ 100 ML IV ONE (23:30)
--- NOTE | 2017-06-25 23:35 | PD ---
HPI Chief Complaint: Respiratory Distress Time Seen by Provider: 23:21 Travel History International Travel<30 days: No Contact w/Intl Traveler<30days: No Traveled to known affect area: No History of Present Illness HPI 61-year-old male complains of chest pain shortness of breath coughing congestion. Patient states that the symptoms started several weeks ago. Patient states the cough is intermittent and productive. Patient complains substernal chest pressure intermittently. Patient denies chest pain radiation. Patient denies palpitation nausea diaphoresis. Patient has history of EtOH abuse. Patient states that last drink was this morning. Patient has history of COPD. Patient is a smoker. Patient does not have his inhaler with him. Patient denies any history of CAD. Patient denies history hypertension, diabetes or hyperlipidemia. PFSH Past Medical History Anxiety: Yes Depression: Yes Cardiovascular Problems: No COPD: Yes Diminished Hearing: No Hypertension: Yes Musculoskeletal: No Neurologic: No Respiratory: No Immunizations Current: Yes Influenza Vaccination: No Past Surgical History Other Surgery: No Social History Alcohol Use: Yes (daily heavy ) Tobacco Use: Yes (pack a day ) Substance Use: Yes (marijuanna ) Allergies-Medications (Allergen,Severity, Reaction): Coded Allergies: No Known Allergies (Verified Allergy, Unknown, 05/20/17) Reported Meds & Prescriptions Reported Meds & Active Scripts Active Ventolin Hfa 18 GM Inh (Albuterol Sulfate) 90 Mcg/Act Aer 2 Puff INH Q4-6H PRN Review of Systems General / Constitutional: No: Fever Eyes: No: Visual changes HENT: No: Headaches Cardiovascular: Positive: Chest Pain or Discomfort Respiratory: Positive: Cough, Shortness of Breath Gastrointestinal: No: Abdominal Pain Genitourinary: No: Dysuria Musculoskeletal: No: Pain Skin: No Rash Neurologic: No: Weakness Psychiatric: No: Depression Endocrine: No: Polydipsia Hematologic/Lymphatic: No: Easy Bruising Physical Exam Narrative GENERAL: Well-nourished, well-developed patient. SKIN: Focused skin assessment warm/dry. HEAD: Normocephalic. EYES: No scleral icterus. No injection or drainage. NECK: Supple, trachea midline. No JVD or lymphadenopathy. CARDIOVASCULAR: Regular rate and rhythm without murmurs, gallops, or rubs. RESPIRATORY: Breath sounds equal bilaterally. No accessory muscle use. Patient has moderate amount expiratory wheezes bilaterally. Few rhonchi at the bases. GASTROINTESTINAL: Abdomen soft, non-tender, nondistended. MUSCULOSKELETAL: No cyanosis, or edema. BACK: Nontender without obvious deformity. No CVA tenderness. neurologic exam: Patient's lethargic however answer questions appropriately. No obvious focal neurological deficit. Data Data Last Documented VS Vital Signs Date Time Temp Pulse Resp B/P (MAP) Pulse Ox O2 Delivery O2 Flow Rate FiO2 06/25/17 22:54 98.0 114 16 147/72 (97) 95 Room Air Orders Orders Electrocardiogram (06/25/17 23:26) Complete Blood Count With Diff (06/25/17 23:26) Comprehensive Metabolic Panel (06/25/17 23:) Creatine Kinase (Cpk) (06/25/17 23:) Troponin I (06/25/17 23:) Prothrombin Time / Inr (Pt) (06/25/17 23:) Act Partial Throm Time (Ptt) (06/25/17 23:) Blood Culture (06/25/17 23:) Urinalysis - C+S If Indicated (06/25/17 23:26) Thyroid Stimulating Hormone (06/25/17 23:26) Influenzae A/B Antigen (06/25/17 23:26) Chest, Single Ap (06/25/17 23:26) Iv Access Insert/Monitor (06/25/17 23:26) Ecg Monitoring (06/25/17 23:26) Oxygen Administration (06/25/17 23:26) Oximetry (06/25/17 23:26) Drug Screen, Random Urine (06/25/17 23:26) Alcohol (Ethanol) (06/25/17 23:26) Lactic Acid (06/25/17 23:29) Sodium Chloride 0.9% Flush (Ns Flush) (06/25/17 23:30) Methylprednisolone So Succ Inj (Solumedr (06/25/17 23:30) Albuterol-Ipratropium Neb (Duoneb Neb) (06/25/17 23:30) Cefepime Inj (Maxipime Inj) (06/25/17 23:30) Azithromycin Inj (Zithromax Inj) (06/25/17 23:30) Ceftriaxone Inj (Rocephin Inj) (06/26/17 01:15) Azithromycin Inj (Zithromax Inj) (06/26/17 01:15) Labs Laboratory Tests Test 06/25/17 23:30 White Blood Count 9.5 TH/MM3 Red Blood Count 2.93 MIL/MM3 Hemoglobin 10.4 GM/DL Hematocrit 30.7 % Mean Corpuscular Volume 104.7 FL Mean Corpuscular Hemoglobin 35.4 PG Mean Corpuscular Hemoglobin Concent 33.8 % Red Cell Distribution Width 15.7 % Platelet Count 257 TH/MM3 Mean Platelet Volume 8.8 FL Neutrophils (%) (Auto) 86.8 % Lymphocytes (%) (Auto) 7.6 % Monocytes (%) (Auto) 5.4 % Eosinophils (%) (Auto) 0.0 % Basophils (%) (Auto) 0.2 % Neutrophils # (Auto) 8.2 TH/MM3 Lymphocytes # (Auto) 0.7 TH/MM3 Monocytes # (Auto) 0.5 TH/MM3 Eosinophils # (Auto) 0.0 TH/MM3 Basophils # (Auto) 0.0 TH/MM3 CBC Comment DIFF FINAL Differential Comment Prothrombin Time 11.6 SEC Prothromb Time International Ratio 1.1 RATIO Activated Partial Thromboplast Time 26.6 SEC Blood Urea Nitrogen 9 MG/DL Creatinine 0.50 MG/DL Random Glucose 110 MG/DL Total Protein 7.9 GM/DL Albumin 3.7 GM/DL Calcium Level 8.5 MG/DL Alkaline Phosphatase 116 U/L Aspartate Amino Transf (AST/SGOT) 43 U/L Alanine Aminotransferase (ALT/SGPT) 26 U/L Total Bilirubin 0.4 MG/DL Sodium Level 137 MEQ/L Potassium Level 4.3 MEQ/L Chloride Level 99 MEQ/L Carbon Dioxide Level 29.2 MEQ/L Anion Gap 9 MEQ/L Estimat Glomerular Filtration Rate 170 ML/MIN Lactic Acid Level 2.9 mmol/L Total Creatine Kinase 174 U/L Troponin I LESS THAN 0.02 NG/ML Thyroid Stimulating Hormone 3rd Gen 1.770 uIU/ML Ethyl Alcohol Level 162 MG/DL [facility] Medical Decision Making Medical Screen Exam Complete: Yes Emergency Medical Condition: Yes Interpretation(s) 23:35 PM. EKG shows sinus tachycardia rate 108. Nonspecific ST-T wave change. 1:04 AM. Chest x-ray shows no acute infiltrate. CBC WBC 9.5. Hemoglobin 10.4 hematocrit 30.7. MCV 104.7. CMP with creatinine 0.5. Lactic acid 2.9. Cardiac enzymes are normal. Alcohol 162. Influenza AB antigen negative. Differential Diagnosis Differential diagnosis including acute exacerbation COPD, bronchitis, pneumonia , PE, pneumothorax, angina, ID. Narrative Course 61-year-old male with chest pain, coughing congestion and shortness of breath. History of COPD. Albuterol with Atrovent unit dose treatment 3. Solu-Medrol 125 mg IV. Diagnosis Primary Impression: COPD with acute exacerbation Additional Impressions: Bronchitis Chest pain Qualified Codes: R07.9 - Chest pain, unspecified Alcohol abuse Admitting Information Admitting Physician Requests: Admit Noe Griffin MD Jun 25, 2017 23:35
[2017-06-25] MEDS: RESP: ALBUTEROL 2.5 MG/IPRATROPIUM 0.5 MG NEB (SCH) INH (23:41)
--- NOTE | 2017-06-25 23:50 | RADRPT ---
EXAM DATE/TIME: 06/25/2017 23:32 [facility] COMPARISON: No previous studies available for comparison. INDICATIONS : Shortness of breath. MEDICAL HISTORY : Hypertension. Chronic obstructive pulmonary disease. SURGICAL HISTORY : None. ENCOUNTER: Initial ACUITY: 1 day PAIN SCORE: 0/10 LOCATION: Bilateral chest FINDINGS: Lungs are hyperexpanded. Mild scarring seen of the bases, especially on the left. There are old and s ubstantially if not completely healed left rib fractures. No acute pneumonia seen. No pleural effusio n or pneumothorax. Heart size stable, within normal limits. CONCLUSION: Chronic findings as above. No acute infiltrate. Hernandez Nguyen MD on June 25, 2017 at 23:47 Board Certified Radiologist. This report was verified electronically.
[2017-06-26] VITALS (13 sets, daily range): BP systolic 101–134; BP diastolic 60–75; PULSE 91–118; RESP 18–20; TEMP 97.3–99.8; O2SAT 92–100
[2017-06-26 00:19] LABS: AUTOMATED NEUTROPHIL # 8.2 TH/MM3 (1.8-7.7); BASOPHIL % 0.2 % (0.0-2.0); HEMATOCRIT 30.7 % (39.0-51.0); HEMOGLOBIN 10.4 GM/DL (13.0-17.0); LYMPH % 7.6 % (9.0-44.0); LYMPHOCYTE # 0.7 TH/MM3 (1.0-4.8); MEAN CELL VOLUME 104.7 FL (80.0-100.0); MEAN CORPUSCULAR HEMOGLOBIN 35.4 PG (27.0-34.0); MEAN CORPUSCULAR HGB CONC 33.8 % (32.0-36.0); MEAN PLATELET VOLUME 8.8 FL (7.0-11.0); MONO % 5.4 % (0.0-8.0); MONOCYTE # 0.5 TH/MM3 (0-0.9); NEUT % 86.8 % (16.0-70.0); PLATELET COUNT 257 TH/MM3 (150-450); RED BLOOD COUNT 2.93 MIL/MM3 (4.50-5.90); RED CELL DISTRIBUTION WIDTH 15.7 % (11.6-17.2); WHITE BLOOD COUNT 9.5 TH/MM3 (4.0-11.0)
[2017-06-26 00:32] LABS: INTERNATIONAL NORMALIZED RATIO 1.1 RATIO; PROTHROMBIN TIME - PATIENT 11.6 SEC (9.8-11.6)
[2017-06-26 00:34] LABS: ALBUMIN 3.7 GM/DL (3.4-5.0); ALT (GPT) 26 U/L (12-78); AST (GOT) 43 U/L (15-37); BICARBONATE 29.2 MEQ/L (21.0-32.0); BLOOD UREA NITROGEN 9 MG/DL (7-18); CALCIUM 8.5 MG/DL (8.5-10.1); CHLORIDE 99 MEQ/L (98-107); GLOMERULAR FILTRATION RATE 170 ML/MIN (>89); GLUCOSE,RANDOM 110 MG/DL (74-106); SODIUM (NA) 137 MEQ/L (136-145)
[2017-06-26 00:45] LABS: ALKALINE PHOSPHATASE 116 U/L (45-117); TOTAL BILIRUBIN ADULT 0.4 MG/DL (0.2-1.0); TOTAL PROTEIN 7.9 GM/DL (6.4-8.2); TROPONIN I LESS THAN 0.02 NG/ML (0.02-0.05)
[2017-06-26] MEDS ORDERED: AZITHROMYCIN INJ 500 MG in SODIUM CHLOR 0.9% 250 ML INJ 250 ML IV ONE (01:15)
[2017-06-26] MEDS ORDERED: cefTRIAXone INJ 1,000 MG in SODIUM CHLORIDE 0.9% INJ 100 ML IV ONE (01:15)
[2017-06-26] MEDS ORDERED: THIAMINE INJ 100 MG in SODIUM CHLORIDE 0.9% INJ 100 ML IV ONE (01:15)
[2017-06-26] MEDS ORDERED: BISACODYL 10 MG SUPP RECTAL PRN (01:30)
[2017-06-26] MEDS ORDERED: SENNOSIDES 8.6 MG TAB PO PRN (01:30)
[2017-06-26] MEDS ORDERED: MORPHINE SULFATE 2 MG/ML INJ IV PUSH PRN (01:30)
[2017-06-26] MEDS ORDERED: FLUMAZENIL 0.5 MG/5 ML VIAL IV PUSH PRN (01:30)
[2017-06-26] MEDS ORDERED: LORazepam 2 MG TAB PO PRN (01:30)
[2017-06-26] MEDS ORDERED: LACTULOSE SYRUP 20 GM/30 ML CUP PO PRN (01:30)
[2017-06-26] MEDS ORDERED: ACETAMINOPHEN 325 MG TAB PO PRN (01:30)
[2017-06-26] MEDS ORDERED: MAGNESIUM HYDROXIDE SUSP 30 ML CUP PO PRN (01:30)
[2017-06-26] MEDS ORDERED: ONDANSETRON HCL 4 MG/2 ML VIAL IVP PRN (01:30)
[2017-06-26] MEDS ORDERED: LORazepam 2 MG/ML VIAL IV PUSH PRN ×3 (01:30)
[2017-06-26] MEDS ORDERED: LORazepam 1 MG TAB PO PRN (01:30)
[2017-06-26] MEDS ORDERED: HALOPERIDOL LACTATE 5 MG/ML AMP IM PRN (01:30)
[2017-06-26] MEDS: LORazepam 2 MG/ML VIAL IV PUSH PRN ×2 (02:30→20:05)
--- NOTE | 2017-06-26 03:35 | HHI.HP ---
[facility] Primary Care Physician No Primary Care Physician Admission Diagnosis acute exacerbation COPD. Bronchitis. Alcohol abuse. Diagnoses: (1) COPD (chronic obstructive pulmonary disease) Diagnosis: Principal (2) Chest pain Diagnosis: Principal (3) Lactic acidosis Diagnosis: Principal (4) Alcohol abuse Diagnosis: Principal (5) Tobacco abuse Diagnosis: Principal Travel History International Travel<30 Days: No Contact w/Intl Traveler <30 Da: No Traveled to Known Affected Are: No History of Present Illness This is a 61-year-old male with a PMH of Anxiety, Depression, HTN, COPD, Alcohol Abuse and Tobacco Abuse who presented to the ER with complaints of SOB. States symptoms have been ongoing for approx 2wks, however progressively worse today. Reports associated wheezing and chest pain w/ SOB. Chest pain sharp, constant, non-radiating. 8/10. On arrival, BP 147/72, HR 114, O2 sat 95 % on RA, Afebrile. CBC at baseline. Chemistry unremarkable. Lactic acid 2.9. Troponin negative. Alcohol 162. CXR with no acute findings. +wheezing on exam, s/p Solu-Medrol and DuoNeb in ER w/ some improvement. Review of Systems Except as stated in HPI: all other systems reviewed are Neg ROS: 14 point review of systems otherwise negative. Past Family Social History Past Medical History PMH: Anxiety, Depression, HTN, COPD, Alcohol Abuse and Tobacco Abuse Past Surgical History PAST SURGICAL HISTORY: None Allergies: Coded Allergies: No Known Allergies (Verified Allergy, Unknown, 05/20/17) Family History PAST FAMILY HISTORY: Reviewed. No h/o DM or CAD Social History PAST SOCIAL HISTORY: Drinks daily. Smokes 1ppd. +Marijuana. Physical Exam Vital Signs Vital Signs Date Time Temp Pulse Resp B/P (MAP) Pulse Ox O2 Delivery O2 Flow Rate FiO2 06/26/17 02:30 06/26/17 02:24 108 18 126/75 (92) 100 Room Air 06/26/17 01:49 100 Nasal Cannula 2.00 06/26/17 01:49 100 Nasal Cannula 2.00 06/26/17 01:47 95 06/25/17 22:54 98.0 114 16 147/72 (97) 95 Room Air Physical Exam PE: GENERAL: Middle-aged male in no acute distress. HEENT: PERRLA, EOMI. No scleral icterus or conjunctival pallor. No lid lag or facial droop. CARDIOVASCULAR: Regular rate and rhythm. No obvious murmurs to auscultation. No chest tenderness to palpation. RESPIRATORY: No obvious rhonchi, + wheezing. Clear to auscultation. Breath sounds equal bilaterally. GASTROINTESTINAL: Abdomen soft, non-tender, nondistended. BS normal. MUSCULOSKELETAL: Extremities without clubbing, cyanosis, or edema. No obvious deformities. NEUROLOGICAL: Awake, alert and oriented x4. No focal neurologic deficits. Moving both upper and lower extremities spontaneously. Laboratory Laboratory Tests Test 06/25/17 23:30 White Blood Count 9.5 Red Blood Count 2.93 Hemoglobin 10.4 Hematocrit 30.7 Mean Corpuscular Volume 104.7 Mean Corpuscular Hemoglobin 35.4 Mean Corpuscular Hemoglobin Concent 33.8 Red Cell Distribution Width 15.7 Platelet Count 257 Mean Platelet Volume 8.8 Neutrophils (%) (Auto) 86.8 Lymphocytes (%) (Auto) 7.6 Monocytes (%) (Auto) 5.4 Eosinophils (%) (Auto) 0.0 Basophils (%) (Auto) 0.2 Neutrophils # (Auto) 8.2 Lymphocytes # (Auto) 0.7 Monocytes # (Auto) 0.5 Eosinophils # (Auto) 0.0 Basophils # (Auto) 0.0 CBC Comment DIFF FINAL Differential Comment Prothrombin Time 11.6 Prothromb Time International Ratio 1.1 Activated Partial Thromboplast Time 26.6 Blood Urea Nitrogen 9 Creatinine 0.50 Random Glucose 110 Total Protein 7.9 Albumin 3.7 Calcium Level 8.5 Alkaline Phosphatase 116 Aspartate Amino Transf (AST/SGOT) 43 Alanine Aminotransferase (ALT/SGPT) 26 Total Bilirubin 0.4 Sodium Level 137 Potassium Level 4.3 Chloride Level 99 Carbon Dioxide Level 29.2 Anion Gap 9 Estimat Glomerular Filtration Rate 170 Lactic Acid Level 2.9 Total Creatine Kinase 174 Troponin I LESS THAN 0.02 Thyroid Stimulating Hormone 3rd Gen 1.770 Ethyl Alcohol Level 162 Date/Time Source Procedure Growth Status 06/25/17 23:30 Blood Peripheral Aerobic Blood Culture Pending Received 06/25/17 23:30 Blood Peripheral Anaerobic Blood Culture Pending Received 06/25/17 23:30 Nasal Washing Influenza Types A,B Antigen (RICH) - Final NEGATIVE FOR FLU A AND B ANTIGEN.... Complete Result Diagram: 06/25/17 2330 06/25/17 2330 [facility] VTE Risk Assessment [facility] VTE Risk Assessment: No/Low Risk (score <= 1) Caprini Risk Assessment Model Point Value = 1 Point Value = 2 Point Value = 3 Point Value = 5 Age 41-60 Minor surgery BMI > 25 kg/m2 Swollen legs Varicose veins or History of unexplained or recurrent spontaneous Oral contraceptives or hormone replacement Sepsis (< 1 month) Serious lung disease, including pneumonia (< 1 month) Abnormal pulmonary function Acute myocardial infarction Congestive heart failure (< 1 month) History of inflammatory bowel disease Medical patient at bed rest Age 61-74 Arthroscopic surgery Major open surgery (> 45 min) Laparoscopic surgery (> 45 min) Malignancy Confined to bed (> 72 hours) Immobilizing plaster cast Central venous access Age >= 75 History of VTE Family history of VTE Factor V Leiden Prothrombin [id number] Lupus anticoagulant Anticardiolipin antibodies Elevated serum homocysteine Heparin-induced thrombocytopenia Other congenital or acquired thrombophilia Stroke (< 1 month) Elective arthroplasty Hip, pelvis, or leg fracture Acute spinal cord injury (< 1 month) Prophylaxis Regimen Total Risk Factor Score Risk Level Prophylaxis Regimen 0-1 Low Early ambulation 2 Moderate Order ONE of the following: *Sequential Compression Device (SCD) *Heparin 5000 units SQ BID 3-4 Higher Order ONE of the following medications: *Heparin 5000 units SQ TID *Enoxaparin/Lovenox 40 mg SQ daily (WT < 150 kg, CrCl > 30 mL/min) *Enoxaparin/Lovenox 30 mg SQ daily (WT < 150 kg, CrCl > 10-29 mL/min) *Enoxaparin/Lovenox 30 mg SQ BID (WT < 150 kg, CrCl > 30 mL/min) AND/OR *Sequential Compression Device (SCD) 5 or more Highest Order ONE of the following medications: *Heparin 5000 units SQ TID (Preferred with Epidurals) *Enoxaparin/Lovenox 40 mg SQ daily (WT < 150 kg, CrCl > 30 mL/min) *Enoxaparin/Lovenox 30 mg SQ daily (WT < 150 kg, CrCl > 10-29 mL/min) *Enoxaparin/Lovenox 30 mg SQ BID (WT < 150 kg, CrCl > 30 mL/min) AND *Sequential Compression Device (SCD) Assessment and Plan Problem List: (1) COPD (chronic obstructive pulmonary disease) ICD Code: J44.9 - Chronic obstructive pulmonary disease, unspecified (2) Chest pain ICD Code: R07.9 - Chest pain, unspecified Status: Acute (3) Lactic acidosis ICD Code: E87.2 - Acidosis (4) Alcohol abuse ICD Code: F10.10 - Alcohol abuse, uncomplicated Status: Acute (5) Tobacco abuse ICD Code: Z72.0 - Tobacco use Assessment and Plan A/P: 1. COPD: Chronic Respiratory Failure w/ Acute Exacerbation. Moderate-Severe. s/p Solu-Medrol and DuoNeb w/ some improvement, however ongoing wheezing/SOB. Continue Solu-Medrol, DuoNeb, Symbicort, Mucinex. Monitor O2. 2. Chest Pain: Likely secondary to respiratory complaints. Initial trop negative. Check serial cardiac enzymes, telemetry. 3. Lactic Acidosis: Lactate 2.9, likely secondary to dehydration from alcohol abuse rather than sepsis, no obvious infectious etiology. CXR w/ no acute findings, images reviewed by me. IVF for hydration, repeat Lactic Acid. 4. Alcohol Abuse: Heavy, daily alcohol abuse. High risk for withdrawal. Start CIWA, Seizure Precautions, MVT/Thiamine/Folate replacement. 5. Tobacco Abuse: Ativan prn. No NicoDerm to avoid vasoconstriction. 6. DVT Prophylaxis; SCD/Teds. 7. Social work for d/c planning as needed. 8. Records, labs, imaging reviewed by me, case discussed at length w/ ER physician. Problem Qualifiers (1) Chest pain: Qualified Codes: R07.9 - Chest pain, unspecified Carlotta Gaviria MD Jun 26, 2017 03:35
[2017-06-26] MEDS: SODIUM CHLOR 0.9% 1000 ML INJ 1,000 ML IV SCH ×2 (04:08→15:38)
[2017-06-26 05:19] LABS: BILIRUBIN, URINE NEG (NEG); BLOOD, URINE NEG (NEG); GLUCOSE,URINE NEG (NEG); HYALINE CAST, URINE 6 /lpf (RARE); KETONE, URINE 10 mg/dL (NEG); MUCUS URINE MOD /lpf (OCC); NITRITE,URINE NEG (NEG); PH, URINE 5.5 (5.0-8.5); SQUAMOUS EPITHELIAL CELL URINE <1 /hpf (0-5); URINE COLOR YELLOW (YELLW/STRAW); URINE LEUKOCYTE ESTERASE NEG (NEG)
[2017-06-26] MEDS: RESP: ALBUTEROL 2.5 MG/IPRATROPIUM 0.5 MG NEB (PRN) NEB (05:43)
[2017-06-26] MEDS: methylPREDNISolone SOD SUCC 40 MG/1 ML VIAL IV PUSH SCH ×3 (06:05→16:35)
[2017-06-26] MEDS: RESP: ALBUTEROL 2.5 MG/IPRATROPIUM 0.5 MG NEB (SCH) NEB ×4 (08:19→19:52)
[2017-06-26] MEDS: SODIUM CHLORIDE 0.9% FLUSH 10 ML FLUSH IV FLUSH SCH ×2 (09:00→20:01)
[2017-06-26] MEDS: DOCUSATE SODIUM 50 MG/SENNA 8.6 MG TAB PO SCH ×2 (10:03→20:01)
[2017-06-26] MEDS: FOLIC ACID 1 MG TAB PO SCH (10:03)
[2017-06-26] MEDS: BUDESONIDE-FORMOTEROL 160/4.5 MCG INHALER INH SCH ×2 (10:03→20:01)
[2017-06-26] MEDS: THIAMINE HCL 100 MG TAB PO SCH (10:03)
[2017-06-26] MEDS: MULTIVITAMINS/MINERALS THERAPEUTIC TAB PO SCH (10:03)
--- NOTE | 2017-06-26 10:11 | HHI.PR ---
Subjective Remarks Follow up for COPD exacerbation. The patient reports continued shortness of breath, wheezing, and nonproductive cough; minimal improvement since arrival. Denies fevers/chills. When asked about chest pain, he states "I try not to think about it." He reports pain worse with cough and deep inspiration. He again does not quantify how much alcohol he drinks but states "a lot." He has no other medical complaints at this time. He is homeless. He states he has inhalers "somewhere". He is not on oxygen and does not have a nebulizer machine. Objective Vitals Vital Signs Date Time Temp Pulse Resp B/P (MAP) Pulse Ox O2 Delivery O2 Flow Rate FiO2 06/26/17 08:27 96 Nasal Cannula 2.00 06/26/17 08:21 95 Nasal Cannula 2.00 06/26/17 08:07 117 06/26/17 07:30 97.3 118 20 108/60 (76) 06/26/17 06:17 98.0 116 20 109/66 (80) 95 06/26/17 05:16 109 06/26/17 04:13 99.1 114 20 101/62 (75) 92 06/26/17 02:45 92 Nasal Cannula 2.00 06/26/17 02:30 06/26/17 02:24 108 18 126/75 (92) 100 Room Air 06/26/17 01:49 100 Nasal Cannula 2.00 06/26/17 01:49 100 Nasal Cannula 2.00 06/26/17 01:47 95 06/25/17 22:54 98.0 114 16 147/72 (97) 95 Room Air I/O 06/25/17 06/25/17 06/25/17 06/26/17 06/26/17 06/26/17 07:00 15:00 23:00 07:00 15:00 23:00 Intake Total 450 ml Output Total 200 ml Balance 250 ml Intake IV Total 450 ml Output Urine Total 200 ml Result Diagram: 06/25/17232906/25/172329 Imaging Last Impressions Chest X-Ray 06/25/172325 Signed Impressions: Service Date/Time: Sunday, June 25, 2017 23:32 - CONCLUSION: Chronic findings as above. No acute infiltrate. Hernandez Nguyen MD Objective Remarks GENERAL: Well-nourished, well-developed unkempt appearing middle aged male patient in NAD. SKIN: Warm and dry. No rash. HEAD: Normocephalic. Atraumatic. EYES: Pupils equal and round. No scleral icterus. No injection or drainage. ENT: No nasal bleeding or discharge. Mucous membranes pink and moist. NECK: Supple. Trachea midline. CARDIOVASCULAR: Regular rate and rhythm. S1, S2 noted. No murmur appreciated. RESPIRATORY: No accessory muscle use. Diffuse expiratory wheezing. Diminished inspiratory effort. Breath sounds equal bilaterally. GASTROINTESTINAL: Abdomen soft, non-tender, nondistended. Normoactive bowel sounds x4. MUSCULOSKELETAL: No obvious deformities. Extremities without clubbing, cyanosis , or edema. NEUROLOGICAL: Awake and alert. No obvious cranial nerve deficits. Diffuse generalized weakness, patient has difficulty just sitting up or rolling over in bed. Normal speech. PSYCHIATRIC: Appropriate mood and affect; insight and judgment normal. Medications and IVs Current Medications Medications (Trade) Dose Ordered Sig/Saturnino Route Start Time Stop Time Status Last Admin (NS Flush) 2 ml UNSCH PRN IVF 06/25/17 23:30 (SoluMEDROL INJ) 40 mg Q6HR IV PUSH 06/26/17 06:00 06/26/17 06:05 (Symbicort 160-4.5 Mcg Inh) 2 puff Q12HR INH 06/26/17 09:00 (Duoneb Neb) 1 ampule Q4HR WHILE AWAKE NEB NEB 06/26/17 08:00 06/26/17 08:19 (Duoneb Neb) 1 ampule Q2HR NEB PRN NEB 06/26/17 01:30 06/26/17 05:43 (Folate) 1 mg DAILY PO 06/26/17 09:00 07/01/17 08:59 (Vitamin B1) 100 mg DAILY PO 06/26/17 09:00 (Theragran M Tab) 1 tab DAILY PO 06/26/17 09:00 07/01/17 08:59 (Romazicon Inj) 0.2 mg Q1M PRN IV PUSH 06/26/17 01:30 (Ativan) 1 mg Q4H PRN PO 06/26/17 01:30 (Ativan Inj) 1 mg Q4H PRN IV PUSH 06/26/17 01:30 06/26/17 02:30 (Ativan) 2 mg Q2H PRN PO 06/26/17 01:30 (Ativan Inj) 2 mg Q2H PRN IV PUSH 06/26/17 01:30 (Ativan Inj) 2 mg Q1H PRN IV PUSH 06/26/17 01:30 (Ativan Inj) 2 mg Q15M PRN IV PUSH 06/26/17 01:30 (Haldol Inj) 2 mg Q15M PRN IM 06/26/17 01:30 (NS Flush) 2 ml UNSCH PRN IV FLUSH 06/26/17 01:30 (NS Flush) 2 ml BID IV FLUSH 06/26/17 09:00 (Zofran Inj) 4 mg Q6H PRN IVP 06/26/17 01:30 (Tylenol) 650 mg Q6H PRN PO 06/26/17 01:30 (Reklaw 5-325 Mg) 1 tab Q4H PRN PO 06/26/17 01:30 (Morphine Inj) 2 mg Q3H PRN IV PUSH 06/26/17 01:30 (Jacey-Colace) 1 tab BID PO 06/26/17 09:00 (Milk Of Magnesia Liq) 30 ml Q12H PRN PO 06/26/17 01:30 (Senokot) 17.2 mg Q12H PRN PO 06/26/17 01:30 (Dulcolax Supp) 10 mg DAILY PRN RECTAL 06/26/17 01:30 (Lactulose Liq) 30 ml DAILY PRN PO 06/26/17 01:30 Sodium Chloride 1,000 ml @ 100 mls/hr Q10H IV 06/26/17 03:15 06/26/17 04:08 (Zithromax) 500 mg DAILY PO 06/26/17 21:00 06/30/17 20:59 A/P Problem List: (1) COPD (chronic obstructive pulmonary disease) ICD Code: J44.9 - Chronic obstructive pulmonary disease, unspecified (2) Chest pain ICD Code: R07.9 - Chest pain, unspecified Status: Acute (3) Lactic acidosis ICD Code: E87.2 - Acidosis (4) Alcohol abuse ICD Code: F10.10 - Alcohol abuse, uncomplicated Status: Acute (5) Tobacco abuse ICD Code: Z72.0 - Tobacco use Assessment and Plan 61-year-old male with a PMH of Anxiety, Depression, HTN, COPD, Alcohol Abuse and Tobacco Abuse who presented to the ER with complaints of SOB. Acute COPD Exacerbation: Moderate-Severe. Patient is homeless, not on oxygen, does not have nebulizer. -Continue steroids with IV Solumedrol 40mg q6h -Continue bronchodilators with Duonebs q4h saturnino and prn -Continue antibiotics with Azithromycin 500mg x5days -Started on Symbicort bid -Continue Mucinex. -O2 as needed to keep O2 sat > 92% -Not yet ready for discharge, still wheezing, still on oxygen. Will need home O2 walk test prior to discharge. Chest Pain: Suspect pleuritic/costochondritis secondary to respiratory complaints. -Ruled out ACS with negative serial cardiac enzymes -Monitor on telemetry Lactic Acidosis: Lactate 2.9, likely secondary to dehydration from alcohol abuse rather than sepsis, no obvious infectious etiology. CXR w/ no acute findings, images reviewed by me. -Continue IVF for hydration -repeat Lactic Acid 1.4, resolved Alcohol Abuse with Acute Alcohol Withdrawal: Heavy, daily alcohol abuse. Patient tremulous on exam. -Continue on CIWA, Seizure Precautions, MVT/Thiamine/Folate replacement. -Will start on librium 10mg tid Macrocytic Anemia: Hgb 10.4 upon arrival. Suspect secondary to chronic alcoholism however Hgb slightly worse than previous. -Check B12 and folate -Hgb dropped to 9.0 overnight, suspect hemodilutional with IVF however will check stool hemoccult -repeat CBC in am Tobacco Abuse: Ativan prn. No NicoDerm to avoid vasoconstriction. DVT Prophylaxis: SCD/Teds. Discharge Planning Discharge pending further clinical improvement. Likely needs additional 1-2 days of hospitalization. Discussed with case management, will admit to inpatient. Problem Qualifiers (1) Chest pain: Qualified Codes: R07.9 - Chest pain, unspecified Shelly Bundy PA-C Jun 26, 2017 10:11
[2017-06-26 10:12] LABS: AUTOMATED NEUTROPHIL # 5.2 TH/MM3 (1.8-7.7); HEMATOCRIT 25.6 % (39.0-51.0); LYMPH % 6.5 % (9.0-44.0); LYMPHOCYTE # 0.4 TH/MM3 (1.0-4.8); MEAN CELL VOLUME 103.7 FL (80.0-100.0); MEAN CORPUSCULAR HEMOGLOBIN 36.4 PG (27.0-34.0); MEAN PLATELET VOLUME 9.3 FL (7.0-11.0); MONO % 1.2 % (0.0-8.0); MONOCYTE # 0.1 TH/MM3 (0-0.9); NEUT % 92.3 % (16.0-70.0); PLATELET COUNT 199 TH/MM3 (150-450); RED BLOOD COUNT 2.47 MIL/MM3 (4.50-5.90); RED CELL DISTRIBUTION WIDTH 15.4 % (11.6-17.2); WHITE BLOOD COUNT 5.6 TH/MM3 (4.0-11.0)
[2017-06-26 10:32] LABS: BICARBONATE 26.5 MEQ/L (21.0-32.0); CALCIUM 8.2 MG/DL (8.5-10.1); CREATININE 0.46 MG/DL (0.60-1.30)
--- NOTE | 2017-06-26 13:05 | EKG ---
Date Performed: 06/25/2017 Time Performed: 23:21:51 PTAGE: 61 years EKG: SINUS TACHYCARDIA MARKED RIGHT AXIS DEVIATION NONSPECIFIC ST & T-WAVE ABNORMALITY ABNORMAL ECG PREVIOUS TRACING : 02/09/2017 18.32 Compared to prior tracing no significant change DOCTOR: Devin Dodd Interpretating Date/Time 06/26/2017 13:03:22
[2017-06-26] MEDS: AZITHROMYCIN 250 MG TAB PO SCH (20:04)
[2017-06-27] VITALS (8 sets, daily range): BP systolic 95–135; BP diastolic 55–79; PULSE 87–109; RESP 16–20; TEMP 97.3–98.3; O2SAT 92–98
[2017-06-27] MEDS: methylPREDNISolone SOD SUCC 40 MG/1 ML VIAL IV PUSH SCH ×5 (00:37→23:43)
--- NOTE | 2017-06-27 07:51 | HHI.PR ---
Subjective Remarks Patient seen and examined this morning. His vitals are stable he's afebrile. Per nursing patient is becoming more tremulous. Reports he drinks almost everyday, has had withdrawal seizures in the past. Is homeless. Breathing is okay. Reports right sided chest tightness. Objective Vital Signs Date Time Temp Pulse Resp B/P (MAP) Pulse Ox O2 Delivery O2 Flow Rate FiO2 06/27/17 04:00 97.5 87 18 135/69 (91) 98 06/26/17 20:00 98.3 91 20 134/72 (92) 97 06/26/17 19:56 Nasal Cannula 2.00 06/26/17 16:46 95 Nasal Cannula 2.00 06/26/17 15:52 99.8 107 18 130/70 (90) 95 06/26/17 11:35 97.7 111 18 132/69 (90) 94 06/26/17 08:27 96 Nasal Cannula 2.00 06/26/17 08:21 95 Nasal Cannula 2.00 06/26/17 08:07 117 I/O 06/26/17 06/26/17 06/26/17 06/27/17 06/27/17 06/27/17 07:00 15:00 23:00 07:00 15:00 23:00 Intake Total 450 ml 750 ml 425 ml 792 ml Output Total 200 ml 180 ml 400 ml Balance 250 ml 750 ml 245 ml 392 ml Intake Oral 425 ml 240 ml IV Total 450 ml 750 ml 552 ml Output Urine Total 200 ml 180 ml 400 ml Result Diagram: 06/26/17 0953 06/26/17 0953 Imaging Last Impressions Chest X-Ray 06/25/17 3245 Signed Impressions: Service Date/Time: Sunday, June 25, 2017 23:32 - CONCLUSION: Chronic findings as above. No acute infiltrate. Hernandez Nguyen MD Objective Remarks GENERAL: disheveled appearing, nad SKIN: Warm and dry. HEAD: Normocephalic. Poor dentition. EYES: No scleral icterus. No injection or drainage. NECK: Supple, trachea midline. No JVD or lymphadenopathy. CARDIOVASCULAR: Regular rate and rhythm without murmurs, gallops, or rubs. RESPIRATORY: Bilateral expiratory wheezing diffusely. GASTROINTESTINAL: Abdomen soft, non-tender, nondistended. MUSCULOSKELETAL: No cyanosis, or edema. Neuro: tremulous A/P Problem List: (1) COPD with acute exacerbation ICD Code: J44.1 - Chronic obstructive pulmonary disease with (acute) exacerbation Status: Acute (2) Chest pain ICD Code: R07.9 - Chest pain, unspecified Status: Acute (3) Acute alcohol intoxication ICD Code: F10.129 - Alcohol abuse with intoxication, unspecified Status: Acute (4) Tobacco abuse ICD Code: Z72.0 - Tobacco use (5) Lactic acidosis ICD Code: E87.2 - Acidosis Assessment and Plan 61-year-old medical significant for COPD, depression, anxiety, alcohol abuse, and tobacco abuse and presented for shortness of breath COPD, and exacerbation - He is homeless and does not have access portable oxygen - Continue azithromycin, Solu-Medrol 40 mg IV q6, will continue given significant wheezing on exam - Continue Symbicort, DuoNeb's, albuterol Chest pain - ACS ruled out, likely related to pulmonary pathology - Lactic acidosis: Resolved. Blood cultures negative to date, flu negative Alcohol abuse with withdrawal - C1 protocol, seizure precautions, multivitamins, thiamine, folate - Librium 10 mg 3 times a day - hx of withdrawal seizures. Macrocytic anemia - Secondary to chronic ocular - Stable Tobacco abuse - Counseled DVT prophy: Bilateral SCDs Discharge Planning Likely discharge home tomorrow Home oxygen walk test Problem Qualifiers (1) Chest pain: Qualified Codes: R07.9 - Chest pain, unspecified Karla Bueno MD Jun 27, 2017 07:51
[2017-06-27] MEDS: RESP: ALBUTEROL 2.5 MG/IPRATROPIUM 0.5 MG NEB (SCH) NEB ×4 (08:03→19:12)
[2017-06-27] MEDS: DOCUSATE SODIUM 50 MG/SENNA 8.6 MG TAB PO SCH ×2 (08:34→21:35)
[2017-06-27] MEDS: BUDESONIDE-FORMOTEROL 160/4.5 MCG INHALER INH SCH ×2 (08:34→21:34)
[2017-06-27] MEDS: MULTIVITAMINS/MINERALS THERAPEUTIC TAB PO SCH (08:34)
[2017-06-27] MEDS: FOLIC ACID 1 MG TAB PO SCH (08:34)
[2017-06-27] MEDS: AZITHROMYCIN 250 MG TAB PO SCH (08:34)
[2017-06-27] MEDS: SODIUM CHLORIDE 0.9% FLUSH 10 ML FLUSH IV FLUSH SCH ×2 (08:34→21:34)
[2017-06-27] MEDS: THIAMINE HCL 100 MG TAB PO SCH (08:34)
[2017-06-27 10:08] LABS: AUTOMATED NEUTROPHIL # 14.1 TH/MM3 (1.8-7.7); BASOPHIL % 0.1 % (0.0-2.0); HEMATOCRIT 28.3 % (39.0-51.0); HEMOGLOBIN 9.3 GM/DL (13.0-17.0); LYMPHOCYTE # 0.6 TH/MM3 (1.0-4.8); MEAN CELL VOLUME 104.8 FL (80.0-100.0); MEAN CORPUSCULAR HEMOGLOBIN 34.5 PG (27.0-34.0); MEAN CORPUSCULAR HGB CONC 32.9 % (32.0-36.0); MEAN PLATELET VOLUME 9.3 FL (7.0-11.0); MONO % 2.5 % (0.0-8.0); MONOCYTE # 0.4 TH/MM3 (0-0.9); NEUT % 93.4 % (16.0-70.0); PLATELET COUNT 203 TH/MM3 (150-450); RED CELL DISTRIBUTION WIDTH 15.7 % (11.6-17.2); WHITE BLOOD COUNT 15.1 TH/MM3 (4.0-11.0)
[2017-06-27 10:45] LABS: ALKALINE PHOSPHATASE 85 U/L (45-117); ALT (GPT) 19 U/L (12-78); AST (GOT) 21 U/L (15-37); BLOOD UREA NITROGEN 13 MG/DL (7-18); CALCIUM 8.2 MG/DL (8.5-10.1); CHLORIDE 98 MEQ/L (98-107); CREATININE 0.44 MG/DL (0.60-1.30); GLOMERULAR FILTRATION RATE 197 ML/MIN (>89); GLUCOSE,RANDOM 161 MG/DL (74-106); SODIUM (NA) 134 MEQ/L (136-145); TOTAL BILIRUBIN ADULT 0.6 MG/DL (0.2-1.0); TOTAL PROTEIN 6.9 GM/DL (6.4-8.2)
[2017-06-27 10:51] LABS: LYMPHOCYTES 7 % (9-44); METAMYELOCYTES 1 % (0-1); MONOCYTES 1 % (0-8); NEUTROPHIL # MANUAL DIFF 13.9 TH/MM3 (1.8-7.7); POLYS (SEG NEUTROPHILS) 91 % (16-70)
[2017-06-27] MEDS ORDERED: GLUCAGON 1 MG/ML VIAL OTHER PRN (12:45)
[2017-06-27] MEDS ORDERED: DEXTROSE 50% IN WATER 50 ML VIAL(D50) IV PUSH PRN (12:45)
[2017-06-27] MEDS: LOW DOSE INSULIN NOVOLOG SUPPLEMENTAL SCALE SQ SCH ×2 (17:24→21:35)
[2017-06-28] VITALS (8 sets, daily range): BP systolic 103–138; BP diastolic 60–81; PULSE 84–98; RESP 16–22; TEMP 96.6–97.7; O2SAT 93–98
[2017-06-28] MEDS: methylPREDNISolone SOD SUCC 40 MG/1 ML VIAL IV PUSH SCH ×3 (04:38→17:37)
[2017-06-28 07:25] LABS: AUTOMATED NEUTROPHIL # 9.1 TH/MM3 (1.8-7.7); BASOPHIL % 0.1 % (0.0-2.0); HEMATOCRIT 24.1 % (39.0-51.0); HEMOGLOBIN 8.6 GM/DL (13.0-17.0); LYMPH % 6.6 % (9.0-44.0); LYMPHOCYTE # 0.7 TH/MM3 (1.0-4.8); MEAN CELL VOLUME 103.2 FL (80.0-100.0); MEAN CORPUSCULAR HEMOGLOBIN 36.9 PG (27.0-34.0); MEAN CORPUSCULAR HGB CONC 35.8 % (32.0-36.0); MEAN PLATELET VOLUME 9.7 FL (7.0-11.0); MONO % 3.4 % (0.0-8.0); MONOCYTE # 0.3 TH/MM3 (0-0.9); NEUT % 89.9 % (16.0-70.0); PLATELET COUNT 179 TH/MM3 (150-450); RED BLOOD COUNT 2.33 MIL/MM3 (4.50-5.90); RED CELL DISTRIBUTION WIDTH 15.7 % (11.6-17.2); WHITE BLOOD COUNT 10.1 TH/MM3 (4.0-11.0)
[2017-06-28 07:46] LABS: BICARBONATE 27.8 MEQ/L (21.0-32.0); BLOOD UREA NITROGEN 14 MG/DL (7-18); CALCIUM 7.9 MG/DL (8.5-10.1); CHLORIDE 100 MEQ/L (98-107); CREATININE 0.31 MG/DL (0.60-1.30); GLOMERULAR FILTRATION RATE 295 ML/MIN (>89); GLUCOSE,RANDOM 151 MG/DL (74-106); SODIUM (NA) 133 MEQ/L (136-145)
[2017-06-28] MEDS: RESP: ALBUTEROL 2.5 MG/IPRATROPIUM 0.5 MG NEB (SCH) NEB ×4 (07:51→20:29)
[2017-06-28] MEDS: BUDESONIDE-FORMOTEROL 160/4.5 MCG INHALER INH SCH ×2 (09:00→21:26)
[2017-06-28] MEDS: SODIUM CHLORIDE 0.9% FLUSH 10 ML FLUSH IV FLUSH SCH ×2 (09:00→21:27)
[2017-06-28] MEDS: MULTIVITAMINS/MINERALS THERAPEUTIC TAB PO SCH (09:07)
[2017-06-28] MEDS: DOCUSATE SODIUM 50 MG/SENNA 8.6 MG TAB PO SCH ×2 (09:07→21:27)
[2017-06-28] MEDS: THIAMINE HCL 100 MG TAB PO SCH (09:07)
[2017-06-28] MEDS: AZITHROMYCIN 250 MG TAB PO SCH (09:07)
[2017-06-28] MEDS: FOLIC ACID 1 MG TAB PO SCH (09:08)
[2017-06-28] MEDS: LOW DOSE INSULIN NOVOLOG SUPPLEMENTAL SCALE SQ SCH ×4 (09:08→21:27)
[2017-06-28] MEDS: POTASSIUM CHLORIDE 10 MEQ CONTROLLED RELEASE TAB PO SCH ×2 (13:07→16:00)
--- NOTE | 2017-06-28 17:01 | HHI.PR ---
Subjective Remarks She looks very fragile Reported significant exhaustion or short of breath on exertion Still on O2 nasal cannula WBC dropped to normal limit hemoglobin 8.6 his potassium is at 3 Objective Vitals Vital Signs Date Time Temp Pulse Resp B/P (MAP) Pulse Ox O2 Delivery O2 Flow Rate FiO2 06/28/17 16:00 97.6 88 22 104/63 (77) 98 06/28/17 14:01 2.00 06/28/17 12:00 96.7 87 18 114/72 (86) 93 06/28/17 08:00 97.4 94 21 138/81 (100) 96 06/28/17 07:53 98 Nasal Cannula 2.00 06/28/17 04:00 97.4 84 16 123/75 (91) 95 06/28/17 00:00 97.7 98 16 103/60 (74) 96 06/27/17 21:38 Nasal Cannula 2.00 06/27/17 20:10 103 06/27/17 20:00 98.3 103 16 99/61 (74) 95 I/O 06/27/17 06/27/17 06/27/17 06/28/17 06/28/17 06/28/17 07:00 15:00 23:00 07:00 15:00 23:00 Intake Total 792 ml 525 ml 1120 ml Output Total 400 ml 400 ml 575 ml Balance 392 ml 125 ml 545 ml Intake Oral 240 ml 525 ml 720 ml IV Total 552 ml 400 ml Output Urine Total 400 ml 400 ml 575 ml # Bowel Movements 0 Result Diagram: 06/28/17 0631 06/28/17 0631 Objective Remarks - GENERAL: This is a well-nourished, well-developed patient, in no apparent distress. SKIN: No rashes, warm and dry HEAD: Atraumatic. Normocephalic. EYES: Pupils equal round and reactive. Extraocular motions intact. No scleral icterus. ENT: Nose without bleeding, or drainage, Airway patent. NECK: Trachea midline. Supple CARDIOVASCULAR: Regular rate and rhythm without murmurs, gallops, or rubs. RESPIRATORY: Slightly bibasilar Diminished breath sounds with wheezes bilaterally GASTROINTESTINAL: Abdomen soft, non-tender, nondistended. Positive bowel sounds MUSCULOSKELETAL: Extremities without clubbing, cyanosis, or edema. Pedal pulses appreciated NEUROLOGICAL: Awake and alert. Moves all extremity. Normal speech.no focal neurological deficit A/P Problem List: (1) COPD (chronic obstructive pulmonary disease) ICD Code: J44.9 - Chronic obstructive pulmonary disease, unspecified (2) Chest pain ICD Code: R07.9 - Chest pain, unspecified Status: Acute (3) Lactic acidosis ICD Code: E87.2 - Acidosis (4) Alcohol abuse ICD Code: F10.10 - Alcohol abuse, uncomplicated Status: Acute (5) Tobacco abuse ICD Code: Z72.0 - Tobacco use Assessment and Plan 06/28/17: Still fragile on short of breath we'll repeat home O2 walking test today , I will continue Solu-Medrol iv hoping to be able to taper soon. 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 Blood cultures negative to date, flu negative Alcohol abuse with withdrawal - C1 protocol, seizure precautions, multivitamins, thiamine, folate - Librium 10 mg 3 times a day - hx of withdrawal seizures. 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
[2017-06-28] MEDS ORDERED: POTASSIUM CHLORIDE 20 MEQ CONTROLLED RELEASE TAB PO ONE (19:30)
[2017-06-29] VITALS (9 sets, daily range): BP systolic 94–130; BP diastolic 59–86; PULSE 78–96; RESP 17–21; TEMP 96.2–97.8; O2SAT 96–99
[2017-06-29] MEDS: SODIUM CHLORIDE 0.9% FLUSH 10 ML FLUSH IV FLUSH PRN ×2 (00:16→06:32)
[2017-06-29] MEDS: methylPREDNISolone SOD SUCC 40 MG/1 ML VIAL IV PUSH SCH ×5 (00:16→23:24)
[2017-06-29 07:39] LABS: BICARBONATE 27.5 MEQ/L (21.0-32.0); CALCIUM 8.5 MG/DL (8.5-10.1); CREATININE 0.44 MG/DL (0.60-1.30); MAGNESIUM 1.7 MG/DL (1.5-2.5); PHOSPHORUS 2.1 MG/DL (2.5-4.9)
[2017-06-29] MEDS: LOW DOSE INSULIN NOVOLOG SUPPLEMENTAL SCALE SQ SCH ×4 (08:00→23:23)
[2017-06-29] MEDS: RESP: ALBUTEROL 2.5 MG/IPRATROPIUM 0.5 MG NEB (SCH) NEB ×4 (08:39→19:53)
[2017-06-29] MEDS: BUDESONIDE-FORMOTEROL 160/4.5 MCG INHALER INH SCH (09:00)
[2017-06-29] MEDS: AZITHROMYCIN 250 MG TAB PO SCH (09:15)
[2017-06-29] MEDS: DOCUSATE SODIUM 50 MG/SENNA 8.6 MG TAB PO SCH ×2 (09:15→23:13)
[2017-06-29] MEDS: THIAMINE HCL 100 MG TAB PO SCH (09:15)
[2017-06-29] MEDS: FOLIC ACID 1 MG TAB PO SCH (09:15)
[2017-06-29] MEDS: MULTIVITAMINS/MINERALS THERAPEUTIC TAB PO SCH (09:15)
[2017-06-29] MEDS: SODIUM CHLORIDE 0.9% FLUSH 10 ML FLUSH IV FLUSH SCH ×2 (09:16→23:14)
[2017-06-29] MEDS: MAGNESIUM SULFATE 1 GM PREMIX 100 ML IV SCH ×2 (11:49→12:47)
[2017-06-29] MEDS: ACETAMINOPHEN/HYDROcodone 325 MG/5 MG TAB PO PRN ×3 (11:58→23:14)
--- NOTE | 2017-06-29 14:20 | HHI.PR ---
Subjective Remarks Still in short of breath on nasal cannula oxygen Afebrile, looks very fragile Objective Vitals Vital Signs Date Time Temp Pulse Resp B/P (MAP) Pulse Ox O2 Delivery O2 Flow Rate FiO2 06/29/17 12:00 97.8 92 17 111/66 (81) 98 06/29/17 09:15 99 Nasal Cannula 2.00 06/29/17 08:01 79 06/29/17 08:00 96.9 84 17 130/86 (101) 99 06/29/17 04:00 97.4 78 20 130/77 (94) 99 06/29/17 00:00 97.6 88 21 119/76 (90) 98 06/28/17 20:29 95 Nasal Cannula 2.00 06/28/17 20:00 98 Nasal Cannula 2.00 06/28/17 20:00 96.6 90 20 122/68 (86) 98 06/28/17 20:00 89 06/28/17 16:00 97.6 88 22 104/63 (77) 98 I/O 06/28/17 06/28/17 06/28/17 06/29/17 06/29/17 06/29/17 07:00 15:00 23:00 07:00 15:00 23:00 Intake Total 1120 ml 860 ml 300 ml 100 ml Output Total 575 ml 850 ml 625 ml Balance 545 ml 10 ml -325 ml 100 ml Intake Oral 720 ml 860 ml 300 ml IV Total 400 ml 100 ml Output Urine Total 575 ml 850 ml 625 ml # Voids 2 1 # Bowel Movements 0 Result Diagram: 06/28/17 0631 06/29/17 0626 Objective Remarks - GENERAL: This is a well-nourished, well-developed patient, in no apparent distress. SKIN: No rashes, warm and dry HEAD: Atraumatic. Normocephalic. EYES: Pupils equal round and reactive. Extraocular motions intact. No scleral icterus. ENT: Nose without bleeding, or drainage, Airway patent. NECK: Trachea midline. Supple CARDIOVASCULAR: Regular rate and rhythm without murmurs, gallops, or rubs. RESPIRATORY: Slightly bibasilar Diminished breath sounds with wheezes bilaterally GASTROINTESTINAL: Abdomen soft, non-tender, nondistended. Positive bowel sounds MUSCULOSKELETAL: Extremities without clubbing, cyanosis, or edema. Pedal pulses appreciated NEUROLOGICAL: Awake and alert. Moves all extremity. Normal speech.no focal neurological deficit A/P Problem List: (1) COPD (chronic obstructive pulmonary disease) ICD Code: J44.9 - Chronic obstructive pulmonary disease, unspecified (2) Chest pain ICD Code: R07.9 - Chest pain, unspecified Status: Acute (3) Lactic acidosis ICD Code: E87.2 - Acidosis (4) Alcohol abuse ICD Code: F10.10 - Alcohol abuse, uncomplicated Status: Acute (5) Tobacco abuse ICD Code: Z72.0 - Tobacco use Assessment and Plan 06/29/17: Continue tapering Solu-Medrol, daily PT OT, continue Zithromax. D/W nurse and PT, Patient need to follow up with calculus professor as an outpatient we may need oxygen at home Hypomagnesemia hypophosphatemia replace A/P: 61-year-old medical significant for COPD, depression, anxiety, alcohol abuse, and tobacco abuse and presented for shortness of breath COPD, and exacerbation - He is homeless and does not have access portable oxygen - Continue azithromycin, Solu-Medrol 40 mg IV q6, will continue given significant wheezing on exam - Continue Symbicort, DuoNeb's, albuterol Chest pain - ACS ruled out, likely related to pulmonary pathology - Lactic acidosis: Resolved. Blood cultures negative to date, flu negative Alcohol abuse with withdrawal - C1 protocol, seizure precautions, multivitamins, thiamine, folate - Librium 10 mg 3 times a day - hx of withdrawal seizures. Macrocytic anemia - Secondary to chronic ocular - Stable Tobacco abuse - Counseled DVT prophy: Bilateral SCDs Discharge Planning Clinical improvement, patient doesn't have insurance for home O2 which may be an obstacle for discharge Problem Qualifiers (1) Chest pain: Qualified Codes: R07.9 - Chest pain, unspecified Lionel Soto MD Jun 29, 2017 14:20
[2017-06-29] MEDS: POTASSIUM PHOSPHATE/SODIUM PHOSPHATE 250 MG TAB PO SCH ×2 (15:20→23:13)
[2017-06-30] VITALS (8 sets, daily range): BP systolic 98–124; BP diastolic 60–79; PULSE 75–100; RESP 17–22; TEMP 96–96.9; O2SAT 94–98
[2017-06-30] MEDS: methylPREDNISolone SOD SUCC 40 MG/1 ML VIAL IV PUSH SCH ×3 (05:55→17:09)
[2017-06-30] MEDS: SODIUM CHLORIDE 0.9% FLUSH 10 ML FLUSH IV FLUSH PRN (05:55)
[2017-06-30] MEDS: POTASSIUM PHOSPHATE/SODIUM PHOSPHATE 250 MG TAB PO SCH (05:56)
[2017-06-30] MEDS: SODIUM CHLORIDE 0.9% FLUSH 10 ML FLUSH IV FLUSH SCH ×2 (07:46→21:00)
[2017-06-30] MEDS: RESP: ALBUTEROL 2.5 MG/IPRATROPIUM 0.5 MG NEB (PRN) NEB ×2 (08:15→11:16)
[2017-06-30] MEDS: BUDESONIDE-FORMOTEROL 160/4.5 MCG INHALER INH SCH ×2 (09:00→21:06)
[2017-06-30] MEDS: LOW DOSE INSULIN NOVOLOG SUPPLEMENTAL SCALE SQ SCH ×4 (09:05→22:06)
[2017-06-30] MEDS: MULTIVITAMINS/MINERALS THERAPEUTIC TAB PO SCH (09:06)
[2017-06-30] MEDS: THIAMINE HCL 100 MG TAB PO SCH (09:06)
[2017-06-30] MEDS: DOCUSATE SODIUM 50 MG/SENNA 8.6 MG TAB PO SCH ×2 (09:06→21:00)
[2017-06-30] MEDS: FOLIC ACID 1 MG TAB PO SCH (09:06)
[2017-06-30] MEDS: AZITHROMYCIN 250 MG TAB PO SCH (09:06)
--- NOTE | 2017-06-30 13:46 | HHI.PR ---
Subjective Remarks Respiratory vogel seems to be doing better he is off nasal cannula today, however still fragile far as mobility No signs of alcohol withdrawal Afebrile Objective Vitals Vital Signs Date Time Temp Pulse Resp B/P (MAP) Pulse Ox O2 Delivery O2 Flow Rate FiO2 06/30/17 12:00 96.5 100 20 98/60 (73) 98 06/30/17 10:20 Nasal Cannula 2.00 06/30/17 08:17 98 Nasal Cannula 2.00 06/30/17 08:00 96.8 75 18 124/71 (88) 98 06/30/17 04:00 96.0 88 17 124/79 (94) 98 06/30/17 00:00 96.9 91 19 112/69 (83) 98 06/29/17 21:45 96 Nasal Cannula 2.00 06/29/17 21:45 91 06/29/17 20:00 96.2 96 17 106/67 (80) 96 06/29/17 16:38 98 Nasal Cannula 2.00 06/29/17 16:00 97.4 92 17 94/59 (71) 98 I/O 06/29/17 06/29/17 06/29/17 06/30/17 06/30/17 06/30/17 07:00 15:00 23:00 07:00 15:00 23:00 Intake Total 300 ml 200 ml 2704 ml 200 ml Output Total 625 ml 100 ml 100 ml Balance -325 ml 200 ml 2604 ml 100 ml Intake Oral 300 ml 2704 ml 200 ml IV Total 200 ml Output Urine Total 625 ml 100 ml 100 ml # Voids 1 5 # Bowel Movements 0 Result Diagram: 06/28/17 0631 06/29/17 0626 Objective Remarks - GENERAL: This is a well-nourished, well-developed patient, in no apparent distress. SKIN: No rashes, warm and dry HEAD: Atraumatic. Normocephalic. EYES: Pupils equal round and reactive. Extraocular motions intact. No scleral icterus. ENT: Nose without bleeding, or drainage, Airway patent. NECK: Trachea midline. Supple CARDIOVASCULAR: Regular rate and rhythm without murmurs, gallops, or rubs. RESPIRATORY: Less wheezing bilaterally GASTROINTESTINAL: Abdomen soft, non-tender, nondistended. Positive bowel sounds MUSCULOSKELETAL: Extremities without clubbing, cyanosis, or edema. Pedal pulses appreciated NEUROLOGICAL: Awake and alert. Moves all extremity. Normal speech.no focal neurological deficit A/P Problem List: (1) COPD (chronic obstructive pulmonary disease) ICD Code: J44.9 - Chronic obstructive pulmonary disease, unspecified (2) Chest pain ICD Code: R07.9 - Chest pain, unspecified Status: Acute (3) Lactic acidosis ICD Code: E87.2 - Acidosis (4) Alcohol abuse ICD Code: F10.10 - Alcohol abuse, uncomplicated Status: Acute (5) Tobacco abuse ICD Code: Z72.0 - Tobacco use Assessment and Plan 06/30/17: Home O2 walking test to be checked today, Continue tapering Solu-Medrol , daily PT OT, continue Zithromax. D/W nurse and PT as well as financial team of the hospital regarding placement, Patient need to follow up with voice engineer as an outpatient we may need oxygen at home A/P: 61-year-old medical significant for COPD, depression, anxiety, alcohol abuse, and tobacco abuse and presented for shortness of breath COPD, and exacerbation - He is homeless and does not have access portable oxygen - Continue azithromycin, Solu-Medrol 40 mg IV q6, will continue given significant wheezing on exam - Continue Symbicort, DuoNeb's, albuterol Chest pain - ACS ruled out, likely related to pulmonary pathology - Lactic acidosis: Resolved. Blood cultures negative to date, flu negative Alcohol abuse with withdrawal - C1 protocol, seizure precautions, multivitamins, thiamine, folate - Librium 10 mg 3 times a day - hx of withdrawal seizures. Macrocytic anemia - Secondary to chronic ocular - Stable Tobacco abuse - Counseled DVT prophy: Bilateral SCDs Discharge Planning Clinical improvement, patient doesn't have insurance for home O2 which may be an obstacle for discharge Problem Qualifiers (1) Chest pain: Qualified Codes: R07.9 - Chest pain, unspecified Lionel Soto MD Jun 30, 2017 13:46
[2017-06-30] MEDS: ACETAMINOPHEN/HYDROcodone 325 MG/5 MG TAB PO PRN (22:11)
[2017-07-01] VITALS (8 sets, daily range): BP systolic 99–166; BP diastolic 58–79; PULSE 77–96; RESP 18–21; TEMP 95.5–97.8; O2SAT 93–96
[2017-07-01] MEDS: methylPREDNISolone SOD SUCC 40 MG/1 ML VIAL IV PUSH SCH ×2 (00:33→06:30)
[2017-07-01] MEDS: SODIUM CHLORIDE 0.9% FLUSH 10 ML FLUSH IV FLUSH SCH ×2 (09:00→22:05)
[2017-07-01] MEDS: BUDESONIDE-FORMOTEROL 160/4.5 MCG INHALER INH SCH ×2 (09:00→22:06)
[2017-07-01] MEDS: THIAMINE HCL 100 MG TAB PO SCH (09:06)
[2017-07-01] MEDS: LOW DOSE INSULIN NOVOLOG SUPPLEMENTAL SCALE SQ SCH ×4 (09:06→22:13)
[2017-07-01] MEDS: DOCUSATE SODIUM 50 MG/SENNA 8.6 MG TAB PO SCH ×2 (09:06→22:05)
--- NOTE | 2017-07-01 19:42 | HHI.PR ---
Subjective Remarks Patient doing well he is off nasal cannula oxygen Still fragile I discussed with PT OT will need to improve his mobility prior to discharge to [facility] Objective Vitals Vital Signs Date Time Temp Pulse Resp B/P (MAP) Pulse Ox O2 Delivery O2 Flow Rate FiO2 07/01/17 17:39 95 21 07/01/17 16:00 97.1 89 18 106/64 (78) 95 07/01/17 12:00 96.2 88 18 99/61 (74) 94 07/01/17 11:41 93 07/01/17 08:00 95.5 79 18 106/58 (74) 95 07/01/17 04:00 96.5 86 20 128/79 (95) 95 07/01/17 01:44 20 07/01/17 00:00 97.8 96 20 103/65 (78) 95 06/30/17 22:16 96 Nasal Cannula 2.00 06/30/17 21:09 Room Air 06/30/17 20:00 96.1 96 22 121/75 (90) 96 I/O 06/30/17 06/30/17 06/30/17 07/01/17 07/01/17 07/01/17 07:00 15:00 23:00 07:00 15:00 23:00 Intake Total 200 ml 1640 ml 240 ml 1600 ml Output Total 100 ml 1350 ml 400 ml 800 ml Balance 100 ml 290 ml -160 ml 800 ml Intake Oral 200 ml 1640 ml 240 ml 1600 ml Output Urine Total 100 ml 1350 ml 400 ml 800 ml # Bowel Movements 1 0 Result Diagram: 06/28/17 0631 06/29/17 0626 Objective Remarks - GENERAL: This is a well-nourished, well-developed patient, in no apparent distress. SKIN: No rashes, warm and dry HEAD: Atraumatic. Normocephalic. EYES: Pupils equal round and reactive. Extraocular motions intact. No scleral icterus. ENT: Nose without bleeding, or drainage, Airway patent. NECK: Trachea midline. Supple CARDIOVASCULAR: Regular rate and rhythm without murmurs, gallops, or rubs. RESPIRATORY: Less wheezes, better breath sounds GASTROINTESTINAL: Abdomen soft, non-tender, nondistended. Positive bowel sounds MUSCULOSKELETAL: Extremities without clubbing, cyanosis, or edema. Pedal pulses appreciated NEUROLOGICAL: Awake and alert. Moves all extremity. Normal speech.no focal neurological deficit A/P Problem List: (1) COPD (chronic obstructive pulmonary disease) ICD Code: J44.9 - Chronic obstructive pulmonary disease, unspecified (2) Chest pain ICD Code: R07.9 - Chest pain, unspecified Status: Acute (3) Lactic acidosis ICD Code: E87.2 - Acidosis (4) Alcohol abuse ICD Code: F10.10 - Alcohol abuse, uncomplicated Status: Acute (5) Tobacco abuse ICD Code: Z72.0 - Tobacco use Assessment and Plan 07/01/17: Change Solu-Medrol to prednisone patient asked home O2 walking test with 93% on room air, continue daily PT OT, D/W nurse and PT, Patient need to follow up with coiler as an outpatient we may need oxygen at home, currently still not a safe discharge A/P: 61-year-old medical significant for COPD, depression, anxiety, alcohol abuse, and tobacco abuse and presented for shortness of breath COPD, and exacerbation - He is homeless and does not have access portable oxygen - Continue azithromycin, Solu-Medrol 40 mg IV q6, will continue given significant wheezing on exam - Continue Symbicort, DuoNeb's, albuterol Chest pain - ACS ruled out, likely related to pulmonary pathology - Lactic acidosis: Resolved. Blood cultures negative to date, flu negative Alcohol abuse with withdrawal - C1 protocol, seizure precautions, multivitamins, thiamine, folate - Librium 10 mg 3 times a day - hx of withdrawal seizures. Macrocytic anemia - Secondary to chronic ocular - Stable Tobacco abuse - Counseled DVT prophy: Bilateral SCDs Discharge Planning Awaiting mobility improvement for a safe discharge (patient homeless) Problem Qualifiers (1) Chest pain: Qualified Codes: R07.9 - Chest pain, unspecified Lionel Soto MD Jul 01, 2017 19:42
[2017-07-01] MEDS: predniSONE 20 MG TAB PO SCH (22:05)
[2017-07-01] MEDS: ACETAMINOPHEN/HYDROcodone 325 MG/5 MG TAB PO PRN (22:05)
[2017-07-02] VITALS: BP 123/69; PULSE 78; RESP 18; TEMP 96.9; O2SAT 94
[2017-07-02 08:00] VITALS: BP 108/68; PULSE 81; RESP 17; TEMP 95.7; O2SAT 96
[2017-07-02] MEDS: LOW DOSE INSULIN NOVOLOG SUPPLEMENTAL SCALE SQ SCH ×4 (08:00→21:00)
[2017-07-02] MEDS: BUDESONIDE-FORMOTEROL 160/4.5 MCG INHALER INH SCH ×2 (09:01→21:00)
[2017-07-02] MEDS: SODIUM CHLORIDE 0.9% FLUSH 10 ML FLUSH IV FLUSH SCH ×2 (09:02→21:00)
[2017-07-02] MEDS: THIAMINE HCL 100 MG TAB PO SCH (09:02)
[2017-07-02] MEDS: DOCUSATE SODIUM 50 MG/SENNA 8.6 MG TAB PO SCH ×2 (09:02→21:18)
[2017-07-02] MEDS: predniSONE 20 MG TAB PO SCH ×2 (09:03→21:18)
[2017-07-02 12:00] VITALS: BP 111/71; PULSE 93; RESP 17; TEMP 96.5; O2SAT 93
[2017-07-02] MEDS: ACETAMINOPHEN/HYDROcodone 325 MG/5 MG TAB PO PRN ×2 (12:27→23:15)
[2017-07-02 16:00] VITALS: BP 114/75; PULSE 90; RESP 17; TEMP 97.1; O2SAT 95
[2017-07-02 17:40] VITALS: O2SAT 95
[2017-07-02 20:35] VITALS: BP 116/71; PULSE 80; RESP 17; TEMP 98; O2SAT 94
--- NOTE | 2017-07-02 21:20 | HHI.PR ---
Subjective Remarks He looks better than any days before Is off nasal cannula Hopefully we'll be able to be discharged soon a mobility and physical capacity improved Objective Vitals Vital Signs Date Time Temp Pulse Resp B/P (MAP) Pulse Ox O2 Delivery O2 Flow Rate FiO2 07/02/17 20:35 98.0 80 17 116/71 (86) 94 07/02/17 17:40 95 21 07/02/17 16:00 97.1 90 17 114/75 (88) 95 07/02/17 12:00 96.5 93 17 111/71 (84) 93 07/02/17 08:00 95.7 81 17 108/68 (81) 96 07/02/17 00:00 96.9 78 18 123/69 (87) 94 07/01/17 23:05 16 I/O 07/01/17 07/01/17 07/01/17 07/02/17 07/02/17 07/02/17 07:00 15:00 23:00 07:00 15:00 23:00 Intake Total 240 ml 2120 ml 120 ml 1680 ml Output Total 400 ml 800 ml 500 ml 325 ml Balance -160 ml 1320 ml -380 ml 1355 ml Intake Oral 240 ml 2120 ml 120 ml 1680 ml Output Urine Total 400 ml 800 ml 500 ml 325 ml # Voids 2 # Bowel Movements 1 0 0 Result Diagram: 06/28/17 0631 06/29/17 0626 Objective Remarks - GENERAL: This is a well-nourished, well-developed patient, in no apparent distress. SKIN: No rashes, warm and dry HEAD: Atraumatic. Normocephalic. EYES: Pupils equal round and reactive. Extraocular motions intact. No scleral icterus. ENT: Nose without bleeding, or drainage, Airway patent. NECK: Trachea midline. Supple CARDIOVASCULAR: Regular rate and rhythm without murmurs, gallops, or rubs. RESPIRATORY: Slightly improved breath sounds with less wheezes GASTROINTESTINAL: Abdomen soft, non-tender, nondistended. Positive bowel sounds MUSCULOSKELETAL: Extremities without clubbing, cyanosis, or edema. Pedal pulses appreciated NEUROLOGICAL: Awake and alert. Moves all extremity. Normal speech.no focal neurological deficit A/P Problem List: (1) COPD (chronic obstructive pulmonary disease) ICD Code: J44.9 - Chronic obstructive pulmonary disease, unspecified (2) Chest pain ICD Code: R07.9 - Chest pain, unspecified Status: Acute (3) Lactic acidosis ICD Code: E87.2 - Acidosis (4) Alcohol abuse ICD Code: F10.10 - Alcohol abuse, uncomplicated Status: Acute (5) Tobacco abuse ICD Code: Z72.0 - Tobacco use Assessment and Plan 07/03/17 : Continue tapering prednisone, DC Zithromax, continue PT OT, hopefully discharge within 2-3 days once mobility improved A/P: 61-year-old medical significant for COPD, depression, anxiety, alcohol abuse, and tobacco abuse and presented for shortness of breath COPD, and exacerbation - He is homeless and does not have access portable oxygen - Continue azithromycin, Solu-Medrol 40 mg IV q6, will continue given significant wheezing on exam - Continue Symbicort, DuoNeb's, albuterol Chest pain - ACS ruled out, likely related to pulmonary pathology - Lactic acidosis: Resolved. Blood cultures negative to date, flu negative Alcohol abuse with withdrawal - C1 protocol, seizure precautions, multivitamins, thiamine, folate - Librium 10 mg 3 times a day - hx of withdrawal seizures. Macrocytic anemia - Secondary to chronic ocular - Stable Tobacco abuse - Counseled DVT prophy: Bilateral SCDs Discharge Planning Clinical improvement, patient doesn't have insurance for home O2 which may be an obstacle for discharge Problem Qualifiers (1) Chest pain: Qualified Codes: R07.9 - Chest pain, unspecified Lionel Soto MD Jul 02, 2017 21:20
[2017-07-03] VITALS (9 sets, daily range): BP systolic 109–132; BP diastolic 68–82; PULSE 76–93; RESP 16–18; TEMP 96–98.2; O2SAT 93–98
[2017-07-03] MEDS: LOW DOSE INSULIN NOVOLOG SUPPLEMENTAL SCALE SQ SCH ×4 (08:00→20:21)
[2017-07-03] MEDS: DOCUSATE SODIUM 50 MG/SENNA 8.6 MG TAB PO SCH ×2 (08:14→20:23)
[2017-07-03] MEDS: ACETAMINOPHEN/HYDROcodone 325 MG/5 MG TAB PO PRN ×3 (08:15→20:22)
[2017-07-03] MEDS: THIAMINE HCL 100 MG TAB PO SCH (08:15)
[2017-07-03] MEDS: BUDESONIDE-FORMOTEROL 160/4.5 MCG INHALER INH SCH ×2 (08:16→20:22)
[2017-07-03] MEDS: SODIUM CHLORIDE 0.9% FLUSH 10 ML FLUSH IV FLUSH SCH ×2 (08:16→20:23)
[2017-07-03] MEDS: predniSONE 20 MG TAB PO SCH (08:16)
[2017-07-03 13:50] LABS: BASOPHIL % 0.1 % (0.0-2.0); HEMATOCRIT 30.6 % (39.0-51.0); HEMOGLOBIN 10.2 GM/DL (13.0-17.0); LYMPH % 3.6 % (9.0-44.0); LYMPHOCYTE # 0.4 TH/MM3 (1.0-4.8); MEAN CELL VOLUME 105.1 FL (80.0-100.0); MEAN CORPUSCULAR HEMOGLOBIN 35.2 PG (27.0-34.0); MEAN CORPUSCULAR HGB CONC 33.5 % (32.0-36.0); MEAN PLATELET VOLUME 9.8 FL (7.0-11.0); MONO % 3.5 % (0.0-8.0); MONOCYTE # 0.3 TH/MM3 (0-0.9); NEUT % 92.8 % (16.0-70.0); PLATELET COUNT 208 TH/MM3 (150-450); RED BLOOD COUNT 2.91 MIL/MM3 (4.50-5.90); WHITE BLOOD COUNT 9.7 TH/MM3 (4.0-11.0)
[2017-07-03 14:17] LABS: BICARBONATE 28.8 MEQ/L (21.0-32.0); CREATININE 0.55 MG/DL (0.60-1.30)
[2017-07-04] VITALS: PULSE 87
[2017-07-04 00:40] VITALS: BP 101/65; PULSE 80; RESP 17; TEMP 97.3; O2SAT 96
[2017-07-04 05:26] VITALS: BP 111/72; PULSE 72; RESP 16; TEMP 96.3; O2SAT 96
[2017-07-04 08:00] VITALS: BP 123/74; PULSE 71; RESP 16; TEMP 96.5; O2SAT 99
[2017-07-04 08:41] VITALS: O2SAT 97
[2017-07-04] MEDS ORDERED: predniSONE 20 MG TAB PO SCH (09:00)
[2017-07-04] MEDS: DOCUSATE SODIUM 50 MG/SENNA 8.6 MG TAB PO SCH (09:00)
[2017-07-04] MEDS: LOW DOSE INSULIN NOVOLOG SUPPLEMENTAL SCALE SQ SCH (09:20)
[2017-07-04] MEDS: BUDESONIDE-FORMOTEROL 160/4.5 MCG INHALER INH SCH (09:20)
[2017-07-04] MEDS: THIAMINE HCL 100 MG TAB PO SCH (09:21)
[2017-07-04] MEDS: SODIUM CHLORIDE 0.9% FLUSH 10 ML FLUSH IV FLUSH SCH (09:21)
--- NOTE | 2017-07-04 11:05 | HHI.PR ---
Subjective Remarks no complains good po afebrile up and ambulating- baseline- uses a cane passed walk test- not requiring 02 Objective Vitals Vital Signs Date Time Temp Pulse Resp B/P (MAP) Pulse Ox O2 Delivery O2 Flow Rate FiO2 07/04/17 08:41 97 21 07/04/17 08:00 96.5 71 16 123/74 (90) 99 07/04/17 05:26 96.3 72 16 111/72 (85) 96 07/04/17 00:40 97.3 80 17 101/65 (77) 96 07/04/17 00:00 87 07/03/17 21:26 20 07/03/17 21:15 Room Air 07/03/17 20:35 98 21 07/03/17 20:00 98.2 79 16 122/71 (88) 98 07/03/17 16:00 96.6 93 17 132/82 (99) 97 07/03/17 12:00 96.0 86 17 111/70 (84) 96 I/O 07/03/17 07/03/17 07/03/17 07/04/17 07/04/17 07/04/17 07:00 15:00 23:00 07:00 15:00 23:00 Intake Total 680 ml 1060 ml 680 ml Output Total 1000 ml 325 ml 700 ml Balance -320 ml 735 ml -20 ml Intake Oral 680 ml 1060 ml 680 ml Output Urine Total 1000 ml 325 ml 700 ml # Bowel Movements 1 Result Diagram: 07/03/17 1300 07/03/17 1300 Imaging Last Impressions Chest X-Ray 06/25/17 2326 Signed Impressions: Service Date/Time: Sunday, June 25, 2017 23:32 - CONCLUSION: Chronic findings as above. No acute infiltrate. Hernandez Nguyen MD Objective Remarks awake and alert, no acute distress, speech clear anicteric lungs- no rales or wheezes regular rhyhtm' abdomen soft, nontender extremities no edema' A/P Problem List: (1) COPD (chronic obstructive pulmonary disease) ICD Code: J44.9 - Chronic obstructive pulmonary disease, unspecified (2) Chest pain ICD Code: R07.9 - Chest pain, unspecified Status: Acute (3) Lactic acidosis ICD Code: E87.2 - Acidosis (4) Alcohol abuse ICD Code: F10.10 - Alcohol abuse, uncomplicated Status: Acute (5) Tobacco abuse ICD Code: Z72.0 - Tobacco use Assessment and Plan 61-year-old medical significant for COPD, depression, anxiety, alcohol abuse, and tobacco abuse and presented for shortness of breath COPD exacerbation- improved - He is homeless and does not have access portable oxygen - po Prednisone taper - Continue Symbicort, DuoNeb's, albuterol - good sats- with walk test- does not require home 02 Chest pain- no complains - ACS ruled out, likely related to pulmonary pathology - Lactic acidosis: Resolved. Blood cultures negative to date, flu negative Alcohol abuse with withdrawal- counselled - C1 protocol, seizure precautions, multivitamins, thiamine, folate - Librium 10 mg 3 times a day - hx of withdrawal seizures. Macrocytic anemia - Secondary to chronic alcohool use - Stable Tobacco abuse - Counseled DC today- patient admits to homeless- but states familiar with surroundings and goes to [facility] OP states has a cane CM consult for transportation and meds assistance Problem Qualifiers (1) Chest pain: Qualified Codes: R07.9 - Chest pain, unspecified Nancy Jamison MD Jul 04, 2017 11:05
[2017-07-04] MEDS ORDERED: THIA100 PO (11:14)
[2017-07-04] MEDS ORDERED: Budeson-Formot 160-4.5 Mcg Inh INH (11:14)
[2017-07-04] MEDS ORDERED: SPIRCAP INH (11:14)
[2017-07-04] MEDS ORDERED: TIOTROPIUM BROMIDE 18 MCG INH INH SCH (11:15)
[2017-07-04] MEDS ORDERED: CHLO10CA5 PO (11:17)
[2017-07-04] MEDS ORDERED: PRED20 PO (11:18)
--- NOTE | 2017-07-04 11:23 | HHI.DS ---
Discharge Summary Admission Date Jun 26, 2017 at 15:15 Discharge Date: Jul 04, 2017 Admitting Diagnosis acute exacerbation COPD. Bronchitis. Alcohol abuse. (1) COPD (chronic obstructive pulmonary disease) ICD Code: J44.9 - Chronic obstructive pulmonary disease, unspecified Diagnosis: Principal (2) Chest pain ICD Code: R07.9 - Chest pain, unspecified Diagnosis: Secondary Status: Acute (3) Lactic acidosis ICD Code: E87.2 - Acidosis Diagnosis: Secondary (4) Alcohol abuse ICD Code: F10.10 - Alcohol abuse, uncomplicated Diagnosis: Secondary Status: Acute (5) Tobacco abuse ICD Code: Z72.0 - Tobacco use Diagnosis: Secondary Procedures none Brief History - From Admission This is a 61-year-old male with a PMH of Anxiety, Depression, HTN, COPD, Alcohol Abuse and Tobacco Abuse who presented to the ER with complaints of SOB. States symptoms have been ongoing for approx 2wks, however progressively worse today. Reports associated wheezing and chest pain w/ SOB. Chest pain sharp, constant, non-radiating. 8/10. On arrival, BP 147/72, HR 114, O2 sat 95 % on RA, Afebrile. CBC at baseline. Chemistry unremarkable. Lactic acid 2.9. Troponin negative. Alcohol 162. CXR with no acute findings. +wheezing on exam, s/p Solu-Medrol and DuoNeb in ER w/ some improvement. CBC/BMP: 07/03/17 1300 07/03/17 1300 Significant Findings Laboratory Tests Test 07/03/17 13:00 Red Blood Count 2.91 MIL/MM3 (4.50-5.90) Hemoglobin 10.2 GM/DL (13.0-17.0) Hematocrit 30.6 % (39.0-51.0) Mean Corpuscular Volume 105.1 FL (80.0-100.0) Mean Corpuscular Hemoglobin 35.2 PG (27.0-34.0) Neutrophils (%) (Auto) 92.8 % (16.0-70.0) Lymphocytes (%) (Auto) 3.6 % (9.0-44.0) Neutrophils # (Auto) 9.0 TH/MM3 (1.8-7.7) Lymphocytes # (Auto) 0.4 TH/MM3 (1.0-4.8) Blood Urea Nitrogen 25 MG/DL (7-18) Creatinine 0.55 MG/DL (0.60-1.30) Random Glucose 159 MG/DL (74-106) Calcium Level 8.0 MG/DL (8.5-10.1) Sodium Level 134 MEQ/L (136-145) PE at Discharge awake and alert, no acute distress, speech clear anicteric lungs- no rales or wheezes regular rhyhtm' abdomen soft, nontender extremities no edema' Pt update on day of discharge good sats at room air ambulating well - no 02 lungs- no rales, no wheezes Hospital Course 61-year-old medical significant for COPD, depression, anxiety, alcohol abuse, and tobacco abuse and presented for shortness of breath COPD exacerbation- improved - He is homeless and does not have access portable oxygen - po Prednisone taper - Continue Symbicort, DuoNeb's, albuterol - good sats- with walk test- does not require home 02 Chest pain- no complains - ACS ruled out, likely related to pulmonary pathology - Lactic acidosis: Resolved. Blood cultures negative to date, flu negative Alcohol abuse with withdrawal- counselled - C1 protocol, seizure precautions, multivitamins, thiamine, folate - Librium 10 mg 3 times a day - hx of withdrawal seizures. Macrocytic anemia - Secondary to chronic alcohool use - Stable Tobacco abuse - Counseled DC today- patient admits to homeless- but states familiar with surroundings and [facility] CM consult for transportation and meds assistance Pt Condition on Discharge: Stable Discharge Disposition: Discharge Home Discharge Time: <= 30 minutes Discharge Instructions DIET: Follow Instructions for: As Tolerated, No Restrictions Speech Therapy-Diet Recommends: Regular Activities you can perform: Weight Bearing as [place] Activities to Avoid: Strenuous Activity Follow up Referrals: [facility] New Medications: Prednisone (Prednisone) 20 Mg Tab 20 MG PO BID for COPD for 3 Days, #6 TAB 0 Refills Chlordiazepoxide HCl (Chlordiazepoxide HCl) 10 Mg Capsule 10 MG PO BID for etoh MDD 2 for 3 Days, #6 TAB Thiamine HCl (Gnp Vitamin B-1) 100 Mg Tab 100 MG PO DAILY for eto for 30 Days, #30 TAB Tiotropium Inh (Spiriva Handihaler) 18 Mcg Cap 18 MCG INH DAILY for COPD for 30 Days, #30 CAP 1 capsule = 18 mcg [Budeson-Formot 160-4.5 Mcg Inh] () 60 PUFF AERO 2 PUFF INH Q12HR for COPD for 30 Days Nancy Jamison MD Jul 04, 2017 11:23
[2017-07-05] MEDS ORDERED: predniSONE 20 MG TAB PO SCH (09:00)
== END 2017-07-04 13:28 | disposition home or self-care (01) | DRG 191 ==
LOC: NEPC 22:52 → NEDA 06-26 01:15 → NEPGCP 06-26 02:26 → OBSVTOIN 06-26 15:15 → N07B 06-26 16:19
PROVIDERS: ADMIT Internal Medicine; ATTEND Internal Medicine
DX: J44.1 Chronic obstructive pulmonary disease with (acute) exacerbation (principal); F10.239 Alcohol dependence with withdrawal, unspecified; J96.10 Chronic respiratory failure, unspecified whether with hypoxia or hypercapnia; E87.2 Acidosis; E83.42 Hypomagnesemia; I10 Essential (primary) hypertension; E86.0 Dehydration; D53.9 Nutritional anemia, unspecified; E83.39 Other disorders of phosphorus metabolism; F12.90 Cannabis use, unspecified, uncomplicated; F17.200 Nicotine dependence, unspecified, uncomplicated; F32.9 Major depressive disorder, single episode, unspecified; F41.9 Anxiety disorder, unspecified; Z59.0 Homelessness
CPT/HCPCS: 71010; 80048; 80053; 80307; 81001; 82550; 82948; 83036; 83605; 83735; 84100; 84443; 84484; 85007; 85025; 85027; 85610; 85730; 87040; 87804; 93005; 94618; 94640; 94664; 96365; 96367; 96375; 99285; G8987-GP; G8988-GP; J0456; J0692; J0696; J1815; J2060; J2920; J2930; J3411; J3475; J7030; J7050; J7512

== ENCOUNTER 2017-07-08 06:35 | Inpatient (IN) | payer OTHER ==
[2017-07-08] VITALS (12 sets, daily range): BP systolic 107–161; BP diastolic 57–84; PULSE 74–108; RESP 14–18; TEMP 97.5–98.8; O2SAT 93–99
[~2017-07-08] VITALS: Ht 170.2 cm; Wt 56.8 kg
[~2017-07-08 06:35] MED LIST changes: -AUGM875T3 PO; +Budeson-Formot 160-4.5 Mcg Inh INH; +CHLO10CA5 PO; -CLIN150C14 PO; -ERYTOIN10 RIGHT EYE; -PRED-503 PO; +PRED20 PO; +SPIRCAP INH; +THIA100 PO
--- NOTE | 2017-07-08 07:20 | PD ---
HPI Chief Complaint: Alcohol/Drug Intoxication Time Seen by Provider: 07:02 Travel History International Travel<30 days: No Contact w/Intl Traveler<30days: No Traveled to known affect area: No History of Present Illness HPI 61-year-old male presents via EMS for evaluation of intoxication. The patient was found intoxicated lying on the sidewalk. The patient endorses alcohol use this morning. Mentation he has abrasions to his forehead. He reports that he fell yesterday his head. He endorses some headache pain, mild, aggravated by hitting his head. Denies neck pain, back pain, pain in the arms or legs, chest pain or shortness of breath, abdominal pain, nausea or vomiting. Has no other complaints. History is somewhat limited by intoxication. PFSH Past Medical History Diminished Hearing: No Immunizations Current: Yes Past Surgical History Body Medical Devices: UNABLE TO ASSESS Social History Alcohol Use: Yes (daily heavy ) Tobacco Use: Yes (pack a day ) Substance Use: Yes Allergies-Medications (Allergen,Severity, Reaction): Coded Allergies: No Known Allergies (Verified Allergy, Unknown, 07/08/17) Reported Meds & Prescriptions Reported Meds & Active Scripts Active Prednisone 20 Mg Tab 20 Mg PO BID 3 Days Chlordiazepoxide HCl 10 Mg Capsule 10 Mg PO BID MDD 2 3 Days Gnp Vitamin B-1 (Thiamine HCl) 100 Mg Tab 100 Mg PO DAILY 30 Days [Budeson-Formot 160-4.5 Mcg Inh] 60 PUFF Aero 2 Puff INH Q12HR 30 Days Spiriva Handihaler (Tiotropium Inh) 18 Mcg Cap 18 Mcg INH DAILY 30 Days 1 capsule = 18 mcg Ventolin Hfa 18 GM Inh (Albuterol Sulfate) 90 Mcg/Act Aer 2 Puff INH Q4-6H PRN Review of Systems ROS Limitations: Intoxication Except as stated in HPI: all other systems reviewed are Neg Physical Exam Exam Limitations: Intoxication Narrative GENERAL: Disheveled male in no acute distress SKIN: Warm and dry. Forehead abrasions noted. HEAD: Atraumatic. Normocephalic. EYES: Pupils equal and round. No scleral icterus. No injection or drainage. ENT: No nasal bleeding or discharge. Mucous membranes pink and moist. NECK: Trachea midline. No JVD. CARDIOVASCULAR: Regular rate and rhythm. No murmur appreciated. RESPIRATORY: No accessory muscle use. Clear to auscultation. Breath sounds equal bilaterally. GASTROINTESTINAL: Abdomen soft, non-tender, nondistended. Hepatic and splenic margins not palpable. MUSCULOSKELETAL: No obvious deformities. No clubbing. No cyanosis. No edema. No tenderness to palpation along the neck or back. No range of motion limitation the upper or lower extremities. No pain with passive range of motion in the upper or lower extremities. NEUROLOGICAL: Awake and alert. No obvious cranial nerve deficits. Motor grossly within normal limits. Slurred speech. PSYCHIATRIC: Appropriate mood and affect; insight and judgment normal. Data Data Last Documented VS Vital Signs Date Time Temp Pulse Resp B/P (MAP) Pulse Ox O2 Delivery O2 Flow Rate FiO2 07/08/17 08:00 83 18 127/84 (98) 95 Room Air 07/08/17 06:[address] Brain W/O Iv Contrast(Rout) (07/08/17 ) Ct Cerv Spine W/O Contrast (07/08/17 ) Diet Regular Basic (07/08/17 Breakfast) Apply Cervical Collar (07/08/17 08:06) Complete Blood Count With Diff (07/08/17 08:06) Basic Metabolic Panel (Bmp) (07/08/17 08:06) Act Partial Throm Time (Ptt) (07/08/17 08:06) Prothrombin Time / Inr (Pt) (07/08/17 08:06) Alcohol (Ethanol) (07/08/17 08:06) Chest, Single Ap (07/08/17 ) Type And Screen (07/08/17 08:28) Admit Order (Ed Use Only) (07/08/17 09:01) Labs Laboratory Tests Test 07/08/17 08:20 White Blood Count 7.5 TH/MM3 Red Blood Count 3.10 MIL/MM3 Hemoglobin 11.2 GM/DL Hematocrit 32.5 % Mean Corpuscular Volume 104.8 FL Mean Corpuscular Hemoglobin 36.3 PG Mean Corpuscular Hemoglobin Concent 34.6 % Red Cell Distribution Width 16.1 % Platelet Count 225 TH/MM3 Mean Platelet Volume 9.3 FL Neutrophils (%) (Auto) 77.5 % Lymphocytes (%) (Auto) 13.6 % Monocytes (%) (Auto) 8.3 % Eosinophils (%) (Auto) 0.2 % Basophils (%) (Auto) 0.4 % Neutrophils # (Auto) 5.8 TH/MM3 Lymphocytes # (Auto) 1.0 TH/MM3 Monocytes # (Auto) 0.6 TH/MM3 Eosinophils # (Auto) 0.0 TH/MM3 Basophils # (Auto) 0.0 TH/MM3 CBC Comment DIFF FINAL Differential Comment Prothrombin Time 10.5 SEC Prothromb Time International Ratio 1.0 RATIO Activated Partial Thromboplast Time 28.6 SEC Blood Urea Nitrogen 20 MG/DL Creatinine 0.20 MG/DL Random Glucose 46 MG/DL Calcium Level 7.9 MG/DL Sodium Level 128 MEQ/L Potassium Level 3.7 MEQ/L Chloride Level 92 MEQ/L Carbon Dioxide Level 25.1 MEQ/L Anion Gap 11 MEQ/L Estimat Glomerular Filtration Rate 490 ML/MIN Ethyl Alcohol Level 247 MG/DL [facility] Medical Decision Making Medical Screen Exam Complete: Yes Emergency Medical Condition: Yes Medical Record Reviewed: Yes Differential Diagnosis Alcohol intoxication, closed head injury, intracranial hemorrhage Narrative Course 61-year-old male presents under [place] act for evaluation of intoxication. He is found to have abrasions on his forehead. He is awake and alert but intoxicated. CT imaging of brain and cervical spine are ordered. CT of the brain reveals CONCLUSION: Mild bifrontal contusions, right worse and left slight underlying edema in the right frontal region. Minimal subdural hemorrhage along the falx and tentorium. Nondisplaced skull fracture. CT of the cervical spine reveals acute minimally displaced fractures involving C5 to C7 spinous processes. At C6 the fracture partially extends into the left lamina. The patient will be placed into a collar. Discussed results with the patient who verbalizes understanding. Neurosurgeon business analyst consultant will be paged. Basic lab work and chest x-ray have been ordered. D/W Dr. Simeon, the neurosurgeon, who would like the patient to be admitted to the tool and die maker with consultation to himself. Discussed with Dr. Carlos who is agreeable with admission. Blood sugar 46, D50 has been ordered. Diagnosis Primary Impression: Subdural hemorrhage Additional Impressions: Skull fracture Cervical spine fracture Admitting Information Admitting Physician Requests: Admit Amrik King Jul 08, 2017 07:20
--- NOTE | 2017-07-08 07:56 | RADRPT ---
EXAM DATE/TIME: 07/08/2017 07:38 [facility] COMPARISON: CT BRAIN W/O CONTRAST, May 20, 2017, 15:28. INDICATIONS : Fell yesterday, abrasion to the forehead. Alcohol intoxication RADIATION DOSE: 35.03 CTDIvol (mGy) MEDICAL HISTORY : Unable to obtain SURGICAL HISTORY : Unable to obtain ENCOUNTER: Initial ACUITY: 2 days PAIN SCALE: 3/10 LOCATION: cranial TECHNIQUE: Multiple contiguous axial images were obtained of the head. Using automated exposure control and adj ustment of the mA and/or kV according to patient size, radiation dose was kept as low as reasonably a chievable to obtain optimal diagnostic quality images. DICOM format image data is available electro nically for review and comparison. FINDINGS: There is patchy parenchymal contusion and edema involving the medial right parafalcine frontal lobe w ith minimal similar changes in the contralateral left frontal region. There is a thin parafalcine sub dural most notably adjacent to the torcula along the tentorium asymmetric to the right. No drainable hemorrhagic collections identified. The ventricles are symmetric and normal. There is nothing to sugg est acute infarction. There is a nondisplaced vertically oriented right paramedian skull fracture whi ch extends from the anterior skull base and frontal sinus wall up to the coronal suture. CONCLUSION: Mild bifrontal contusions, right worse and left slight underlying edema in the right frontal region. Minimal subdural hemorrhage along the falx and tentorium. Nondisplaced skull fracture Hernandez Caputo MD on July 08, 2017 at 7:49 Board Certified Radiologist. This report was verified electronically.
--- NOTE | 2017-07-08 08:01 | RADRPT ---
EXAM DATE/TIME: 07/08/2017 07:38 [facility] COMPARISON: No previous studies available for comparison. INDICATIONS : Fell yesterday, alcohol intoxication RADIATION DOSE: 20.88 CTDIvol (mGy) MEDICAL HISTORY : Unable to obtain SURGICAL HISTORY : Unable to obtain ENCOUNTER: Initial ACUITY: 2 days PAIN SCALE: 3/10 LOCATION: neck TECHNIQUE: Volumetric scanning of the cervical spine was performed. Multiplanar reconstructions in the sagittal, coronal and oblique axial planes were performed. Using automated exposure control and adjustment o f the mA and/or kV according to patient size, radiation dose was kept as low as reasonably achievable to obtain optimal diagnostic quality images. DICOM format image data is available electronically f or review and comparison. FINDINGS: There is normal sagittal spine alignment of the cervical spine. No anterolisthesis or retrolisthesis is present. The atlantoaxial relationship is within normal limits. There is no prevertebral soft tiss ue swelling present. There are displaced fractures of the C5, C6, and C7 spinous processes. At C6 the fracture line extends partially into the left lamina. There is degenerative disc disease at C5-C6 an d C6-C7. The visualized portions of the posterior fossa, paraspinous soft tissues, and upper lung zones demons trate no acute abnormality. CONCLUSION: 1. There are acute minimally displaced fractures involving the C5-C7 spinous processes. At C6 the fra cture and partially extends into the left lamina. 2. No other fracture is identified. There is degenerative disc disease at C5-C6 and C6-C7. Hernandez Heart MD on July 08, 2017 at 7:52 Board Certified Radiologist. This report was verified electronically.
[2017-07-08 08:37] LABS: AUTOMATED NEUTROPHIL # 5.8 TH/MM3 (1.8-7.7); BASOPHIL % 0.4 % (0.0-2.0); EOSINOPHIL % 0.2 % (0.0-4.0); HEMATOCRIT 32.5 % (39.0-51.0); HEMOGLOBIN 11.2 GM/DL (13.0-17.0); LYMPH % 13.6 % (9.0-44.0); MEAN CELL VOLUME 104.8 FL (80.0-100.0); MEAN CORPUSCULAR HEMOGLOBIN 36.3 PG (27.0-34.0); MEAN CORPUSCULAR HGB CONC 34.6 % (32.0-36.0); MEAN PLATELET VOLUME 9.3 FL (7.0-11.0); MONO % 8.3 % (0.0-8.0); MONOCYTE # 0.6 TH/MM3 (0-0.9); NEUT % 77.5 % (16.0-70.0); PLATELET COUNT 225 TH/MM3 (150-450); RED CELL DISTRIBUTION WIDTH 16.1 % (11.6-17.2); WHITE BLOOD COUNT 7.5 TH/MM3 (4.0-11.0)
[2017-07-08 08:43] LABS: PROTHROMBIN TIME - PATIENT 10.5 SEC (9.8-11.6)
[2017-07-08 09:03] LABS: BICARBONATE 25.1 MEQ/L (21.0-32.0); CALCIUM 7.9 MG/DL (8.5-10.1); CREATININE 0.2 MG/DL (0.60-1.30)
--- NOTE | 2017-07-08 09:04 | RADRPT ---
EXAM DATE/TIME: 07/08/2017 08:26 [facility] COMPARISON: CHEST SINGLE AP, June 25, 2017, 23:32. INDICATIONS : Chest pain. MEDICAL HISTORY : Hypertension. Chronic obstructive pulmonary disease. SURGICAL HISTORY : None. ENCOUNTER: Initial ACUITY: 3 months PAIN SCORE: 5/10 LOCATION: Bilateral chest FINDINGS: Portable AP views of the chest demonstrate a normal-sized cardiac silhouette with calcification of ao rta. Lungs are mildly hyperexpanded. There is a stable calcified granuloma in the right lower lung zo ne. No effusion, consolidation, or pneumothorax identified. Bones and soft tissues demonstrate no acu te finding. Bones remain under mineralized and there are subacute to chronic rib fractures bilaterall y. CONCLUSION: Stable chest x-ray without an acute finding identified. Hernandez Heart MD on July 08, 2017 at 8:54 Board Certified Radiologist. This report was verified electronically.
[2017-07-08] MEDS ORDERED: DEXTROSE 50% IN WATER 50 ML VIAL(D50) IV PUSH PRN (09:30)
--- NOTE | 2017-07-08 10:29 | MB ---
cc: KATIA MADISON DATE OF CONSULTATION 07/08/[address] Carlos HISTORY This is a 60-year-old gentleman who was found down on the sidewalk intoxicated. The patient had evidence of a frontal head injury with abrasion to the forehead. He was brought to the emergency room for evaluation and workup included CT scan of the brain and cervical spine. I have reviewed the studies. CT of the brain shows small bifrontal contusions with a minimal amount of surrounding edema. A small amount of subdural hematoma with layering along the right tentorium and falx posteriorly. There is a linear, non-depressed frontal skull fracture. No significant mass effect or midline shift. CT scan of the cervical spine shows spinous process fractures at C5, C6and C7 with some extension of the fracture into the midline lamina at C6. Alignment is normal. Diffuse degenerative change is most severe at C5-6 and C6-7 with anterior and posterior spur formation. No subluxation. The patient is currently lethargic, but arousable. He is not complaining of any headache. No complaints of neck pain, upper or lower extremity radicular pain or weakness. PAST MEDICAL HISTORY The patient states past medical history is negative. MEDICATIONS None ALLERGIES None known. HABITS The patient is a pack a day smoker and uses alcohol heavily on a daily basis. REVIEW OF SYSTEMS As stated in HPI, otherwise negative. EXAMINATION This is an unkempt thin male who appears older than his stated age. He is lethargic, but arousable to tactile stimulation and will cooperate with examination. No acute distress. HEENT: Examination, head shows small abrasion to the right frontal scalp. No lacerations. No facial trauma. Pupils equal, reactive to light. Extraocular movements are intact. NECK: Minimal tenderness on palpation of the posterior cervical spine despite the findings of spinous process fractures on CT scan. NEUROLOGIC: The patient arouses to tactile stimulation. He is able to give his current age and correct name. He knows he is at [facility]. He has no recollection of the events leading up to his fall. Speech is intact to content and comprehension and the patient follows commands without difficulty. Cranial nerves II-XII are intact. Motor function, the patient has good motor function in the upper and lower extremities at least 4/5. It is difficult to fully assess strength at this time due to his intoxication. Sensory examination is intact to pain sensation throughout. ASSESSMENT Closed head injury. [place] coma score of 15. CT scan of the brain is showing small bifrontal contusions and a small amount of subdural hematoma on the tentorium. Linear frontal skull fracture. None of these findings require surgical intervention. Cervical spine CT scan is showing spinous process fracture C5-7, but otherwise stable cervical spine. PLAN The patient will be admitted for observation and repeat CT scan tomorrow morning. Cervical collar may be removed at this time. MD ALVARO Kbeede/WILLIAM /10:02 AM /10:14 AM MTDDwight
[2017-07-08] MEDS ORDERED: MAGNESIUM OXIDE 400 MG TAB PO PRN (10:30)
[2017-07-08] MEDS ORDERED: LORazepam 2 MG TAB PO PRN (10:30)
[2017-07-08] MEDS ORDERED: POTASSIUM PHOSPHATE INJ 30 MMOL in SODIUM CHLOR 0.9% 250 ML INJ 250 ML IV PRN (10:30)
[2017-07-08] MEDS ORDERED: MAGNESIUM SULFATE INJ 4 GM in SODIUM CHLORIDE 0.9% INJ 92 ML IV PRN (10:30)
[2017-07-08] MEDS ORDERED: LORazepam 2 MG/ML VIAL IV PUSH PRN ×4 (10:30)
[2017-07-08] MEDS ORDERED: RESP: ALBUTEROL 2.5 MG/IPRATROPIUM 0.5 MG NEB (PRN) INH (10:30)
[2017-07-08] MEDS ORDERED: POTASSIUM CHLOR 40 MEQ PREMIX 100 ML IV PRN ×2 (10:30)
[2017-07-08] MEDS ORDERED: SODIUM CHLORIDE 0.9% FLUSH 10 ML FLUSH IV FLUSH PRN (10:30)
[2017-07-08] MEDS ORDERED: POTASSIUM CHLOR 20 MEQ PREMIX 100 ML IV PRN (10:30)
[2017-07-08] MEDS ORDERED: FLUMAZENIL 0.5 MG/5 ML VIAL IV PUSH PRN (10:30)
[2017-07-08] MEDS ORDERED: SODIUM PHOSPHATE INJ 30 MMOL in SODIUM CHLOR 0.9% 250 ML INJ 240 ML IV PRN (10:30)
[2017-07-08] MEDS ORDERED: CHLORHEXIDINE GLUCONATE 2 % 1 PACK (2 CLOTHS) TOP PRN (10:30)
[2017-07-08] MEDS ORDERED: POTASSIUM PHOSPHATE MONOBASIC 500 MG TAB PO PRN (10:30)
[2017-07-08] MEDS ORDERED: ONDANSETRON HCL 4 MG/2 ML VIAL IV PUSH PRN (10:30)
[2017-07-08] MEDS ORDERED: MAGNESIUM SULFATE INJ 2 GM in SODIUM CHLORIDE 0.9% INJ 96 ML IV PRN (10:30)
[2017-07-08] MEDS ORDERED: MISCELLANEOUS NURSING INFORMATION XX SCH (10:30)
[2017-07-08] MEDS ORDERED: POTASSIUM PHOSPHATE MONOBASIC 500 MG TAB PO/TUBE PRN (10:30)
[2017-07-08] MEDS ORDERED: ALBUTEROL SULFATE 90 MCG/ACT HFA 8 GM INHALER INH PRN (10:30)
[2017-07-08] MEDS ORDERED: POTASSIUM CHLORIDE 25 MEQ EFFERVESCENT TAB PO PRN (10:30)
--- NOTE | 2017-07-08 10:47 | HHI.HP ---
HPI Service Critical Care Medicine Primary Care Physician No Primary Care Physician Admission Diagnosis subdural hemorrhage, skull fracture, cervical fracture Diagnosis: (1) Closed head injury Diagnosis: Principal (2) Cervical spine fracture Diagnosis: Principal (3) Subdural hemorrhage Diagnosis: Principal (4) Skull fracture Diagnosis: Principal Chief Complaint: Brought to ED for intoxication/obtundation. Travel History International Travel<30 Days: No Contact w/Intl Traveler <30 Da: No Traveled to Known Affected Are: No History of Present Illness 61 y/o man with longstanding severe COPD fell several hours prior to admission, striking his forehead. Found on sidewalk and ETOH 247 on arrival to ED. Films reveal base and anterior vertical skull fracture, small subdural blood collection, bilateral frontal lobe contusions. Dishevelled and malnourished; high risk for seizures from either alcohol withdrawal and/or brain trauma. Hypoglycemic on arrival at 46 BG. Review of Systems ROS Incoherent. C/O headache. No chest pain or SOB. Past Family Social History Allergies: Coded Allergies: No Known Allergies (Verified Allergy, Unknown, 07/08/17) Past Medical History Past Medical History Diminished Hearing: No Immunizations Current: Yes Past Surgical History Body Medical Devices: UNABLE TO ASSESS Social History Alcohol Use: Yes (daily heavy ) Tobacco Use: Yes (pack a day ) Substance Use: Yes Allergies-Medications Allergies-Medications (Allergen,Severity, Reaction): Coded Allergies: No Known Allergies (Verified Allergy, Unknown, 07/08/17) Reported Meds & Prescriptions Reported Meds & Active Scripts Active Prednisone 20 Mg Tab 20 Mg PO BID 3 Days Chlordiazepoxide HCl 10 Mg Capsule 10 Mg PO BID MDD 2 3 Days Gnp Vitamin B-1 (Thiamine HCl) 100 Mg Tab 100 Mg PO DAILY 30 Days [Budeson-Formot 160-4.5 Mcg Inh] 60 PUFF Aero 2 Puff INH Q12HR 30 Days Spiriva Handihaler (Tiotropium Inh) 18 Mcg Cap 18 Mcg INH DAILY 30 Days 1 capsule = 18 mcg Ventolin Hfa 18 GM Inh (Albuterol Sulfate) 90 Mcg/Act Aer 2 Puff INH Q4-6H PRN Physical Exam Vital Signs Vital Signs Date Time Temp Pulse Resp B/P (MAP) Pulse Ox O2 Delivery O2 Flow Rate FiO2 07/08/17 08:00 83 18 127/84 (98) 95 Room Air 07/08/17 06:49 98.6 87 16 136/73 (94 93 Physical Exam Gen: Dishevelled. Head: Numerous old and recent bruises and cuts to forehead. Neck: Supple, airway patent. Lungs: Distant tones, no wheezes. Heart: NL S1S2, RRR. No JVD. Abdomen: Soft, no guarding, bs active. Extremities: Old and new bruises both knees. Well perfused. Neuro: Moves 4 limbs to command, DTRs 4+ at knee and ankle. Toes down. Conversant. Laboratory Laboratory Tests Test 07/08/17 08:20 White Blood Count 7.5 Red Blood Count 3.10 Hemoglobin 11.2 Hematocrit 32.5 Mean Corpuscular Volume 104.8 Mean Corpuscular Hemoglobin 36.3 Mean Corpuscular Hemoglobin Concent 34.6 Red Cell Distribution Width 16.1 Platelet Count 225 Mean Platelet Volume 9.3 Neutrophils (%) (Auto) 77.5 Lymphocytes (%) (Auto) 13.6 Monocytes (%) (Auto) 8.3 Eosinophils (%) (Auto) 0.2 Basophils (%) (Auto) 0.4 Neutrophils # (Auto) 5.8 Lymphocytes # (Auto) 1.0 Monocytes # (Auto) 0.6 Eosinophils # (Auto) 0.0 Basophils # (Auto) 0.0 CBC Comment DIFF FINAL Differential Comment Prothrombin Time 10.5 Prothromb Time International Ratio 1.0 Activated Partial Thromboplast Time 28.6 Blood Urea Nitrogen 20 Creatinine 0.20 Random Glucose 46 Calcium Level 7.9 Sodium Level 128 Potassium Level 3.7 Chloride Level 92 Carbon Dioxide Level 25.1 Anion Gap 11 Estimat Glomerular Filtration Rate 490 Ethyl Alcohol Level 247 Result Diagram: 07/08/1781907/08/17819 Caprini VTE Risk Assessment Caprini VTE Risk Assessment: No/Low Risk (score <= 1) Caprini Risk Assessment Model Point Value = 1 Point Value = 2 Point Value = 3 Point Value = 5 Age 41-60 Minor surgery BMI > 25 kg/m2 Swollen legs Varicose veins or History of unexplained or recurrent spontaneous Oral contraceptives or hormone replacement Sepsis (< 1 month) Serious lung disease, including pneumonia (< 1 month) Abnormal pulmonary function Acute myocardial infarction Congestive heart failure (< 1 month) History of inflammatory bowel disease Medical patient at bed rest Age 61-74 Arthroscopic surgery Major open surgery (> 45 min) Laparoscopic surgery (> 45 min) Malignancy Confined to bed (> 72 hours) Immobilizing plaster cast Central venous access Age >= 75 History of VTE Family history of VTE Factor V Leiden Prothrombin [id number] Lupus anticoagulant Anticardiolipin antibodies Elevated serum homocysteine Heparin-induced thrombocytopenia Other congenital or acquired thrombophilia Stroke (< 1 month) Elective arthroplasty Hip, pelvis, or leg fracture Acute spinal cord injury (< 1 month) Prophylaxis Regimen Total Risk Factor Score Risk Level Prophylaxis Regimen 0-1 Low Early ambulation 2 Moderate Order ONE of the following: *Sequential Compression Device (SCD) *Heparin 5000 units SQ BID 3-4 Higher Order ONE of the following medications: *Heparin 5000 units SQ TID *Enoxaparin/Lovenox 40 mg SQ daily (WT < 150 kg, CrCl > 30 mL/min) *Enoxaparin/Lovenox 30 mg SQ daily (WT < 150 kg, CrCl > 10-29 mL/min) *Enoxaparin/Lovenox 30 mg SQ BID (WT < 150 kg, CrCl > 30 mL/min) AND/OR *Sequential Compression Device (SCD) 5 or more Highest Order ONE of the following medications: *Heparin 5000 units SQ TID (Preferred with Epidurals) *Enoxaparin/Lovenox 40 mg SQ daily (WT < 150 kg, CrCl > 30 mL/min) *Enoxaparin/Lovenox 30 mg SQ daily (WT < 150 kg, CrCl > 10-29 mL/min) *Enoxaparin/Lovenox 30 mg SQ BID (WT < 150 kg, CrCl > 30 mL/min) AND *Sequential Compression Device (SCD) Assessment and Plan Problem List: (1) Closed head injury ICD Code: S09.90XA - Unspecified injury of head, initial encounter (2) Acute alcohol intoxication ICD Code: F10.129 - Alcohol abuse with intoxication, unspecified Status: Acute (3) Subdural hemorrhage ICD Code: I62.00 - Nontraumatic subdural hemorrhage, unspecified Status: Acute (4) Cervical spine fracture ICD Code: S12.9XXA - Fracture of neck, unspecified, initial encounter Status: Acute (5) Skull fracture ICD Code: S02.91XA - Unspecified fracture of skull, initial encounter for closed fracture Status: Acute Assessment and Plan Plan: Closed head injury, bifrontal contusions - Seizure prophylaxis - Repeat Head CT immediately for change or after 24 hours for FU - Neuro Checks COPD (not exacerbated) - Bronchodilators - Steroids if worsens. Hypoglycemia - Check LFTs, ammonia - Add dextrose to iv fluid. - Vitamin replacement ETOH intoxication - Likely habitual - Anticipate withdrawal - [facility] protocol - Vitamins - Check Mag, Phos Cervical spine fractures - C5, 6, 7 spinous process, inherently stable. - Cervical collar - CT neck per NS. Overall impression: Patient is critically ill with serious closed head injury. Degree of injury is complicated by hypoglycemia, probable liver dysfunction, and alcoholism. Critical care 40 mins Problem Qualifiers (1) Closed head injury: Qualified Codes: S09.90XA - Unspecified injury of head, initial encounter (2) Cervical spine fracture: Qualified Codes: S12.9XXA - Fracture of neck, unspecified, initial encounter (3) Skull fracture: Brian Plunkett MD Jul 08, 2017 10:47
[2017-07-08 11:27] LABS: MAGNESIUM 1.9 MG/DL (1.5-2.5)
[2017-07-08] MEDS: POTASSIUM CHLORIDE INJ 10 MEQ in DEXT 5%-NACL 0.9% 1000 ML INJ 1,000 ML IV SCH (14:00)
[2017-07-08 14:34] LABS: ALBUMIN 3.2 GM/DL (3.4-5.0); DIRECT BILIRUBIN ADULT 0.2 MG/DL (0.0-0.2)
[2017-07-08 14:36] LABS: INDIRECT BILIRUBIN 0.5 MG/DL (0.0-0.8); TOTAL BILIRUBIN ADULT 0.7 MG/DL (0.2-1.0); TOTAL PROTEIN 6.3 GM/DL (6.4-8.2)
[2017-07-08] MEDS: RESP: ALBUTEROL 2.5 MG/IPRATROPIUM 0.5 MG NEB (SCH) INH ×2 (16:51→20:38)
[2017-07-08] MEDS: SODIUM CHLORIDE 0.9% FLUSH 10 ML FLUSH IV FLUSH SCH (20:25)
[2017-07-08] MEDS: FAMOTIDINE 20 MG TAB PO SCH (20:25)
[2017-07-08] MEDS: BUDESONIDE-FORMOTEROL 160/4.5 MCG INHALER INH SCH (20:33)
[2017-07-09] VITALS (13 sets, daily range): BP systolic 119–152; BP diastolic 61–78; PULSE 74–108; RESP 16–27; TEMP 97.6–99.1; O2SAT 96–100
[2017-07-09] MEDS: POTASSIUM CHLORIDE INJ 10 MEQ in DEXT 5%-NACL 0.9% 1000 ML INJ 1,000 ML IV SCH ×2 (01:22→16:12)
[2017-07-09] MEDS: RESP: ALBUTEROL 2.5 MG/IPRATROPIUM 0.5 MG NEB (SCH) INH ×4 (03:43→20:12)
[2017-07-09] MEDS ORDERED: CHLORHEXIDINE GLUCONATE 2 % 1 PACK (2 CLOTHS) TOP SCH (04:00)
--- NOTE | 2017-07-09 04:59 | RADRPT ---
EXAM DATE/TIME: 07/09/2017 04:26 [facility] COMPARISON: CT BRAIN W/O CONTRAST, July 08, 2017, 7:38. INDICATIONS : Contusion, follow up. RADIATION DOSE: 69.15 CTDIvol (mGy) MEDICAL HISTORY : None SURGICAL HISTORY : None. ENCOUNTER: Initial ACUITY: 1 day PAIN SCALE: Non-responsive LOCATION: cranial TECHNIQUE: Multiple contiguous axial images were obtained of the head. Using automated exposure control and adj ustment of the mA and/or kV according to patient size, radiation dose was kept as low as reasonably a chievable to obtain optimal diagnostic quality images. DICOM format image data is available electro nically for review and comparison. FINDINGS: Today's exam is compared to the prior study. There continue to be small bilateral frontal contusions, right greater than left. The bifrontal contusions are mildly improved. No new areas of hemorrhage ar e seen. The ventricles are stable. There is bilateral cortical atrophy. There is no mass effect or mi dline shift. No significant change in the small amount of blood along the falx and tentorium. The pos terior fossa stable. Stable anterior midline nondisplaced skull fracture. CONCLUSION: 1. Mild improvement in the small bilateral frontal hemorrhagic contusions, right greater than left. 2. Otherwise, no significant change. 3. Stable anterior midline nondisplaced skull fracture. Franco Grande MD on July 09, 2017 at 4:53 Board Certified Radiologist. This report was verified electronically.
[2017-07-09 05:04] LABS: AUTOMATED NEUTROPHIL # 4.7 TH/MM3 (1.8-7.7); BASOPHIL % 0.2 % (0.0-2.0); EOSINOPHIL % 0.1 % (0.0-4.0); HEMOGLOBIN 9.4 GM/DL (13.0-17.0); LYMPH % 19.5 % (9.0-44.0); LYMPHOCYTE # 1.4 TH/MM3 (1.0-4.8); MEAN CELL VOLUME 104.2 FL (80.0-100.0); MEAN CORPUSCULAR HGB CONC 33.6 % (32.0-36.0); MEAN PLATELET VOLUME 9.3 FL (7.0-11.0); MONO % 13.2 % (0.0-8.0); MONOCYTE # 0.9 TH/MM3 (0-0.9); PLATELET COUNT 193 TH/MM3 (150-450); RED BLOOD COUNT 2.69 MIL/MM3 (4.50-5.90); RED CELL DISTRIBUTION WIDTH 16.3 % (11.6-17.2); WHITE BLOOD COUNT 7.1 TH/MM3 (4.0-11.0)
[2017-07-09] MEDS: LORazepam 1 MG TAB PO PRN ×4 (05:17→22:45)
[2017-07-09 05:26] LABS: BICARBONATE 29.3 MEQ/L (21.0-32.0); CALCIUM 7.8 MG/DL (8.5-10.1); CREATININE 0.33 MG/DL (0.60-1.30); MAGNESIUM 1.8 MG/DL (1.5-2.5); PHOSPHORUS 2.6 MG/DL (2.5-4.9)
[2017-07-09] MEDS: THIAMINE HCL 100 MG TAB PO SCH (09:34)
[2017-07-09] MEDS: POTASSIUM CHLOR 20 MEQ PREMIX 100 ML IV PRN ×2 (09:34→14:48)
[2017-07-09] MEDS: SODIUM CHLORIDE 0.9% FLUSH 10 ML FLUSH IV FLUSH SCH ×2 (09:35→20:55)
[2017-07-09] MEDS: FAMOTIDINE 20 MG TAB PO SCH ×2 (09:35→20:55)
--- NOTE | 2017-07-09 10:14 | HHI.NSPN ---
History Interval History Mr. Skaggs is awake and responsive this morning. Not complaining of headache but is having some significant neck pain today. Exam Results Vital Signs Date Time Temp Pulse Resp B/P (MAP) Pulse Ox O2 Delivery O2 Flow Rate FiO2 07/09/17 09:10 98 21 07/09/17 06:00 86 07/09/17 04:00 98.5 16 119/64 (82) 07/08/17 19:00 Room Air Intake and Output 07/09/17 07/09/17 07/10/17 08:00 16:00 00:00 Intake Total 240 ml Balance 240 ml Physical Examination General: Patient is alert and oriented 3. Neck: Patient has painful range of motion this morning and a leftward torticollis. Neuro: Speech is intact. Cranial nerves II through XII intact. He is conversive and follows all commands. He is oriented 3. Motor function is 5 over 5 in the upper and lower extremities. Sensory intact to primary modalities. Repeat CT scan of the brain this morning shows stable/resolving small bifrontal contusions. Resolving subdural blood along the tentorium. Lab, Micro, Other Results Last [address] 07/09/17 0000 Signed Impressions: Service Date/Time: Sunday, July 09, 2017 04:26 - CONCLUSION: 1. Mild improvement in the small bilateral frontal hemorrhagic contusions, right greater than left. 2. Otherwise, no significant change. 3. Stable anterior midline nondisplaced skull fracture. Franco Grande MD Head CT 07/08/17 0000 Signed Impressions: Service Date/Time: Saturday, July 08, 2017 07:38 - CONCLUSION: Mild bifrontal contusions, right worse and left slight underlying edema in the right frontal region. Minimal subdural hemorrhage along the falx and tentorium. Nondisplaced skull fracture Hernandez Caputo MD Chest X-Ray 07/08/17 0000 Signed Impressions: Service Date/Time: Saturday, July 08, 2017 08:26 - CONCLUSION: Stable chest x-ray without an acute finding identified. Hernandez Heart MD Cervical Spine CT 07/08/17 0000 Signed Impressions: Service Date/Time: Saturday, July 08, 2017 07:38 - CONCLUSION: 1. There are acute minimally displaced fractures involving the C5-C7 spinous processes. At C6 the fracture and partially extends into the left lamina. 2. No other fracture is identified. There is degenerative disc disease at C5-C6 and C6-C7. Hernandez Heart MD Medical Decision Making Impression and Plan Impression: Status post closed head injury. [place] coma score 15. CT showing stable/resolving bifrontal contusions and tentorial subdural blood. Nondepressed linear skull fracture of the frontal bone. Stable spinous process fractures C5, C6 and C7. Plan: Begin mobilization and advance diet. Will place the patient in a soft collar for his neck pain. Kamaljit Correia MD Jul 09, 2017 10:14
--- NOTE | 2017-07-09 10:36 | HHI.CCPN ---
Subjective Remarks/Hospital Course Patient Name: Neptali Skaggs Unit Number: [id number] Date of : 1955 Patient Status: Admitted Inpatient Attending Doctor: Brian Plunkett MD subdural hemorrhage, skull fracture, cervical fracture Diagnosis: (1) Closed head injury Diagnosis: Principal (2) Cervical spine fracture Diagnosis: Principal (3) Subdural hemorrhage Diagnosis: Principal (4) Skull fracture Diagnosis: Principal Chief Complaint: Brought to ED for intoxication/obtundation. 61 y/o man with longstanding severe COPD fell several hours prior to admission, striking his forehead. Found on sidewalk and ETOH 247 on arrival to ED. Films reveal base and anterior vertical skull fracture, small subdural blood collection, bilateral frontal lobe contusions. Dishevelled and malnourished; high risk for seizures from either alcohol withdrawal and/or brain trauma. Hypoglycemic on arrival at 46 BG. 07/09: Resolving frontal contusions. Stable cervical spinous process fractures. Hypoglycemia has resolved. A bit shaky off of ETOH. Objective Vital Signs Date Time Temp Pulse Resp B/P (MAP) Pulse Ox O2 Delivery O2 Flow Rate FiO2 07/09/17 09:10 98 21 07/09/17 06:00 86 07/09/17 04:00 98.5 16 119/64 (82) 07/08/17 19:00 Room Air Intake and Output 07/09/17 07/09/17 07/10/17 08:00 16:00 00:00 Intake Total 240 ml Balance 240 ml Result Diagram: 07/09/17 0409 07/09/17 0409 Objective Remarks Gen: Anxious, tremulous Head: Numerous old and recent bruises and cuts to forehead. Neck: Supple, airway patent. Lungs: Distant tones, no wheezes. Heart: NL S1S2, RRR. No JVD. Abdomen: Soft, no guarding, bs active. Extremities: Old and new bruises both knees. Well perfused. Neuro: Moves 4 limbs to command, DTRs 4+ at knee and ankle. Toes down. Conversant. A/P Problem List: (1) Closed head injury ICD Code: S09.90XA - Unspecified injury of head, initial encounter (2) Acute alcohol intoxication ICD Code: F10.129 - Alcohol abuse with intoxication, unspecified Status: Acute (3) Subdural hemorrhage ICD Code: I62.00 - Nontraumatic subdural hemorrhage, unspecified Status: Acute (4) Cervical spine fracture ICD Code: S12.9XXA - Fracture of neck, unspecified, initial encounter Status: Acute (5) Skull fracture ICD Code: S02.91XA - Unspecified fracture of skull, initial encounter for closed fracture Status: Acute Assessment and Plan Plan: Closed head injury, bifrontal contusions - Seizure prophylaxis - Repeat Head CT immediately for change or after 24 hours for FU - Neuro Checks COPD (not exacerbated) - Bronchodilators - Steroids if worsens. Hypoglycemia - Check LFTs, ammonia - Add dextrose to iv fluid. - Vitamin replacement ETOH intoxication - Likely habitual - Anticipate withdrawal - [place] protocol - Vitamins - Check Mag, Phos Cervical spine fractures - C5, 6, 7 spinous process, inherently stable. - Cervical collar - CT neck per NS. Overall impression: Patient presented critically ill with serious closed head injury. Degree of injury is complicated by hypoglycemia, probable liver dysfunction, and alcoholism. Acceptable neuro function and CT today. Problem Qualifiers (1) Closed head injury: Qualified Codes: S09.90XA - Unspecified injury of head, initial encounter (2) Cervical spine fracture: Qualified Codes: S12.9XXA - Fracture of neck, unspecified, initial encounter (3) Skull fracture: Brian Plunkett MD Jul 09, 2017 10:36
[2017-07-09] MEDS: BUDESONIDE-FORMOTEROL 160/4.5 MCG INHALER INH SCH ×2 (10:47→20:55)
[2017-07-09] MEDS: TIOTROPIUM BROMIDE 18 MCG INH INH SCH (10:47)
[2017-07-09] MEDS ORDERED: CHLORHEXIDINE GLUCONATE 2 % 1 PACK (2 CLOTHS)(extra cloths) TOPICAL PRN (15:30)
[2017-07-09] MEDS: MUPIROCIN 2% OINT 1 APPLIC/GM SYR NASAL SCH (20:55)
[2017-07-10] VITALS (11 sets, daily range): BP systolic 117–169; BP diastolic 62–89; PULSE 72–96; RESP 11–27; TEMP 96.7–98.3; O2SAT 98–100
[2017-07-10] MEDS: POTASSIUM CHLORIDE INJ 10 MEQ in DEXT 5%-NACL 0.9% 1000 ML INJ 1,000 ML IV SCH ×3 (01:42→16:55)
[2017-07-10] MEDS: RESP: ALBUTEROL 2.5 MG/IPRATROPIUM 0.5 MG NEB (SCH) INH ×4 (03:07→20:39)
[2017-07-10] MEDS: CHLORHEXIDINE GLUCONATE 2 % 1 PACK (2 CLOTHS)(taper/protocol) TOPICAL SCH (04:00)
[2017-07-10] MEDS: ACETAMINOPHEN 325 MG TAB PO PRN (06:42)
--- NOTE | 2017-07-10 08:50 | HHI.CCPN ---
Subjective Remarks/Hospital Course Patient Name: Neptali Skaggs Unit Number: [id number] Date of : 1955 Patient Status: Admitted Inpatient Attending Doctor: Brian Plunkett MD subdural hemorrhage, skull fracture, cervical fracture Diagnosis: (1) Closed head injury Diagnosis: Principal (2) Cervical spine fracture Diagnosis: Principal (3) Subdural hemorrhage Diagnosis: Principal (4) Skull fracture Diagnosis: Principal Chief Complaint: Brought to ED for intoxication/obtundation. 61 y/o man with longstanding severe COPD fell several hours prior to admission, striking his forehead. Found on sidewalk and ETOH 247 on arrival to ED. Films reveal base and anterior vertical skull fracture, small subdural blood collection, bilateral frontal lobe contusions. Dishevelled and malnourished; high risk for seizures from either alcohol withdrawal and/or brain trauma. Hypoglycemic on arrival at 46 BG. 07/09: Resolving frontal contusions. Stable cervical spinous process fractures. Hypoglycemia has resolved. A bit shaky off of ETOH. 07/10: Calm today, no shaking. GCS 15. Cooperative. Objective Vital Signs Date Time Temp Pulse Resp B/P (MAP) Pulse Ox O2 Delivery O2 Flow Rate FiO2 07/10/17 07:00 98 Room Air 07/10/17 06:00 92 07/10/17 06:00 97.9 27 154/89 (110) 07/09/17 09:10 21 Intake and Output 07/10/17 07/10/17 07/10/17 07:59 15:59 23:59 Intake Total 240 ml Output Total 950 ml Balance -710 ml Result Diagram: 07/09/1740807/09/172048 Objective Remarks Gen: Calm. Head: Numerous old and recent bruises and cuts to forehead. Neck: Supple, airway patent. Lungs: Distant tones, no wheezes. Comfortable pattern. Heart: NL S1S2, RRR. No JVD. Abdomen: Soft, no guarding, bs active. Extremities: Old and new bruises both knees. Well perfused. Neuro: Moves 4 limbs to command, DTRs 3+ at knee and ankle. Toes down. Conversant. Cooperative. A/P Problem List: (1) Closed head injury ICD Code: S09.90XA - Unspecified injury of head, initial encounter (2) Acute alcohol intoxication ICD Code: F10.129 - Alcohol abuse with intoxication, unspecified Status: Acute (3) Subdural hemorrhage ICD Code: I62.00 - Nontraumatic subdural hemorrhage, unspecified Status: Acute (4) Cervical spine fracture ICD Code: S12.9XXA - Fracture of neck, unspecified, initial encounter Status: Acute (5) Skull fracture ICD Code: S02.91XA - Unspecified fracture of skull, initial encounter for closed fracture Status: Acute Assessment and Plan Plan: Closed head injury, bifrontal contusions - Seizure prophylaxis - Repeat Head CT immediately for change or after 24 hours for FU - Neuro Checks COPD (not exacerbated) - Bronchodilators - Steroids if worsens. Hypoglycemia - Check LFTs, ammonia - Add dextrose to iv fluid. - Vitamin replacement ETOH intoxication - Likely habitual - Anticipate withdrawal - [facility] protocol - Vitamins - Check Mag, Phos Cervical spine fractures - C5, 6, 7 spinous process, inherently stable. - Cervical collar - CT neck per NS. Overall impression: Much improved. GCS 15, cooperative. Home if OK with Neurosurgery. Problem Qualifiers (1) Closed head injury: Qualified Codes: S09.90XA - Unspecified injury of head, initial encounter (2) Cervical spine fracture: Qualified Codes: S12.9XXA - Fracture of neck, unspecified, initial encounter (3) Skull fracture: Brian Plunkett MD Jul 10, 2017 08:50
[2017-07-10] MEDS: TIOTROPIUM BROMIDE 18 MCG INH INH SCH (09:00)
[2017-07-10] MEDS: BUDESONIDE-FORMOTEROL 160/4.5 MCG INHALER INH SCH ×2 (09:00→20:42)
[2017-07-10] MEDS: FAMOTIDINE 20 MG TAB PO SCH ×2 (09:26→20:42)
[2017-07-10] MEDS: THIAMINE HCL 100 MG TAB PO SCH (09:26)
[2017-07-10] MEDS: SODIUM CHLORIDE 0.9% FLUSH 10 ML FLUSH IV FLUSH SCH ×2 (09:27→20:42)
[2017-07-10] MEDS: MUPIROCIN 2% OINT 1 APPLIC/GM SYR NASAL SCH ×2 (09:27→20:42)
--- NOTE | 2017-07-10 09:36 | HHI.NSPN ---
History Interval History Mr. Skaggs is awake and responsive this morning. Neck pain is improved. He has not been evaluated for stable ambulation by physical therapy as yet. Exam Results Vital Signs Date Time Temp Pulse Resp B/P (MAP) Pulse Ox O2 Delivery O2 Flow Rate FiO2 07/10/17 09:13 100 21 07/10/17 07:00 Room Air 07/10/17 06:00 92 07/10/17 06:00 97.9 27 154/89 (110) Intake and Output 07/10/17 07/10/17 07/11/17 08:00 16:00 00:00 Intake Total 240 ml Output Total 950 ml Balance -710 ml Physical Examination General: Patient is alert and oriented 3. Neck: Improved range of motion in the cervical spine. Less tenderness. Neuro: Speech is intact. Cranial nerves II through XII intact. He is conversive and follows all commands. He is oriented 3. Motor function is 5 over 5 in the upper and lower extremities. Sensory intact to primary modalities. Lab, Micro, Other Results Laboratory Tests Test 07/09/17 20:49 Potassium Level 3.8 Last [address] 07/09/17 0000 Signed Impressions: Service Date/Time: Sunday, July 09, 2017 04:26 - CONCLUSION: 1. Mild improvement in the small bilateral frontal hemorrhagic contusions, right greater than left. 2. Otherwise, no significant change. 3. Stable anterior midline nondisplaced skull fracture. Franco Grande MD Medical Decision Making Impression and Plan Impression: Status post closed head injury. [place] coma score 15. CT showing stable/resolving bifrontal contusions and tentorial subdural blood. Nondepressed linear skull fracture of the frontal bone. Stable spinous process fractures C5, C6 and C7. Plan: Patient will need safety evaluation granulation by physical therapy prior to discharge. Once he is ambulating stable if he can be discharged from neurosurgical viewpoint. Kamaljit Correia MD Jul 10, 2017 09:36
[2017-07-10] MEDS: MORPHINE SULFATE 2 MG/ML INJ IV PUSH PRN ×2 (20:42→22:43)
[2017-07-11] VITALS (9 sets, daily range): BP systolic 104–169; BP diastolic 55–90; PULSE 81–94; RESP 13–24; TEMP 97.6–98.6; O2SAT 94–100
[2017-07-11] MEDS: RESP: ALBUTEROL 2.5 MG/IPRATROPIUM 0.5 MG NEB (SCH) INH ×4 (03:19→20:15)
[2017-07-11] MEDS: CHLORHEXIDINE GLUCONATE 2 % 1 PACK (2 CLOTHS)(taper/protocol) TOPICAL SCH (03:19)
[2017-07-11] MEDS: POTASSIUM CHLORIDE INJ 10 MEQ in DEXT 5%-NACL 0.9% 1000 ML INJ 1,000 ML IV SCH ×2 (04:13→15:24)
[2017-07-11] MEDS: BUDESONIDE-FORMOTEROL 160/4.5 MCG INHALER INH SCH ×2 (08:34→20:28)
[2017-07-11] MEDS: MUPIROCIN 2% OINT 1 APPLIC/GM SYR NASAL SCH ×2 (08:34→20:28)
[2017-07-11] MEDS: THIAMINE HCL 100 MG TAB PO SCH (08:34)
[2017-07-11] MEDS: FAMOTIDINE 20 MG TAB PO SCH ×2 (08:34→20:27)
[2017-07-11] MEDS: SODIUM CHLORIDE 0.9% FLUSH 10 ML FLUSH IV FLUSH SCH ×2 (08:34→21:00)
[2017-07-11] MEDS: TIOTROPIUM BROMIDE 18 MCG INH INH SCH (08:34)
[2017-07-11] MEDS: ACETAMINOPHEN 325 MG TAB PO PRN ×2 (08:40→17:17)
--- NOTE | 2017-07-11 09:30 | HHI.NSPN ---
(Nathaniel Lara) History Chief Complaint: Headache. (Nathaniel Lara) Interval History This is a 60-year-old gentleman who was found down on the sidewalk intoxicated. The patient had evidence of a frontal head injury with abrasion to the forehead. He was brought to the emergency room for evaluation and workup included CT scan of the brain and cervical spine. I have reviewed the studies. CT of the brain shows small bifrontal contusions with a minimal amount of surrounding edema. A small amount of subdural hematoma with layering along the right tentorium and falx posteriorly. There is a linear, non-depressed frontal skull fracture. No significant mass effect or midline shift. CT scan of the cervical spine shows spinous process fractures at C5, C6and C7 with some extension of the fracture into the midline lamina at C6. Alignment is normal. Diffuse degenerative change is most severe at C5-6 and C6-7 with anterior and posterior spur formation. No subluxation. The patient is currently lethargic, but arousable. He is not complaining of any headache. No complaints of neck pain, upper or lower extremity radicular pain or weakness. 07/11/17: Pt awake and alert. Complains of frontal headache. No n/v. Speech clear and appropriate. (Nathaniel Lara) Review of Systems General: Negative for: fever, chills, insomnia Respiratory: Negative for: shortness of breath, cough, sputum Gastrointestinal: Negative for: nausea, vomitting, diarrhea, constipation ( Nathaniel Lara) Exam Results Vital Signs Date Time Temp Pulse Resp B/P (MAP) Pulse Ox O2 Delivery O2 Flow Rate FiO2 07/11/17 07:15 89 07/11/17 07:00 100 Room Air 07/11/17 04:00 98.6 24 144/77 (99) 07/10/17 09:13 21 Intake and Output 07/11/17 07/11/17 07/12/17 08:00 16:00 00:00 Intake Total 1005 ml Output Total 1800 ml Balance -795 ml (Nathaniel Lara) Physical Examination General: Patient is alert and resting comfortably in bed feeding himself breakfast. Resp: CTA bilaterally Heart: NSR no murmurs Abd: Soft positive bs Skin: No cyanosis or erythema Muscle: Motor function is 5 over 5 in the upper and lower extremities. Soft cervical collar in place. Neuro: Speech is intact. Cranial nerves II through XII intact. He is conversive and follows all commands. He is oriented 3. Sensory intact to primary modalities. (Nathaniel Lara) Lab, Micro, Other Results Last Impressions Head CT 07/09/17 0000 Signed Impressions: Service Date/Time: Sunday, July 09, 2017 04:26 - CONCLUSION: 1. Mild improvement in the small bilateral frontal hemorrhagic contusions, right greater than left. 2. Otherwise, no significant change. 3. Stable anterior midline nondisplaced skull fracture. Franco Grande MD Chest X-Ray 07/08/17 0000 Signed Impressions: Service Date/Time: Saturday, July 08, 2017 08:26 - CONCLUSION: Stable chest x-ray without an acute finding identified. Hernandez Heart MD Cervical Spine CT 07/08/17 0000 Signed Impressions: Service Date/Time: Saturday, July 08, 2017 07:38 - CONCLUSION: 1. There are acute minimally displaced fractures involving the C5-C7 spinous processes. At C6 the fracture and partially extends into the left lamina. 2. No other fracture is identified. There is degenerative disc disease at C5-C6 and C6-C7. Hernandez Heart MD (Nathaniel Lara) Medical Decision Making Impression and Plan A: 61 y/o M with closed head injury. [place] coma score of 15. CT scan of the brain is showing small bifrontal contusions and a small amount of subdural hematoma on the tentorium. Linear frontal skull fracture. None of these findings require surgical intervention. Cervical spine CT scan is showing spinous process fracture C5-7, but otherwise stable cervical spine. P: Continue to mobilize/ assess stability for discharge possibly today. D/C planning. (Nathaniel Lara) Attending Statement The exam, history, and the medical decision-making described in the above note were completed with the assistance of the mid-level provider. I reviewed and agree with the findings presented. I attest that I had a [id number] encounter with the patient on the same day, and personally performed and documented my assessment and findings in the medical record. (Geraldo Dee MD) Nathaniel Lara Jul 11, 2017 09:30 Geraldo Dee MD Jul 11, 2017 18:53
--- NOTE | 2017-07-11 14:51 | HHI.CCPN ---
Subjective Remarks/Hospital Course Patient Name: Neptali Skaggs Unit Number: [id number] Date of : 1955 Patient Status: Admitted Inpatient Attending Doctor: Brian Plunkett MD subdural hemorrhage, skull fracture, cervical fracture Diagnosis: (1) Closed head injury Diagnosis: Principal (2) Cervical spine fracture Diagnosis: Principal (3) Subdural hemorrhage Diagnosis: Principal (4) Skull fracture Diagnosis: Principal Chief Complaint: Brought to ED for intoxication/obtundation. 61 y/o man with longstanding severe COPD fell several hours prior to admission, striking his forehead. Found on sidewalk and ETOH 247 on arrival to ED. Films reveal base and anterior vertical skull fracture, small subdural blood collection, bilateral frontal lobe contusions. Dishevelled and malnourished; high risk for seizures from either alcohol withdrawal and/or brain trauma. Hypoglycemic on arrival at 46 BG. 07/09: Resolving frontal contusions. Stable cervical spinous process fractures. Hypoglycemia has resolved. A bit shaky off of ETOH. 07/10: Calm today, no shaking. GCS 15. Cooperative. 07/11: Patient is not a risk to himself or others. He may be discharged. Objective Vital Signs Date Time Temp Pulse Resp B/P (MAP) Pulse Ox O2 Delivery O2 Flow Rate FiO2 07/11/17 12:00 94 07/11/17 12:00 97.9 20 104/55 (71) 94 07/11/17 09:46 21 07/11/17 07:00 Room Air Intake and Output 07/11/17 07/11/17 07/12/17 08:00 16:00 00:00 Intake Total 1005 ml Output Total 1800 ml Balance -795 ml Result Diagram: 07/09/1740807/09/172048 Objective Remarks Gen: Calm. Head: Numerous old and recent bruises and cuts to forehead. Neck: Supple, airway patent. Lungs: Distant tones, no wheezes. Comfortable pattern. Heart: NL S1S2, RRR. No JVD. Abdomen: Soft, no guarding, bs active. Extremities: Old and new bruises both knees. Well perfused. Neuro: Moves 4 limbs to command. Conversant. Cooperative. O X 3. A/P Problem List: (1) Closed head injury ICD Code: S09.90XA - Unspecified injury of head, initial encounter (2) Acute alcohol intoxication ICD Code: F10.129 - Alcohol abuse with intoxication, unspecified Status: Acute (3) Subdural hemorrhage ICD Code: I62.00 - Nontraumatic subdural hemorrhage, unspecified Status: Acute (4) Cervical spine fracture ICD Code: S12.9XXA - Fracture of neck, unspecified, initial encounter Status: Acute (5) Skull fracture ICD Code: S02.91XA - Unspecified fracture of skull, initial encounter for closed fracture Status: Acute Assessment and Plan Plan: Closed head injury, bifrontal contusions - Seizure prophylaxis - Repeat Head CT immediately for change or after 24 hours for FU - Neuro Checks COPD (not exacerbated) - Bronchodilators - Steroids if worsens. Hypoglycemia - Check LFTs, ammonia - Add dextrose to iv fluid. - Vitamin replacement ETOH intoxication - Likely habitual - Anticipate withdrawal - [facility] protocol - Vitamins - Check Mag, Phos Cervical spine fractures - C5, 6, 7 spinous process, inherently stable. - Cervical collar - CT neck per NS. Overall impression: Much improved. GCS 15, cooperative. Home if OK with Neurosurgery. Problem Qualifiers (1) Closed head injury: Qualified Codes: S09.90XA - Unspecified injury of head, initial encounter (2) Cervical spine fracture: Qualified Codes: S12.9XXA - Fracture of neck, unspecified, initial encounter (3) Skull fracture: Brian Plunkett MD Jul 11, 2017 14:51
--- NOTE | 2017-07-11 18:27 | PD.PSY.CON ---
Provisional Diagnosis Admission Date Jul 08, 2017 at 09:03 [place]. Alcohol use disorder History of Present Illness Service Psychiatry Consult Requested By Dr. Carlos Reason for Consult Espino act by police Primary Care Physician No Primary Care Physician HPI Patient is a 61-year-old man single, homeless, unemployed with no financial income with a past psychiatric history significant for alcohol use disorder, no prior psychiatric admissions no prior suicide attempts or self- injurious behavior significant alcohol use disorder who was brought in by EMS for intoxication and admitted to the medical service for close head injury, acute alcohol intoxication, subdural hemorrhage, cervical spine fracture and skull fracture which psychiatry was consulted for evaluation as patient was under Espino act by police. Patient was found lying in hospital bed, cooperative interview. Patient states that he has been feeling "pretty rough" reporting having generalized pain in all the areas where he had been injured. Patient states that at the time of his fall he states that his shoes had Stuck and had fallen. Patient denies having had significant amount of alcohol use that they but as per her lap patient's BAL was 247. Patient states that she has been trying to obtain sobriety for the longest time and continues to do so at this time. Patient reports his mood has been "good" denies any depressive manic or psychotic symptoms recently or in the past. Patient denies any perceptual disturbances and no delusional material elicited. All other psychiatric review of systems have been negative. Patient at this time reports feeling "cranky" denies SI, HI, AVH or delusions. Past psychiatric history alcohol use disorder, no previous psychiatric admissions, suicide attempts or self is behavior Substance use history: Alcohol use disorder, daily drinking of 2 beers at have a pint of vodka since age of 16. Lungs previous sobriety has been 2 months. Patient reports previous rehabilitation programs last time being 2 years ago. Past medical history: COPD Allergies NKDA Social history patient single, homeless unemployed Past Family Social History Coded Allergies: No Known Allergies (Verified Allergy, Unknown, 07/08/17) Active Scripts Prednisone (Prednisone) 20 Mg Tab, 20 MG PO BID for COPD for 3 Days, #6 TAB 0 Refills Prov:Nancy Jamison MD 07/04/17 Chlordiazepoxide HCl (Chlordiazepoxide HCl) 10 Mg Capsule, 10 MG PO BID for etoh MDD 2 for 3 Days, #6 TAB Prov:Nancy Jamison MD 07/04/17 Thiamine HCl (Gnp Vitamin B-1) 100 Mg Tab, 100 MG PO DAILY for eto for 30 Days, #30 TAB Prov:Nancy Jamison MD 07/04/17 [Budeson-Formot 160-4.5 Mcg Inh] 60 PUFF AERO No Conflict Check, 2 PUFF INH Q12HR for COPD for 30 Days Prov:Nancy Jamison MD 07/04/17 Tiotropium Inh (Spiriva Handihaler) 18 Mcg Cap, 18 MCG INH DAILY for COPD for 30 Days, #30 CAP 1 capsule = 18 mcg Prov:Nancy Jamison MD 07/04/17 Albuterol 18 GM Inh (Ventolin Hfa 18 GM Inh) 90 Mcg/Act Aer, 2 PUFF INH Q4-6H Y for SOB/WHEEZING, #1 INHALER 0 Refills Prov:Antonia Bellamy NERVE SPECIALIST 05/20/17 Current Medications Medications (Trade) Dose Ordered Sig/[place] Route Start Time Stop Time Status Last Admin (D50w (Vial) Inj) 50 ml UNSCH PRN IV PUSH 07/08/17 09:30 07/08/17 09:31 (Proair Hfa Inh) 2 puff Q6H PRN INH 07/08/17 10:30 (Vitamin B1) 100 mg DAILY PO 07/09/17 09:00 07/11/17 08:34 (Spiriva Inh) 18 mcg DAILY INH 07/09/17 09:00 07/11/17 08:34 (Symbicort 160-4.5 Mcg Inh) 2 puff Q12HR INH 07/08/17 21:00 07/11/17 08:34 (Tylenol) 650 mg Q6H PRN PO 07/08/17 10:30 07/11/17 17:17 (Morphine Inj) 2 mg Q2H PRN IV PUSH 07/08/17 10:30 07/10/17 22:43 (Pepcid) 20 mg Q12HR PO 07/08/17 21:00 07/11/17 08:34 (Zofran Inj) 4 mg Q6H PRN IV PUSH 07/08/17 10:30 (Duoneb Neb) 1 ampule Q6HR NEB INH 07/08/17 16:00 07/11/17 16:14 (Duoneb Neb) 1 ampule Q2HR NEB PRN INH 07/08/17 10:30 Potassium Chloride 100 ml @ 50 mls/hr Q2H PRN IV 07/08/17 10:30 Potassium Chloride 100 ml @ 50 mls/hr Q2H PRN IV 07/08/17 10:30 (K-Lyte Cl Eff) 50 meq UNSCH PRN PO 07/08/17 10:30 07/09/17 07:13 Potassium Chloride 100 ml @ 25 mls/hr UNSCH PRN IV 07/08/17 10:30 Potassium Chloride 100 ml @ 50 mls/hr Q2H PRN IV 07/08/17 10:30 07/09/17 14:48 Magnesium Sulfate 4 gm/Sodium Chloride 100 ml @ 50 mls/hr UNSCH PRN IV 07/08/17 10:30 (Mag-Ox) 800 mg UNSCH PRN PO 07/08/17 10:30 Magnesium Sulfate 2 gm/Sodium Chloride 100 ml @ 50 mls/hr UNSCH PRN IV 07/08/17 10:30 (K-Phos) 2,000 mg Q4H PRN PO 07/08/17 10:30 Sodium Phosphate 30 mmol/Sodium Chloride 250 ml @ 42 mls/hr UNSCH PRN IV 07/08/17 10:30 (K-Phos) 2,000 mg UNSCH PRN PO/TUBE 07/08/17 10:30 Potassium Phosphate 30 mmol/ Sodium Chloride 260 ml @ 42 mls/hr UNSCH PRN IV 07/08/17 10:30 (NS Flush) 2 ml UNSCH PRN IV FLUSH 07/08/17 10:30 (NS Flush) 2 ml BID IV FLUSH 07/08/17 21:00 07/11/17 08:34 (Romazicon Inj) 0.2 mg Q1M PRN IV PUSH 07/08/17 10:30 (Ativan) 1 mg Q4H PRN PO 07/08/17 10:30 07/09/17 22:45 (Ativan Inj) 1 mg Q4H PRN IV PUSH 07/08/17 10:30 (Ativan) 2 mg Q2H PRN PO 07/08/17 10:30 (Ativan Inj) 2 mg Q2H PRN IV PUSH 07/08/17 10:30 (Ativan Inj) 2 mg Q1H PRN IV PUSH 07/08/17 10:30 (Ativan Inj) 2 mg Q15M PRN IV PUSH 07/08/17 10:30 Potassium Chloride 10 meq/ Dextrose/Sodium Chloride 1,005 ml @ 80 mls/hr [id number] IV 07/08/17 12:00 07/11/17 04:13 Miscellaneous Information Patient in critical care unit? Ass... Q361D .XX 07/09/17 15:30 (Bactroban Nasal 2% Oint) 1 applic BID NASAL 07/09/17 21:00 07/11/17 08:34 (Chlorhexidine 2% Cloth) 3 pack DAILY@04 TOPICAL 07/10/17 04:00 07/14/17 04:01 (Chlorhexidine 2% Cloth) 3 pack UNSCH PRN TOPICAL 07/09/17 15:30 07/14/17 15:22 Physical Exam Vital Signs Vital Signs Date Time Temp Pulse Resp B/P (MAP) Pulse Ox O2 Delivery O2 Flow Rate FiO2 07/11/17 16:00 98.0 93 22 116/70 (85) 99 07/11/17 09:46 21 07/11/17 07:00 Room Air I/O 07/11/17 07/11/17 07/12/17 08:00 16:00 00:00 Intake Total 1005 ml 1005 ml Output Total 1800 ml Balance -795 ml 1005 ml Mental Status Examination Appearance: Appropriate Consciousness: Alert Orientation: Person, Place, Date/Time Speech: Unremarkable Language: Adequate Fund of Knowledge: Inadequate Attention and Concentration: Adequate Memory: Unremarkable Mood: Appropriate Affect: Appropriate Thought Process & Associations: Intact, Goal directed, Linear Thought Content: Appropriate Hallucination Type: None Delusion Type: None Suicidal Ideation: No Suicidal Plan: No Suicidal Intention: No Homicidal Ideation: No Homicidal Plan: No Homicidal Intention: No Insight: Adequate Judgment: Adequate Assessment & Plan Problem List: (1) Alcohol use disorder ICD Codes: F10.99 - Alcohol use, unspecified with unspecified alcohol-induced disorder Assessment & Plan She is [place] man who carries a diagnosis of alcohol use disorder, no previous psychiatric admissions, suicide attempt or self-injurious behavior who was admitted to the medical service for multiple injuries sustained due to alcohol intoxication and fall which psychiatry was consulted for evaluation of Espino act by police. Patient at this time is psychiatrically stable. Patient at this time is not in a danger to self or others at this time. Patient would benefit from rehabilitation program for his alcohol use disorder as well as possible sober living facility residential facility to provide same. No psychiatric intervention required at this time. Espino act will be lifted. Social work for psychosocial assessment and possible referral to sober living facilities that may take patient without income and allow him to work there to participate in the facility. Patient to continue recommendations as per primary medical team. Consult appreciated Nathaniel Blanco MD Jul 11, 2017 18:27
[2017-07-11] MEDS: MORPHINE SULFATE 2 MG/ML INJ IV PUSH PRN (23:58)
[2017-07-12] VITALS: BP 148/79; PULSE 80; RESP 15; TEMP 98; O2SAT 99
[2017-07-12 00:33] VITALS: O2SAT 99
[2017-07-12] MEDS: RESP: ALBUTEROL 2.5 MG/IPRATROPIUM 0.5 MG NEB (SCH) INH ×2 (03:27→09:43)
[2017-07-12] MEDS: POTASSIUM CHLORIDE INJ 10 MEQ in DEXT 5%-NACL 0.9% 1000 ML INJ 1,000 ML IV SCH ×2 (03:58→09:38)
[2017-07-12 04:00] VITALS: BP 146/88; PULSE 78; RESP 22; TEMP 97.9; O2SAT 98
[2017-07-12] MEDS: CHLORHEXIDINE GLUCONATE 2 % 1 PACK (2 CLOTHS)(taper/protocol) TOPICAL SCH (04:00)
[2017-07-12 08:00] VITALS: BP 167/83; PULSE 76; RESP 20; TEMP 98; O2SAT 98
[2017-07-12] MEDS: FAMOTIDINE 20 MG TAB PO SCH (08:01)
[2017-07-12] MEDS: TIOTROPIUM BROMIDE 18 MCG INH INH SCH (08:01)
[2017-07-12] MEDS: ACETAMINOPHEN 325 MG TAB PO PRN (08:01)
[2017-07-12] MEDS: THIAMINE HCL 100 MG TAB PO SCH (08:01)
[2017-07-12] MEDS: BUDESONIDE-FORMOTEROL 160/4.5 MCG INHALER INH SCH (08:01)
[2017-07-12] MEDS: SODIUM CHLORIDE 0.9% FLUSH 10 ML FLUSH IV FLUSH SCH (08:02)
[2017-07-12] MEDS: MUPIROCIN 2% OINT 1 APPLIC/GM SYR NASAL SCH (08:02)
--- NOTE | 2017-07-12 09:19 | HHI.NSPN ---
History Chief Complaint: Headache. Interval History This is a 60-year-old gentleman who was found down on the sidewalk intoxicated. The patient had evidence of a frontal head injury with abrasion to the forehead. He was brought to the emergency room for evaluation and workup included CT scan of the brain and cervical spine. I have reviewed the studies. CT of the brain shows small bifrontal contusions with a minimal amount of surrounding edema. A small amount of subdural hematoma with layering along the right tentorium and falx posteriorly. There is a linear, non-depressed frontal skull fracture. No significant mass effect or midline shift. CT scan of the cervical spine shows spinous process fractures at C5, C6and C7 with some extension of the fracture into the midline lamina at C6. Alignment is normal. Diffuse degenerative change is most severe at C5-6 and C6-7 with anterior and posterior spur formation. No subluxation. The patient is currently lethargic, but arousable. He is not complaining of any headache. No complaints of neck pain, upper or lower extremity radicular pain or weakness. 07/11/17: Pt awake and alert. Complains of frontal headache. No n/v. Speech clear and appropriate. 07/12/17: Pt awake and alert. Complains of frontal headache. Soreness all over. Follows commands well. Speech clear and appropriate. Review of Systems General: Negative for: fever, chills, insomnia Respiratory: Negative for: shortness of breath, cough, sputum Cardiovascular: Negative for: chest pain Gastrointestinal: Negative for: nausea, vomitting, diarrhea, constipation Exam Results Vital Signs Date Time Temp Pulse Resp B/P (MAP) Pulse Ox O2 Delivery O2 Flow Rate FiO2 07/12/17 07:00 100 Room Air 07/12/17 04:00 78 07/12/17 04:00 97.9 22 146/88 (107) 07/12/17 00:33 21 Intake and Output 07/12/17 07/12/17 07/13/17 08:00 16:00 00:00 Intake Total 400 ml Output Total 1000 ml Balance -600 ml Physical Examination General: Patient is alert and resting comfortably in bed feeding himself breakfast. Resp: CTA bilaterally Heart: NSR no murmurs Abd: Soft positive bs Skin: No cyanosis or erythema Muscle: Motor function is 5 over 5 in the upper and lower extremities. Neuro: Speech is intact. Cranial nerves II through XII intact. He is conversive and follows all commands. He is oriented 3. Sensory intact. Lab, Micro, Other Results Last Impressions Head CT 07/09/17 0000 Signed Impressions: Service Date/Time: Sunday, July 09, 2017 04:26 - CONCLUSION: 1. Mild improvement in the small bilateral frontal hemorrhagic contusions, right greater than left. 2. Otherwise, no significant change. 3. Stable anterior midline nondisplaced skull fracture. Franco Grande MD Chest X-Ray 07/08/17 0000 Signed Impressions: Service Date/Time: Saturday, July 08, 2017 08:26 - CONCLUSION: Stable chest x-ray without an acute finding identified. Hernandez Heart MD Cervical Spine CT 07/08/17 0000 Signed Impressions: Service Date/Time: Saturday, July 08, 2017 07:38 - CONCLUSION: 1. There are acute minimally displaced fractures involving the C5-C7 spinous processes. At C6 the fracture and partially extends into the left lamina. 2. No other fracture is identified. There is degenerative disc disease at C5-C6 and C6-C7. Hernandez Heart MD Medical Decision Making Impression and Plan A: 61 y/o M with closed head injury. [place] coma score of 15. CT scan of the brain is showing small bifrontal contusions and a small amount of subdural hematoma on the tentorium. Linear frontal skull fracture. None of these findings require surgical intervention. Cervical spine CT scan is showing spinous process fracture C5-7, but otherwise stable cervical spine. P: Continue to mobilize/ assess stability for discharge possibly today. D/C planning. Nathaniel Lara Jul 12, 2017 9:19 am
[2017-07-12 12:00] VITALS: BP 152/78; PULSE 76; PULSE 78; RESP 20; TEMP 97.9; O2SAT 98
--- NOTE | 2017-07-12 12:00 | HHI.CCPN ---
Subjective Remarks/Hospital Course Patient Name: Neptali Skaggs Unit Number: [id number] Date of : 1955 Patient Status: Admitted Inpatient Attending Doctor: Brian Plunkett MD subdural hemorrhage, skull fracture, cervical fracture Diagnosis: (1) Closed head injury Diagnosis: Principal (2) Cervical spine fracture Diagnosis: Principal (3) Subdural hemorrhage Diagnosis: Principal (4) Skull fracture Diagnosis: Principal Chief Complaint: Brought to ED for intoxication/obtundation. 61 y/o man with longstanding severe COPD fell several hours prior to admission, striking his forehead. Found on sidewalk and ETOH 247 on arrival to ED. Films reveal base and anterior vertical skull fracture, small subdural blood collection, bilateral frontal lobe contusions. Dishevelled and malnourished; high risk for seizures from either alcohol withdrawal and/or brain trauma. Hypoglycemic on arrival at 46 BG. 07/09: Resolving frontal contusions. Stable cervical spinous process fractures. Hypoglycemia has resolved. A bit shaky off of ETOH. 07/10: Calm today, no shaking. GCS 15. Cooperative. 07/11: Patient is not a risk to himself or others. 07/12: Ambulate in caputo. Objective Vital Signs Date Time Temp Pulse Resp B/P (MAP) Pulse Ox O2 Delivery O2 Flow Rate FiO2 07/12/17 08:00 98.0 76 20 167/83 (111) 98 07/12/17 07:00 Room Air 07/12/17 00:33 21 Intake and Output 07/12/17 07/12/17 07/13/17 08:00 16:00 00:00 Intake Total 400 ml Output Total 1000 ml Balance -600 ml Result Diagram: 07/09/1740807/09/172048 Objective Remarks Gen: Calm. Head: Numerous old and recent bruises and cuts to forehead. Neck: Supple, airway patent. Lungs: Distant tones, no wheezes. Comfortable pattern. Heart: NL S1S2, RRR. No JVD. Abdomen: Soft, no guarding, bs active. Extremities: Old and new bruises both knees, clean, dry. Well perfused. Neuro: Moves 4 limbs to command. Conversant. Cooperative. O X 3. A/P Problem List: (1) Closed head injury ICD Code: S09.90XA - Unspecified injury of head, initial encounter (2) Acute alcohol intoxication ICD Code: F10.129 - Alcohol abuse with intoxication, unspecified Status: Acute (3) Subdural hemorrhage ICD Code: I62.00 - Nontraumatic subdural hemorrhage, unspecified Status: Acute (4) Cervical spine fracture ICD Code: S12.9XXA - Fracture of neck, unspecified, initial encounter Status: Acute (5) Skull fracture ICD Code: S02.91XA - Unspecified fracture of skull, initial encounter for closed fracture Status: Acute Assessment and Plan Plan: Closed head injury, bifrontal contusions - Seizure prophylaxis - Repeat Head CT immediately for change or after 24 hours for FU - Neuro Checks 0 Alert X 3 days now. COPD (not exacerbated) - Bronchodilators - Steroids if worsens. Hypoglycemia - Check LFTs, ammonia - Add dextrose to iv fluid. - Vitamin replacement -Resolved 07/10 ETOH intoxication - Likely habitual - Anticipate withdrawal - [facility] protocol - Vitamins - Check Mag, Phos - Resolved. Cervical spine fractures - C5, 6, 7 spinous process, inherently stable. - Cervical collar - CT neck per NS. Overall impression: Much improved. GCS 15, cooperative. Home if OK with Neurosurgery. Problem Qualifiers (1) Closed head injury: Qualified Codes: S09.90XA - Unspecified injury of head, initial encounter (2) Cervical spine fracture: Qualified Codes: S12.9XXA - Fracture of neck, unspecified, initial encounter (3) Skull fracture: Brian Plunkett MD Jul 12, 2017 12:00
== END 2017-07-12 13:40 | disposition home or self-care (01) | DRG 83 ==
LOC: NEPD 06:35 → NEDA 09:03 → N03A 11:49
PROVIDERS: ADMIT Surgery Surgical Critical Care; ATTEND Surgery Surgical Critical Care
DX: S06.5X9A Traumatic subdural hemorrhage with loss of consciousness of unspecified duration, initial encounter (principal); E46 Unspecified protein-calorie malnutrition; S12.400A Unspecified displaced fracture of fifth cervical vertebra, initial encounter for closed fracture; Z68.1 Body mass index [BMI] 19.9 or less, adult; S12.500A Unspecified displaced fracture of sixth cervical vertebra, initial encounter for closed fracture; S12.600A Unspecified displaced fracture of seventh cervical vertebra, initial encounter for closed fracture; S02.19XA Other fracture of base of skull, initial encounter for closed fracture; W19.XXXA Unspecified fall, initial encounter; E16.2 Hypoglycemia, unspecified; F10.129 Alcohol abuse with intoxication, unspecified; Y90.8 Blood alcohol level of 240 mg/100 ml or more; F17.210 Nicotine dependence, cigarettes, uncomplicated; J44.9 Chronic obstructive pulmonary disease, unspecified; R40.2413 Glasgow coma scale score 13-15, at hospital admission; Z59.0 Homelessness
CPT/HCPCS: 70450; 71045; 72125; 80048; 80076; 80307; 82140; 82948; 83735; 84100; 84132; 85025; 85610; 85730; 86850; 86900; 86901; 87641; 94640; 94664; J2270; J3480; J7042; L0120

== ENCOUNTER 2018-02-19 19:11 | Observation (INO) ==
--- NOTE | 2018-02-19 19:39 | ED ---
HPI General Chief complaint: Weakness Stated complaint: weakness Time Seen by Provider: 02/19/18 19:31 Source: patient and EMS Mode of arrival: EMS Limitations: no limitations History of Present Illness HPI Narrative: 62-year-old male presents to the emergency department by EMS transport after being found on the ground at a park where he has been lying all day due to generalized weakness. Patient states that he has been progressively worsening over the past 1 year with generalized weakness. Patient has chronic cough associated with tobacco abuse and COPD also has alcoholism. Patient states I am an alcoholic. Patient does not report any new headache altered mentation difficulty with speech neck pain back pain chest pain rib pain shortness of breath abdominal pain vomiting black or tarry stools or bloody stools no decreased urine output no injury or fall. Patient denies fever chills. Patient states he last drank alcohol this morning. Patient states he was not able to get up so somebody just brought him a beer. Patient states he just cannot go on like this because he cannot care for himself and he is homeless. MD Complaint: generalized weakness Onset (ago): month(s) Duration: constant Location: generalized Migration: none Severity: moderate Relieving factors: none Exacerbating factors: none Associated symptoms: denies other symptoms Related Data Home Medications Medication Instructions Recorded Confirmed No Known Home Medications 02/20/18 02/20/18 Allergies Allergy/AdvReac Type Severity Reaction Status Date / Time No Known Allergies Allergy Unverified 02/19/18 19:30 Review of Systems ROS: all other systems reviewed are negative PMFSH History History Provided By: Patient Medical History Medical History Alcohol related seizure (Acute) Social History Social History Substance History: No History of Abuse Second Hand Smoke Exposure: Yes Smoking Status: Current every day smoker Tobacco Type: Cigarettes How Often Do You Have a Drink Containing Alcohol: 4 or more times a week Recent Out of Country Travel within the Last 8 Weeks: No Immunization History Tetanus Immunization: >5 Years Hx Influenza Vaccine This Season: No Exam Narrative Exam Narrative: GENERAL: Well-nourished, well-developed patient. No acute distress no respiratory distress; GCS 15 disheveled SKIN: Focused skin assessment warm/dry. HEAD: Normocephalic. EYES: No scleral icterus. No injection or drainage. NECK: Supple, trachea midline. No JVD or lymphadenopathy. CARDIOVASCULAR: Regular rate and rhythm without murmurs, gallops, or rubs. RESPIRATORY: Breath sounds equal bilaterally. No accessory muscle use. GASTROINTESTINAL: Abdomen soft, non-tender, nondistended. MUSCULOSKELETAL: No cyanosis, or edema. BACK: Nontender without obvious deformity. No CVA tenderness. Course Initial Documented Vital Signs Temperature 98.0 F 02/19/18 19:12 Pulse Rate 82 02/19/18 19:12 Respiratory Rate 16 02/19/18 19:12 Blood Pressure 98/60 L 02/19/18 19:12 Pulse Oximetry 97 02/19/18 19:12 Last Documented Vital Signs Temperature 98.0 F 02/19/18 19:12 Pulse Rate 82 02/19/18 19:12 Respiratory Rate 16 02/19/18 19:12 Blood Pressure 98/60 L 02/19/18 19:12 Pulse Oximetry 97 02/19/18 19:31 Medical Decision Making MDM Narrative Medical decision making narrative: 62-year-old disheveled male presents to the emergency department for progressively worsening weakness over the past year admits to alcohol use daily and chronic cough and congestion placed on night monitor IV access obtained specimens collected and sent for resulting initial blood pressure mildly hypotensive. Patient given bolus of normal saline 500 and EKG performed sinus rhythm rate 80 incomplete right bundle branch block no acute ST elevation Lab values remarkable for hyponatremia patient has history of type hyponatremia also identified to have hypomagnesemia consistent with his alcoholism as well this is been replaced with 1 g of magnesium sulfate patient also identified to have hypocalcemia patient given oral replacement after protein corrected calcium patient hypoglycemic also reflects his alcoholism patient was able to tolerate a male patient was noted to have an alcohol level of 210 consistent with his chronic alcohol use patient also was also identified on urine drug screen to have benzodiazepines on board. Patient has thrombocytopenia but is noted to have thrombocytopenia and patient has anemia of chronic disease. Patient's case discussed with on-call medicine as this appears to be an issue of social admission there are no longer providing social admissions and recommends patient be assessed by case management for placement however per medicine request repeat BMP prior to disposition which has been ordered. Patient unable to weight-bear to stand due to marked weakness that was witnessed by medical staff while patient was being bathed. Patient not able to be discharged to the community due to his inability to ambulate with assistive device/walker and due to his generalized weakness. Per medical on-call recommendation BMP was repeated and values found to be improved. Patient's case discussed with case management, Robyn Evans, with recommendation for 24-hour hold in the emergency department as may need social admission patient will need an OT and PT evaluation prior to disposition and will also need resources that allow him to go through alcohol detox program to avoid alcohol withdrawal. Dayshift case management will also be consulted regarding management and disposition of this patient is otherwise medically cleared except needs resources are not available readily to him independently in the community and available at this time. 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 Medical Screen Exam Complete: Yes Emergency Medical Condition: Yes Differential Diagnosis Differential Diagnosis: Generalized weakness, electrolyte disturbance, anemia, pneumonia, thyroid dysfunction, sepsis, failure to thrive Medical Records Medical records reviewed: Yes I reviewed the patient's medical records. Lab Data Lab results reviewed: Yes I reviewed the patient's lab results. Result diagrams: 02/19/18 19:35 02/20/18 04:10 Lab Results 02/19/18 02/19/18 02/19/18 Range/Units 19:35 19:35 19:35 WBC 4.8 (4.0-11.0) th/mm3 RBC 2.65 L (4.50-5.90) mil/mm3 Hgb 9.7 L (13.0-17.0) gm/dL Hct 27.7 L (39.0-51.0) % MCV 104.5 H (80.0-100.0) fL MCH 36.4 H (27.0-34.0) pg MCHC 34.8 (32.0-36.0) % RDW 15.1 (11.6-17.2) % Plt Count 120 L (150-450) th/mm3 MPV 9.2 (7.0-11.0) fL Neut % (Auto) 54.1 (16.0-70.0) % Lymph % (Auto) 35.4 (9.0-44.0) % [place] % (Auto) 9.2 H (0.0-8.0) % Eos % (Auto) 0.9 (0.0-4.0) % Baso % (Auto) 0.4 (0.0-2.0) % Neut # (Auto) 2.6 (1.8-7.7) th/mm3 Lymph # (Auto) 1.7 (1.0-4.8) th/mm3 [place] # (Auto) 0.4 (0.0-0.9) th/mm3 Eos # (Auto) 0.0 (0.0-0.4) th/mm3 Baso # (Auto) 0.0 (0.0-0.2) th/mm3 WBC Differential . Differential Comment Auto diff final PT 10.6 (9.8-11.6) sec INR 1.0 Ratio Sodium 126 L (136-145) meq/L Potassium 3.4 L (3.5-5.1) meq/L Chloride 89 L (98-107) meq/L Carbon Dioxide 24.5 (21.0-32.0) meq/L Anion Gap 13 (5-15) meq/L BUN 7 (7-18) mg/dL Creatinine 0.35 L (0.60-1.30) mg/dL Estimated GFR Greater than 89 (>89) mL/min Random Glucose 67 L (74-106) mg/dL Calcium 7.1 L* (8.5-10.1) mg/dL Prot Corrected Calcium 7.8 L (8.5-10.1) mg/dL Magnesium 1.3 L (1.5-2.5) mg/dL Total Bilirubin 0.5 (0.2-1.0) mg/dL AST 112 H (15-37) U/L ALT 54 (12-78) U/L Alkaline Phosphatase 85 (45-117) U/L Total Creatine Kinase 69 (39-308) U/L Troponin I Less than 0.02 L (0.02-0.05) ng/mL Total Protein 5.8 L (6.4-8.2) g/dL Albumin 2.7 L (3.4-5.0) g/dL TSH 1.410 (0.358-3.740) uIU/mL Urine Color (Yellw/Straw) Urine Clarity (Clear) Urine pH (5.0-8.5) Ur Specific [place] (1.002-1.035) Urine Protein (Neg-Trace) mg/dL Urine Glucose (UA) (Negative) mg/dL Urine Ketones (Negative) mg/dL Urine Occult Blood (Negative) Urine Nitrate (Negative) Urine Bilirubin (Negative) Urine Urobilinogen (Less than 2) mg/dL Ur Leukocyte Esterase (Negative) Urine RBC (0-3) /hpf Urine WBC (0-5) /hpf Ur Squamous Epith Cells (0-5) /hpf Urine Bacteria (None) /hpf Micro UA Comment Ur Microscopic Review Urine Culture Comments Urine Opiates Screen (Neg) Ur Barbiturates Screen (Neg) Ur Amphetamines Screen (Neg) U Benzodiazepines Scrn (Neg) Urine Cocaine Screen (Neg) U Cannabinoids Screen (Neg) Serum Alcohol 210 H (0-5) mg/dL 02/19/18 02/19/18 02/20/18 Range/Units 23:35 23:35 04:10 WBC (4.0-11.0) th/mm3 RBC (4.50-5.90) mil/mm3 Hgb (13.0-17.0) gm/dL Hct (39.0-51.0) % MCV (80.0-100.0) fL MCH (27.0-34.0) pg MCHC (32.0-36.0) % RDW (11.6-17.2) % Plt Count (150-450) th/mm3 MPV (7.0-11.0) fL Neut % (Auto) (16.0-70.0) % Lymph % (Auto) (9.0-44.0) % [place] % (Auto) (0.0-8.0) % Eos % (Auto) (0.0-4.0) % Baso % (Auto) (0.0-2.0) % Neut # (Auto) (1.8-7.7) th/mm3 Lymph # (Auto) (1.0-4.8) th/mm3 [place] # (Auto) (0.0-0.9) th/mm3 Eos # (Auto) (0.0-0.4) th/mm3 Baso # (Auto) (0.0-0.2) th/mm3 WBC Differential Differential Comment PT (9.8-11.6) sec INR Ratio Sodium 132 L (136-145) meq/L Potassium 3.9 (3.5-5.1) meq/L Chloride 94 L (98-107) meq/L Carbon Dioxide 28.9 (21.0-32.0) meq/L Anion Gap 9 (5-15) meq/L BUN 6 L (7-18) mg/dL Creatinine 0.46 L (0.60-1.30) mg/dL Estimated GFR Greater than 89 (>89) mL/min Random Glucose 70 L (74-106) mg/dL Calcium 7.6 L (8.5-10.1) mg/dL Prot Corrected Calcium (8.5-10.1) mg/dL Magnesium (1.5-2.5) mg/dL Total Bilirubin (0.2-1.0) mg/dL AST (15-37) U/L ALT (12-78) U/L Alkaline Phosphatase (45-117) U/L Total Creatine Kinase (39-308) U/L Troponin I (0.02-0.05) ng/mL Total Protein (6.4-8.2) g/dL Albumin (3.4-5.0) g/dL TSH (0.358-3.740) uIU/mL Urine Color Yellow (Yellw/Straw) Urine Clarity Clear (Clear) Urine pH 6.0 (5.0-8.5) Ur Specific [place] 1.004 (1.002-1.035) Urine Protein Negative (Neg-Trace) mg/dL Urine Glucose (UA) Negative (Negative) mg/dL Urine Ketones Negative (Negative) mg/dL Urine Occult Blood Small H (Negative) Urine Nitrate Negative (Negative) Urine Bilirubin Negative (Negative) Urine Urobilinogen Less than 2 (Less than 2) mg/dL Ur Leukocyte Esterase Negative (Negative) Urine RBC 1 (0-3) /hpf Urine WBC 1 (0-5) /hpf Ur Squamous Epith Cells <1 (0-5) /hpf Urine Bacteria Rare H (None) /hpf Micro UA Comment Culture not ind Ur Microscopic Review Not Reportable Urine Culture Comments Culture not ind Urine Opiates Screen Neg (Neg) Ur Barbiturates Screen Neg (Neg) Ur Amphetamines Screen Neg (Neg) U Benzodiazepines Scrn Pos H (Neg) Urine Cocaine Screen Neg (Neg) U Cannabinoids Screen Neg (Neg) Serum Alcohol (0-5) mg/dL Imaging Data Radiologist's impression: Chest X-Ray 02/19/18 19:31 CONCLUSION: COPD. No evidence of acute cardiopulmonary process. ECG Data Interpretation: EKG: Normal sinus rhythm rate 80 complete right bundle branch block no acute ST elevation injury pattern or ectopy noted Discharge Plan Discharge Disposition Patient Disposition: 30 Still Patient Discharge Condition Condition: Stable Discharge Details Diagnosis: Generalized weakness, Alcohol abuse, Disorder of electrolytes, Anemia Physicians Team ED Provider: Saundra Syed Primary Care Provider: Primary Care Gissell Sebastian Rxs /Orders / Referrals /Forms Prescriptions: No Action No Known Home Medications RF: 0 Discharge Instructions Additional Instructions: Follow-up with Yevgeniy Rainey for detoxification program resources regarding alcohol Increase fluid hydration Return to the emergency department for any concerns or change in condition Add calcium magnesium and potassium foods and beverages to dietary intake; recommend multivitamin to daily dietary intake Status ED Status: With Doctor
[2018-02-19] MEDS ORDERED: Sodium Chlor 0.9% Inj 500 ML IV.SIG SCH (20:00)
[2018-02-19 20:13] LABS: Baso % (Auto) 0.4 % (0.0-2.0); Eos % (Auto) 0.9 % (0.0-4.0); Hematocrit 27.7 % (39.0-51.0); Hemoglobin 9.7 gm/dL (13.0-17.0); Lymph # (Auto) 1.7 th/mm3 (1.0-4.8); Lymph % (Auto) 35.4 % (9.0-44.0); Mean Corpuscular HGB Conc 34.8 % (32.0-36.0); Mean Corpuscular Hemoglobin 36.4 pg (27.0-34.0); Mean Corpuscular Volume 104.5 fL (80.0-100.0); Mean Platelet Volume 9.2 fL (7.0-11.0); Mono # (Auto) 0.4 th/mm3 (0.0-0.9); Mono % (Auto) 9.2 % (0.0-8.0); Neut # (Auto) 2.6 th/mm3 (1.8-7.7); Neut % (Auto) 54.1 % (16.0-70.0); Platelet Count 120 th/mm3 (150-450); Red Blood Count 2.65 mil/mm3 (4.50-5.90); Red Cell Distribution Width 15.1 % (11.6-17.2); White Blood Count 4.8 th/mm3 (4.0-11.0)
[2018-02-19 20:21] LABS: Prothrombin Time 10.6 sec (9.8-11.6)
--- NOTE | 2018-02-19 20:26 | XR ---
EXAM DATE: 02/19/2018 8:23 PM EDT AGE/SEX: 62 years / Male INDICATIONS: General weakness. CLINICAL DATA: This is the patient's initial encounter. Patient reports that signs and symptoms have been present for 1 day and indicates a pain score of 0/10. MEDICAL/SURGICAL HISTORY: Hypertension. Chronic obstructive pulmonary disease. None. COMPARISON: [facility] – [place], 07/08/2017. . FINDINGS: Lungs are hyper inflated but otherwise clear. Calcified granuloma is seen in the right base. There is no evidence of acute airspace disease or congestion. There are no suspicious nodular densities or effusions. Heart and mediastinal structures are stable. CONCLUSION: COPD. No evidence of acute cardiopulmonary process. Electronically signed by: Prabhu Francisco MD 02/19/2018 8:25 PM EDT
[2018-02-19 20:48] LABS: Alanine Aminotransferase 54 U/L (12-78); Albumin 2.7 g/dL (3.4-5.0); Alkaline Phosphatase 85 U/L (45-117); Anion Gap 13 meq/L (5-15); Aspartate Aminotransferase 112 U/L (15-37); Blood Urea Nitrogen 7 mg/dL (7-18); Calcium 7.1 mg/dL (8.5-10.1); Carbon Dioxide 24.5 meq/L (21.0-32.0); Chloride 89 meq/L (98-107); Glomerular Filtration Rate Greater Than 89 mL/min (>89); Glucose,Random 67 mg/dL (74-106); Magnesium 1.3 mg/dL (1.5-2.5); Potassium 3.4 meq/L (3.5-5.1); Sodium 126 meq/L (136-145); Total Protein 5.8 g/dL (6.4-8.2)
[2018-02-19 20:52] LABS: Alcohol 210 mg/dL (0-5); Creatine Kinase 69 U/L (39-308)
[2018-02-19] MEDS ORDERED: Mag Sulf 1 gm/100 ml Premix 100 ML IV.SIG ONE (20:53)
[2018-02-19] MEDS ORDERED: Thiamine Inj 100 MG in Sodium Chlor 0.9% Inj 100 ML IV.SIG ONE (20:54)
[2018-02-20] LABS: Bacteria,Urine Rare /hpf; Bilirubin,Urine Negative (Negative); Clarity,Urine Clear (Clear); Color,Urine Yellow (Yellw/Straw); Glucose,Urine (UA) Negative (Negative); Leukocyte Esterase,Urine Negative (Negative); Nitrite,Urine Negative (Negative); Specific Gravity,Urine 1.004 (1.002-1.035); Squamous Epithelial Cell,Urine <1 /hpf (0-5)
[2018-02-20 00:11] LABS: Amphetamine Screen,Urine Neg (Neg); Barbiturate Screen,Urine Neg (Neg); Cannabinoid Screen,Urine Neg (Neg); Cocaine Screen,Urine Neg (Neg)
[2018-02-20 00:26] LABS: Opiate Screen,Urine Neg (Neg)
[2018-02-20 05:28] LABS: Anion Gap 9 meq/L (5-15); Blood Urea Nitrogen 6 mg/dL (7-18); Calcium 7.6 mg/dL (8.5-10.1); Carbon Dioxide 28.9 meq/L (21.0-32.0); Chloride 94 meq/L (98-107); Glomerular Filtration Rate Greater Than 89 mL/min (>89); Glucose,Random 70 mg/dL (74-106); Potassium 3.9 meq/L (3.5-5.1); Sodium 132 meq/L (136-145)
[2018-02-20] MEDS ORDERED: Haloperidol Inj 5 MG/ML Ampul IV.PUSH PRN ×2 (07:51→09:37)
[2018-02-20] MEDS ORDERED: LORazepam 1 MG Tablet PO PRN ×2 (07:51→09:37)
[2018-02-20] MEDS ORDERED: Acetaminophen 325 MG Tablet PO PRN (09:34)
[2018-02-20] MEDS ORDERED: Bisacodyl 10 MG Supp RECTAL PRN (09:34)
--- NOTE | 2018-02-20 10:28 | P.HPIM ---
History of Present Illness Service: [facility] Primary Care Physician: No Primary Care Physician Chief Complaint: Generalized weakness History of Present Illness: Patient is a 62-year-old gentleman who is brought to the emergency department via EMS today after being found on the ground in a park where he had been lying all day due to generalized weakness. Patient states that he has had progressively worsening of the weakness over the past year with generalized weakness. He has a chronic cough secondary to tobacco abuse still smoking at least a pack a day and COPD also has alcoholism. Patient states that he is an alcoholic. He drinks beer and vodka daily. Denies any chest pain denies any shortness of breath denies any nausea vomiting denies any dysuria urgency frequency hematuria hematemesis hematochezia denies any back pain or rib pain or abdominal pain black tarry stools bloody stools denies any problems urinating denies any recent history of falls. Patient drinks alcohol daily patient States he cannot take care of himself and is homeless states he has a walker. Had been in a prison facility but was told to leave because he was drinking. We will give him fluids with his physical therapy and occupational therapy to eval and treat and ask case management to help with placement. Patient states he has had a right hip replacement in the past. Review of Systems All other systems reviewed negative except as stated in HPI Constitutional: Reports fatigue, Reports weakness Musculoskeletal: Reports muscle weakness PMFSH - History History Provided By: Patient - Medical History Medical History: Medical History (Last Updated 02/20/18 @ 10:19 by Hank Arguello DO) Alcohol abuse Alcohol related seizure Anemia COPD (chronic obstructive pulmonary disease) Generalized weakness Homeless Noncompliance Thrombocytopenia concurrent with and due to alcoholism Tobacco abuse - Surgical History Surgical History: Surgical History (Last Updated 02/20/18 @ 10:19 by Hank Arguello DO) History of right hip replacement - Family History Family History: Family History (Last Updated 02/20/18 @ 10:19 by Hank Arguello DO) Other Family history of hypertension - Tobacco History Second Hand Smoke Exposure: Yes Tobacco Use In Past 30 Days: Yes Smoking Status: Current every day smoker Tobacco Type: Cigarettes - Alcohol History How Often Do You Have a Drink Containing Alcohol: 4 or more times a week - Substance Use History Substance History: No History of Abuse - Travel History History of Recent Travel: No Recent Travel in the [place] Within the Last 8 Weeks: No Recent Travel Out of the Country Within the Last 8 Weeks: No - Immunization History Tetanus Immunization: >5 Years Hx Influenza Vaccine This Season: No Medications and Allergies Active Medications: Active Medications Acetaminophen (Tylenol) 650 mg PO Q4H PRN PRN Reason: Temp > 100.4 Al Hydroxide/Mg Hydroxide (Milk Of Magnesia Liq) 30 ml PO Q12H PRN PRN Reason: Mild Constipation Bisacodyl (Dulcolax Supp) 10 mg RECTAL DAILY PRN PRN Reason: SEVERE CONSITIPATION Clonidine HCl (Catapres) 0.1 mg PO Q6H PRN PRN Reason: For SBP >/= 180, DBP >/= 100 Flumazenil (Romazecon Inj) 0.2 mg IV.PUSH Q1M PRN PRN Reason: OVERSEDATION Folic Acid (Folic Acid) 1 mg PO DAILY AGATA Stop: 02/25/18 09:44 Haloperidol Lactate (Haldol Inj) 1 mg IV.PUSH Q15M PRN PRN Reason: for severe agitation Sodium Chloride (Ns Inj) 500 mls @ 0 mls/hr IV.SIG BOLUS AGATA Last Infusion: 02/20/18 00:33 Dose: Infused Lactulose (Lactulose Liq) 30 ml PO DAILY PRN PRN Reason: SEVERE CONSITIPATION Lorazepam (Ativan Inj) 1 mg IV.PUSH Q4H PRN PRN Reason: for CIWA 8-10 Lorazepam (Ativan Inj) 2 mg IV.PUSH Q15M PRN PRN Reason: for CIWA > 20 Lorazepam (Ativan Inj) 2 mg IV.PUSH Q1H PRN PRN Reason: for CIWA 15-20 Lorazepam (Ativan Inj) 2 mg IV.PUSH Q2H PRN PRN Reason: for CIWA 11-14 Lorazepam (Ativan) 1 mg PO Q4H PRN PRN Reason: for CIWA 8-10 Lorazepam (Ativan) 2 mg PO Q2H PRN PRN Reason: for CIWA 11-14 Multivitamins/Minerals (Theragran-M) 1 tab PO DAILY AGATA Stop: 02/25/18 09:44 Ondansetron HCl (Zofran Inj) 4 mg IV.PUSH Q6H PRN PRN Reason: NAUSEA OR VOMITING Pantoprazole Sodium (Protonix) 40 mg PO DAILY [facility] Senna/Docusate Sodium (Jacey-Colace) 1 tab PO BID [facility] Sennosides (Senokot) 17.2 mg PO Q12H PRN PRN Reason: Moderate Constipation Sodium Chloride (Ns Flush) 2 ml IV.FLUSH PRN PRN PRN Reason: FLUSH AFTER USING IV ACCESS Last Admin: 02/19/18 23:32 Dose: 2 ml Thiamine HCl (Vitamin B1) 100 mg PO DAILY [facility] Allergies Allergy/AdvReac Type Severity Reaction Status Date / Time No Known Allergies Allergy Unverified 02/19/18 19:30 Home Medications Medication Instructions Recorded Confirmed Type No Known Home Medications 02/20/18 02/20/18 History Exam Vital signs: Vital Signs 02/19/18 19:12 02/19/18 19:31 02/20/18 07:23 Temperature 98.0 F Pulse Rate 82 84 Respiratory Rate 16 18 Blood Pressure 98/60 L 154/88 H Pulse Oximetry 97 97 100 Intake & Output 02/19/18 02/20/18 02/20/18 18:59 06:59 18:59 Intake Total 701 / 701 Balance 701 / 701 Weight 45.359 kg Intake: IV 701 / 701 NS Inj 500 ML @ Wide Open IV. 500 / 500 SIG BOLUS [facility] Rx#:[id number] Narrative: GENERAL: Awake alert and oriented 3 talkative and cooperative SKIN: Warm and dry. HEAD: Atraumatic. Normocephalic. EYES: Pupils equal and round. No scleral icterus. No injection or drainage. EOMI ENT: No nasal bleeding or discharge. Mucous membranes pink and moist. Poor dentition tongue is midline NECK: Trachea midline. No JVD. Supple CARDIOVASCULAR: Regular rate and rhythm. S1-S2 no S3 or S4 RESPIRATORY: No accessory muscle use. Clear to auscultation. Breath sounds equal bilaterally. GASTROINTESTINAL: Abdomen soft, non-tender, nondistended. Hepatic and splenic margins not palpable. MUSCULOSKELETAL: Extremities without clubbing, cyanosis, or edema. No obvious deformities. NEUROLOGICAL: Awake and alert. No obvious cranial nerve deficits. Motor grossly within normal limits. 4 out of 5 muscle strength in the arms and legs. Normal speech. PSYCHIATRIC: Appropriate mood and affect; insight and judgment ABnormal. Results - Labs CBC & Chem 7: 02/19/18 19:35 02/20/18 04:10 Labs: Short CBC 02/19/18 Range/Units 19:35 WBC 4.8 (4.0-11.0) th/mm3 Hgb 9.7 L (13.0-17.0) gm/dL Hct 27.7 L (39.0-51.0) % Plt Count 120 L (150-450) th/mm3 BMP 02/19/18 02/20/18 19:35 04:10 Sodium 126 L 132 L Potassium 3.4 L 3.9 Chloride 89 L 94 L Carbon Dioxide 24.5 28.9 BUN 7 6 L Creatinine 0.35 L 0.46 L Calcium 7.1 L* 7.6 L Cardiac Enzymes 02/19/18 Range/Units 19:35 Total Creatine Kinase 69 (39-308) U/L Troponin I Less than 0.02 L (0.02-0.05) ng/mL Liver Function 02/19/18 Range/Units 19:35 Total Bilirubin 0.5 (0.2-1.0) mg/dL AST 112 H (15-37) U/L ALT 54 (12-78) U/L Alkaline Phosphatase 85 (45-117) U/L Albumin 2.7 L (3.4-5.0) g/dL Urine 02/19/18 Range/Units 23:35 Urine Color Yellow (Yellw/Straw) Urine Clarity Clear (Clear) Urine pH 6.0 (5.0-8.5) Ur Specific [place] 1.004 (1.002-1.035) Urine Protein Negative (Neg-Trace) mg/dL Urine Glucose (UA) Negative (Negative) mg/dL - Imaging Impressions Chest X-Ray 02/19/18 19:31 CONCLUSION: COPD. No evidence of acute cardiopulmonary process. Caprini VTE Risk Assessment Caprini VTE Risk Assessment: No/Low Risk (score <= 1) Caprini Risk Assessment Model: Point Value = 1 Point Value = 2 Point Value = 3 Point Value = 5 Age 41-60 Minor surgery BMI > 25 kg/m2 Swollen legs Varicose veins or History of unexplained or recurrent spontaneous Oral contraceptives or hormone replacement Sepsis (< 1 month) Serious lung disease, including pneumonia (< 1 month) Abnormal pulmonary function Acute myocardial infarction Congestive heart failure (< 1 month) History of inflammatory bowel disease Medical patient at bed rest Age 61-74 Arthroscopic surgery Major open surgery (> 45 min) Laparoscopic surgery (> 45 min) Malignancy Confined to bed (> 72 hours) Immobilizing plaster cast Central venous access Age >= 75 History of VTE Family history of VTE Factor V Leiden Prothrombin [id number] Lupus anticoagulant Anticardiolipin antibodies Elevated serum homocysteine Heparin-induced thrombocytopenia Other congenital or acquired thrombophilia Stroke (< 1 month) Elective arthroplasty Hip, pelvis, or leg fracture Acute spinal cord injury (< 1 month) Prophylaxis Regimen: Total Risk Factor Score Risk Level Prophylaxis Regimen 0-1 Low Early ambulation 2 Moderate Order ONE of the following: *Sequential Compression Device (SCD) *Heparin 5000 units SQ BID 3-4 Higher Order ONE of the following medications: *Heparin 5000 units SQ TID *Enoxaparin/Lovenox 40 mg SQ daily (WT < 150 kg, CrCl > 30 mL/min) *Enoxaparin/Lovenox 30 mg SQ daily (WT < 150 kg, CrCl > 10-29 mL/min) *Enoxaparin/Lovenox 30 mg SQ BID (WT < 150 kg, CrCl > 30 mL/min) AND/OR *Sequential Compression Device (SCD) 5 or more Highest Order ONE of the following medications: *Heparin 5000 units SQ TID (Preferred with Epidurals) *Enoxaparin/Lovenox 40 mg SQ daily (WT < 150 kg, CrCl > 30 mL/min) *Enoxaparin/Lovenox 30 mg SQ daily (WT < 150 kg, CrCl > 10-29 mL/min) *Enoxaparin/Lovenox 30 mg SQ BID (WT < 150 kg, CrCl > 30 mL/min) AND *Sequential Compression Device (SCD) Assessment and Plan - Plan Generalized weakness -We will get physical therapy and occupational therapy to eval and treat -Case management evaluation -Recommend alcohol cessation Alcohol abuse -Continue on CIWA protocol -Multivitamin, thiamine, folic acid -Protonix Thrombocytopenia suspect secondary to alcohol abuse -A.m. labs will monitor -Continue on Protonix Electrolyte imbalance due to alcoholism -Replace sodium -Make sure patient is on a multivitamin, thiamine, and folic acid -Check B12 and folic acid levels as well as a.m. labs Anemia chronic -Suspect secondary to alcohol abuse -And poor oral intake other than alcohol Protein calorie malnourishment -Due to alcohol abuse -Regular diet Hypertension -Catapres as needed Noncompliance -Case management for follow-up Tobacco abuse will continue on NicoDerm patch GI prophylaxis with Protonix DVT prophylaxis with LORELEIs and IVET alonzo Code Status: Full code Discussed Condition With: RN and patient and emergency room physician Discharge Planning: Pending increased mobility Continue with physical therapy and Occupational Therapy
[2018-02-20] MEDS: Folic Acid 1 MG Tablet PO SCH (10:41)
[2018-02-20] MEDS: Multivitamin/Minerals Therapeutic Tablet PO SCH (10:41)
[2018-02-20 10:46] LABS: Magnesium 1.9 mg/dL (1.5-2.5); Phosphorus 3.3 mg/dL (2.5-4.9)
--- NOTE | 2018-02-20 13:30 | ECG ---
Date Performed: 02/19/2018 Time Performed: 19:21:31 PTAGE: 62 years EKG: Sinus rhythm MARKED RIGHT AXIS DEVIATION ABNORMAL ECG PREVIOUS TRACING : 06/25/2017 23.21 Since the previous tracing, no significant change noted DOCTOR: Azul Persaud Interpretating Date/Time 02/20/2018 13:27:57
[2018-02-20] MEDS: Senna/Docusate Sodium 8.6/50 MG Tablet PO SCH (21:04)
[2018-02-21 05:14] LABS: Baso % (Auto) 0.4 % (0.0-2.0); Eos # (Auto) 0.1 th/mm3 (0.0-0.4); Eos % (Auto) 0.9 % (0.0-4.0); Hematocrit 29.4 % (39.0-51.0); Hemoglobin 10.1 gm/dL (13.0-17.0); Lymph # (Auto) 1.4 th/mm3 (1.0-4.8); Lymph % (Auto) 26.1 % (9.0-44.0); Mean Corpuscular HGB Conc 34.2 % (32.0-36.0); Mean Corpuscular Volume 105.2 fL (80.0-100.0); Mean Platelet Volume 9.4 fL (7.0-11.0); Mono # (Auto) 0.8 th/mm3 (0.0-0.9); Mono % (Auto) 13.8 % (0.0-8.0); Neut # (Auto) 3.2 th/mm3 (1.8-7.7); Neut % (Auto) 58.8 % (16.0-70.0); Platelet Count 122 th/mm3 (150-450); Red Cell Distribution Width 15.4 % (11.6-17.2); White Blood Count 5.5 th/mm3 (4.0-11.0)
[2018-02-21 05:27] LABS: INR 1.1 Ratio; Prothrombin Time 10.7 sec (9.8-11.6)
[2018-02-21 05:35] LABS: Albumin 2.8 g/dL (3.4-5.0); Anion Gap 11 meq/L (5-15); Aspartate Aminotransferase 62 U/L (15-37); Blood Urea Nitrogen 8 mg/dL (7-18); Carbon Dioxide 26.3 meq/L (21.0-32.0); Chloride 99 meq/L (98-107); Glomerular Filtration Rate Greater Than 89 mL/min (>89); Glucose,Random 91 mg/dL (74-106); Potassium 3.2 meq/L (3.5-5.1); Sodium 136 meq/L (136-145)
[2018-02-21 05:40] LABS: Alanine Aminotransferase 48 U/L (12-78); Alkaline Phosphatase 83 U/L (45-117); Total Protein 5.9 g/dL (6.4-8.2)
[2018-02-21] MEDS: Multivitamin/Minerals Therapeutic Tablet PO SCH (09:20)
[2018-02-21] MEDS: Folic Acid 1 MG Tablet PO SCH (09:20)
[2018-02-21] MEDS: Senna/Docusate Sodium 8.6/50 MG Tablet PO SCH ×2 (09:21→22:08)
--- NOTE | 2018-02-21 15:38 | P.PNIM ---
Subjective Interval history: Patient is a 62-year-old gentleman who is brought to the emergency department via EMS today after being found on the ground in a park where he had been lying all day due to generalized weakness. Patient states that he has had progressively worsening of the weakness over the past year with generalized weakness. He has a chronic cough secondary to tobacco abuse still smoking at least a pack a day and COPD also has alcoholism. Patient states that he is an alcoholic. He drinks beer and vodka daily. Denies any chest pain denies any shortness of breath denies any nausea vomiting denies any dysuria urgency frequency hematuria hematemesis hematochezia denies any back pain or rib pain or abdominal pain black tarry stools bloody stools denies any problems urinating denies any recent history of falls. Patient drinks alcohol daily patient States he cannot take care of himself and is homeless states he has a walker. Had been in a senior care facility but was told to leave because he was drinking. We will give him fluids with his physical therapy and occupational therapy to eval and treat and ask case management to help with placement. Patient states he has had a right hip replacement in the past. 02-21 PATIENT STATES HE FEELS VERY WEAK TODAY HAS HIS WALKER IN THE ROOM WILL REPLACE POTASSIUM AND GET AM LABS CAN BE DISCHARGED TO HOME TOMORROW DOES NOT HAVE SNF BENEFITS Physical Exam Vital signs: Vital Signs 02/20/18 16:00 02/20/18 20:00 02/21/18 00:00 Temperature 98.4 F 98.3 F 98.1 F Pulse Rate 87 68 72 Respiratory Rate 16 18 16 Blood Pressure 107/68 124/68 118/58 L Pulse Oximetry 97 98 02/21/18 04:00 02/21/18 08:00 02/21/18 12:00 Temperature 98.1 F 98.2 F 98.3 F Pulse Rate 68 106 H 74 Respiratory Rate 16 18 18 Blood Pressure 110/58 L 154/78 H 135/75 Pulse Oximetry 98 98 Intake & Output 02/20/18 02/21/18 02/21/18 18:59 06:59 18:59 Output Total 250 / 250 Balance -250 / -250 Output: Urine 250 / 250 Other: # Voids 1 Narrative: GENERAL: Awake alert and oriented 3 talkative and cooperative SKIN: Warm and dry. HEAD: Atraumatic. Normocephalic. EYES: Pupils equal and round. No scleral icterus. No injection or drainage. EOMI ENT: No nasal bleeding or discharge. Mucous membranes pink and moist. Poor dentition tongue is midline NECK: Trachea midline. No JVD. Supple CARDIOVASCULAR: Regular rate and rhythm. S1-S2 no S3 or S4 RESPIRATORY: No accessory muscle use. Clear to auscultation. Breath sounds equal bilaterally. GASTROINTESTINAL: Abdomen soft, non-tender, nondistended. Hepatic and splenic margins not palpable. MUSCULOSKELETAL: Extremities without clubbing, cyanosis, or edema. No obvious deformities. NEUROLOGICAL: Awake and alert. No obvious cranial nerve deficits. Motor grossly within normal limits. 4 out of 5 muscle strength in the arms and legs. Normal speech. PSYCHIATRIC: Appropriate mood and affect; insight and judgment ABnormal. Results - Labs CBC & Chem 7: 02/21/18 04:33 02/21/18 04:33 Laboratory Results - last 24 hr 02/20/18 02/21/18 02/21/18 18:07 04:33 04:33 WBC 5.5 RBC 2.80 L Hgb 10.1 L Hct 29.4 L MCV 105.2 H MCH 36.0 H MCHC 34.2 RDW 15.4 Plt Count 122 L MPV 9.4 Neut % (Auto) 58.8 Lymph % (Auto) 26.1 [place] % (Auto) 13.8 H Eos % (Auto) 0.9 Baso % (Auto) 0.4 Neut # (Auto) 3.2 Lymph # (Auto) 1.4 [place] # (Auto) 0.8 Eos # (Auto) 0.1 Baso # (Auto) 0.0 WBC Differential . Differential Comment Auto diff final PT 10.7 INR 1.1 Sodium Potassium Chloride Carbon Dioxide Anion Gap BUN Creatinine Estimated GFR POC Glucose 119 H Random Glucose Calcium Total Bilirubin Direct Bilirubin Indirect Bilirubin AST ALT Alkaline Phosphatase Total Protein Albumin 02/21/18 02/21/18 02/21/18 04:33 08:38 09:49 WBC RBC Hgb Hct MCV MCH MCHC RDW Plt Count MPV Neut % (Auto) Lymph % (Auto) [place] % (Auto) Eos % (Auto) Baso % (Auto) Neut # (Auto) Lymph # (Auto) [place] # (Auto) Eos # (Auto) Baso # (Auto) WBC Differential Differential Comment PT INR Sodium 136 Potassium 3.2 L Chloride 99 Carbon Dioxide 26.3 Anion Gap 11 BUN 8 Creatinine 0.45 L Estimated GFR Greater than 89 POC Glucose 113 H 104 Random Glucose 91 Calcium 8.0 L Total Bilirubin 0.6 Direct Bilirubin 0.2 Indirect Bilirubin 0.4 AST 62 H ALT 48 Alkaline Phosphatase 83 Total Protein 5.9 L Albumin 2.8 L 02/21/18 12:54 WBC RBC Hgb Hct MCV MCH MCHC RDW Plt Count MPV Neut % (Auto) Lymph % (Auto) [place] % (Auto) Eos % (Auto) Baso % (Auto) Neut # (Auto) Lymph # (Auto) [place] # (Auto) Eos # (Auto) Baso # (Auto) WBC Differential Differential Comment PT INR Sodium Potassium Chloride Carbon Dioxide Anion Gap BUN Creatinine Estimated GFR POC Glucose 114 H Random Glucose Calcium Total Bilirubin Direct Bilirubin Indirect Bilirubin AST ALT Alkaline Phosphatase Total Protein Albumin - Imaging Chest X-Ray 02/19/18 19:31 CONCLUSION: COPD. No evidence of acute cardiopulmonary process. - Procedures NONE Assessment and Plan - Plan Generalized weakness -We will get physical therapy and occupational therapy to eval and treat -Case management evaluation -Recommend alcohol cessation Alcohol abuse -Continue on CIWA protocol -Multivitamin, thiamine, folic acid -Protonix Thrombocytopenia suspect secondary to alcohol abuse -A.m. labs will monitor -Continue on Protonix Electrolyte imbalance due to alcoholism -Replace sodium -Make sure patient is on a multivitamin, thiamine, and folic acid -Check B12 and folic acid levels as well as a.m. labs Anemia chronic -Suspect secondary to alcohol abuse -And poor oral intake other than alcohol Protein calorie malnourishment -Due to alcohol abuse -Regular diet Hypertension -Catapres as needed Noncompliance -Case management for follow-up Tobacco abuse will continue on NicoDerm patch HYPOKALEMIA WILL REPLACE AM LABS DW RN AND PT AND CM DC TO HOME TOMORROW GI prophylaxis with Protonix DVT prophylaxis with SCDs and IVET hose Code Status: FULL CODE Discussed Condition With: RN AND PT AND CM Discharge Planning: Pending increased mobility Continue with physical therapy and Occupational Therapy DC TO HOME TOMORROW
[2018-02-21] MEDS ORDERED: Potassium Bicarbonate 25 MEQ Effervescent Tablet PO ONE (16:00)
[2018-02-22 04:07] VITALS: O2SAT 99
[2018-02-22 08:54] LABS: Baso % (Auto) 0.6 % (0.0-2.0); Eos # (Auto) 0.1 th/mm3 (0.0-0.4); Eos % (Auto) 1.5 % (0.0-4.0); Hematocrit 31.4 % (39.0-51.0); Hemoglobin 10.7 gm/dL (13.0-17.0); Lymph # (Auto) 1.5 th/mm3 (1.0-4.8); Lymph % (Auto) 25.4 % (9.0-44.0); Mean Corpuscular Volume 105.9 fL (80.0-100.0); Mean Platelet Volume 9.6 fL (7.0-11.0); Mono # (Auto) 0.8 th/mm3 (0.0-0.9); Mono % (Auto) 14.5 % (0.0-8.0); Neut # (Auto) 3.4 th/mm3 (1.8-7.7); Platelet Count 136 th/mm3 (150-450); Red Blood Count 2.96 mil/mm3 (4.50-5.90); Red Cell Distribution Width 15.8 % (11.6-17.2); White Blood Count 5.8 th/mm3 (4.0-11.0)
[2018-02-22 09:23] LABS: Albumin 2.8 g/dL (3.4-5.0); Anion Gap 9 meq/L (5-15); Aspartate Aminotransferase 38 U/L (15-37); Blood Urea Nitrogen 8 mg/dL (7-18); Calcium 8.1 mg/dL (8.5-10.1); Carbon Dioxide 26.1 meq/L (21.0-32.0); Chloride 98 meq/L (98-107); Glomerular Filtration Rate Greater Than 89 mL/min (>89); Glucose,Random 93 mg/dL (74-106); Magnesium 1.6 mg/dL (1.5-2.5); Potassium 3.9 meq/L (3.5-5.1); Sodium 133 meq/L (136-145)
[2018-02-22 09:30] LABS: Alanine Aminotransferase 37 U/L (12-78); Alkaline Phosphatase 80 U/L (45-117); Phosphorus 2.4 mg/dL (2.5-4.9); Total Protein 5.8 g/dL (6.4-8.2)
--- NOTE | 2018-02-22 10:27 | P.PNIM ---
Subjective Interval history: Patient is a 62-year-old gentleman who is brought to the emergency department via EMS today after being found on the ground in a park where he had been lying all day due to generalized weakness. Patient states that he has had progressively worsening of the weakness over the past year with generalized weakness. He has a chronic cough secondary to tobacco abuse still smoking at least a pack a day and COPD also has alcoholism. Patient states that he is an alcoholic. He drinks beer and vodka daily. Denies any chest pain denies any shortness of breath denies any nausea vomiting denies any dysuria urgency frequency hematuria hematemesis hematochezia denies any back pain or rib pain or abdominal pain black tarry stools bloody stools denies any problems urinating denies any recent history of falls. Patient drinks alcohol daily patient States he cannot take care of himself and is homeless states he has a walker. Had been in a residential facility but was told to leave because he was drinking. We will give him fluids with his physical therapy and occupational therapy to eval and treat and ask case management to help with placement. Patient states he has had a right hip replacement in the past. 8-28 PATIENT STATES HE FEELS VERY WEAK TODAY HAS HIS WALKER IN THE ROOM WILL REPLACE POTASSIUM AND GET AM LABS CAN BE DISCHARGED TO HOME TOMORROW DOES NOT HAVE SNF BENEFITS 8-29 MUCH MORE ALERT CAN BE DCED TO HOME TODAY LIVES LOCALLY REPLACE MAGNESIUM AND DC TO HOME Physical Exam Vital signs: Vital Signs 02/21/18 12:00 02/21/18 15:37 02/21/18 20:00 Temperature 98.3 F 98.2 F 97.7 F Pulse Rate 74 86 82 Respiratory Rate 18 18 Blood Pressure 135/75 120/74 184/90 H Pulse Oximetry 98 99 100 02/22/18 00:00 02/22/18 04:00 02/22/18 08:00 Temperature 98.6 F 97.7 F 97.8 F Pulse Rate 81 80 105 H Respiratory Rate 21 21 20 Blood Pressure 150/86 H 121/73 111/71 Pulse Oximetry 100 99 99 Narrative: GENERAL: Awake alert and oriented 3 talkative and cooperative SKIN: Warm and dry. HEAD: Atraumatic. Normocephalic. EYES: Pupils equal and round. No scleral icterus. No injection or drainage. EOMI ENT: No nasal bleeding or discharge. Mucous membranes pink and moist. Poor dentition tongue is midline NECK: Trachea midline. No JVD. Supple CARDIOVASCULAR: Regular rate and rhythm. S1-S2 no S3 or S4 RESPIRATORY: No accessory muscle use. Clear to auscultation. Breath sounds equal bilaterally. GASTROINTESTINAL: Abdomen soft, non-tender, nondistended. Hepatic and splenic margins not palpable. MUSCULOSKELETAL: Extremities without clubbing, cyanosis, or edema. No obvious deformities. NEUROLOGICAL: Awake and alert. No obvious cranial nerve deficits. Motor grossly within normal limits. 4 out of 5 muscle strength in the arms and legs. Normal speech. PSYCHIATRIC: Appropriate mood and affect; insight and judgment ABnormal. Results - Labs CBC & Chem 7: 02/22/18 08:15 02/22/18 08:15 Laboratory Results - last 24 hr 02/21/18 02/21/18 02/21/18 12:54 18:26 21:29 WBC RBC Hgb Hct MCV MCH MCHC RDW Plt Count MPV Neut % (Auto) Lymph % (Auto) [place] % (Auto) Eos % (Auto) Baso % (Auto) Neut # (Auto) Lymph # (Auto) [place] # (Auto) Eos # (Auto) Baso # (Auto) WBC Differential Differential Comment Sodium Potassium Chloride Carbon Dioxide Anion Gap BUN Creatinine Estimated GFR POC Glucose 114 H 120 H 146 H Random Glucose Calcium Phosphorus Magnesium Total Bilirubin AST ALT Alkaline Phosphatase Total Protein Albumin 02/22/18 02/22/18 08:15 08:15 WBC 5.8 RBC 2.96 L Hgb 10.7 L Hct 31.4 L MCV 105.9 H MCH 36.0 H MCHC 34.0 RDW 15.8 Plt Count 136 L MPV 9.6 Neut % (Auto) 58.0 Lymph % (Auto) 25.4 [place] % (Auto) 14.5 H Eos % (Auto) 1.5 Baso % (Auto) 0.6 Neut # (Auto) 3.4 Lymph # (Auto) 1.5 [place] # (Auto) 0.8 Eos # (Auto) 0.1 Baso # (Auto) 0.0 WBC Differential . Differential Comment Auto diff final Sodium 133 L Potassium 3.9 Chloride 98 Carbon Dioxide 26.1 Anion Gap 9 BUN 8 Creatinine 0.40 L Estimated GFR Greater than 89 POC Glucose Random Glucose 93 Calcium 8.1 L Phosphorus 2.4 L Magnesium 1.6 Total Bilirubin 0.5 AST 38 H ALT 37 Alkaline Phosphatase 80 Total Protein 5.8 L Albumin 2.8 L - Procedures NONE Assessment and Plan - Plan Generalized weakness -We will get physical therapy and occupational therapy to eval and treat -Case management evaluation -Recommend alcohol cessation Alcohol abuse -Continue on CIWA protocol -Multivitamin, thiamine, folic acid -Protonix Thrombocytopenia suspect secondary to alcohol abuse -A.m. labs will monitor -Continue on Protonix Electrolyte imbalance due to alcoholism -Replace sodium -Make sure patient is on a multivitamin, thiamine, and folic acid -Check B12 and folic acid levels as well as a.m. labs Anemia chronic -Suspect secondary to alcohol abuse -And poor oral intake other than alcohol Protein calorie malnourishment -Due to alcohol abuse -Regular diet Hypertension -Catapres as needed Noncompliance -Case management for follow-up Tobacco abuse will continue on NicoDerm patch HYPOKALEMIA WILL REPLACE AM LABS DW RN AND PT AND CM DC TO HOME TOMORROW GI prophylaxis with Protonix DVT prophylaxis with SCDs and IVET alonzo DC TO HOME TODAY HYPOMAG REPLACE Code Status: FULL CODE Discussed Condition With: RN AND PT Discharge Planning: Pending increased mobility Continue with physical therapy and Occupational Therapy DC TO HOME TOMORROW
--- NOTE | 2018-02-22 10:34 | P.DS ---
Date of admission: 02/20/18 11:21 Primary care physician: No Primary Care Physician Attending physician on discharge: Hank Arguello Anticipated date of discharge: 02/22/18 Brief History from admission: Patient is a 62-year-old gentleman who is brought to the emergency department via EMS today after being found on the ground in a park where he had been lying all day due to generalized weakness. Patient states that he has had progressively worsening of the weakness over the past year with generalized weakness. He has a chronic cough secondary to tobacco abuse still smoking at least a pack a day and COPD also has alcoholism. Patient states that he is an alcoholic. He drinks beer and vodka daily. Denies any chest pain denies any shortness of breath denies any nausea vomiting denies any dysuria urgency frequency hematuria hematemesis hematochezia denies any back pain or rib pain or abdominal pain black tarry stools bloody stools denies any problems urinating denies any recent history of falls. Patient drinks alcohol daily patient States he cannot take care of himself and is homeless states he has a walker. Had been in a half-way facility but was told to leave because he was drinking. We will give him fluids with his physical therapy and occupational therapy to eval and treat and ask case management to help with placement. Patient states he has had a right hip replacement in the past. DS: Diagnosis - Discharge Diagnosis (1) Homeless Status: Chronic (2) Hypokalemia Status: Chronic (3) Hypomagnesemia Status: Chronic (4) Alcohol abuse Status: Chronic (5) Anemia Status: Chronic (6) Disorder of electrolytes Status: Chronic (7) Generalized weakness Status: Chronic DS: Medications - Discharge Medications Prescriptions: folic acid 1 mg PO DAILY #30 tab [id number]-mins [Thera M Plus (ferrous fumarat)] 1 tab PO DAILY # 30 tab nicotine 1 patch TRANSDERMAL DAILY #30 ea pantoprazole 40 mg PO DAILY #30 tab thiamine HCl (vitamin B1) 100 mg PO DAILY #30 tab DS: Summary Hospital Course: Patient is a 62-year-old gentleman who is brought to the emergency department via EMS today after being found on the ground in a park where he had been lying all day due to generalized weakness. Patient states that he has had progressively worsening of the weakness over the past year with generalized weakness. He has a chronic cough secondary to tobacco abuse still smoking at least a pack a day and COPD also has alcoholism. Patient states that he is an alcoholic. He drinks beer and vodka daily. Denies any chest pain denies any shortness of breath denies any nausea vomiting denies any dysuria urgency frequency hematuria hematemesis hematochezia denies any back pain or rib pain or abdominal pain black tarry stools bloody stools denies any problems urinating denies any recent history of falls. Patient drinks alcohol daily patient States he cannot take care of himself and is homeless states he has a walker. Had been in a half-way facility but was told to leave because he was drinking. We will give him fluids with his physical therapy and occupational therapy to eval and treat and ask case management to help with placement. Patient states he has had a right hip replacement in the past. 8-28 PATIENT STATES HE FEELS VERY WEAK TODAY HAS HIS WALKER IN THE ROOM WILL REPLACE POTASSIUM AND GET AM LABS CAN BE DISCHARGED TO HOME TOMORROW DOES NOT HAVE SNF BENEFITS 8-29 MUCH MORE ALERT CAN BE DCED TO HOME TODAY LIVES LOCALLY REPLACE MAGNESIUM AND DC TO HOME - Time Spent with Patient Total time spent providing and/or coordinating discharge services: Greater than 30 minutes - Quality: VTE Deep Vein Thrombosis/Pulmonary Embolism Present on Admission: No Exam Vital signs: Vital Signs 02/21/18 12:00 02/21/18 15:37 02/21/18 20:00 Temperature 98.3 F 98.2 F 97.7 F Pulse Rate 74 86 82 Respiratory Rate 18 18 Blood Pressure 135/75 120/74 184/90 H Pulse Oximetry 98 99 100 02/22/18 00:00 02/22/18 04:00 02/22/18 08:00 Temperature 98.6 F 97.7 F 97.8 F Pulse Rate 81 80 105 H Respiratory Rate 21 21 20 Blood Pressure 150/86 H 121/73 111/71 Pulse Oximetry 100 99 99 Narrative: GENERAL: Awake alert and oriented 3 talkative and cooperative SKIN: Warm and dry. HEAD: Atraumatic. Normocephalic. EYES: Pupils equal and round. No scleral icterus. No injection or drainage. EOMI ENT: No nasal bleeding or discharge. Mucous membranes pink and moist. Poor dentition tongue is midline NECK: Trachea midline. No JVD. Supple CARDIOVASCULAR: Regular rate and rhythm. S1-S2 no S3 or S4 RESPIRATORY: No accessory muscle use. Clear to auscultation. Breath sounds equal bilaterally. GASTROINTESTINAL: Abdomen soft, non-tender, nondistended. Hepatic and splenic margins not palpable. MUSCULOSKELETAL: Extremities without clubbing, cyanosis, or edema. No obvious deformities. NEUROLOGICAL: Awake and alert. No obvious cranial nerve deficits. Motor grossly within normal limits. 4 out of 5 muscle strength in the arms and legs. Normal speech. PSYCHIATRIC: Appropriate mood and affect; insight and judgment ABnormal. Results Procedures completed during hospitalization: NONE Completed studies during hospitalization: Laboratory Results WBC 5.8 th/mm3 (4.0-11.0) 02/22/18 08:15 RBC 2.96 mil/mm3 (4.50-5.90) L 02/22/18 08:15 Hgb 10.7 gm/dL (13.0-17.0) L 02/22/18 08:15 Hct 31.4 % (39.0-51.0) L 02/22/18 08:15 MCV 105.9 fL (80.0-100.0) H 02/22/18 08:15 MCH 36.0 pg (27.0-34.0) H 02/22/18 08:15 MCHC 34.0 % (32.0-36.0) 02/22/18 08:15 RDW 15.8 % (11.6-17.2) 02/22/18 08:15 Plt Count 136 th/mm3 (150-450) L 02/22/18 08:15 MPV 9.6 fL (7.0-11.0) 02/22/18 08:15 Neut % (Auto) 58.0 % (16.0-70.0) 02/22/18 08:15 Lymph % (Auto) 25.4 % (9.0-44.0) 02/22/18 08:15 [place] % (Auto) 14.5 % (0.0-8.0) H 02/22/18 08:15 Eos % (Auto) 1.5 % (0.0-4.0) 02/22/18 08:15 Baso % (Auto) 0.6 % (0.0-2.0) 02/22/18 08:15 Neut # (Auto) 3.4 th/mm3 (1.8-7.7) 02/22/18 08:15 Lymph # (Auto) 1.5 th/mm3 (1.0-4.8) 02/22/18 08:15 [place] # (Auto) 0.8 th/mm3 (0.0-0.9) 02/22/18 08:15 Eos # (Auto) 0.1 th/mm3 (0.0-0.4) 02/22/18 08:15 Baso # (Auto) 0.0 th/mm3 (0.0-0.2) 02/22/18 08:15 WBC Differential . 02/22/18 08:15 Differential Comment Auto diff final 02/22/18 08:15 PT 10.7 sec (9.8-11.6) 02/21/18 04:33 INR 1.1 Ratio 02/21/18 04:33 Sodium 133 meq/L (136-145) L 02/22/18 08:15 Potassium 3.9 meq/L (3.5-5.1) 02/22/18 08:15 Chloride 98 meq/L (98-107) 02/22/18 08:15 Carbon Dioxide 26.1 meq/L (21.0-32.0) 02/22/18 08:15 Anion Gap 9 meq/L (5-15) 02/22/18 08:15 BUN 8 mg/dL (7-18) 02/22/18 08:15 Creatinine 0.40 mg/dL (0.60-1.30) L 02/22/18 08:15 Estimated GFR Greater than 89 mL/min (>89) 02/22/18 08:15 POC Glucose 146 mg/dl (68-110) H 02/21/18 21:29 Random Glucose 93 mg/dL (74-106) 02/22/18 08:15 Calcium 8.1 mg/dL (8.5-10.1) L 02/22/18 08:15 Prot Corrected Calcium 7.8 mg/dL (8.5-10.1) L 02/19/18 19:35 Phosphorus 2.4 mg/dL (2.5-4.9) L 02/22/18 08:15 Magnesium 1.6 mg/dL (1.5-2.5) 02/22/18 08:15 Total Bilirubin 0.5 mg/dL (0.2-1.0) 02/22/18 08:15 Direct Bilirubin 0.2 mg/dL (0.0-0.2) 02/21/18 04:33 Indirect Bilirubin 0.4 mg/dL (0.0-0.8) 02/21/18 04:33 AST 38 U/L (15-37) H 02/22/18 08:15 ALT 37 U/L (12-78) 02/22/18 08:15 Alkaline Phosphatase 80 U/L (45-117) 02/22/18 08:15 Total Creatine Kinase 69 U/L (39-308) 02/19/18 19:35 Troponin I Less than 0.02 ng/mL (0.02-0.05) L 02/19/18 19:35 Total Protein 5.8 g/dL (6.4-8.2) L 02/22/18 08:15 Albumin 2.8 g/dL (3.4-5.0) L 02/22/18 08:15 TSH 1.410 uIU/mL (0.358-3.740) 02/19/18 19:35 Urine Color Yellow (Yellw/Straw) 02/19/18 23:35 Urine Clarity Clear (Clear) 02/19/18 23:35 Urine pH 6.0 (5.0-8.5) 02/19/18 23:35 Ur Specific [place] 1.004 (1.002-1.035) 02/19/18 23:35 Urine Protein Negative mg/dL (Neg-Trace) 02/19/18 23:35 Urine Glucose (UA) Negative mg/dL (Negative) 02/19/18 23:35 Urine Ketones Negative mg/dL (Negative) 02/19/18 23:35 Urine Occult Blood Small (Negative) H 02/19/18 23:35 Urine Nitrate Negative (Negative) 02/19/18 23:35 Urine Bilirubin Negative (Negative) 02/19/18 23:35 Urine Urobilinogen Less than 2 mg/dL (Less than 2) 02/19/18 23:35 Ur Leukocyte Esterase Negative (Negative) 02/19/18 23:35 Urine RBC 1 /hpf (0-3) 02/19/18 23:35 Urine WBC 1 /hpf (0-5) 02/19/18 23:35 Ur Squamous Epith Cells <1 /hpf (0-5) 02/19/18 23:35 Urine Bacteria Rare /hpf (None) H 02/19/18 23:35 Micro UA Comment Culture not ind 02/19/18 23:35 Ur Microscopic Review Not Reportable 02/19/18 23:35 Urine Culture Comments Culture not ind 02/19/18 23:35 Urine Opiates Screen Neg (Neg) 02/19/18 23:35 Ur Barbiturates Screen Neg (Neg) 02/19/18 23:35 Ur Amphetamines Screen Neg (Neg) 02/19/18 23:35 U Benzodiazepines Scrn Pos (Neg) H 02/19/18 23:35 Urine Cocaine Screen Neg (Neg) 02/19/18 23:35 U Cannabinoids Screen Neg (Neg) 02/19/18 23:35 Serum Alcohol 210 mg/dL (0-5) H 02/19/18 19:35 Impressions Chest X-Ray 02/19/18 19:31 CONCLUSION: COPD. No evidence of acute cardiopulmonary process. Labs on day of discharge: Labs from last 24 hours 02/22/18 02/22/18 02/21/18 08:15 08:15 21:29 WBC 5.8 RBC 2.96 L Hgb 10.7 L Hct 31.4 L MCV 105.9 H MCH 36.0 H MCHC 34.0 RDW 15.8 Plt Count 136 L MPV 9.6 Neut % (Auto) 58.0 Lymph % (Auto) 25.4 [place] % (Auto) 14.5 H Eos % (Auto) 1.5 Baso % (Auto) 0.6 Neut # (Auto) 3.4 Lymph # (Auto) 1.5 [place] # (Auto) 0.8 Eos # (Auto) 0.1 Baso # (Auto) 0.0 WBC Differential . Differential Comment Auto diff final Sodium 133 L Potassium 3.9 Chloride 98 Carbon Dioxide 26.1 Anion Gap 9 BUN 8 Creatinine 0.40 L Estimated GFR Greater than 89 POC Glucose 146 H Random Glucose 93 Calcium 8.1 L Phosphorus 2.4 L Magnesium 1.6 Total Bilirubin 0.5 AST 38 H ALT 37 Alkaline Phosphatase 80 Total Protein 5.8 L Albumin 2.8 L 02/21/18 02/21/18 18:26 12:54 WBC RBC Hgb Hct MCV MCH MCHC RDW Plt Count MPV Neut % (Auto) Lymph % (Auto) [place] % (Auto) Eos % (Auto) Baso % (Auto) Neut # (Auto) Lymph # (Auto) [place] # (Auto) Eos # (Auto) Baso # (Auto) WBC Differential Differential Comment Sodium Potassium Chloride Carbon Dioxide Anion Gap BUN Creatinine Estimated GFR POC Glucose 120 H 114 H Random Glucose Calcium Phosphorus Magnesium Total Bilirubin AST ALT Alkaline Phosphatase Total Protein Albumin - Impressions ITS Impressions Chest X-Ray 02/19/18 19:31 CONCLUSION: COPD. No evidence of acute cardiopulmonary process. Discharge Plan - Discharge Disposition Patient Disposition: 01 Discharge Home - Discharge Condition Condition: Stable - Discharge Order Discharge Orders: Discharge Order (Routine); Ordered 02/22/18 Ordered By: Hank Arguello - Discharge Details Anticipated Discharge Date: 02/22/18 Discharge Comment: DC TO HOME - Physicians Team Primary Care Provider: Primary Care Romulo,No Attending Provider: Hank Arguello
[2018-02-22] MEDS: Multivitamin/Minerals Therapeutic Tablet PO SCH (10:56)
[2018-02-22 11:27] VITALS: BP 104/70; PULSE 82; RESP 22; TEMP 97.9
[2018-02-22] MEDS: Senna/Docusate Sodium 8.6/50 MG Tablet PO SCH (11:34)
[2018-02-22] MEDS: Folic Acid 1 MG Tablet PO SCH (11:34)
[2018-02-22] MEDS ORDERED: Magnesium Sulfate Inj 2 GM in Sodium Chlor 0.9% Inj 96 ML IV.SIG ONE (12:00)
== END 2018-02-22 14:12 | disposition home or self-care (01) ==
LOC: NEPC 19:11 → NEDA 19:11 → NEPHCDU 02-20 12:49
PROVIDERS: ADMIT Hospitalist; ATTEND Hospitalist

== ENCOUNTER 2018-03-05 13:14 | Inpatient (IN) ==
[2018-03-05] MEDS ORDERED: MethylPREDNISolone Sod Succinate Inj 125 MG/2 ML Vial IV.PUSH ONE (13:57)
[2018-03-05] MEDS ORDERED: Sod Chloride 0.9% Inj 1,000 ML IV.SIG SCH (14:00)
--- NOTE | 2018-03-05 14:02 | ED ---
HPI General Chief complaint: Psychiatric Symptoms Stated complaint: Psych Eval/ OBPD Time Seen by Provider: 03/05/18 13:46 Source: police Mode of arrival: other Limitations: no limitations History of Present Illness HPI narrative: 62yo M with PMH of alcohol abuse and COPD was brought in as Espino Act for suicidal ideations. Pt said he is depressed. He is homeless and has many frequent ED visits. Said he is always sob but does want treatments today. Denies any fever, chest pain, head trauma, n/v, abdominal pain, focal weakness or numbness. Pt did drink alcohol today. Related Data Home Medications Medication Instructions Recorded Confirmed No Known Home Medications 03/05/18 03/05/18 Allergies Allergy/AdvReac Type Severity Reaction Status Date / Time No Known Allergies Allergy Unverified 02/19/18 19:30 Review of Systems ROS: all other systems reviewed are negative [facility] Social History Social History Substance History: Active Abuse Second Hand Smoke Exposure: No Smoking Status: Current every day smoker Tobacco Type: Cigarettes Packs Per Day: 1 Cigarettes Per Day: 20.0 How Often Do You Have a Drink Containing Alcohol: 4 or more times a week Hx Recent Travel: No Recent Travel in [facility] within the Last 8 Weeks: No Recent Out of Country Travel within the Last 8 Weeks: No Substance Abuse Detail Alcohol: Substance Use Status: Active Route Used Substance Abuse: By Mouth Reason for Use: Feels Good Immunization History Tetanus Immunization: >5 Years Hx Influenza Vaccine This Season: No Exam Narrative Exam Narrative: GENERAL: 62yo M disheveled. SKIN: Focused skin assessment warm/dry. HEAD: Atraumatic. Normocephalic. EYES: Pupils equal and round at 4mm bilaterally. EOMI. ENT: No nasal bleeding or discharge. Mucous membranes pink and moist. NECK: Trachea midline. No JVD. CARDIOVASCULAR: Tachycardic in the low 100s. No murmur appreciated. RESPIRATORY: No accessory muscle use. Clear to auscultation. Breath sounds equal bilaterally. GASTROINTESTINAL: Abdomen soft, non-tender, nondistended. MUSCULOSKELETAL: No obvious deformities. No clubbing. No cyanosis. No edema. NEUROLOGICAL: Awake and alert. No obvious cranial nerve deficits. Motor grossly within normal limits in all extremities. Sensation intact. Normal speech. Course Initial Documented Vital Signs Pulse Rate 117 H 03/05/18 13:37 Respiratory Rate 20 03/05/18 13:37 Blood Pressure 94/65 L 03/05/18 13:37 Pulse Oximetry 95 03/05/18 13:37 Last Documented Vital Signs Pulse Rate 96 H 03/06/18 08:00 Respiratory Rate 16 03/06/18 01:18 Blood Pressure 118/74 03/06/18 01:18 Pulse Oximetry 95 03/06/18 07:00 Medical Decision Making MDM Narrative Medical decision making narrative: 62yo M with COPD and alcohol abuse here under Espino Act stating he is depressed. Pt said he is sob and changes between feeling more sob than normal or his normal baseline. He does have COPD and initially said he wants treatment so gave duonebs and methylprednisolone. Pt was initially tachycardic and BP was borderline hypotenisve so given NS IVF. He is frequently in the ED and last here 3 days ago. Labs reviewed, no leukocytosis. H/H 13.2/37.4. Mild hyponatremia at 128. Magnesium normal at 1.7. TSH normal. Alcohol is elevated at 229. CXR showed clear lungs. Old rib fractures on left. Acetaminophen and salicylate negative. Pt is medically cleared for psych evaluation. on reevaluation at 1300, patient has generalized weakness, wchih is consistent with symptomatic hyponatremia. medicine will be called for admission and replacement, patient is also a chronic alcoholic and would recommend sciwa protocol. social work case manager advises taht patient fulfills full admit and recc PT eval and treat prior to placement. Medical Screen Exam Complete: Yes Emergency Medical Condition: Yes Differential Diagnosis Differential Diagnosis: Homelessness vs. alcohol withdrawal vs. COPD exacerbation vs. pneumonia vs. malingering Lab Data Result diagrams: 03/05/18 14:20 03/05/18 14:20 Lab Results 03/05/18 03/05/18 03/05/18 Range/Units 14:20 14:20 14:20 WBC 7.8 (4.0-11.0) th/mm3 RBC 3.57 L (4.50-5.90) mil/mm3 Hgb 13.2 (13.0-17.0) gm/dL Hct 37.4 L (39.0-51.0) % MCV 104.8 H (80.0-100.0) fL MCH 36.9 H (27.0-34.0) pg MCHC 35.2 (32.0-36.0) % RDW 16.3 (11.6-17.2) % Plt Count 301 (150-450) th/mm3 MPV 8.8 (7.0-11.0) fL Neut % (Auto) 58.1 (16.0-70.0) % Lymph % (Auto) 34.6 (9.0-44.0) % [place] % (Auto) 5.5 (0.0-8.0) % Eos % (Auto) 1.1 (0.0-4.0) % Baso % (Auto) 0.7 (0.0-2.0) % Neut # (Auto) 4.5 (1.8-7.7) th/mm3 Lymph # (Auto) 2.7 (1.0-4.8) th/mm3 [place] # (Auto) 0.4 (0.0-0.9) th/mm3 Eos # (Auto) 0.1 (0.0-0.4) th/mm3 Baso # (Auto) 0.1 (0.0-0.2) th/mm3 WBC Differential . Differential Comment Auto diff final Sodium 128 L (136-145) meq/L Potassium 3.8 (3.5-5.1) meq/L Chloride 91 L (98-107) meq/L Carbon Dioxide 26.6 (21.0-32.0) meq/L Anion Gap 10 (5-15) meq/L BUN 5 L (7-18) mg/dL Creatinine 0.69 (0.60-1.30) mg/dL Estimated GFR Greater than 89 (>89) mL/min Random Glucose 74 (74-106) mg/dL Calcium 7.9 L (8.5-10.1) mg/dL Magnesium 1.7 (1.5-2.5) mg/dL TSH 2.660 (0.358-3.740) uIU/mL Salicylates 6.5 (2.8-20.0) mg/dL Acetaminophen Less than 2.0 L (10.0-30.0) mcg/mL Serum Alcohol 229 H (0-5) mg/dL Imaging Data Radiologist's impression: Chest X-Ray 03/05/18 13:55 CONCLUSION: Lungs are clear. Numerous healed rib fractures on the left ECG Data EKG Prior to Arrival: No Attestation: I personally reviewed and interpreted this ECG as follows: Interpretation: NSR 80bpm. Normal axis. No ST segment elevation or depression. Discharge Plan Discharge Disposition Patient Disposition: 30 Still Patient Physicians Team ED Provider: Letty Sutherland Primary Care Provider: Primary Gissell Redding Attending Provider: Catalina Santo Status ED Status: Left Department Discharge Information Discharge Date/Time: 03/06/18 17:34
--- NOTE | 2018-03-05 14:29 | XR ---
EXAM DATE: 03/05/2018 2:23 PM EDT AGE/SEX: 62 years / Male INDICATIONS: Cough. Short of breath. CLINICAL DATA: This is the patient's initial encounter. Patient reports that signs and symptoms have been present for 1 day and indicates a pain score of 0/10. MEDICAL/SURGICAL HISTORY: Chronic obstructive pulmonary disease. Hypertension. None. COMPARISON: [facility] [place], CHEST 1V SINGLE AP, 03/02/2018. . FINDINGS: A single AP view of the chest demonstrates the lungs to be symmetrically aerated without evidence of mass, infiltrate or effusion. The cardiomediastinal contours are unremarkable. Numerous healed rib f ractures on the left. Calcified granuloma right middle lobe CONCLUSION: Lungs are clear. Numerous healed rib fractures on the left Electronically signed by: Theodore Mann MD 03/05/2018 2:28 PM EDT
[2018-03-05 14:38] LABS: Baso # (Auto) 0.1 th/mm3 (0.0-0.2); Baso % (Auto) 0.7 % (0.0-2.0); Eos # (Auto) 0.1 th/mm3 (0.0-0.4); Eos % (Auto) 1.1 % (0.0-4.0); Hematocrit 37.4 % (39.0-51.0); Hemoglobin 13.2 gm/dL (13.0-17.0); Lymph # (Auto) 2.7 th/mm3 (1.0-4.8); Lymph % (Auto) 34.6 % (9.0-44.0); Mean Corpuscular HGB Conc 35.2 % (32.0-36.0); Mean Corpuscular Hemoglobin 36.9 pg (27.0-34.0); Mean Corpuscular Volume 104.8 fL (80.0-100.0); Mean Platelet Volume 8.8 fL (7.0-11.0); Mono # (Auto) 0.4 th/mm3 (0.0-0.9); Mono % (Auto) 5.5 % (0.0-8.0); Neut # (Auto) 4.5 th/mm3 (1.8-7.7); Neut % (Auto) 58.1 % (16.0-70.0); Platelet Count 301 th/mm3 (150-450); Red Blood Count 3.57 mil/mm3 (4.50-5.90); Red Cell Distribution Width 16.3 % (11.6-17.2); White Blood Count 7.8 th/mm3 (4.0-11.0)
[2018-03-05 14:56] LABS: Anion Gap 10 meq/L (5-15); Blood Urea Nitrogen 5 mg/dL (7-18); Calcium 7.9 mg/dL (8.5-10.1); Carbon Dioxide 26.6 meq/L (21.0-32.0); Chloride 91 meq/L (98-107); Glomerular Filtration Rate Greater Than 89 mL/min (>89); Glucose,Random 74 mg/dL (74-106); Magnesium 1.7 mg/dL (1.5-2.5); Potassium 3.8 meq/L (3.5-5.1); Sodium 128 meq/L (136-145)
[2018-03-05 15:01] LABS: Alcohol 229 mg/dL (0-5)
[2018-03-06] MEDS ORDERED: Bisacodyl 10 MG Supp RECTAL PRN (14:21)
[2018-03-06] MEDS ORDERED: Haloperidol Inj 5 MG/ML Ampul IV.PUSH PRN (14:24)
--- NOTE | 2018-03-06 14:27 | P.HPIM ---
History of Present Illness Primary Care Physician: No Primary Care Physician Chief Complaint: I feel depressed History of Present Illness: 62-year-old white male with a history of hypertension, alcohol dependence, homelessness who was Espino acted by law enforcement after he was found behind parking lot of [employer] stating that he is extremely depressed and does not want to live any longer. He has been homeless for a period of time and unfortunately has been drinking on a daily basis. The amount varies depending on how much alcohol he can get on a daily basis. He reports he has become more weak and has had difficult time even ambulating with assistance of a walker. At this time, patient reports slight anxiety and mild nausea however was able to tolerate lunch. He has had a dry cough over the past week with clear sputum. He is not actively short of breath. He reports smoking a pack of cigarettes on a daily basis. He is currently not taking any medications. He has no other symptoms of abdominal pain nor any constipation or diarrhea. He has not had recent injury or trauma. Review of Systems All other systems reviewed negative except as stated in HPI PMFSH - History History Provided By: Patient - Medical History Medical History: Medical History (Last Reviewed 03/06/18 @ 14:14 by Catalina Santo MD) Generalized weakness (Acute) COPD (chronic obstructive pulmonary disease) (Acute) Anemia (Acute) Thrombocytopenia concurrent with and due to alcoholism (Acute) Noncompliance (Acute) Tobacco abuse (Acute) Alcohol abuse (Acute) Homeless (Acute) Alcohol related seizure (Acute) - Surgical History Surgical History: Surgical History (Last Reviewed 03/06/18 @ 14:14 by Catalina Santo MD) History of right hip replacement (Acute) - Family History Family History: Family History (Last Reviewed 03/06/18 @ 14:14 by Catalina Santo MD) Other Family history of hypertension - Social History I have reviewed the patient's Social History: Yes - Tobacco History Second Hand Smoke Exposure: No Tobacco Use In Past 30 Days: Yes Smoking Status: Current every day smoker Tobacco Type: Cigarettes Packs Per Day: 1 - Alcohol History How Often Do You Have a Drink Containing Alcohol: 4 or more times a week - Substance Use History Substance History: Active Abuse - Substance Use Type Alcohol Status: Active Route Used: By Mouth Reason for Use: Feels Good - Travel History History of Recent Travel: No [facility] Travel [facility] Within the Last 8 Weeks: No Recent Travel Out of the Country Within the Last 8 Weeks: No - Immunization History Tetanus Immunization: >5 Years Hx Influenza Vaccine This Season: No Medications and Allergies Active Medications: Active Medications Albuterol (Duoneb Neb (Prn)) 1 ampul NEB Q15M PRN PRN Reason: DYSPNEA Last Admin: 03/05/18 14:13 Dose: 1 ampul Sodium Chloride (Ns Inj) 1,000 mls @ 0 mls/hr IV.SIG BOLUS AGATA Last Infusion: 03/05/18 15:54 Dose: Infused Allergies Allergy/AdvReac Type Severity Reaction Status Date / Time No Known Allergies Allergy Unverified 02/19/18 19:30 Home Medications Medication Instructions Recorded Confirmed Type No Known Home Medications 03/05/18 03/05/18 History Exam Vital signs: Vital Signs 03/05/18 14:14 03/05/18 14:41 03/05/18 20:00 Pulse Rate 80 98 H Respiratory Rate 20 15 Blood Pressure 125/82 Pulse Oximetry 97 98 03/06/18 01:18 Pulse Rate 96 H Respiratory Rate 16 Blood Pressure 118/74 Pulse Oximetry 97 Intake & Output 03/05/18 03/06/18 03/06/18 18:59 06:59 18:59 Intake Total 1000 / 1000 Output Total 1400 / 1400 Balance 1000 / 1000 -1400 / -1400 Intake: IV 1000 / 1000 NS Inj 1,000 ML @ Wide Open IV. 1000 / 1000 SIG BOLUS AGATA Rx#:[id number] Output: Urine 1400 / 1400 Other: # Voids 2 Narrative: GENERAL: Disheveled well-developed male in no acute distress SKIN: Warm and dry. HEAD: Atraumatic. Normocephalic. EYES: Pupils equal and round. No scleral icterus. No injection or drainage. ENT: No nasal bleeding or discharge. Mucous membranes pink and moist. Poor dentition NECK: Trachea midline. No JVD. CARDIOVASCULAR: Regular rate and rhythm. RESPIRATORY: No accessory muscle use. Few expiratory wheezes bases bilaterally GASTROINTESTINAL: Abdomen soft, non-tender, nondistended. Hepatic and splenic margins not palpable. Normoactive bowel sounds MUSCULOSKELETAL: Extremities without clubbing, cyanosis, or edema. No obvious deformities. NEUROLOGICAL: Awake and alert to person place time and situation. No obvious cranial nerve deficits. Generalized weakness but able to move bilateral upper and lower extremities. Normal speech PSYCHIATRIC: Appropriate mood and affect; insight and judgment normal. Results - Labs CBC & Chem 7: 03/05/18 14:20 03/07/18 06:40 Labs: Short CBC 03/05/18 Range/Units 14:20 WBC 7.8 (4.0-11.0) th/mm3 Hgb 13.2 (13.0-17.0) gm/dL Hct 37.4 L (39.0-51.0) % Plt Count 301 (150-450) th/mm3 BMP 03/05/18 14:20 Sodium 128 L Potassium 3.8 Chloride 91 L Carbon Dioxide 26.6 BUN 5 L Creatinine 0.69 Calcium 7.9 L - Imaging Impressions Chest X-Ray 03/05/18 13:55 CONCLUSION: Lungs are clear. Numerous healed rib fractures on the left Caprini VTE Risk Assessment Caprini VTE Risk Assessment: Moderate/High Risk (score >= 2) Caprini Risk Assessment Model: Point Value = 1 Point Value = 2 Point Value = 3 Point Value = 5 Age 41-60 Minor surgery BMI > 25 kg/m2 Swollen legs Varicose veins or History of unexplained or recurrent spontaneous Oral contraceptives or hormone replacement Sepsis (< 1 month) Serious lung disease, including pneumonia (< 1 month) Abnormal pulmonary function Acute myocardial infarction Congestive heart failure (< 1 month) History of inflammatory bowel disease Medical patient at bed rest Age 61-74 Arthroscopic surgery Major open surgery (> 45 min) Laparoscopic surgery (> 45 min) Malignancy Confined to bed (> 72 hours) Immobilizing plaster cast Central venous access Age >= 75 History of VTE Family history of VTE Factor V Leiden Prothrombin [id number] Lupus anticoagulant Anticardiolipin antibodies Elevated serum homocysteine Heparin-induced thrombocytopenia Other congenital or acquired thrombophilia Stroke (< 1 month) Elective arthroplasty Hip, pelvis, or leg fracture Acute spinal cord injury (< 1 month) Prophylaxis Regimen: Total Risk Factor Score Risk Level Prophylaxis Regimen 0-1 Low Early ambulation 2 Moderate Order ONE of the following: *Sequential Compression Device (SCD) *Heparin 5000 units SQ BID 3-4 Higher Order ONE of the following medications: *Heparin 5000 units SQ TID *Enoxaparin/Lovenox 40 mg SQ daily (WT < 150 kg, CrCl > 30 mL/min) *Enoxaparin/Lovenox 30 mg SQ daily (WT < 150 kg, CrCl > 10-29 mL/min) *Enoxaparin/Lovenox 30 mg SQ BID (WT < 150 kg, CrCl > 30 mL/min) AND/OR *Sequential Compression Device (SCD) 5 or more Highest Order ONE of the following medications: *Heparin 5000 units SQ TID (Preferred with Epidurals) *Enoxaparin/Lovenox 40 mg SQ daily (WT < 150 kg, CrCl > 30 mL/min) *Enoxaparin/Lovenox 30 mg SQ daily (WT < 150 kg, CrCl > 10-29 mL/min) *Enoxaparin/Lovenox 30 mg SQ BID (WT < 150 kg, CrCl > 30 mL/min) AND *Sequential Compression Device (SCD) Assessment and Plan - Plan 1. Major depression status post Espino actpatient currently does not actively have suicidal ideation however still continues to be depressed with feelings of hopelessness. Await psychiatry consultation to evaluate for Espino act. 2. Acute on chronic COPD exacerbationcontinue with DuoNeb treatment and prednisone 3. Hyponatremialikely due to history of alcohol dependence, repeat levels in the morning 4. Tobacco abusecessation counseling provided 5. Alcohol abuse/dependencecessation counseling providedwill place patient on CIWA protocol 6. Generalized weakness due to chronic alcohol abuse and recent hyponatremia physical therapy evaluation 7. DVT prophylaxisLovenox.
[2018-03-06] MEDS ORDERED: Sod Chloride 0.9% Inj 1,000 ML IV.CONT SCH (15:00)
[2018-03-06] MEDS: predniSONE 20 MG Tablet PO SCH (15:02)
[2018-03-06] MEDS: Enoxaparin Inj 40 MG/0.4 ML Syringe SQ SCH (15:02)
--- NOTE | 2018-03-06 18:31 | ECG ---
Date Performed: 03/05/2018 Time Performed: 15:29:11 PTAGE: 62 years EKG: Sinus rhythm MARKED RIGHT AXIS DEVIATION PATTERN CONSISTENT WITH PULMONARY DISEASE INCOMPLETE RIGHT BUNDLE BRANCH BLOCK Since previous tracing, no significant change noted ABNORMAL ECG PREVIOUS TRACING : 03/02/2018 20.00 DOCTOR: Stoney Herrera Interpretating Date/Time 03/06/2018 18:29:48
[2018-03-06] MEDS: LORazepam 1 MG Tablet PO PRN (22:31)
--- NOTE | 2018-03-07 07:29 | P.PN ---
Subjective Interval history: Follow-up on patient with COPD exacerbation. Patient seen and examined. Patient states his breathing is okay. He denies any complaints of chest pain. He denies any fever or chills. He is satting well on room air. Discussed with nursing staff, no acute issues overnight. Physical Exam Vital signs: Vital Signs 03/06/18 08:00 03/06/18 20:00 03/06/18 21:06 Temperature 98.3 F Pulse Rate 96 H 88 88 Respiratory Rate 18 22 Blood Pressure 140/85 Pulse Oximetry 98 03/07/18 00:00 03/07/18 04:00 Temperature 99.4 F 97.8 F Pulse Rate 87 76 Respiratory Rate 18 16 Blood Pressure 123/71 154/94 H Pulse Oximetry 98 98 Intake & Output 03/06/18 03/07/18 03/07/18 18:59 06:59 18:59 Intake Total 180 / 180 Output Total 1400 / 1400 200 / 200 Balance -1400 / -1400 -20 / -20 Weight 48.7 kg Intake: Oral 180 / 180 Output: Urine 1400 / 1400 200 / 200 Other: # Voids 2 # Bowel Movements 1 Narrative: GENERAL: WDWN male patient, INAD. Awake and alert. Satting 96% on RA. Appears comfortable. SKIN: Warm and dry. HEAD: Atraumatic. Normocephalic. EYES: Pupils equal and round. No scleral icterus. No injection or drainage. ENT: No nasal bleeding or discharge. Mucous membranes pink and moist. NECK: Trachea midline. CARDIOVASCULAR: Regular rate and rhythm. RESPIRATORY: No accessory muscle use. Coarse BS. Breath sounds equal bilaterally. No wheezing. GASTROINTESTINAL: Abdomen soft, non-tender, nondistended. +BS. MUSCULOSKELETAL: Extremities without clubbing, cyanosis, or edema. No obvious deformities. NEUROLOGICAL: Awake and alert. No obvious cranial nerve deficits. Motor grossly within normal limits. Able to move all extremities spontaneously. Normal speech. PSYCHIATRIC: Depressed affect; insight and judgment poor. Results - Labs CBC & Chem 7: 03/05/18 14:20 03/07/18 06:40 Assessment and Plan - Plan 62-year-old male past medical history significant for hypertension, alcohol dependence and homelessness who was Espino act by law enforcement for suicidal ideation COPD exacerbation, mild, improving Ongoing tobaccoism Patient satting 96% on RA CXR shows clear lungs Continue scheduled DuoNeb Continue on oral prednisone Symbicort 2puffs BID Continue to monitor respiratory status Major Depression Suicidal ideation, under Espino Act Consult psychiatry, appreciate assistance Hyponatremia, suspect secondary to alcohol abuse Repeat sodium level improved from 128 to 135 Alcohol abuse Counseled on alcohol cessation [facility] protocol Thiamine/folic acid/multivitamin daily Monitor for signs of withdrawal Monitor for seizure activity/seizure precautions Generalized weakness Continue with PT DVT prophylaxis Lovenox Code Status: FULL Discussed Condition With: patient, nursing staff, Dr. Daily Discharge Planning: Possible discharge later today pending psychiatry evaluation/acceptance
[2018-03-07 08:19] LABS: Anion Gap 6 meq/L (5-15); Blood Urea Nitrogen 15 mg/dL (7-18); Calcium 7.8 mg/dL (8.5-10.1); Carbon Dioxide 27.6 meq/L (21.0-32.0); Chloride 101 meq/L (98-107); Glomerular Filtration Rate Greater Than 89 mL/min (>89); Glucose,Random 97 mg/dL (74-106); Potassium 3.7 meq/L (3.5-5.1); Sodium 135 meq/L (136-145)
[2018-03-07] MEDS: Folic Acid 1 MG Tablet PO SCH (09:00)
[2018-03-07] MEDS: predniSONE 20 MG Tablet PO SCH (09:00)
--- NOTE | 2018-03-07 10:31 | P.DS ---
Date of admission: 03/06/18 13:53 Primary care physician: No Primary Care Physician Attending physician on discharge: Carolina Daily Anticipated date of discharge: 03/08/18 Brief History from admission: 62-year-old white male with a history of hypertension, alcohol dependence, homelessness who was Espino acted by law enforcement after he was found behind parking lot of [employer] stating that he is extremely depressed and does not want to live any longer. He has been homeless for a period of time and unfortunately has been drinking on a daily basis. The amount varies depending on how much alcohol he can get on a daily basis. He reports he has become more weak and has had difficult time even ambulating with assistance of a walker. At this time, patient reports slight anxiety and mild nausea however was able to tolerate lunch. He has had a dry cough over the past week with clear sputum. He is not actively short of breath. He reports smoking a pack of cigarettes on a daily basis. He is currently not taking any medications. He has no other symptoms of abdominal pain nor any constipation or diarrhea. He has not had recent injury or trauma. Patient update on day of discharge: Follow-up on patient with COPD exacerbation. Patient seen and examined. Patient complaining of shortness of breath with minimal exertion. He complains of pain "everywhere" but mostly in his back and legs with ambulation. He states his breathing at rest is okay. He denies any fever or chills. He denies any chest pain. DS: Diagnosis - Discharge Diagnosis (1) Hyponatremia Status: Acute (2) Alcohol abuse Status: Acute (3) COPD (chronic obstructive pulmonary disease) Status: Acute (4) Generalized weakness Status: Acute (5) Tobacco abuse Status: Acute (6) Alcohol abuse Status: Chronic (7) Disorder of electrolytes Status: Chronic DS: Medications - Discharge Medications Prescriptions: albuterol sulfate [Ventolin HFA] 2 puff INHALATION Q4-6H PRN #1 inhaler PRN Reason: Shortness Of Breath Or Wheezing azithromycin 250 mg PO DAILY #4 tab budesonide-formoterol [Symbicort] 2 puff INH BID #1 inh multivitamin with folic acid [Thera] 1 tab PO DAILY #30 tab nicotine 1 patch TRANSDERMAL DAILY #7 ea prednisone 40 mg PO DAILY #3 tab thiamine HCl (vitamin B1) 100 mg PO BID #30 tab DS: Summary Hospital Course: Patient admitted with COPD exacerbation and suicidal ideation or Espino act. Patient is to be seen in consultation by psychiatry. Patient started on scheduled DuoNeb treatments, bronchodilator therapy, azithromycin and oral prednisone. Patient also found to be hyponatremic with sodium level of 128 which improved to 135 the following day. Patient counseled on smoking and alcohol cessation. Patient monitored with CIWA protocol and started on daily thiamine, multivitamin and folic acid. Patient had an unforeseen and unpredictable rapid recovery. Patient was evaluated by Psychiatry and Espino Act was lifted. Per psych, no indication for inpatient psych admission. Home oxygen was ordered and patients sats only dropped to 93% with exertion on RA. Case management assisted with discharge planning. - Time Spent with Patient Total time spent providing and/or coordinating discharge services: Greater than 30 minutes Exam Vital signs: Vital Signs 03/06/18 20:00 03/06/18 21:06 03/07/18 00:00 Temperature 98.3 F 99.4 F Pulse Rate 88 88 87 Respiratory Rate 18 22 18 Blood Pressure 140/85 123/71 Pulse Oximetry 98 98 03/07/18 04:00 03/07/18 07:40 03/07/18 08:00 Temperature 97.8 F 97.7 F Pulse Rate 76 80 70 Respiratory Rate 16 18 18 Blood Pressure 154/94 H 161/79 H Pulse Oximetry 98 100 03/07/18 09:00 Temperature Pulse Rate 88 Respiratory Rate Blood Pressure Pulse Oximetry Intake & Output 03/06/18 03/07/18 03/07/18 18:59 06:59 18:59 Intake Total 180 / 180 500 / 500 Output Total 1400 / 1400 200 / 200 Balance -1400 / -1400 -20 / -20 500 / 500 Weight 48.7 kg Intake: IV 500 / 500 NS Inj 1,000 ML @ 100 mls/hr IV 500 / 500 .CONT .Q10H AGATA Rx#:[id number] Oral 180 / 180 Output: Urine 1400 / 1400 200 / 200 Other: # Voids 2 Date of Last Bowel Movement 03/07/18 # Bowel Movements 1 Narrative: GENERAL: WDWN male patient, INAD. Awake and alert. Satting 98% on RA. Appears comfortable. SKIN: Warm and dry. HEAD: Atraumatic. Normocephalic. EYES: Pupils equal and round. No scleral icterus. No injection or drainage. ENT: No nasal bleeding or discharge. Mucous membranes pink and moist. NECK: Trachea midline. CARDIOVASCULAR: Regular rate and rhythm. RESPIRATORY: No accessory muscle use. Coarse BS. Breath sounds equal bilaterally. No wheezing. GASTROINTESTINAL: Abdomen soft, non-tender, nondistended. +BS. MUSCULOSKELETAL: Extremities without clubbing, cyanosis, or edema. No obvious deformities. NEUROLOGICAL: Awake and alert. No obvious cranial nerve deficits. Motor grossly within normal limits. Able to move all extremities spontaneously. Normal speech. PSYCHIATRIC: Depressed affect; insight and judgment poor. Results Procedures completed during hospitalization: None Labs on day of discharge: Labs from last 24 hours 03/07/18 06:40 Sodium 135 L Potassium 3.7 Chloride 101 D Carbon Dioxide 27.6 Anion Gap 6 BUN 15 Creatinine 0.48 L Estimated GFR Greater than 89 Random Glucose 97 Calcium 7.8 L - Impressions ITS Impressions Chest X-Ray 03/05/18 13:55 CONCLUSION: Lungs are clear. Numerous healed rib fractures on the left Discharge Plan - Discharge Disposition Patient Disposition: 01 Discharge Home - Discharge Condition Condition: Stable - Discharge Order Discharge Orders: Discharge Order (Routine); Ordered 03/07/18 Ordered By: Adela Valdes - Discharge Details Anticipated Discharge Date: 03/08/18 - Physicians Team Primary Care Provider: Primary Care Physici,No Attending Provider: Carolina Daily Other Providers: Paulo Miller MD
[2018-03-07] MEDS: Enoxaparin Inj 40 MG/0.4 ML Syringe SQ SCH (15:29)
[2018-03-07] MEDS: Budesonide-Formoterol 160/4.5 MCG 6 GM Inhaler INH SCH ×2 (21:10→21:16)
[2018-03-07] MEDS: LORazepam 1 MG Tablet PO PRN (21:16)
--- NOTE | 2018-03-08 07:26 | P.PN ---
Subjective Interval history: Follow-up on patient with COPD exacerbation. Patient seen and examined. Patient complaining of shortness of breath with minimal exertion. He complains of pain "everywhere" but mostly in his back and legs with ambulation. He states his breathing at rest is okay. He denies any fever or chills. He denies any chest pain. Physical Exam Vital signs: Vital Signs 03/07/18 07:40 03/07/18 08:00 03/07/18 09:00 Temperature 97.7 F Pulse Rate 80 70 88 Respiratory Rate 18 18 Blood Pressure 161/79 H Pulse Oximetry 100 03/07/18 12:00 03/07/18 12:38 03/07/18 16:00 Temperature 98.1 F 98.9 F Pulse Rate 92 H 77 94 H Respiratory Rate 18 18 18 Blood Pressure 113/70 122/68 Pulse Oximetry 96 93 L 03/07/18 20:00 03/07/18 23:53 03/08/18 00:00 Temperature 97.3 F L 97.8 F Pulse Rate 83 87 87 Respiratory Rate 18 18 Blood Pressure 138/73 130/62 Pulse Oximetry 98 98 03/08/18 04:00 Temperature 97.8 F Pulse Rate 102 H Respiratory Rate 18 Blood Pressure 138/78 Pulse Oximetry 100 Intake & Output 03/07/18 03/08/18 03/08/18 18:59 06:59 18:59 Intake Total 1460 / 1460 Output Total 100 / 100 500 / 500 Balance 1360 / 1360 -500 / -500 Weight 50.6 kg Intake: IV 500 / 500 NS Inj 1,000 ML @ 100 mls/hr IV 500 / 500 .CONT .Q10H [facility] Rx#:[id number] Oral 960 / 960 Output: Urine 100 / 100 500 / 500 Other: # Voids 450 # Incontinent Voids 1 Date of Last Bowel Movement 03/07/18 03/07/18 Narrative: GENERAL: Thin frail male patient, INAD. Awake and alert. Satting 98% on RA. Appears comfortable. SKIN: Warm and dry. HEAD: Atraumatic. Normocephalic. EYES: Pupils equal and round. No scleral icterus. No injection or drainage. ENT: No nasal bleeding or discharge. Mucous membranes pink and moist. NECK: Trachea midline. CARDIOVASCULAR: Regular rate and rhythm. RESPIRATORY: No accessory muscle use. Coarse BS. Breath sounds equal bilaterally. Mild expiratory wheezing noted in both bases. GASTROINTESTINAL: Abdomen soft, non-tender, nondistended. +BS. MUSCULOSKELETAL: Extremities without clubbing, cyanosis, or edema. No obvious deformities. NEUROLOGICAL: Awake and alert. No obvious cranial nerve deficits. Motor grossly within normal limits. Able to move all extremities spontaneously. Normal speech. PSYCHIATRIC: Depressed affect; insight and judgment poor. Results - Labs CBC & Chem 7: 03/05/18 14:20 03/07/18 06:40 Laboratory Results - last 24 hr 03/07/18 06:40 Sodium 135 L Potassium 3.7 Chloride 101 D Carbon Dioxide 27.6 Anion Gap 6 BUN 15 Creatinine 0.48 L Estimated GFR Greater than 89 Random Glucose 97 Calcium 7.8 L - Procedures None Assessment and Plan - Assessment (1) Hyponatremia Code(s): E87.1 - Hypo-osmolality and hyponatremia Status: Acute (2) Alcohol abuse Code(s): F10.10 - Alcohol abuse, uncomplicated Status: Acute (3) COPD (chronic obstructive pulmonary disease) Code(s): J44.9 - Chronic obstructive pulmonary disease, unspecified Status: Acute (4) Generalized weakness Code(s): R53.1 - Weakness Status: Acute (5) Tobacco abuse Code(s): Z72.0 - Tobacco use Status: Acute (6) Alcohol abuse Code(s): F10.10 - Alcohol abuse, uncomplicated Status: Chronic (7) Disorder of electrolytes Code(s): E87.8 - Other disorders of electrolyte and fluid balance, not elsewhere classified Status: Chronic - Plan 62-year-old male past medical history significant for hypertension, alcohol dependence and homelessness who was Espino act by law enforcement for suicidal ideation COPD exacerbation, mild, improving Ongoing tobaccoism Patient satting 98% on RA CXR shows clear lungs Continue scheduled DuoNeb Continue on oral prednisone Continue on Symbicort 2puffs BID Continue to monitor respiratory status Obtain home oxygen walk test Major Depression Suicidal ideation, under Espino Act Consult psychiatry, appreciate assistance Hyponatremia, suspect secondary to alcohol abuse Repeat sodium level improved from 128 to 135 Alcohol abuse Counseled on alcohol cessation [facility] protocol Thiamine/folic acid/multivitamin daily Monitor for signs of withdrawal Monitor for seizure activity/seizure precautions Generalized weakness Continue with PT DVT prophylaxis Lovenox Code Status: FULL Discussed Condition With: patient, nursing staff, Dr. Daily Discharge Planning: Possible discharge later today pending psychiatry evaluation/acceptance
[2018-03-08] MEDS: Folic Acid 1 MG Tablet PO SCH (09:40)
[2018-03-08] MEDS: predniSONE 20 MG Tablet PO SCH (09:40)
[2018-03-08] MEDS: Budesonide-Formoterol 160/4.5 MCG 6 GM Inhaler INH SCH ×2 (09:40→20:29)
--- NOTE | 2018-03-08 13:11 | P.CONPSY ---
Provisional Diagnosis Admission Date: March 06, 2018 13:53 [place] I.: Alcohol-induced mood disorder, alcohol use disorder, history of depression, history of malingering History of Present Illness Service: Medicine Primary Care Provider: No Primary Care Physician Family Provider: No Primary Care Physician Chief Complaint: I feel depressed History of Present Illness: The patient is a 58-year-old man single, homeless, unemployed with no financial income with a past psychiatric history significant for alcohol use disorder, depression, no prior psychiatric admissions no prior suicide attempts or self-injurious behavior significant alcohol use disorder who was brought in by EMS for intoxication and admitted to the medical service generalized weakness , COPD exacerbation, which psychiatry was consulted for evaluation as patient was under Espino act by police due to suicidal ideation. Patient was found lying in hospital bed, calm and cooperative interview. Patient states that he has been feeling depressed in the context of continuous alcohol use, homelessness, decompensated medically, not being able to walk like before, but at this moment he denies suicidal ideation, and he is future oriented, willing to continue medical recommendations. At this moment the patient denies hopelessness, denies helplessness, denies worthlessness, he says that if he is going to a rehabilitation program is going to do fine. patient states that she has been trying to obtain sobriety for the longest time and continues to do so at this time. Patient denies any perceptual disturbances and no delusional material elicited. All other psychiatric review of systems have been negative. Patient at this time reports feeling "cranky" denies SI, HI, AVH or delusions. Past psychiatric history alcohol use disorder, no previous psychiatric admissions, suicide attempts or self is behavior Substance use history: Alcohol use disorder, daily drinking of 2 beers at have a pint of vodka since age of 16. Lungs previous sobriety has been 2 months. Patient reports previous rehabilitation programs last time being 2 years ago. Past medical history: COPD Allergies NKDA Social history patient single, homeless unemployed [facility] - History History Provided By: Patient - Medical History Medical History: Medical History (Last Reviewed 03/07/18 @ 06:44 by Ken Pritchett) Generalized weakness (Acute) COPD (chronic obstructive pulmonary disease) (Acute) Anemia (Acute) Thrombocytopenia concurrent with and due to alcoholism (Acute) Noncompliance (Acute) Tobacco abuse (Acute) Alcohol abuse (Acute) Homeless (Acute) Alcohol related seizure (Acute) - Surgical History Surgical History: Surgical History (Last Reviewed 03/07/18 @ 06:45 by Ken Pritchett) History of right hip replacement (Acute) - Family History Family History: Family History (Last Reviewed 03/06/18 @ 14:14 by Catalina Santo MD) Other Family history of hypertension - Tobacco History Second Hand Smoke Exposure: No Tobacco Use In Past 30 Days: Yes Smoking Status: Current every day smoker Tobacco Type: Cigarettes Packs Per Day: 1 - Alcohol History How Often Do You Have a Drink Containing Alcohol: 4 or more times a week - Substance Use History Substance History: Active Abuse - Substance Use Type Alcohol Status: Active Route Used: By Mouth Reason for Use: Feels Good - Travel History History of Recent Travel: No Recent Travel in the [place] Within the Last 8 Weeks: No Recent Travel Out of the Country Within the Last 8 Weeks: No - Immunization History Tetanus Immunization: >5 Years Hx Influenza Vaccine This Season: No Medications and Allergies Active Medications: Active Medications Al Hydroxide/Mg Hydroxide (Milk Of Taj Liq) 30 ml PO Q12H PRN PRN Reason: Mild Constipation Albuterol (Duoneb Neb (Prn)) 1 ampul NEB Q15M PRN PRN Reason: DYSPNEA Last Admin: 03/05/18 14:13 Dose: 1 ampul Albuterol (Duoneb Neb ([place])) 1 ampul NEB Q6HR WHILE AWAKE NEB [facility] Last Admin: 03/08/18 12:18 Dose: 1 ampul Bisacodyl (Dulcolax Supp) 10 mg RECTAL DAILY PRN PRN Reason: SEVERE CONSITIPATION Budesonide/Formoterol Fumarate (Symbicort 160/4.5 Mcg Inh) 2 puff INH BID [facility] Last Admin: 03/08/18 09:40 Dose: 2 puff Enoxaparin Sodium (Lovenox Inj) 40 mg SQ Q24H [facility] Last Admin: 03/07/18 15:29 Dose: 40 mg Flumazenil (Romazecon Inj) 0.2 mg IV.PUSH Q1M PRN PRN Reason: OVERSEDATION Folic Acid (Folic Acid) 1 mg PO DAILY [facility] Last Admin: 03/08/18 09:40 Dose: 1 mg Haloperidol Lactate (Haldol Inj) 1 mg IV.PUSH Q15M PRN PRN Reason: for severe agitation Lactulose (Lactulose Liq) 30 ml PO DAILY PRN PRN Reason: SEVERE CONSITIPATION Lorazepam (Ativan) 1 mg PO Q4H PRN PRN Reason: for CIWA 8-10 Last Admin: 03/07/18 21:16 Dose: 1 mg Lorazepam (Ativan) 2 mg PO Q2H PRN PRN Reason: for CIWA 11-14 Lorazepam (Ativan Inj) 2 mg IV.PUSH Q2H PRN PRN Reason: for CIWA 11-14 Lorazepam (Ativan Inj) 2 mg IV.PUSH Q1H PRN PRN Reason: for CIWA 15-20 Lorazepam (Ativan Inj) 2 mg IV.PUSH Q15M PRN PRN Reason: for CIWA > 20 Lorazepam (Ativan Inj) 1 mg IV.PUSH Q4H PRN PRN Reason: for CIWA 8-10 Multivitamins (Theragran) 1 tab PO DAILY [facility] Last Admin: 03/08/18 09:40 Dose: 1 tab Nicotine (Habitrol 21 Mg Patch.24 Hr) 1 patch T-DERMAL DAILY [facility] Last Admin: 03/08/18 09:40 Dose: 1 patch Ondansetron HCl (Zofran Inj) 4 mg IV.PUSH Q6H PRN PRN Reason: NAUSEA OR VOMITING Prednisone (Deltasone) 40 mg PO DAILY [facility] Last Admin: 03/08/18 09:40 Dose: 40 mg Sennosides (Senokot) 17.2 mg PO Q12H PRN PRN Reason: Moderate Constipation Sodium Chloride (Ns Flush) 2 ml IV.FLUSH UNSCH PRN PRN Reason: FLUSH AFTER USING IV ACCESS Thiamine HCl (Vitamin B1) 100 mg PO BID [facility] Last Admin: 03/08/18 09:40 Dose: 100 mg Allergies Allergy/AdvReac Type Severity Reaction Status Date / Time No Known Allergies Allergy Unverified 02/19/18 19:30 Home Medications Medication Instructions Recorded Confirmed Type No Known Home Medications 03/05/18 03/05/18 History Exam Vital signs: Vital Signs 03/07/18 16:00 03/07/18 20:00 03/07/18 23:53 Temperature 98.9 F 97.3 F L Pulse Rate 94 H 83 87 Respiratory Rate 18 18 Blood Pressure 122/68 138/73 Pulse Oximetry 93 L 98 Pulse Oximetry [Exertion on Room Air] Pulse Oximetry [Resting on Room Air] 03/08/18 00:00 03/08/18 04:00 03/08/18 08:00 Temperature 97.8 F 97.8 F 98.3 F Pulse Rate 87 102 H 85 Respiratory Rate 18 18 17 Blood Pressure 130/62 138/78 145/79 H Pulse Oximetry 98 100 98 Pulse Oximetry [Exertion on Room Air] Pulse Oximetry [Resting on Room Air] 03/08/18 09:00 03/08/18 11:15 03/08/18 12:00 Temperature 97.9 F Pulse Rate 69 91 H Respiratory Rate 17 Blood Pressure 132/71 Pulse Oximetry 100 Pulse Oximetry [Exertion on Room Air] 93 L Pulse Oximetry [Resting on Room Air] 99 03/08/18 12:19 03/08/18 12:56 Temperature Pulse Rate 92 H 94 H Respiratory Rate 15 Blood Pressure Pulse Oximetry Pulse Oximetry [Exertion on Room Air] Pulse Oximetry [Resting on Room Air] Intake & Output 03/07/18 03/08/18 03/08/18 18:59 06:59 18:59 Intake Total 1460 / 1460 Output Total 100 / 100 500 / 500 Balance 1360 / 1360 -500 / -500 Weight 50.6 kg Intake: IV 500 / 500 NS Inj 1,000 ML @ 100 mls/hr IV 500 / 500 .CONT .Q10H [facility] Rx#:[id number] Oral 960 / 960 Output: Urine 100 / 100 500 / 500 Other: # Voids 450 # Incontinent Voids 1 Date of Last Bowel Movement 03/07/18 03/07/18 Mental Status Examination Appearance: Appropriate Consciousness: Alert Orientation: x4 Motor Activity: Normal gait Speech: Unremarkable Language: Adequate Fund of Knowledge: Adequate Attention and Concentration: Adequate Memory: Unremarkable Mood: Appropriate Affect: Appropriate Thought Process & Associations: Intact Thought Content: Appropriate Hallucination Type: None Delusion Type: None Suicidal Ideation: No Suicidal Plan: No Suicidal Intention: No Homicidal Ideation: No Homicidal Plan: No Homicidal Intention: No Insight: Adequate Judgment: Adequate Assessment and Plan - Assessment (1) 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 Code(s): F10.250 - Alcohol dependence with alcohol-induced psychotic disorder with delusions Status: Acute (2) Alcohol dependence with alcohol-induced mood disorder Code(s): F10.24 - Alcohol dependence with alcohol-induced mood disorder Status : Acute - Plan Plan: Estimated LOS: [] days On my psychiatric evaluation today the patient presents symptoms of mild depression in the context of homelessness, medical decompensation, continues alcohol use disorder, but he denies hopelessness, he denies helplessness, he denies suicidal and homicidal ideation, he denies visual and auditory hallucinations. He does not meet criteria for involuntary psychiatric admission. He is recent suicidal ideation expressed to the police was most probably the result of acute alcohol intoxication. Continue CIWA. Breath supportive psychotherapy provided. Espino act is lifted. Justification for Continued Inpatient Stay: No admission is indicated.
[2018-03-08] MEDS ORDERED: Azithromycin 250 MG Tablet PO ONE (14:00)
[2018-03-08] MEDS: Enoxaparin Inj 40 MG/0.4 ML Syringe SQ SCH (14:28)
[2018-03-08] MEDS: LORazepam 1 MG Tablet PO PRN (20:34)
[2018-03-09] MEDS: predniSONE 20 MG Tablet PO SCH (08:15)
[2018-03-09] MEDS: Folic Acid 1 MG Tablet PO SCH (08:15)
[2018-03-09] MEDS: Budesonide-Formoterol 160/4.5 MCG 6 GM Inhaler INH SCH (08:17)
--- NOTE | 2018-03-09 08:40 | P.PN ---
Subjective Interval history: Patient is stable. No new medical complaints. He is afebrile. He is satting 98% on RA. Physical Exam Vital signs: Vital Signs 03/08/18 09:00 03/08/18 11:15 03/08/18 12:00 Temperature 97.9 F Pulse Rate 69 91 H Respiratory Rate 17 Blood Pressure 132/71 Pulse Oximetry 100 Pulse Oximetry [Exertion on Room Air] 93 L Pulse Oximetry [Resting on Room Air] 99 03/08/18 12:19 03/08/18 12:56 03/08/18 16:00 Temperature 97.9 F Pulse Rate 92 H 94 H 100 H Respiratory Rate 15 17 Blood Pressure 123/74 Pulse Oximetry 100 Pulse Oximetry [Exertion on Room Air] Pulse Oximetry [Resting on Room Air] 03/08/18 17:00 03/08/18 19:40 03/08/18 20:00 Temperature 98.1 F Pulse Rate 108 H 88 105 H Respiratory Rate 17 17 Blood Pressure 124/69 Pulse Oximetry 99 Pulse Oximetry [Exertion on Room Air] Pulse Oximetry [Resting on Room Air] 03/08/18 20:32 03/09/18 00:00 03/09/18 00:10 Temperature 97.8 F Pulse Rate 97 H 76 77 Respiratory Rate 18 Blood Pressure 136/71 Pulse Oximetry 99 Pulse Oximetry [Exertion on Room Air] Pulse Oximetry [Resting on Room Air] 03/09/18 04:00 03/09/18 06:58 03/09/18 07:43 Temperature 97.6 F Pulse Rate 85 88 Respiratory Rate 18 12 14 Blood Pressure 161/88 H Pulse Oximetry 85 L Pulse Oximetry [Exertion on Room Air] Pulse Oximetry [Resting on Room Air] 03/09/18 08:00 Temperature 97.7 F Pulse Rate 80 Respiratory Rate 17 Blood Pressure 145/85 H Pulse Oximetry 98 Pulse Oximetry [Exertion on Room Air] Pulse Oximetry [Resting on Room Air] Intake & Output 03/08/18 03/09/18 03/09/18 18:59 06:59 18:59 Intake Total 1440 / 1440 Output Total 600 / 600 200 / 200 Balance 840 / 840 -200 / -200 Weight 57.2 kg Intake: Oral 1440 / 1440 Output: Urine 600 / 600 200 / 200 Narrative: GENERAL: Thin frail male patient. Awake and alert. Satting 98% on RA. Appears comfortable. In no acute distress. SKIN: Warm and dry. HEAD: Atraumatic. Normocephalic. EYES: Pupils equal and round. No scleral icterus. No injection or drainage. ENT: No nasal bleeding or discharge. Mucous membranes pink and moist. NECK: Trachea midline. CARDIOVASCULAR: Regular rate and rhythm. RESPIRATORY: No accessory muscle use. Coarse BS. Breath sounds equal bilaterally. No wheezing noted. GASTROINTESTINAL: Abdomen soft, non-tender, nondistended. +BS. MUSCULOSKELETAL: Extremities without clubbing, cyanosis, or edema. No obvious deformities. NEUROLOGICAL: Awake and alert. No obvious cranial nerve deficits. Motor grossly within normal limits. Able to move all extremities spontaneously. Normal speech. PSYCHIATRIC: Depressed affect; insight and judgment poor. Results - Labs CBC & Chem 7: 03/05/18 14:20 03/07/18 06:40 - Procedures None Assessment and Plan - Assessment (1) COPD exacerbation Code(s): J44.1 - Chronic obstructive pulmonary disease with (acute) exacerbation Status: Acute (2) Suicidal ideation Code(s): R45.851 - Suicidal ideations Status: Acute (3) Generalized weakness Code(s): R53.1 - Weakness Status: Chronic (4) Alcohol abuse Code(s): F10.10 - Alcohol abuse, uncomplicated Status: Chronic (5) Disorder of electrolytes Code(s): E87.8 - Other disorders of electrolyte and fluid balance, not elsewhere classified Status: Chronic (6) Hyponatremia Code(s): E87.1 - Hypo-osmolality and hyponatremia Status: Acute - Plan 62-year-old male past medical history significant for hypertension, alcohol dependence and homelessness who was Espino act by law enforcement for suicidal ideation Patient cleared for discharge. No new complaints. No significant change. He is afebrile. VSS. COPD exacerbation, mild, improving Ongoing tobaccoism Patient satting 98% on RA CXR shows clear lungs Continue scheduled DuoNeb Continue on oral prednisone Continue on Azithromycin Continue on Symbicort 2puffs BID Continue to monitor respiratory status Did not qualify for home oxygen Major Depression Suicidal ideation, under Espino Act Evaluated by psychiatry, Espino Act lifted. No inpatient psych admission indicated. Hyponatremia, suspect secondary to alcohol abuse Repeat sodium level improved from 128 to 135 Alcohol abuse Counseled on alcohol cessation [facility] protocol Thiamine/folic acid/multivitamin daily Monitor for signs of withdrawal Monitor for seizure activity/seizure precautions Generalized weakness Continue with PT walker has been delivered to his room DVT prophylaxis Lovenox Code Status: FULL Discussed Condition With: patient, nursing staff, Dr. Daily, CM
== END 2018-03-09 10:56 | disposition home or self-care (01) ==
LOC: NEPD 13:14 → NEDA 03-06 13:53 → N05 03-06 17:27
PROVIDERS: ADMIT Family Medicine; ATTEND Family Medicine

== ENCOUNTER 2018-03-14 15:23 | Observation (INO) ==
[2018-03-14 20:04] LABS: Baso # (Auto) 0.1 th/mm3 (0.0-0.2); Baso % (Auto) 0.7 % (0.0-2.0); Eos % (Auto) 0.5 % (0.0-4.0); Hemoglobin 11.6 gm/dL (13.0-17.0); Lymph # (Auto) 1.4 th/mm3 (1.0-4.8); Lymph % (Auto) 15.9 % (9.0-44.0); Mean Corpuscular HGB Conc 34.3 % (32.0-36.0); Mean Corpuscular Hemoglobin 37.1 pg (27.0-34.0); Mean Corpuscular Volume 108.2 fL (80.0-100.0); Mean Platelet Volume 8.8 fL (7.0-11.0); Mono # (Auto) 0.9 th/mm3 (0.0-0.9); Neut # (Auto) 6.3 th/mm3 (1.8-7.7); Neut % (Auto) 72.9 % (16.0-70.0); Platelet Count 169 th/mm3 (150-450); Red Blood Count 3.14 mil/mm3 (4.50-5.90); Red Cell Distribution Width 16.5 % (11.6-17.2); White Blood Count 8.6 th/mm3 (4.0-11.0)
[2018-03-14 20:21] LABS: Anion Gap 12 meq/L (5-15); Blood Urea Nitrogen 9 mg/dL (7-18); Carbon Dioxide 23.3 meq/L (21.0-32.0); Chloride 96 meq/L (98-107); Glomerular Filtration Rate Greater Than 89 mL/min (>89); Glucose,Random 92 mg/dL (74-106); Potassium 3.6 meq/L (3.5-5.1); Sodium 131 meq/L (136-145)
[2018-03-14 20:25] LABS: Troponin I 0.03 ng/mL (0.02-0.05)
--- NOTE | 2018-03-14 20:32 | XR ---
EXAM DATE: 03/14/2018 8:20 PM EDT AGE/SEX: 62 years / Male INDICATIONS: . Cough and shortness of breath. CLINICAL DATA: This is the patient's initial encounter. Patient reports that signs and symptoms have been present for 3 months and indicates a pain score of 6/10. MEDICAL/SURGICAL HISTORY: Hypertension. Chronic obstructive pulmonary disease. None. [place] [facility] [place]. . FINDINGS: No focal consolidation. Calcified granuloma right lung base. Old left rib fractures. No effusion. Hea rt size normal. Tortuous aorta. Compression deformity of mid thoracic spine and upper thoracic spine. CONCLUSION: No active disease. Compression deformities in the thoracic spine of unknown age. Old left rib fractur es and old left humeral and clavicle fracture. Calcified granuloma right lung base. Electronically signed by: Olvin Dominguez MD 03/14/2018 8:31 PM EDT
--- NOTE | 2018-03-14 20:45 | ED ---
HPI General Chief Complaint: Shortness of Breath/Dyspnea Stated Complaint: SOB Time Seen by Provider: 03/14/18 19:03 Source: patient Mode of arrival: ambulatory Limitations: no limitations History of Present Illness Patient is a 62-year-old male, past medical history significant for COPD, alcohol abuse, last drink was this morning, who presents with complaint of worsening dyspnea on exertion over the last several weeks with intermittent chest pain at that time and improves with rest. He also describes a productive cough which has been present for several months and worsening. No fever nor chills that he is aware of. No numbness nor weakness. No abdominal pain. No leg swelling or immobilization. MD Complaint: shortness of breath, cough and chest pain Onset (ago): week(s) Severity: moderate Consistency/Duration: constant Relieving factors: nothing Exacerbating factors: exertion Known history of: COPD Associated symptoms: denies other symptoms Treatment prior to arrival: none Related Data Home Medications Medication Instructions Recorded Confirmed No Known Home Medications 03/05/18 03/14/18 Allergies Allergy/AdvReac Type Severity Reaction Status Date / Time No Known Allergies Allergy Unverified 02/19/18 19:30 Review of Systems ROS: all other systems reviewed are negative [facility] Medical History Medical History Generalized weakness (Acute) COPD (chronic obstructive pulmonary disease) (Acute) Anemia (Acute) Thrombocytopenia concurrent with and due to alcoholism (Acute) Noncompliance (Acute) Tobacco abuse (Acute) Alcohol abuse (Acute) Homeless (Acute) Alcohol related seizure (Acute) Surgical History Surgical History History of right hip replacement (Acute) Family History Family History Other Family history of hypertension Social History Social History Substance History: No History of Abuse Second Hand Smoke Exposure: Yes Smoking Status: Current every day smoker Tobacco Type: Cigarettes Packs Per Day: 1 Cigarettes Per Day: 20.0 How Often Do You Have a Drink Containing Alcohol: 4 or more times a week Hx Recent Travel: No Recent Travel in [facility] within the Last 8 Weeks: No Recent Out of Country Travel within the Last 8 Weeks: No Immunization History Tetanus Immunization: Unsure Hx Influenza Vaccine This Season: No Exam Narrative Exam Narrative: GENERAL: Chronically ill-appearing male in no acute distress SKIN: Focused skin assessment warm/dry. HEAD: Atraumatic. Normocephalic. EYES: Pupils equal and round. No scleral icterus. No injection or drainage. ENT: No nasal bleeding or discharge. Mucous membranes pink and moist. NECK: Trachea midline. No JVD. CARDIOVASCULAR: Regular rate and rhythm. No murmur appreciated. Intact and equal peripheral pulses. RESPIRATORY: No accessory muscle use. Breath sounds equal bilaterally. Rhonchi present throughout. GASTROINTESTINAL: Abdomen soft, non-tender, nondistended. Hepatic and splenic margins not palpable. MUSCULOSKELETAL: No obvious deformities. No clubbing. No cyanosis. No edema. NEUROLOGICAL: Awake and alert. No obvious cranial nerve deficits. Motor grossly within normal limits. Normal speech. PSYCHIATRIC: Appropriate mood and affect; insight and judgment normal. Course Initial Documented Vital Signs Temperature 97.9 F 03/14/18 16:09 Pulse Rate 108 H 03/14/18 16:09 Respiratory Rate 13 03/14/18 16:09 Blood Pressure 107/73 03/14/18 16:09 Pulse Oximetry 99 03/14/18 16:09 Last Documented Vital Signs Temperature 98.3 F 03/14/18 19:07 Pulse Rate 90 03/14/18 20:59 Respiratory Rate 20 03/14/18 20:59 Blood Pressure 139/84 03/14/18 19:07 Pulse Oximetry 99 03/14/18 21:01 Medical Decision Making [facility] Narrative Medical decision making narrative: Patient is a 62-year-old male, past medical history significant for COPD, who presents with complaint of dyspnea and chest pain on exertion that does improve with rest. EKG is without acute ischemic changes. Chest x-ray is unremarkable. Labs, including troponin, are initially unremarkable. He states that his dyspnea slightly improved after DuoNeb's but when he tries to exert himself he is still having chest pain or shortness of breath. This does still resolve with rest. He has been admitted to Dr. Cintron , hospitalist on-call, for COPD exacerbation/chest pain rule out myocardial infarction. Medical Screen Exam Complete: Yes Emergency Medical Condition: Yes Differential Diagnosis Differential Diagnosis: Differential diagnosis includes but is not limited to COPD exacerbation, acute coronary syndrome, pneumonia, pneumothorax. Medical Records Medical records reviewed: Yes I reviewed the patient's medical records. Lab Data Lab results reviewed: Yes I reviewed the patient's lab results. Result diagrams: 03/14/18 19:35 03/14/18 19:35 Lab Results 03/14/18 03/14/18 03/14/18 Range/Units 19:35 19:35 19:35 WBC 8.6 (4.0-11.0) th/mm3 RBC 3.14 L (4.50-5.90) mil/mm3 Hgb 11.6 L (13.0-17.0) gm/dL Hct 34.0 L (39.0-51.0) % MCV 108.2 H (80.0-100.0) fL MCH 37.1 H (27.0-34.0) pg MCHC 34.3 (32.0-36.0) % RDW 16.5 (11.6-17.2) % Plt Count 169 D (150-450) th/mm3 MPV 8.8 (7.0-11.0) fL Neut % (Auto) 72.9 H (16.0-70.0) % Lymph % (Auto) 15.9 (9.0-44.0) % [place] % (Auto) 10.0 H (0.0-8.0) % Eos % (Auto) 0.5 (0.0-4.0) % Baso % (Auto) 0.7 (0.0-2.0) % Neut # (Auto) 6.3 (1.8-7.7) th/mm3 Lymph # (Auto) 1.4 (1.0-4.8) th/mm3 [place] # (Auto) 0.9 (0.0-0.9) th/mm3 Eos # (Auto) 0.0 (0.0-0.4) th/mm3 Baso # (Auto) 0.1 (0.0-0.2) th/mm3 WBC Differential . Differential Comment Auto diff final Sodium 131 L (136-145) meq/L Potassium 3.6 (3.5-5.1) meq/L Chloride 96 L (98-107) meq/L Carbon Dioxide 23.3 (21.0-32.0) meq/L Anion Gap 12 (5-15) meq/L BUN 9 (7-18) mg/dL Creatinine 0.35 L (0.60-1.30) mg/dL Estimated GFR Greater than 89 (>89) mL/min Random Glucose 92 (74-106) mg/dL Calcium 8.0 L (8.5-10.1) mg/dL Troponin I 0.03 (0.02-0.05) ng/mL B-Natriuretic Peptide 136 H (0-100) pg/mL Imaging Data Attestation: I personally reviewed and interpreted this imaging study as follows : My impression: No acute cardiopulmonary process. Radiologist's impression: Chest X-Ray 03/14/18 19:19 CONCLUSION: No active disease. Compression deformities in the thoracic spine of unknown age. Old left rib fractures and old left humeral and clavicle fracture. Calcified granuloma right lung base. ECG Data EKG Prior to Arrival: No Attestation: I personally reviewed and interpreted this ECG as follows: (Sinus rhythm at a rate of [address] or T-wave changes.) Discharge Plan Discharge Disposition Patient Disposition: 30 Still Patient Discharge Condition Condition: Fair Discharge Details Diagnosis: Chest pain, rule out acute myocardial infarction, Acute exacerbation of chronic obstructive pulmonary disease (COPD), Alcoholism /alcohol abuse Physicians Team ED Provider: Megan Espino Primary Care Provider: Primary Care Gissell Sebastian Attending Provider: Venus Cintron Discharge Interventions Interventions: Vital Signs Last Done: 03/14/18 19:07 Status ED Status: Admitted Observation Patient
[2018-03-14] MEDS ORDERED: Sodium Chlor 0.9% Inj 500 ML IV.SIG SCH (21:00)
[2018-03-14] MEDS ORDERED: LORazepam 1 MG Tablet PO PRN (22:03)
[2018-03-14] MEDS ORDERED: Haloperidol Inj 5 MG/ML Ampul IV.PUSH PRN (22:03)
[2018-03-14] MEDS ORDERED: Acetaminophen 325 MG Tablet PO PRN (22:04)
[2018-03-14] MEDS ORDERED: Bisacodyl 10 MG Supp RECTAL PRN (22:04)
[2018-03-14] MEDS: Heparin - SQ 10,000 UNITS/ML Vial SQ SCH (22:36)
--- NOTE | 2018-03-14 23:05 | P.HP ---
History of Present Illness Service: [facility] Primary Care Physician: No Primary Care Physician History of Present Illness: 62-year-old homeless male with a past medical history significant for COPD and alcohol abuse presents to the emergency department for the evaluation of shortness of breath. The patient reports that he has been short of breath for months but that it is intermittent. He states it is worse with activity. He also endorses a substernal chest pain that accompanies his shortness of breath and is also intermittent and has been lasting for months. He denies any abdominal pain. No nausea/vomiting/diarrhea. He reports minimal compliance with his inhalers. No fevers/chills. Cough at baseline. No lateralizing signs /symptoms. Review of Systems All other systems reviewed negative except as stated in HPI PMFSH - History History Provided By: Patient - Medical History Medical History: Medical History (Last Reviewed 03/14/18 @ 22:59 by Venus Cintron MD) Generalized weakness (Acute) COPD (chronic obstructive pulmonary disease) (Acute) Anemia (Acute) Thrombocytopenia concurrent with and due to alcoholism (Acute) Noncompliance (Acute) Tobacco abuse (Acute) Alcohol abuse (Acute) Homeless (Acute) Alcohol related seizure (Acute) - Surgical History Surgical History: Surgical History (Last Reviewed 03/14/18 @ 22:59 by Venus Cintron MD) History of right hip replacement (Acute) - Family History Family History: Family History (Last Reviewed 03/14/18 @ 22:59 by Venus Cintron MD) Other Family history of hypertension - Tobacco History Second Hand Smoke Exposure: Yes Tobacco Use In Past 30 Days: Yes Smoking Status: Current every day smoker Tobacco Type: Cigarettes Packs Per Day: 1 - Alcohol History How Often Do You Have a Drink Containing Alcohol: 4 or more times a week - Substance Use History Substance History: No History of Abuse - Travel History History of Recent Travel: No Recent Travel in the [place] Within the Last 8 Weeks: No Recent Travel Out of the Country Within the Last 8 Weeks: No - Immunization History Tetanus Immunization: Unsure Hx Influenza Vaccine This Season: No Medications and Allergies Active Medications: Active Medications Acetaminophen (Tylenol) 650 mg PO Q4H PRN PRN Reason: Temp > 100.4 Albuterol (Duoneb Neb (Prn)) 1 ampul NEB Q2HR NEB PRN PRN Reason: SHORTNESS OF BREATH/WHEEZING Bisacodyl (Dulcolax Supp) 10 mg RECTAL DAILY PRN PRN Reason: SEVERE CONSITIPATION Flumazenil (Romazecon Inj) 0.2 mg IV.PUSH Q1M PRN PRN Reason: OVERSEDATION Haloperidol Lactate (Haldol Inj) 1 mg IV.PUSH Q15M PRN PRN Reason: for severe agitation Heparin Sodium (Porcine) (Heparin Inj) 5,000 units SQ Q8H AGATA Last Admin: 03/14/18 22:36 Dose: 5,000 units Sodium Chloride (Ns Inj) 500 mls @ 0 mls/hr IV.SIG BOLUS AGATA Last Infusion: 03/14/18 22:16 Dose: Infused Lorazepam (Ativan) 1 mg PO Q4H PRN PRN Reason: for CIWA 8-10 Lorazepam (Ativan) 2 mg PO Q2H PRN PRN Reason: for CIWA 11-14 Lorazepam (Ativan Inj) 2 mg IV.PUSH Q2H PRN PRN Reason: for CIWA 11-14 Lorazepam (Ativan Inj) 2 mg IV.PUSH Q1H PRN PRN Reason: for CIWA 15-20 Lorazepam (Ativan Inj) 2 mg IV.PUSH Q15M PRN PRN Reason: for CIWA > 20 Lorazepam (Ativan Inj) 1 mg IV.PUSH Q4H PRN PRN Reason: for CIWA 8-10 Prochlorperazine Edisylate (Compazine Inj) 5 mg IV.PUSH Q4H PRN PRN Reason: nausea/vomiting Sennosides (Senokot) 17.2 mg PO Q12H PRN PRN Reason: Moderate Constipation Allergies Allergy/AdvReac Type Severity Reaction Status Date / Time No Known Allergies Allergy Unverified 02/19/18 19:30 Home Medications Medication Instructions Recorded Confirmed Type No Known Home Medications 03/05/18 03/14/18 History Exam Vital signs: Vital Signs 03/14/18 16:09 03/14/18 19:07 03/14/18 19:38 Temperature 97.9 F 98.3 F Pulse Rate 108 H 94 H 88 Respiratory Rate 13 18 20 Blood Pressure 107/73 139/84 Pulse Oximetry 99 99 99 03/14/18 19:48 03/14/18 19:51 03/14/18 19:58 Temperature Pulse Rate 88 90 Respiratory Rate 20 20 Blood Pressure Pulse Oximetry 97 03/14/18 20:59 03/14/18 21:01 03/14/18 22:46 Temperature Pulse Rate 90 Respiratory Rate 20 18 Blood Pressure Pulse Oximetry 99 Intake & Output 03/14/18 03/14/18 03/15/18 06:59 18:59 06:59 Intake Total 840 / 840 Balance 840 / 840 Weight 54.431 kg Intake: IV 500 / 500 NS Inj 500 ML @ Wide Open IV. 500 / 500 SIG BOLUS AGATA Rx#:[id number] Oral 340 / 340 Narrative: Gen.: Disheveled male sitting up in bed, tremulous Head: Normocephalic. Atraumatic. EENT: Pupils equal round and reactive to light. Nose without drainage. Airway intact. Throat without injection. Cardiovascular: Regular rate and rhythm. No murmurs, rubs or gallops. Respiratory: Lungs clear to auscultation bilaterally. No wheezes or rhonchi. Abdomen: Soft, nontender, nondistended. No peritoneal signs. Musculoskeletal: No gross deformities. No edema. Skin: No obvious rashes or erythema. Neuro: Sensory and motor grossly intact. Cranial nerves II through XII grossly intact. Results - Labs CBC & Chem 7: 03/14/18 19:35 03/14/18 19:35 Labs: Laboratory Results - last 24 hr 03/14/18 03/14/18 03/14/18 19:35 19:35 19:35 WBC 8.6 RBC 3.14 L Hgb 11.6 L Hct 34.0 L MCV 108.2 H MCH 37.1 H MCHC 34.3 RDW 16.5 Plt Count 169 D MPV 8.8 Neut % (Auto) 72.9 H Lymph % (Auto) 15.9 [place] % (Auto) 10.0 H Eos % (Auto) 0.5 Baso % (Auto) 0.7 Neut # (Auto) 6.3 Lymph # (Auto) 1.4 [place] # (Auto) 0.9 Eos # (Auto) 0.0 Baso # (Auto) 0.1 WBC Differential . Differential Comment Auto diff final Sodium 131 L Potassium 3.6 Chloride 96 L Carbon Dioxide 23.3 Anion Gap 12 BUN 9 Creatinine 0.35 L Estimated GFR Greater than 89 Random Glucose 92 Calcium 8.0 L Troponin I 0.03 B-Natriuretic Peptide 136 H - Imaging Impressions Chest X-Ray 03/14/18 19:19 CONCLUSION: No active disease. Compression deformities in the thoracic spine of unknown age. Old left rib fractures and old left humeral and clavicle fracture. Calcified granuloma right lung base. Caprini VTE Risk Assessment Caprini VTE Risk Assessment: Moderate/High Risk (score >= 2) Caprini Risk Assessment Model: Point Value = 1 Point Value = 2 Point Value = 3 Point Value = 5 Age 41-60 Minor surgery BMI > 25 kg/m2 Swollen legs Varicose veins or History of unexplained or recurrent spontaneous Oral contraceptives or hormone replacement Sepsis (< 1 month) Serious lung disease, including pneumonia (< 1 month) Abnormal pulmonary function Acute myocardial infarction Congestive heart failure (< 1 month) History of inflammatory bowel disease Medical patient at bed rest Age 61-74 Arthroscopic surgery Major open surgery (> 45 min) Laparoscopic surgery (> 45 min) Malignancy Confined to bed (> 72 hours) Immobilizing plaster cast Central venous access Age >= 75 History of VTE Family history of VTE Factor V Leiden Prothrombin [id number] Lupus anticoagulant Anticardiolipin antibodies Elevated serum homocysteine Heparin-induced thrombocytopenia Other congenital or acquired thrombophilia Stroke (< 1 month) Elective arthroplasty Hip, pelvis, or leg fracture Acute spinal cord injury (< 1 month) Prophylaxis Regimen: Total Risk Factor Score Risk Level Prophylaxis Regimen 0-1 Low Early ambulation 2 Moderate Order ONE of the following: *Sequential Compression Device (SCD) *Heparin 5000 units SQ BID 3-4 Higher Order ONE of the following medications: *Heparin 5000 units SQ TID *Enoxaparin/Lovenox 40 mg SQ daily (WT < 150 kg, CrCl > 30 mL/min) *Enoxaparin/Lovenox 30 mg SQ daily (WT < 150 kg, CrCl > 10-29 mL/min) *Enoxaparin/Lovenox 30 mg SQ BID (WT < 150 kg, CrCl > 30 mL/min) AND/OR *Sequential Compression Device (SCD) 5 or more Highest Order ONE of the following medications: *Heparin 5000 units SQ TID (Preferred with Epidurals) *Enoxaparin/Lovenox 40 mg SQ daily (WT < 150 kg, CrCl > 30 mL/min) *Enoxaparin/Lovenox 30 mg SQ daily (WT < 150 kg, CrCl > 10-29 mL/min) *Enoxaparin/Lovenox 30 mg SQ BID (WT < 150 kg, CrCl > 30 mL/min) AND *Sequential Compression Device (SCD) Assessment and Plan - Plan Assessment/plan: 1. Chest pain/shortness of breath COPD exacerbation versus cardiac cause ACS rule out pending; serial troponins/EKGs Duo nebs Patient is not requiring oxygen at this time 2. Alcohol abuse [place] protocol Monitor for signs of withdrawal FEN N.p.o. Electrolytes: Monitor and replete as needed NS at 70 cc/hour
[2018-03-14] MEDS: Sod Chloride 0.9% Inj 1,000 ML IV.CONT SCH (23:45)
[2018-03-15 02:34] LABS: Troponin I 0.02 ng/mL (0.02-0.05)
[2018-03-15 06:55] LABS: Baso % (Auto) 0.3 % (0.0-2.0); Hematocrit 35.1 % (39.0-51.0); Hemoglobin 11.8 gm/dL (13.0-17.0); Lymph # (Auto) 0.6 th/mm3 (1.0-4.8); Lymph % (Auto) 9.9 % (9.0-44.0); Mean Corpuscular HGB Conc 33.6 % (32.0-36.0); Mean Corpuscular Hemoglobin 36.6 pg (27.0-34.0); Mean Corpuscular Volume 108.7 fL (80.0-100.0); Mean Platelet Volume 9.5 fL (7.0-11.0); Mono # (Auto) 0.1 th/mm3 (0.0-0.9); Mono % (Auto) 2.2 % (0.0-8.0); Neut % (Auto) 87.6 % (16.0-70.0); Platelet Count 166 th/mm3 (150-450); Red Blood Count 3.23 mil/mm3 (4.50-5.90); Red Cell Distribution Width 16.4 % (11.6-17.2); White Blood Count 5.7 th/mm3 (4.0-11.0)
[2018-03-15 07:02] LABS: Anion Gap 9 meq/L (5-15); Blood Urea Nitrogen 7 mg/dL (7-18); Calcium 8.2 mg/dL (8.5-10.1); Carbon Dioxide 25.1 meq/L (21.0-32.0); Chloride 101 meq/L (98-107); Glomerular Filtration Rate Greater Than 89 mL/min (>89); Glucose,Random 147 mg/dL (74-106); Potassium 4.3 meq/L (3.5-5.1); Sodium 135 meq/L (136-145)
[2018-03-15 07:09] LABS: Creatine Kinase 24 U/L (39-308)
[2018-03-15] MEDS: Heparin - SQ 10,000 UNITS/ML Vial SQ SCH ×3 (08:01→22:12)
[2018-03-15] MEDS: MethylPREDNISolone Sod Succinate Inj 40 MG/ML Vial IV.PUSH SCH ×2 (09:07→22:28)
--- NOTE | 2018-03-15 10:07 | P.PN ---
Subjective Interval history: Follow-up for COPD exacerbation. The patient reports continued shortness of breath, worse with any minimal exertion, associated with a dry nonproductive cough. Denies fevers, but does report chills. He denies any chest pain. He states he feels sore across his back from the recent forceful coughing. Denies any sputum production. He is currently homeless, but does have a sister who lives in [facility] who does help him out at times. Patient states he only has a rescue inhaler. Does not wear oxygen. He does continue to smoke tobacco, counseled on cessation. Physical Exam Vital signs: Vital Signs 03/14/18 16:09 03/14/18 19:07 03/14/18 19:38 Temperature 97.9 F 98.3 F Pulse Rate 108 H 94 H 88 Respiratory Rate 13 18 20 Blood Pressure 107/73 139/84 Pulse Oximetry 99 99 99 03/14/18 19:48 03/14/18 19:51 03/14/18 19:58 Temperature Pulse Rate 88 90 Respiratory Rate 20 20 Blood Pressure Pulse Oximetry 97 03/14/18 20:59 03/14/18 21:01 03/14/18 22:46 Temperature Pulse Rate 90 Respiratory Rate 20 18 Blood Pressure Pulse Oximetry 99 03/14/18 23:00 03/15/18 00:01 03/15/18 03:36 Temperature 98.4 F Pulse Rate 96 H 88 72 Respiratory Rate 16 Blood Pressure 109/67 Pulse Oximetry 97 03/15/18 04:00 03/15/18 07:10 03/15/18 07:27 Temperature 98.4 F 98.1 F Pulse Rate 88 86 Respiratory Rate 16 18 Blood Pressure 136/71 135/75 Pulse Oximetry 93 L 95 98 Intake & Output 03/14/18 03/15/18 03/15/18 18:59 06:59 18:59 Intake Total 840 / 840 Balance 840 / 840 Weight 54.431 kg 54.431 kg Intake: IV 500 / 500 NS Inj 500 ML @ Wide Open IV. 500 / 500 SIG BOLUS AGATA Rx#:[id number] Oral 340 / 340 Other: Weight On Admission 54.431 kg Narrative: GENERAL: Well-nourished, well-developed unkempt appearing middle-aged male patient in [facility]. SKIN: Warm and dry. No rash. HEENT: Normocephalic. Atraumatic. Pupils equal and round. Mucous membranes pink and moist. CARDIOVASCULAR: Regular rate and rhythm. No murmur appreciated. RESPIRATORY: No accessory muscle use. Diffuse expiratory wheezing with occasional scattered rhonchi. Breath sounds equal bilaterally. GASTROINTESTINAL: Abdomen soft, non-tender, nondistended. Normoactive bowel sounds x4. MUSCULOSKELETAL: No obvious deformities. Extremities without clubbing, cyanosis , or edema. NEUROLOGICAL: Awake and alert. No obvious cranial nerve deficits. Motor grossly within normal limits. Moving all extremities spontaneously. Normal speech. PSYCHIATRIC: Appropriate mood and affect; insight and judgment normal. Results - Labs CBC & Chem 7: 03/15/18 06:22 03/15/18 06:22 Laboratory Results - last 24 hr 03/14/18 03/14/18 03/14/18 19:35 19:35 19:35 WBC 8.6 RBC 3.14 L Hgb 11.6 L Hct 34.0 L MCV 108.2 H MCH 37.1 H MCHC 34.3 RDW 16.5 Plt Count 169 D MPV 8.8 Neut % (Auto) 72.9 H Lymph % (Auto) 15.9 [place] % (Auto) 10.0 H Eos % (Auto) 0.5 Baso % (Auto) 0.7 Neut # (Auto) 6.3 Lymph # (Auto) 1.4 [place] # (Auto) 0.9 Eos # (Auto) 0.0 Baso # (Auto) 0.1 WBC Differential . Differential Comment Auto diff final Sodium 131 L Potassium 3.6 Chloride 96 L Carbon Dioxide 23.3 Anion Gap 12 BUN 9 Creatinine 0.35 L Estimated GFR Greater than 89 Random Glucose 92 Calcium 8.0 L Total Creatine Kinase Troponin I 0.03 B-Natriuretic Peptide 136 H 03/15/18 03/15/18 03/15/18 02:05 06:22 06:22 WBC 5.7 RBC 3.23 L Hgb 11.8 L Hct 35.1 L MCV 108.7 H MCH 36.6 H MCHC 33.6 RDW 16.4 Plt Count 166 MPV 9.5 Neut % (Auto) 87.6 H Lymph % (Auto) 9.9 [place] % (Auto) 2.2 Eos % (Auto) 0.0 Baso % (Auto) 0.3 Neut # (Auto) 5.0 Lymph # (Auto) 0.6 L [place] # (Auto) 0.1 Eos # (Auto) 0.0 Baso # (Auto) 0.0 WBC Differential . Differential Comment Auto diff final Sodium 135 L Potassium 4.3 Chloride 101 Carbon Dioxide 25.1 Anion Gap 9 BUN 7 Creatinine 0.49 L Estimated GFR Greater than 89 Random Glucose 147 H Calcium 8.2 L Total Creatine Kinase 25 L 24 L Troponin I 0.02 Less than 0.02 L B-Natriuretic Peptide - Imaging Impressions Chest X-Ray 03/14/18 19:19 CONCLUSION: No active disease. Compression deformities in the thoracic spine of unknown age. Old left rib fractures and old left humeral and clavicle fracture. Calcified granuloma right lung base. Assessment and Plan - Plan 62-year-old homeless male with a past medical history significant for COPD and alcohol abuse presents to the emergency department for the evaluation of shortness of breath. Acute COPD exacerbation: Patient with significant wheezing on exam. -CXR reviewed, no acute pulmonary disease -Continue steroids with IV Solu-Medrol 40 mg twice daily -Continue bronchodilators with DuoNeb's q6h and q2h prn -Robitussin prn cough -Incentive spirometer -O2 as needed to keep O2 sat >90% Atypical Chest Pain: pleuritic with musculoskeletal component secondary to recent forceful coughing -ACS ruled out with negative serial cardiac enzymes x3, and EKG without acute ischemic changes -Monitor on telemetry -Control cough Tobacco Use: chronic -thoroughly counseled on cessation Alcohol Abuse: chronic -counseled on cessation -[facility] protocol -Monitor for withdrawal DVT Prophylaxis: Heparin sq Discharge Planning: Discharge pending further clinical improvement. Possible d/c in 1-2 days.
[2018-03-15] MEDS ORDERED: guaiFENesin/Dextromethorphan 200 MG/20 MG 10 ML UDC PO PRN (11:18)
[2018-03-15] MEDS: Sod Chloride 0.9% Inj 1,000 ML IV.CONT SCH (14:54)
--- NOTE | 2018-03-15 20:25 | ECG ---
Date Performed: 03/15/2018 Time Performed: 02:00:46 PTAGE: 62 years EKG: Sinus rhythm MARKED RIGHT AXIS DEVIATION ABNORMAL ECG PREVIOUS TRACING : 03/14/2018 19.45 Since the previous tracing, no significant change noted DOCTOR: Azul Persaud Interpretating Date/Time 03/15/2018 20:25:17
--- NOTE | 2018-03-15 21:28 | ECG ---
Date Performed: 03/14/2018 Time Performed: 19:45:34 PTAGE: 62 years EKG: Sinus rhythm MARKED RIGHT AXIS DEVIATION ABNORMAL ECG Since the PREVIOUS TRACING , no significant change noted DOCTOR: Azul Persaud Interpretating Date/Time 03/15/2018 21:27:04
[2018-03-16] MEDS: Sod Chloride 0.9% Inj 1,000 ML IV.CONT SCH (02:56)
[2018-03-16] MEDS: Heparin - SQ 10,000 UNITS/ML Vial SQ SCH ×3 (06:15→22:02)
--- NOTE | 2018-03-16 08:34 | P.PN ---
Subjective Interval history: Follow-up for COPD exacerbation. Patient reports slight improvement overnight, however still with intractable nonproductive cough, wheezing, and shortness of breath. States he feels short of breath with exertion. He reports his entire anterior and posterior chest feels sore from all the coughing. He denies fevers or chills. Denies any other medical complaints at this time. He does not feel ready for discharge. He feels he needs another night in the hospital. Physical Exam Vital signs: Vital Signs 03/15/18 09:00 03/15/18 10:22 03/15/18 11:31 Temperature 97.6 F Pulse Rate 76 80 80 Respiratory Rate 18 18 Blood Pressure 110/63 Pulse Oximetry 95 03/15/18 15:16 03/15/18 15:50 03/15/18 16:00 Temperature 97.3 F L 98.5 F Pulse Rate 85 85 91 H Respiratory Rate 18 18 16 Blood Pressure 112/58 L 104/64 Pulse Oximetry 95 96 03/15/18 19:18 03/15/18 20:00 03/15/18 23:43 Temperature 98.2 F Pulse Rate 85 81 82 Respiratory Rate 18 16 Blood Pressure 120/65 Pulse Oximetry 96 98 03/16/18 00:46 03/16/18 02:56 03/16/18 07:09 Temperature 98.1 F 97.8 F Pulse Rate 75 79 67 Respiratory Rate 24 16 18 Blood Pressure 115/55 L 158/75 H Pulse Oximetry 99 96 98 03/16/18 07:43 Temperature Pulse Rate 68 Respiratory Rate 16 Blood Pressure Pulse Oximetry Intake & Output 03/15/18 03/16/18 03/16/18 18:59 06:59 18:59 Intake Total 1000 / 1000 1000 / 1000 Output Total 800 / 800 Balance 200 / 200 1000 / 1000 Intake: IV 1000 / 1000 1000 / 1000 NS Inj 1,000 ML @ 70 mls/hr IV. 1000 / 1000 1000 / 1000 CONT .[id number] [facility] Rx#:[id number] Output: Urine 800 / 800 Other: # Voids 4 Date of Last Bowel Movement 03/15/18 Narrative: GENERAL: Well-nourished, well-developed unkempt appearing middle-aged male patient in [facility]. SKIN: Warm and dry. No rash. HEENT: Normocephalic. Atraumatic. Pupils equal and round. Mucous membranes pink and moist. CARDIOVASCULAR: Regular rate and rhythm. No murmur appreciated. Anterior chest wall diffusely tender to palpation. RESPIRATORY: No accessory muscle use. Diffuse expiratory wheezing, mildly improved. Breath sounds equal bilaterally. GASTROINTESTINAL: Abdomen soft, non-tender, nondistended. Normoactive bowel sounds x4. MUSCULOSKELETAL: No obvious deformities. Extremities without clubbing, cyanosis , or edema. NEUROLOGICAL: Awake and alert. No obvious cranial nerve deficits. Motor grossly within normal limits. Moving all extremities spontaneously. Normal speech. PSYCHIATRIC: Appropriate mood and affect; insight and judgment normal. Results - Labs CBC & Chem 7: 03/15/18 06:22 03/15/18 06:22 - Imaging Chest X-Ray 03/14/18 19:19 CONCLUSION: No active disease. Compression deformities in the thoracic spine of unknown age. Old left rib fractures and old left humeral and clavicle fracture. Calcified granuloma right lung base. Assessment and Plan - Plan 62-year-old homeless male with a past medical history significant for COPD and alcohol abuse presents to the emergency department for the evaluation of shortness of breath. Acute COPD exacerbation: Patient with significant wheezing on exam. -CXR reviewed, no acute pulmonary disease -Continue steroids with IV Solu-Medrol, increased dose to 40mg q6h -Continue bronchodilators with DuoNeb's q6h and q2h prn -Robitussin prn cough -Incentive spirometer -O2 as needed to keep O2 sat >90% -Added mucinex bid -Improving however still wheezing, not yet ready for discharge Atypical Chest Pain: pleuritic with musculoskeletal component secondary to recent forceful coughing -ACS ruled out with negative serial cardiac enzymes x3, and EKG without acute ischemic changes -Monitor on telemetry -Control cough Tobacco Use: chronic -thoroughly counseled on cessation Alcohol Abuse: chronic -counseled on cessation -[facility] protocol -Monitor for withdrawal DVT Prophylaxis: Heparin sq Discharge Planning: Discharge pending further clinical improvement. Possible d/c tomorrow.
[2018-03-16] MEDS: MethylPREDNISolone Sod Succinate Inj 40 MG/ML Vial IV.PUSH SCH ×3 (09:20→21:30)
[2018-03-16] MEDS: Benzonatate 100 MG Capsule PO SCH ×2 (09:21→16:59)
[2018-03-16] MEDS: guaiFENesin 600 MG ER Tablet PO SCH ×2 (09:21→21:30)
[2018-03-17] MEDS: Benzonatate 100 MG Capsule PO SCH ×3 (01:09→18:21)
[2018-03-17] MEDS: MethylPREDNISolone Sod Succinate Inj 40 MG/ML Vial IV.PUSH SCH ×4 (03:10→20:37)
[2018-03-17] MEDS: Heparin - SQ 10,000 UNITS/ML Vial SQ SCH ×2 (06:04→15:19)
[2018-03-17] MEDS: guaiFENesin 600 MG ER Tablet PO SCH ×2 (08:50→20:37)
--- NOTE | 2018-03-17 10:12 | P.PN ---
Subjective Interval history: Follow-up for COPD exacerbation. The patient reports continued wheezing and shortness of breath. He reports intractable cough, mostly nonproductive, but does have occasional clearwhite sputum production. Denies fevers or chills. He states he feels very weak and dyspneic, worse with exertion. He states if he was discharged, he would not even be able to make it to the bus stop. He does not feel ready for discharge at this time. Physical Exam Vital signs: Vital Signs 03/16/18 11:04 03/16/18 15:16 03/16/18 19:15 Temperature 97.5 F L 98.5 F Pulse Rate 90 88 Respiratory Rate 18 Blood Pressure 126/72 139/70 Pulse Oximetry 95 93 L 97 03/16/18 19:34 03/16/18 20:00 03/16/18 23:23 Temperature 97.9 F 98.4 F Pulse Rate 86 96 H 82 Respiratory Rate 16 14 16 Blood Pressure 121/69 108/58 L Pulse Oximetry 97 97 97 03/17/18 01:31 03/17/18 03:42 03/17/18 07:40 Temperature 97.7 F 97.8 F Pulse Rate 81 81 86 Respiratory Rate 16 14 18 Blood Pressure 123/70 156/78 H Pulse Oximetry 97 99 03/17/18 08:32 Temperature Pulse Rate 75 Respiratory Rate 18 Blood Pressure Pulse Oximetry 99 Intake & Output 03/16/18 03/17/18 03/17/18 18:59 06:59 18:59 Intake Total 40 / 40 60 / 60 Output Total 65 / 65 Balance 40 / 40 -5 / -5 Intake: Oral 40 / 40 60 / 60 Output: Urine 65 / 65 Other: # Voids 1 Date of Last Bowel Movement 03/15/18 03/15/18 Narrative: GENERAL: Well-nourished, well-developed unkempt appearing middle-aged male patient in [facility]. SKIN: Warm and dry. No rash. HEENT: Normocephalic. Atraumatic. Pupils equal and round. Mucous membranes pink and moist. CARDIOVASCULAR: Regular rate and rhythm. No murmur appreciated. Anterior chest wall diffusely tender to palpation. RESPIRATORY: No accessory muscle use. Diffuse expiratory wheezing, minimally improved. Breath sounds equal bilaterally. GASTROINTESTINAL: Abdomen soft, non-tender, nondistended. Normoactive bowel sounds x4. MUSCULOSKELETAL: No obvious deformities. Extremities without clubbing, cyanosis , or edema. NEUROLOGICAL: Awake and alert. No obvious cranial nerve deficits. Motor grossly within normal limits. Moving all extremities spontaneously. Normal speech. PSYCHIATRIC: Appropriate mood and affect; insight and judgment normal. Results - Labs CBC & Chem 7: 03/15/18 06:22 03/15/18 06:22 - Imaging Chest X-Ray 03/14/18 19:19 CONCLUSION: No active disease. Compression deformities in the thoracic spine of unknown age. Old left rib fractures and old left humeral and clavicle fracture. Calcified granuloma right lung base. Assessment and Plan - Plan 62-year-old homeless male with a past medical history significant for COPD and alcohol abuse presents to the emergency department for the evaluation of shortness of breath. Acute COPD exacerbation: Patient with significant wheezing on exam. -CXR reviewed, no acute pulmonary disease -Continue steroids with IV Solu-Medrol, increased dose to 40mg q6h -Continue bronchodilators with DuoNeb's q6h and q2h prn -Robitussin prn cough -Incentive spirometer -O2 as needed to keep O2 sat >90% -Added mucinex bid -Symbicort bid -Very slowly improving, still very symptomatic with wheezing/SOB, not yet ready for discharge Atypical Chest Pain: pleuritic with musculoskeletal component secondary to recent forceful coughing -ACS ruled out with negative serial cardiac enzymes x3, and EKG without acute ischemic changes -Monitor on telemetry -Control cough Tobacco Use: chronic -thoroughly counseled on cessation Alcohol Abuse: chronic -counseled on cessation -[facility] protocol -Monitor for withdrawal DVT Prophylaxis: Heparin sq Discharge Planning: Discharge pending further clinical improvement. Possible d/c tomorrow. Patient only has an albuterol rescue inhaler therefore will likely need assistance with medications at discharge, if possible.
[2018-03-17] MEDS: Budesonide-Formoterol 160/4.5 MCG 6 GM Inhaler INH SCH ×2 (15:19→21:22)
[2018-03-18] MEDS: Heparin - SQ 10,000 UNITS/ML Vial SQ SCH ×4 (00:55→22:12)
[2018-03-18] MEDS: Benzonatate 100 MG Capsule PO SCH ×3 (01:00→16:52)
[2018-03-18] MEDS: MethylPREDNISolone Sod Succinate Inj 40 MG/ML Vial IV.PUSH SCH ×4 (03:55→20:41)
[2018-03-18] MEDS: guaiFENesin 600 MG ER Tablet PO SCH ×2 (08:28→20:42)
[2018-03-18] MEDS: Budesonide-Formoterol 160/4.5 MCG 6 GM Inhaler INH SCH ×2 (08:28→20:43)
--- NOTE | 2018-03-18 12:29 | P.PN ---
Subjective Interval history: Follow up on patient with AECOPD. Patient seen and examined. Patient states he continues to have difficulty breathing and ongoing wheezing. He reports continued cough with thick whitish sputum that is difficult for him to expectorate. He denies any fever or chills. He denies any chest pain. Physical Exam Vital signs: Vital Signs 03/17/18 12:49 03/17/18 15:59 03/17/18 19:12 Temperature 98.1 F 98.1 F Pulse Rate 84 101 H 96 H Respiratory Rate 18 16 18 Blood Pressure 118/61 126/70 Pulse Oximetry 94 L 95 03/17/18 19:37 03/17/18 20:00 03/17/18 23:18 Temperature 97.8 F Pulse Rate 96 H 88 88 Respiratory Rate 19 18 Blood Pressure 118/67 Pulse Oximetry 95 88 L 95 03/18/18 03:51 03/18/18 07:57 03/18/18 08:00 Temperature 97.7 F 97.5 F L Pulse Rate 83 83 82 Respiratory Rate 18 18 14 Blood Pressure 140/76 124/68 Pulse Oximetry 96 97 03/18/18 09:00 Temperature Pulse Rate 68 Respiratory Rate Blood Pressure Pulse Oximetry Intake & Output 03/17/18 03/18/18 03/18/18 18:59 06:59 18:59 Intake Total 60 / 60 64 / 64 Output Total 65 / 65 125 / 125 Balance -5 / -5 -61 / -61 Weight 54.4 kg Intake: Oral 60 / 60 64 / 64 Output: Urine 65 / 65 125 / 125 Other: Date of Last Bowel Movement 03/15/18 03/15/18 03/15/18 Narrative: GENERAL: Well-nourished, well-developed unkempt appearing middle-aged male patient. Awake and alert. In no acute distress. SKIN: Warm and dry. No rash. HEENT: Normocephalic. Atraumatic. Pupils equal and round. Mucous membranes pink and moist. CARDIOVASCULAR: Regular rate and rhythm. No murmur appreciated. Anterior chest wall diffusely tender to palpation. RESPIRATORY: No accessory muscle use. Diffuse expiratory wheezing noted in all lung jalloh. Breath sounds equal bilaterally. GASTROINTESTINAL: Abdomen soft, non-tender, nondistended. Normoactive bowel sounds x4. MUSCULOSKELETAL: No obvious deformities. Extremities without clubbing, cyanosis , or edema. NEUROLOGICAL: Awake and alert. No obvious cranial nerve deficits. Motor grossly within normal limits. Moving all extremities spontaneously. Normal speech. PSYCHIATRIC: Appropriate mood and affect; insight and judgment normal. Results - Labs CBC & Chem 7: 03/15/18 06:22 03/15/18 06:22 Assessment and Plan - Plan 62-year-old homeless male with a past medical history significant for COPD and alcohol abuse presents to the emergency department for the evaluation of shortness of breath. Acute COPD exacerbation: Patient still with significant wheezing on exam. CXR reviewed, no acute pulmonary disease -Continue steroids with IV Solu-Medrol. Add IV Azithromycin. -Continue bronchodilators with DuoNeb's q6h and q2h prn -Robitussin prn cough -Incentive spirometer -O2 as needed to keep O2 sat >90% -Continue Mucinex bid -Symbicort bid -PT/OT eval/tx Atypical Chest Pain: pleuritic with musculoskeletal component secondary to recent forceful coughing -ACS ruled out with negative serial cardiac enzymes x3, and EKG without acute ischemic changes -Monitor on telemetry -Control cough Tobacco Use: chronic -thoroughly counseled on cessation Alcohol Abuse: chronic -counseled on cessation -[facility] protocol -Monitor for withdrawal Macrocytic Anemia, chronic Suspect secondary to alcohol use -check B12 and folate level -H/H appears stable DVT Prophylaxis: Heparin sq Discussed Condition With: patient, nursing staff, Dr. Rojas Discharge Planning: Not ready for discharge. Likely discharge tomorrow if clinically improved.
[2018-03-18] MEDS: Azithromycin Inj 500 MG in Sodium Chlor 0.9% Inj 250 ML IV.SIG SCH (15:40)
[2018-03-19] MEDS: Benzonatate 100 MG Capsule PO SCH ×3 (01:37→16:31)
[2018-03-19] MEDS: MethylPREDNISolone Sod Succinate Inj 40 MG/ML Vial IV.PUSH SCH ×4 (03:47→22:21)
[2018-03-19] MEDS: Heparin - SQ 10,000 UNITS/ML Vial SQ SCH ×3 (06:11→22:21)
--- NOTE | 2018-03-19 09:48 | P.PN ---
Subjective Interval history: Follow up on patient with AECOPD. Patient seen and examined. He says he is not any better. Patient continues to have severe dyspnea with very minimal exertion. He denies any lower extremity swelling. He says he can not even walk to the door without getting severely short of breath. He reports cough with scant sputum production. He denies any chest pain. He denies any nausea, vomiting or abdominal pain. He denies any fever or chills. Physical Exam Vital signs: Vital Signs 03/18/18 12:00 03/18/18 14:40 03/18/18 16:00 Temperature 97.9 F 98.1 F Pulse Rate 88 80 101 H Respiratory Rate 16 16 16 Blood Pressure 144/74 H 114/65 Pulse Oximetry 96 95 03/18/18 19:17 03/18/18 20:00 03/18/18 23:54 Temperature 98.2 F 98.3 F Pulse Rate 92 H 102 H 88 Respiratory Rate 16 16 16 Blood Pressure 116/60 125/70 Pulse Oximetry 98 98 03/19/18 02:57 03/19/18 03:58 03/19/18 06:53 Temperature 97.8 F Pulse Rate 83 86 86 Respiratory Rate 16 16 16 Blood Pressure 141/71 H Pulse Oximetry 100 03/19/18 08:00 Temperature 97.8 F Pulse Rate 90 Respiratory Rate 16 Blood Pressure 138/70 Pulse Oximetry 97 Intake & Output 03/18/18 03/19/18 03/19/18 18:59 06:59 18:59 Intake Total 250 / 250 Balance 250 / 250 Weight 54.4 kg Intake: IV 250 / 250 Azithromycin Inj 500 MG In NS 250 / 250 Inj 250 ML @ 250 mls/hr IV.SIG Q24H [facility] Rx#:[id number] Other: Date of Last Bowel Movement 03/15/18 03/15/18 Narrative: GENERAL: Well-nourished, well-developed unkempt appearing middle-aged male patient, [facility]. Awake and alert. SKIN: Warm and dry. No rash. HEENT: Normocephalic. Atraumatic. Pupils equal and round. Mucous membranes pink and moist. CARDIOVASCULAR: Regular rate and rhythm. No murmur appreciated. Anterior chest wall diffusely tender to palpation, improved. RESPIRATORY: No accessory muscle use. Tight air entry. Diffuse expiratory wheezing noted in all lung jalloh. Breath sounds equal bilaterally. GASTROINTESTINAL: Abdomen soft, non-tender, nondistended. Normoactive bowel sounds x4. MUSCULOSKELETAL: No obvious deformities. Extremities without clubbing, cyanosis , or edema. NEUROLOGICAL: Awake and alert. No obvious cranial nerve deficits. Motor grossly within normal limits. Moving all extremities spontaneously. Normal speech. PSYCHIATRIC: Appropriate mood and affect; insight and judgment normal. Results - Labs CBC & Chem 7: 03/15/18 06:22 03/15/18 06:22 Laboratory Results - last 24 hr 03/18/18 13:27 Vitamin B12 175 L Assessment and Plan - Plan 62-year-old homeless male with a past medical history significant for COPD and alcohol abuse presents to the emergency department for the evaluation of shortness of breath. Acute COPD exacerbation: Patient still with significant wheezing on exam. Significant dyspnea with minimal exertion. CXR reviewed, no acute pulmonary disease -Continue steroids with IV Solu-Medrol. Continue on IV Azithromycin. -Continue bronchodilators with DuoNeb's q6h and q2h prn -Robitussin prn cough -Incentive spirometer -O2 as needed to keep O2 sat >90% -Continue Mucinex bid -Symbicort bid -Add Spiriva -obtain echocardiogram for eval of severe exertional dyspnea -continue with PT -patient ambulated around unit today with PT, did not desaturate Atypical Chest Pain: pleuritic with musculoskeletal component secondary to recent forceful coughing -ACS ruled out with negative serial cardiac enzymes x3, and EKG without acute ischemic changes -Monitor on telemetry -Control cough Tobacco Use: chronic -thoroughly counseled on cessation Alcohol Abuse: chronic -counseled on cessation -[facility] protocol -Monitor for withdrawal Macrocytic Anemia, chronic Suspect secondary to alcohol use -H/H appears stable B12 deficiency B12 level 175 -give 1000mcg IM x 1 now, continue with daily po supplementation DVT Prophylaxis: Heparin sq Discussed Condition With: patient, nursing staff, Dr. Rojas Discharge Planning: Not ready for discharge. Likely discharge tomorrow if clinically improved.
[2018-03-19] MEDS: Budesonide-Formoterol 160/4.5 MCG 6 GM Inhaler INH SCH ×2 (12:44→22:20)
[2018-03-19] MEDS: Azithromycin Inj 500 MG in Sodium Chlor 0.9% Inj 250 ML IV.SIG SCH (12:45)
[2018-03-19] MEDS: Tiotropium Bromide 18 MCG/ACT Inhaler INH SCH (12:46)
[2018-03-19] MEDS: Multivitamin/Minerals Therapeutic Tablet PO SCH (12:46)
[2018-03-19] MEDS: guaiFENesin 600 MG ER Tablet PO SCH ×2 (12:46→22:20)
[2018-03-20] MEDS: Benzonatate 100 MG Capsule PO SCH ×2 (02:09→11:54)
[2018-03-20] MEDS: MethylPREDNISolone Sod Succinate Inj 40 MG/ML Vial IV.PUSH SCH ×2 (02:09→11:54)
[2018-03-20] MEDS: Heparin - SQ 10,000 UNITS/ML Vial SQ SCH (06:23)
[2018-03-20 07:15] VITALS: TEMP 97.5
[2018-03-20] MEDS: Multivitamin/Minerals Therapeutic Tablet PO SCH (11:54)
[2018-03-20] MEDS: guaiFENesin 600 MG ER Tablet PO SCH (11:54)
[2018-03-20] MEDS: Budesonide-Formoterol 160/4.5 MCG 6 GM Inhaler INH SCH (11:55)
[2018-03-20] MEDS: Tiotropium Bromide 18 MCG/ACT Inhaler INH SCH (11:55)
[2018-03-20 12:36] VITALS: BP 134/73; PULSE 77; RESP 18; O2SAT 98
--- NOTE | 2018-03-20 13:18 | P.DS ---
Date of admission: 03/14/18 21:06 Primary care physician: No Primary Care Physician Attending physician on discharge: Mandy Rojas Anticipated date of discharge: 03/20/18 Brief History from admission: 62-year-old homeless male with a past medical history significant for COPD and alcohol abuse presents to the emergency department for the evaluation of shortness of breath. The patient reports that he has been short of breath for months but that it is intermittent. He states it is worse with activity. He also endorses a substernal chest pain that accompanies his shortness of breath and is also intermittent and has been lasting for months. He denies any abdominal pain. No nausea/vomiting/diarrhea. He reports minimal compliance with his inhalers. No fevers/chills. Cough at baseline. No lateralizing signs /symptoms. Patient update on day of discharge: Patient seen and examined. Patient reports ongoing shortness of breath. He reports cough. He denies any sputum production. He is not having any chest pain. He denies any N/V or abdominal pain. He is not requiring the use of oxygen. He is satting 98% on room air. He is not in any respiratory distress. He ambulated 75ft with PT without any drop in oxygen saturation. DS: Diagnosis - Discharge Diagnosis (1) Acute exacerbation of chronic obstructive pulmonary disease (COPD) Status: Acute (2) Chest pain, rule out acute myocardial infarction Status: Acute (3) B12 deficiency Status: Acute (4) Generalized weakness Status: Chronic (5) Alcohol abuse Status: Chronic (6) Anemia Status: Chronic (7) Hyponatremia Status: Acute DS: Medications - Discharge Medications Prescriptions: azithromycin 500 mg PO DAILY #3 tab budesonide-formoterol [Symbicort] 2 puff INH BID #1 inhaler cyanocobalamin (vitamin B-12) [Vitamin B-12] 100 mcg PO DAILY #30 tab guaifenesin [Mucinex] 600 mg PO BID #20 tab uezzskob-wqjf-ZD-calcium-mins [Thera M Plus (ferrous fumarat)] 1 tab PO DAILY # 30 tab prednisone 10 mg PO DAILY #32 tab tiotropium bromide [Spiriva with HandiHaler] 18 mcg INH DAILY #1 inh DS: Summary Hospital Course: Admitted with acute COPD exacerbation and ongoing tobaccoism. Patient counseled multiple times on tobacco cessation. Patient treated with IV steroids , Mucinex, Spiriva and Symbicort. Patient was also placed on scheduled duo nebs. Patient also treated with IV azithromycin. Patient also had complaints of atypical chest pain, pleuritic with musculoskeletal component secondary to forceful coughing. Patient ruled out ACS with negative serial cardiac enzymes and EKG without any acute ischemic changes. [facility] protocol initiated and patient was monitored for any evidence of alcohol withdrawal. He was advised on complete alcohol cessation. Patient was treated for B12 deficiency. Patient continued to have ongoing complaints of shortness of breath despite evidence of clinical improvement. He was satting 99% on room air. He participated with physical therapy and was able to walk 75 feet without any drop in his oxygen saturation. Echocardiogram was obtained to rule out other etiology revealing grade I diastolic dysfunction. Case management assisted with discharge planning. - Time Spent with Patient Total time spent providing and/or coordinating discharge services: Greater than 30 minutes - Quality: VTE Deep Vein Thrombosis/Pulmonary Embolism Present on Admission: No Exam Vital signs: Vital Signs 03/19/18 13:00 03/19/18 16:00 03/19/18 20:00 Temperature 97.7 F 97.8 F Pulse Rate 92 H 81 66 Respiratory Rate 16 16 16 Blood Pressure 141/76 H 132/72 Pulse Oximetry 95 98 03/19/18 20:23 03/19/18 23:15 03/20/18 04:00 Temperature 97.8 F 97.7 F Pulse Rate 81 77 73 Respiratory Rate 16 16 16 Blood Pressure 108/55 L 162/84 H Pulse Oximetry 97 98 03/20/18 07:12 03/20/18 08:00 03/20/18 08:03 Temperature 97.5 F L Pulse Rate 70 71 Respiratory Rate 18 15 Blood Pressure 169/92 H Pulse Oximetry 98 99 03/20/18 11:26 03/20/18 12:15 Temperature 97.5 F L Pulse Rate 69 77 Respiratory Rate 15 18 Blood Pressure 134/73 Pulse Oximetry 98 Intake & Output 03/19/18 03/20/18 03/20/18 18:59 06:59 18:59 Intake Total 250 / 250 Output Total 500 / 500 Balance -250 / -250 Weight 54.4 kg Intake: IV 250 / 250 Azithromycin Inj 500 MG In NS 250 / 250 Inj 250 ML @ 250 mls/hr IV.SIG Q24H [facility] Rx#:[id number] Output: Urine 500 / 500 Other: # Voids 2 2 Date of Last Bowel Movement 03/19/18 03/19/18 # Bowel Movements 1 Narrative: GENERAL: Well-nourished, well-developed unkempt appearing middle-aged male patient, [facility]. Awake and alert. SKIN: Warm and dry. No rash. HEENT: Normocephalic. Atraumatic. Pupils equal and round. Mucous membranes pink and moist. CARDIOVASCULAR: Regular rate and rhythm. No murmur appreciated. Anterior chest wall diffusely tender to palpation, improved. RESPIRATORY: No accessory muscle use. Fair air entry. Mild expiratory wheezing. Breath sounds equal bilaterally. GASTROINTESTINAL: Abdomen soft, non-tender, nondistended. Normoactive bowel sounds x4. MUSCULOSKELETAL: No obvious deformities. Extremities without clubbing, cyanosis , or edema. NEUROLOGICAL: Awake and alert. No obvious cranial nerve deficits. Motor grossly within normal limits. Moving all extremities spontaneously. Normal speech. PSYCHIATRIC: Appropriate mood and affect; insight and judgment normal. Results Procedures completed during hospitalization: None - Impressions ITS Impressions Chest X-Ray 03/14/18 19:19 CONCLUSION: No active disease. Compression deformities in the thoracic spine of unknown age. Old left rib fractures and old left humeral and clavicle fracture. Calcified granuloma right lung base. Discharge Plan - Discharge Disposition Patient Disposition: 01 Discharge Home - Discharge Condition Condition: Fair - Discharge Order Discharge Orders: Discharge Order (Routine); Ordered 03/20/18 Ordered By: Adela Valdes - Discharge Details Anticipated Discharge Date: 03/20/18 Discharge Comment: Discharge pending echo results - Physicians Team Primary Care Provider: Primary Care Romulo,Gissell Attending Provider: Mandy Rojas
[2018-03-20] MEDS: Azithromycin Inj 500 MG in Sodium Chlor 0.9% Inj 250 ML IV.SIG SCH (13:46)
--- NOTE | 2018-03-20 14:34 | ECHRPT ---
Indication: Shortness of Breath CONCLUSIONS The left ventricular systolic function is normal with an estimated ejection fraction in the range of 55-60%. Normal LV size and wall thickness. No regional wall motion abnormalities. Grade 1 diastolic dysfunction No significant valvular abnormalities. The estimated pulmonary arterial pressure is 46 mmHg. IVC is normal size. No prior echo for comparision. BP: / HR: Rhythm: MEASUREMENTS (Male / Female) Normal Values Technical Quality:Technically difficult study 2D ECHO LV Diastolic Diameter PLAX 4.4 cm 4.2 - 5.9 / 3.9 - 5.3 cm LV Systolic Diameter PLAX 2.9 cm IVS Diastolic Thickness 1.1 cm 0.6 - 1.0 / 0.6 - 0.9 cm LVPW Diastolic Thickness 1.0 cm 0.6 - 1.0 / 0.6 - 0.9 cm LV Relative Wall Thickness 0.5 LVOT Diameter 1.9 cm Aortic Root Diameter 2.5 cm LA Systolic Diameter LX 3.2 cm 3.0 - 4.0 / 2.7 - 3.8 cm DOPPLER AV Peak Velocity 136.0 cm/s AV Peak Gradient 7.4 mmHg LVOT Peak Velocity 108.0 cm/s LVOT Peak Gradient 4.7 mmHg AV Area Cont Eq pk 2.3 cm Mitral E Point Velocity 85.4 cm/s Mitral A Point Velocity 93.3 cm/s Mitral E to A Ratio 0.9 LV E' Lateral Velocity 10.9 cm/s Mitral E to LV E' Lateral Ratio 7.8 LV E' Septal Velocity 13.1 cm/s Mitral E to LV E' Septal Ratio 6.5 TR Peak Velocity 301.0 cm/s TR Peak Gradient 36.2 mmHg Right Atrial Pressure 10.0 mmHg Pulmonary Artery Systolic Pressu 46.2 mmHg Right Ventricular Systolic Press 46.2 mmHg PV Peak Velocity 96.4 cm/s PV Peak Gradient 3.7 mmHg FINDINGS LEFT VENTRICLE Normal left ventricular size. Wall thickness is normal. The left ventricular systolic function is normal with an estimated ejection fraction in the range of 55-60%. Grade 1 diastolic dysfunction. RIGHT VENTRICLE Normal right ventricular size and systolic function. LEFT ATRIUM The left atrial size is normal. RIGHT ATRIUM The right atrial size is normal. ATRIAL SEPTUM Normal atrial septal thickness without atrial level shunting by limited color doppler interrogation. AORTA The aortic root and proximal ascending aorta are normal in size on limited imaging. MITRAL VALVE Trace mitral valve regurgitation. AORTIC VALVE Trileaflet aortic valve. TRICUSPID VALVE There is trace tricuspid valve regurgitation. The estimated pulmonary arterial pressure is 46 mmHg. PULMONARY VALVE No pulmonary valve regurgitation or stenosis. VESSELS The inferior vena cava is normal in size. PERICARDIUM No pericardial effusion. Lucina Mcgee MD (Electronically Signed) Final Date:20 March 2018 14:34
[2018-03-20] MEDS ORDERED: Azithromycin 250 MG Tablet PO SCH (15:00)
[2018-03-21] MEDS ORDERED: predniSONE 20 MG Tablet PO SCH (09:00)
== END 2018-03-20 17:18 | disposition home or self-care (01) ==
LOC: NEDA 15:23 → NEPE 15:23 → NEDA 22:48 → NEPGCP 22:50
PROVIDERS: ADMIT Family Medicine; ATTEND Family Medicine
DX: E87.1 Hypo-osmolality and hyponatremia; E53.8 Deficiency of other specified B group vitamins; J84.10 Pulmonary fibrosis, unspecified; Z82.49 Family history of ischemic heart disease and other diseases of the circulatory system; Z91.19 Patient's noncompliance with other medical treatment and regimen; R56.9 Unspecified convulsions; Z96.641 Presence of right artificial hip joint; F17.210 Nicotine dependence, cigarettes, uncomplicated; I07.1 Rheumatic tricuspid insufficiency; I10 Essential (primary) hypertension; R53.1 Weakness; Z59.0 Homelessness; F10.20 Alcohol dependence, uncomplicated; J44.1 Chronic obstructive pulmonary disease with (acute) exacerbation; D53.9 Nutritional anemia, unspecified; D69.6 Thrombocytopenia, unspecified

== ENCOUNTER 2018-03-31 21:55 | Inpatient (IN) ==
[2018-03-31] MEDS ORDERED: Sodium Chlor 0.9% Inj 500 ML IV.SIG ONE ×2 (22:04→23:18)
--- NOTE | 2018-03-31 22:07 | ED ---
HPI General Chief Complaint: Respiratory Symptoms Stated Complaint: Resp Time Seen by Provider: 03/31/18 22:03 Source: EMS Mode of arrival: EMS History of Present Illness Patient is a 8-year-old male has a history of COPD has a history of alcohol abuse calls 911 severe respiratory distress he is found in a hotel room the satting on room air he is started on CPAP given duo nebs given Solu-Medrol and brought in by [facility]. He is pulling with his subcostal muscles increased respiratory rate appears to be respiratory distress but is able to speak in full sentences. He refused the CPAP retirement through he could not tolerated he was anxious patient is rapidly sedated with 0.5 of Ativan to help him relax and put back on the CPAP where he is saturating at 100% his heart rate is 100 BP is 164/98 he now tolerates his CPAP Levaquin is added chest x-ray is ordered at this time he is initial complaint was severe respiratory distress he has not seen a doctor in a while he has been in our ER in the past for alcohol withdrawal he is been here for COPD exacerbation is been in withdrawal and got into the delusions in the past he has a psych history. Complaint: Reports shortness of breath Onset (ago): hour(s) Severity: severe Consistency/Duration: progressively worsening Relieving factors: oxygen Exacerbating factors: nothing and coughing Known history of: Reports COPD Associated symptoms: Reports cough and wheezing Treatment prior to arrival: Reports bronchodilator and NIPPV Related Data Previous Rx's Medication Instructions Recorded albuterol sulfate [ProAir HFA] 1 puff INHALATION Q4-6H PRN #1 04/05/18 inhaler budesonide-formoterol [Symbicort] 2 puff INH BID #1 inhaler 04/05/18 lisinopril [Prinivil] 5 mg PO DAILY #30 tab 04/05/18 prednisone [Deltasone] 20 mg PO BID #10 tab 04/05/18 Allergies Allergy/AdvReac Type Severity Reaction Status Date / Time No Known Allergies Allergy Unverified 02/19/18 19:30 Review of Systems ROS: all other systems reviewed are negative [facility] Social History Social History Substance History: No History of Abuse Second Hand Smoke Exposure: No Smoking Status: Heavy tobacco smoker Tobacco Type: Cigarettes Packs Per Day: 1 Cigarettes Per Day: 20.0 How Often Do You Have a Drink Containing Alcohol: 2 to 3 times a week Hx Recent Travel: No Recent Travel in [facility] within the Last 8 Weeks: No Recent Out of Country Travel within the Last 8 Weeks: No Exam Narrative Exam Narrative: GENERAL: Patient is in respiratory distress using subcostal muscles he is very thin body habitus he has diffuse truncal rash that looks possibly fungal with raised plaques and small discrete edges all over his trunk and back. SKIN: Warm and dry. He has a fungal-like rash on his trunk HEAD: Atraumatic. Normocephalic. EYES: Pupils equal and round. No scleral icterus. No injection or drainage. ENT: No nasal bleeding or discharge. Mucous membranes pink and moist. NECK: Trachea midline. No JVD. CARDIOVASCULAR: Regular rate and rhythm. RESPIRATORY: +accessory muscle use using his subcostal's respiratory rate is increased to 24 breath /min .diffuse wheeze upper and lower lobes bilaterally GASTROINTESTINAL: Abdomen soft, non-tender, nondistended. Hepatic and splenic margins not palpable. MUSCULOSKELETAL: Extremities without clubbing, cyanosis, or edema. No obvious deformities. NEUROLOGICAL: Awake and alert. No obvious cranial nerve deficits. Motor grossly within normal limits. Five out of 5 muscle strength in the arms and legs. Normal speech. PSYCHIATRIC: Appropriate mood and affect; insight and judgment normal. Course Initial Documented Vital Signs Temperature 100.4 F H 03/31/18 22:00 Pulse Rate 128 H 03/31/18 22:00 Respiratory Rate 25 H 03/31/18 22:00 Blood Pressure 181/110 H 03/31/18 22:00 Pulse Oximetry 100 03/31/18 22:00 Last Documented Vital Signs Temperature 97.8 F 04/06/18 13:00 Pulse Rate 78 04/06/18 14:00 Respiratory Rate 18 04/06/18 13:00 Blood Pressure 119/78 04/06/18 13:00 Pulse Oximetry 96 04/06/18 13:00 Critical Care Time Critical Care Time: Yes Total Critical Care Time: 30 Attestation: resp failure resp distress needing emergent intervention BIPAP and monitor of O2 saturation and ATivan for etoh withdrawal Mental Status checks in ER vitals continuously evaluated for Resp and etoh withdrawal Medical Decision Making MDM Narrative Medical decision making narrative: BIPAP in place and ativan to alleviate stress of BIPAP Mask and to alleviate ETOH withdrawal . pt now stable for admit to CIC for continued Resp distress and ventilatory failure Medical Screen Exam Complete: Yes Emergency Medical Condition: Yes Differential Diagnosis Differential Diagnosis: COPD vs CHF vs PTX vs PNA vs other Lab Data Result diagrams: 04/05/18 05:25 04/05/18 05:25 Lab Results 03/31/18 03/31/18 03/31/18 Range/Units 22:13 22:13 22:13 WBC 8.8 (4.0-11.0) th/mm3 RBC 3.60 L (4.50-5.90) mil/mm3 Hgb 13.2 (13.0-17.0) gm/dL Hct 37.9 L (39.0-51.0) % MCV 105.3 H (80.0-100.0) fL MCH 36.8 H (27.0-34.0) pg MCHC 34.9 (32.0-36.0) % RDW 15.3 (11.6-17.2) % Plt Count 173 (150-450) th/mm3 MPV 9.3 (7.0-11.0) fL Neut % (Auto) 72.3 H (16.0-70.0) % Lymph % (Auto) 13.7 (9.0-44.0) % [place] % (Auto) 13.5 H (0.0-8.0) % Eos % (Auto) 0.1 (0.0-4.0) % Baso % (Auto) 0.4 (0.0-2.0) % Neut # (Auto) 6.3 (1.8-7.7) th/mm3 Lymph # (Auto) 1.2 (1.0-4.8) th/mm3 [place] # (Auto) 1.2 H (0.0-0.9) th/mm3 Eos # (Auto) 0.0 (0.0-0.4) th/mm3 Baso # (Auto) 0.0 (0.0-0.2) th/mm3 WBC Differential . Differential Comment Auto diff final Puncture Site Patient Temperature O2 Saturation (90-100) % ABG pH (7.380-7.420) ABG pCO2 (38-42) mmHg ABG pO2 (61-120) mmHg ABG HCO3 (22-26) mmol/L ABG O2 Content (12.0-20.0) Vol % ABG Base Excess (-2-2) mmol/L ABG Methemoglobin (0-2) % Ken Test Hemoglobin (12.0-16.0) G/DL Carboxyhemoglobin (0-4) % O2 Delivery Device Vent Setting Inspired O2 % Critical Value Sodium 122 L* (136-145) meq/L Potassium 3.9 (3.5-5.1) meq/L Chloride 86 L (98-107) meq/L Carbon Dioxide 23.6 (21.0-32.0) meq/L Anion Gap 12 (5-15) meq/L BUN 6 L (7-18) mg/dL Creatinine 0.44 L (0.60-1.30) mg/dL Estimated GFR Greater than 89 (>89) mL/min Random Glucose 129 H (74-106) mg/dL Calcium 8.2 L (8.5-10.1) mg/dL Phosphorus (2.5-4.9) mg/dL Magnesium (1.5-2.5) mg/dL Total Bilirubin 0.7 (0.2-1.0) mg/dL AST 19 (15-37) U/L ALT 21 (12-78) U/L Alkaline Phosphatase 83 (45-117) U/L Troponin I Less than 0.02 L (0.02-0.05) ng/mL B-Natriuretic Peptide 104 H (0-100) pg/mL Total Protein 7.5 (6.4-8.2) g/dL Albumin 3.7 (3.4-5.0) g/dL 03/31/18 04/01/18 04/01/18 Range/Units 23:39 12:12 12:12 WBC 3.3 L D (4.0-11.0) th/mm3 RBC 3.21 L (4.50-5.90) mil/mm3 Hgb 11.7 L (13.0-17.0) gm/dL Hct 34.1 L (39.0-51.0) % MCV 106.2 H (80.0-100.0) fL MCH 36.4 H (27.0-34.0) pg MCHC 34.2 (32.0-36.0) % RDW 15.4 (11.6-17.2) % Plt Count 148 L (150-450) th/mm3 MPV 9.0 (7.0-11.0) fL Neut % (Auto) 88.4 H (16.0-70.0) % Lymph % (Auto) 8.6 L (9.0-44.0) % [place] % (Auto) 2.9 (0.0-8.0) % Eos % (Auto) 0.0 (0.0-4.0) % Baso % (Auto) 0.1 (0.0-2.0) % Neut # (Auto) 2.9 (1.8-7.7) th/mm3 Lymph # (Auto) 0.3 L (1.0-4.8) th/mm3 [place] # (Auto) 0.1 (0.0-0.9) th/mm3 Eos # (Auto) 0.0 (0.0-0.4) th/mm3 Baso # (Auto) 0.0 (0.0-0.2) th/mm3 WBC Differential . Differential Comment Auto diff final Puncture Site Left radial Patient Temperature 98.6 O2 Saturation 97 (90-100) % ABG pH 7.36 L (7.380-7.420) ABG pCO2 46 H (38-42) mmHg ABG pO2 246 H (61-120) mmHg ABG HCO3 25 (22-26) mmol/L ABG O2 Content 15.2 (12.0-20.0) Vol % ABG Base Excess 0.7 (-2-2) mmol/L ABG Methemoglobin 0.5 (0-2) % Ken Test Present Hemoglobin 10.7 L (12.0-16.0) G/DL Carboxyhemoglobin 2.7 (0-4) % O2 Delivery Device Bipap Vent Setting Ipap=15 epap=7 Inspired O2 50 % Critical Value No Sodium 127 L (136-145) meq/L Potassium 4.2 (3.5-5.1) meq/L Chloride 98 D (98-107) meq/L Carbon Dioxide 29.0 (21.0-32.0) meq/L Anion Gap 0 L (5-15) meq/L BUN 8 (7-18) mg/dL Creatinine 0.41 L (0.60-1.30) mg/dL Estimated GFR Greater than 89 (>89) mL/min Random Glucose 134 H (74-106) mg/dL Calcium 7.9 L (8.5-10.1) mg/dL Phosphorus (2.5-4.9) mg/dL Magnesium (1.5-2.5) mg/dL Total Bilirubin 0.5 (0.2-1.0) mg/dL AST 13 L (15-37) U/L ALT 18 (12-78) U/L Alkaline Phosphatase 71 (45-117) U/L Troponin I (0.02-0.05) ng/mL B-Natriuretic Peptide (0-100) pg/mL Total Protein 6.3 L D (6.4-8.2) g/dL Albumin 3.1 L D (3.4-5.0) g/dL 04/02/18 04/03/18 04/05/18 Range/Units 05:17 04:55 05:25 WBC 5.1 (4.0-11.0) th/mm3 RBC 3.11 L (4.50-5.90) mil/mm3 Hgb 11.5 L (13.0-17.0) gm/dL Hct 33.3 L (39.0-51.0) % MCV 107.0 H (80.0-100.0) fL MCH 36.8 H (27.0-34.0) pg MCHC 34.4 (32.0-36.0) % RDW 15.1 (11.6-17.2) % Plt Count 141 L (150-450) th/mm3 MPV 9.0 (7.0-11.0) fL Neut % (Auto) (16.0-70.0) % Lymph % (Auto) (9.0-44.0) % [place] % (Auto) (0.0-8.0) % Eos % (Auto) (0.0-4.0) % Baso % (Auto) (0.0-2.0) % Neut # (Auto) (1.8-7.7) th/mm3 Lymph # (Auto) (1.0-4.8) th/mm3 [place] # (Auto) (0.0-0.9) th/mm3 Eos # (Auto) (0.0-0.4) th/mm3 Baso # (Auto) (0.0-0.2) th/mm3 WBC Differential Differential Comment Puncture Site Patient Temperature O2 Saturation (90-100) % ABG pH (7.380-7.420) ABG pCO2 (38-42) mmHg ABG pO2 (61-120) mmHg ABG HCO3 (22-26) mmol/L ABG O2 Content (12.0-20.0) Vol % ABG Base Excess (-2-2) mmol/L ABG Methemoglobin (0-2) % Ken Test Hemoglobin (12.0-16.0) G/DL Carboxyhemoglobin (0-4) % O2 Delivery Device Vent Setting Inspired O2 % Critical Value Sodium 134 L 139 (136-145) meq/L Potassium 4.0 3.4 L (3.5-5.1) meq/L Chloride 94 L 98 (98-107) meq/L Carbon Dioxide 32.2 H 35.6 H (21.0-32.0) meq/L Anion Gap 8 5 (5-15) meq/L BUN 9 11 (7-18) mg/dL Creatinine 0.39 L 0.45 L (0.60-1.30) mg/dL Estimated GFR Greater than 89 Greater than 89 (>89) mL/min Random Glucose 136 H 139 H (74-106) mg/dL Calcium 7.7 L 8.4 L (8.5-10.1) mg/dL Phosphorus 2.4 L (2.5-4.9) mg/dL Magnesium 2.0 (1.5-2.5) mg/dL Total Bilirubin (0.2-1.0) mg/dL AST (15-37) U/L ALT (12-78) U/L Alkaline Phosphatase (45-117) U/L Troponin I (0.02-0.05) ng/mL B-Natriuretic Peptide (0-100) pg/mL Total Protein (6.4-8.2) g/dL Albumin (3.4-5.0) g/dL 04/05/18 Range/Units 05:25 WBC (4.0-11.0) th/mm3 RBC (4.50-5.90) mil/mm3 Hgb (13.0-17.0) gm/dL Hct (39.0-51.0) % MCV (80.0-100.0) fL MCH (27.0-34.0) pg MCHC (32.0-36.0) % RDW (11.6-17.2) % Plt Count (150-450) th/mm3 MPV (7.0-11.0) fL Neut % (Auto) (16.0-70.0) % Lymph % (Auto) (9.0-44.0) % [place] % (Auto) (0.0-8.0) % Eos % (Auto) (0.0-4.0) % Baso % (Auto) (0.0-2.0) % Neut # (Auto) (1.8-7.7) th/mm3 Lymph # (Auto) (1.0-4.8) th/mm3 [place] # (Auto) (0.0-0.9) th/mm3 Eos # (Auto) (0.0-0.4) th/mm3 Baso # (Auto) (0.0-0.2) th/mm3 WBC Differential Differential Comment Puncture Site Patient Temperature O2 Saturation (90-100) % ABG pH (7.380-7.420) ABG pCO2 (38-42) mmHg ABG pO2 (61-120) mmHg ABG HCO3 (22-26) mmol/L ABG O2 Content (12.0-20.0) Vol % ABG Base Excess (-2-2) mmol/L ABG Methemoglobin (0-2) % Ken Test Hemoglobin (12.0-16.0) G/DL Carboxyhemoglobin (0-4) % O2 Delivery Device Vent Setting Inspired O2 % Critical Value Sodium 137 (136-145) meq/L Potassium 3.2 L (3.5-5.1) meq/L Chloride 92 L (98-107) meq/L Carbon Dioxide 39.2 H (21.0-32.0) meq/L Anion Gap 6 (5-15) meq/L BUN 9 (7-18) mg/dL Creatinine 0.45 L (0.60-1.30) mg/dL Estimated GFR Greater than 89 (>89) mL/min Random Glucose 127 H (74-106) mg/dL Calcium 7.7 L (8.5-10.1) mg/dL Phosphorus (2.5-4.9) mg/dL Magnesium (1.5-2.5) mg/dL Total Bilirubin (0.2-1.0) mg/dL AST (15-37) U/L ALT (12-78) U/L Alkaline Phosphatase (45-117) U/L Troponin I (0.02-0.05) ng/mL B-Natriuretic Peptide (0-100) pg/mL Total Protein (6.4-8.2) g/dL Albumin (3.4-5.0) g/dL Imaging Data Radiologist's impression: Chest X-Ray 03/31/18 22:05 CONCLUSION: No acute cardiopulmonary disease demonstrated. Stable COPD changes. Discharge Plan Discharge Disposition Patient Disposition: 30 Still Patient Discharge Condition Condition: Good Discharge Order Discharge Orders: Discharge Order (Routine); Ordered 04/05/18 Ordered By: Carolina Daily Physicians Team ED Provider: Nirmal Jackson Primary Care Provider: Primary Care Gissell Sebastian Attending Provider: Carolina Daily Other Providers: [facility],Agency Discharge Interventions Interventions: ED Discharge Assessment Last Done: 04/01/18 02:33 Status ED Status: Left Department Discharge Information Discharge Date/Time: 04/01/18 03:20
[2018-03-31 22:25] LABS: Baso % (Auto) 0.4 % (0.0-2.0); Eos % (Auto) 0.1 % (0.0-4.0); Hematocrit 37.9 % (39.0-51.0); Hemoglobin 13.2 gm/dL (13.0-17.0); Lymph # (Auto) 1.2 th/mm3 (1.0-4.8); Lymph % (Auto) 13.7 % (9.0-44.0); Mean Corpuscular HGB Conc 34.9 % (32.0-36.0); Mean Corpuscular Hemoglobin 36.8 pg (27.0-34.0); Mean Corpuscular Volume 105.3 fL (80.0-100.0); Mean Platelet Volume 9.3 fL (7.0-11.0); Mono # (Auto) 1.2 th/mm3 (0.0-0.9); Mono % (Auto) 13.5 % (0.0-8.0); Neut # (Auto) 6.3 th/mm3 (1.8-7.7); Neut % (Auto) 72.3 % (16.0-70.0); Platelet Count 173 th/mm3 (150-450); Red Cell Distribution Width 15.3 % (11.6-17.2); White Blood Count 8.8 th/mm3 (4.0-11.0)
--- NOTE | 2018-03-31 22:38 | XR ---
EXAM DATE: 03/31/2018 10:05 PM EDT AGE/SEX: 62 years / Male INDICATIONS: Short of breath. CLINICAL DATA: This is the patient's initial encounter. Patient reports that signs and symptoms have been present for 1 day and indicates a pain score of 0/10. MEDICAL/SURGICAL HISTORY: . Hypertension. Chronic obstructive pulmonary disease None. COMPARISON: [facility] – [place] 2V PA&LAT, 03/14/2018. . FINDINGS: Lungs are hyperexpanded and have mild scarring and mild chronic interstitial changes. No acute infilt rate seen. No pleural effusion or pneumothorax. Heart size stable, within normal limits. CONCLUSION: No acute cardiopulmonary disease demonstrated. Stable COPD changes. Electronically signed by: Hernandez Nguyen MD 03/31/2018 10:37 PM EDT
[2018-03-31 23:05] LABS: Alanine Aminotransferase 21 U/L (12-78); Albumin 3.7 g/dL (3.4-5.0); Alkaline Phosphatase 83 U/L (45-117); Anion Gap 12 meq/L (5-15); Aspartate Aminotransferase 19 U/L (15-37); Blood Urea Nitrogen 6 mg/dL (7-18); Calcium 8.2 mg/dL (8.5-10.1); Carbon Dioxide 23.6 meq/L (21.0-32.0); Chloride 86 meq/L (98-107); Glomerular Filtration Rate Greater Than 89 mL/min (>89); Glucose,Random 129 mg/dL (74-106); Potassium 3.9 meq/L (3.5-5.1); Total Protein 7.5 g/dL (6.4-8.2)
[2018-03-31 23:12] LABS: Sodium 122 meq/L (136-145)
[2018-03-31] MEDS: Sod Chloride 0.9% Inj 1,000 ML IV.CONT SCH (23:27)
[2018-03-31] MEDS ORDERED: Bisacodyl 10 MG Supp RECTAL PRN (23:34)
[2018-03-31] MEDS ORDERED: Acetaminophen 325 MG Tablet PO PRN (23:34)
--- NOTE | 2018-03-31 23:35 | P.HPIM ---
History of Present Illness Primary Care Physician: No Primary Care Physician History of Present Illness: This is a 62-year-old Homeless male with a PMH of HTN, COPD, Alcohol Abuse and Tobacco Abuse who was brought to the ER by EMS for COPD and respiratory distress. Pt noted to have O2 sat 80% on RA, placed on CPAP by EMS w/ some improvement, however pt became agitated/combative, refusing CPAP, s/p Ativan on arrival w/ improvement, currently on BIPAP. Denies fever or chills. Reports non-productive cough x2-3 days w/ worsening SOB. On arrival, BP 181/110, HR 128 , O2 sat 100% on BiPAP 50% FiO2, Temp 100.4. CBC essentially unremarkable. Na 122. Troponin negative. CXR with no acute findings. - Diagnosis (1) COPD (chronic obstructive pulmonary disease) (2) Alcohol abuse (3) Hyponatremia Review of Systems PAST FAMILY HISTORY: Reviewed. No h/o DM or CAD All other systems reviewed negative except as stated in HPI PMFSH - History History Provided By: Water Inspector / EMT - Medical History Medical History: Medical History (Last Reviewed 03/20/18 @ 10:29 by Angelita Kimbrough) Generalized weakness (Acute) COPD (chronic obstructive pulmonary disease) (Acute) Anemia (Acute) Thrombocytopenia concurrent with and due to alcoholism (Acute) Noncompliance (Acute) Tobacco abuse (Acute) Alcohol abuse (Acute) Homeless (Acute) Alcohol related seizure (Acute) - Surgical History Surgical History: Surgical History (Last Reviewed 03/20/18 @ 10:29 by Angelita Kimbrough) History of right hip replacement (Acute) - Family History Family History: Family History (Last Reviewed 03/19/18 @ 07:07 by Kelle Flores) Other Family history of hypertension - Tobacco History Second Hand Smoke Exposure: Yes Tobacco Use In Past 30 Days: Yes Smoking Status: Heavy tobacco smoker Tobacco Type: Cigarettes Packs Per Day: 1 - Alcohol History How Often Do You Have a Drink Containing Alcohol: 2 to 3 times a week - Substance Use History Substance History: No History of Abuse - Travel History History of Recent Travel: No Recent Travel in the [place] Within the Last 8 Weeks: No Recent Travel Out of the Country Within the Last 8 Weeks: No - Immunization History Tetanus Immunization: >5 Years Medications and Allergies Active Medications: Active Medications Albuterol (Duoneb Neb (Sat[place]ino)) 1 ampul NEB Q4HR WHILE AWAKE NEB [facility] Albuterol (Duoneb Neb (Prn)) 1 ampul NEB Q2HR NEB PRN PRN Reason: SOB/WHEEZING Budesonide/Formoterol Fumarate (Symbicort 160/4.5 Mcg Inh) 2 puff INH BID [facility] Flumazenil (Romazecon Inj) 0.2 mg IV.PUSH Q1M PRN PRN Reason: OVERSEDATION Guaifenesin (Mucinex Er) 600 mg PO BID [facility] Levofloxacin/Dextrose (Levaquin 750 Mg Premix Inj) 150 mls @ 100 mls/hr IV.SIG ONCE ONE Stop: 04/01/18 00:12 Last Admin: 03/31/18 23:00 Dose: 100 mls/hr Sodium Chloride (Ns Inj) 1,000 mls @ 125 mls/hr IV.CONT .Q8H SATURNINO Last Admin: 03/31/18 23:27 Dose: 125 mls/hr Lorazepam (Ativan Inj) 1 mg IV.PUSH Q4H PRN PRN Reason: for CIWA 8-10 Lorazepam (Ativan Inj) 2 mg IV.PUSH Q15M PRN PRN Reason: for CIWA > 20 Lorazepam (Ativan Inj) 2 mg IV.PUSH Q1H PRN PRN Reason: for CIWA 15-20 Lorazepam (Ativan Inj) 2 mg IV.PUSH Q2H PRN PRN Reason: for CIWA 11-14 Lorazepam (Ativan) 1 mg PO Q4H PRN PRN Reason: for CIWA 8-10 Lorazepam (Ativan) 2 mg PO Q2H PRN PRN Reason: for CIWA 11-14 Methylprednisolone Sodium Succinate (Solumedrol Inj) 40 mg IV.PUSH Q6H [facility] Allergies Allergy/AdvReac Type Severity Reaction Status Date / Time No Known Allergies Allergy Unverified 02/19/18 19:30 Home Medications Medication Instructions Recorded Confirmed Type No Known Home Medications 03/05/18 03/31/18 History Exam Vital signs: Vital Signs 03/31/18 22:00 03/31/18 22:08 Temperature 100.4 F H Pulse Rate 128 H Respiratory Rate 25 H Blood Pressure 181/110 H Pulse Oximetry 100 100 Intake & Output 10/05/18 10/05/18 10/06/18 06:59 18:59 06:59 Weight 56.699 kg Narrative: PE: GENERAL: Middle-aged white male in no acute distress. On BIPAP, +intermittent cough SKIN: Focused skin assessment warm and dry. HEENT: PERRLA, EOMI. No scleral icterus or conjunctival pallor. No lid lag or facial droop. CARDIOVASCULAR: Regular rate and rhythm. No obvious murmurs to auscultation. No chest tenderness to palpation. RESPIRATORY: No obvious rhonchi. Occasional wheezing. Clear to auscultation. Breath sounds equal bilaterally. GASTROINTESTINAL: Abdomen soft, non-tender, nondistended. BS normal. MUSCULOSKELETAL: Extremities without clubbing, cyanosis, or edema. No obvious deformities. NEUROLOGICAL: Awake, alert and oriented x4. No focal neurologic deficits. Moving both upper and lower extremities spontaneously. PSYCHIATRIC: Appropriate mood and affect. Insight and judgment normal. Results - Labs CBC & Chem 7: 03/31/18 22:13 03/31/18 22:13 Labs: Short CBC 03/31/18 Range/Units 22:13 WBC 8.8 (4.0-11.0) th/mm3 Hgb 13.2 (13.0-17.0) gm/dL Hct 37.9 L (39.0-51.0) % Plt Count 173 (150-450) th/mm3 BMP 03/31/18 22:13 Sodium 122 L* Potassium 3.9 Chloride 86 L Carbon Dioxide 23.6 BUN 6 L Creatinine 0.44 L Calcium 8.2 L Cardiac Enzymes 03/31/18 Range/Units 22:13 Troponin I Less than 0.02 L (0.02-0.05) ng/mL Liver Function 03/31/18 Range/Units 22:13 Total Bilirubin 0.7 (0.2-1.0) mg/dL AST 19 (15-37) U/L ALT 21 (12-78) U/L Alkaline Phosphatase 83 (45-117) U/L Albumin 3.7 (3.4-5.0) g/dL - Imaging Impressions Chest X-Ray 03/31/18 22:05 CONCLUSION: No acute cardiopulmonary disease demonstrated. Stable COPD changes. Caprini VTE Risk Assessment Caprini VTE Risk Assessment: No/Low Risk (score <= 1) Caprini Risk Assessment Model: Point Value = 1 Point Value = 2 Point Value = 3 Point Value = 5 Age 41-60 Minor surgery BMI > 25 kg/m2 Swollen legs Varicose veins or History of unexplained or recurrent spontaneous Oral contraceptives or hormone replacement Sepsis (< 1 month) Serious lung disease, including pneumonia (< 1 month) Abnormal pulmonary function Acute myocardial infarction Congestive heart failure (< 1 month) History of inflammatory bowel disease Medical patient at bed rest Age 61-74 Arthroscopic surgery Major open surgery (> 45 min) Laparoscopic surgery (> 45 min) Malignancy Confined to bed (> 72 hours) Immobilizing plaster cast Central venous access Age >= 75 History of VTE Family history of VTE Factor V Leiden Prothrombin [id number] Lupus anticoagulant Anticardiolipin antibodies Elevated serum homocysteine Heparin-induced thrombocytopenia Other congenital or acquired thrombophilia Stroke (< 1 month) Elective arthroplasty Hip, pelvis, or leg fracture Acute spinal cord injury (< 1 month) Prophylaxis Regimen: Total Risk Factor Score Risk Level Prophylaxis Regimen 0-1 Low Early ambulation 2 Moderate Order ONE of the following: *Sequential Compression Device (SCD) *Heparin 5000 units SQ BID 3-4 Higher Order ONE of the following medications: *Heparin 5000 units SQ TID *Enoxaparin/Lovenox 40 mg SQ daily (WT < 150 kg, CrCl > 30 mL/min) *Enoxaparin/Lovenox 30 mg SQ daily (WT < 150 kg, CrCl > 10-29 mL/min) *Enoxaparin/Lovenox 30 mg SQ BID (WT < 150 kg, CrCl > 30 mL/min) AND/OR *Sequential Compression Device (SCD) 5 or more Highest Order ONE of the following medications: *Heparin 5000 units SQ TID (Preferred with Epidurals) *Enoxaparin/Lovenox 40 mg SQ daily (WT < 150 kg, CrCl > 30 mL/min) *Enoxaparin/Lovenox 30 mg SQ daily (WT < 150 kg, CrCl > 10-29 mL/min) *Enoxaparin/Lovenox 30 mg SQ BID (WT < 150 kg, CrCl > 30 mL/min) AND *Sequential Compression Device (SCD) Assessment and Plan - Assessment (1) COPD (chronic obstructive pulmonary disease) Code(s): J44.9 - Chronic obstructive pulmonary disease, unspecified Status: Acute (2) Alcohol abuse Code(s): F10.10 - Alcohol abuse, uncomplicated Status: Chronic (3) Hyponatremia Code(s): E87.1 - Hypo-osmolality and hyponatremia Status: Acute - Plan A/P: 1. COPD: Chronic Respiratory Failure w/ Acute Exacerbation and Respiratory Failure. Severe. On BIPAP for significantly increased work of breathing and Hypoxia w/ O2 sat 80% on RA. Check ABG. CXR w/ no acute infiltrate, however + temp and +cough, will continue w/ Levaquin for empiric tx of underlying PNA. Solu-Medrol, DuoNeb, Symbicort, Mucinex. 2. Alcohol Abuse: CIWA, Seizure Precautions, MVT/Thiamine/Folate replacement. 3. Hyponatremia: Na 122, likely due to chronic alcohol abuse and acute dehydration from respiratory losses, IVF, repeat labs in am. 4. DVT Prophylaxis: SCD/Teds 5. Social work for d/c planning as needed. 6. Case discussed w/ ER physician at length, labs/records/imaging reviewed by me.
[2018-04-01 00:05] LABS: ABG Base Excess 0.7 mmol/L (-2-2); ABG PCO2 46 mmHg (38-42); ABG PO2 246 mmHg (61-120)
[2018-04-01] MEDS ORDERED: Sodium Chloride 0.9% 2 ML Flush PRN IV.FLUSH (00:21)
[2018-04-01] MEDS: MethylPREDNISolone Sod Succinate Inj 40 MG/ML Vial IV.PUSH SCH ×4 (01:09→17:28)
[2018-04-01] MEDS: Sod Chloride 0.9% Inj 1,000 ML IV.CONT SCH (06:35)
[2018-04-01] MEDS: guaiFENesin 600 MG ER Tablet PO SCH ×2 (09:17→21:34)
[2018-04-01] MEDS: Senna/Docusate Sodium 8.6/50 MG Tablet PO SCH ×2 (09:17→21:34)
[2018-04-01] MEDS: Sodium Chloride 0.9% 2 ML Flush BID IV.FLUSH SCH ×2 (09:17→21:34)
[2018-04-01] MEDS: Budesonide-Formoterol 160/4.5 MCG 6 GM Inhaler INH SCH ×2 (09:17→22:01)
[2018-04-01] MEDS: LORazepam 1 MG Tablet PO PRN ×3 (09:19→17:28)
[2018-04-01 13:01] LABS: Baso % (Auto) 0.1 % (0.0-2.0); Hematocrit 34.1 % (39.0-51.0); Hemoglobin 11.7 gm/dL (13.0-17.0); Lymph # (Auto) 0.3 th/mm3 (1.0-4.8); Lymph % (Auto) 8.6 % (9.0-44.0); Mean Corpuscular HGB Conc 34.2 % (32.0-36.0); Mean Corpuscular Hemoglobin 36.4 pg (27.0-34.0); Mean Corpuscular Volume 106.2 fL (80.0-100.0); Mono # (Auto) 0.1 th/mm3 (0.0-0.9); Mono % (Auto) 2.9 % (0.0-8.0); Neut # (Auto) 2.9 th/mm3 (1.8-7.7); Neut % (Auto) 88.4 % (16.0-70.0); Platelet Count 148 th/mm3 (150-450); Red Blood Count 3.21 mil/mm3 (4.50-5.90); Red Cell Distribution Width 15.4 % (11.6-17.2); White Blood Count 3.3 th/mm3 (4.0-11.0)
--- NOTE | 2018-04-01 13:11 | P.PNIM ---
Subjective Interval history: The patient was on BiPAP. He said that he was trying to quit drinking and smoking. He said he felt a little shaky. Does not have much of an appetite. No acute complaints at this time. Physical Exam Vital signs: Vital Signs 03/31/18 22:00 03/31/18 22:08 03/31/18 23:25 Temperature 100.4 F H Pulse Rate 128 H Respiratory Rate 25 H Blood Pressure 181/110 H Pulse Oximetry 100 100 100 03/31/18 23:50 04/01/18 01:33 04/01/18 01:42 Temperature Pulse Rate 100 H 100 H Respiratory Rate 18 18 Blood Pressure 134/83 134/83 Pulse Oximetry 100 97 97 04/01/18 01:52 04/01/18 02:10 04/01/18 04:00 Temperature 99 F Pulse Rate 92 H Respiratory Rate 18 Blood Pressure 102/66 Pulse Oximetry 95 95 98 04/01/18 05:00 04/01/18 06:00 04/01/18 06:03 Temperature Pulse Rate 95 H 89 89 Respiratory Rate Blood Pressure Pulse Oximetry 04/01/18 07:03 04/01/18 07:44 04/01/18 07:47 Temperature Pulse Rate 90 89 Respiratory Rate 25 H Blood Pressure Pulse Oximetry 98 04/01/18 07:55 04/01/18 08:00 04/01/18 09:00 Temperature 98.9 F Pulse Rate 85 82 Respiratory Rate 20 Blood Pressure 134/87 Pulse Oximetry 99 99 04/01/18 10:00 04/01/18 10:19 04/01/18 12:00 Temperature 98.7 F Pulse Rate 100 H 105 H 99 H Respiratory Rate 22 Blood Pressure 140/87 Pulse Oximetry 100 04/01/18 12:32 04/01/18 12:34 Temperature Pulse Rate 79 102 H Respiratory Rate 25 H Blood Pressure Pulse Oximetry Intake & Output 03/31/18 04/01/18 04/01/18 18:59 06:59 18:59 Intake Total 2149 Balance 2149 Weight 52.1 kg Intake: IV 2149 NS Inj 1,000 ML @ 125 mls/hr IV 1000 / 1000 .CONT .Q8H AGATA Rx#:[id number] Levaquin 750 mg Premix Inj 150 150 / 150 ML @ 100 mls/hr IV.SIG ONCE ONE Rx#:[id number] NS Inj 500 ML @ Wide Open IV. 1000 / 1000 SIG BOLUS ONE Rx#:[id number] Other: # Voids 1 Date of Last Bowel Movement 04/01/18 # Bowel Movements 0 Narrative: GENERAL: On BIPAP, no distress. SKIN: Focused skin assessment warm and dry. HEENT: PERRLA, EOMI. No scleral icterus or conjunctival pallor. No lid lag or facial droop. CARDIOVASCULAR: Regular rate and rhythm. No obvious murmurs to auscultation. RESPIRATORY: No obvious rhonchi. Occasional wheezing. GASTROINTESTINAL: Abdomen soft, non-tender, nondistended. BS normal. MUSCULOSKELETAL: Extremities without clubbing, cyanosis, or edema. No obvious deformities. NEUROLOGICAL: Awake, alert and oriented x4. No focal neurologic deficits. Moving both upper and lower extremities spontaneously. Results - Labs CBC & Chem 7: 04/01/18 12:12 04/01/18 12:12 Laboratory Results - last 24 hr 03/31/18 03/31/18 03/31/18 22:13 22:13 22:13 WBC 8.8 RBC 3.60 L Hgb 13.2 Hct 37.9 L MCV 105.3 H MCH 36.8 H MCHC 34.9 RDW 15.3 Plt Count 173 MPV 9.3 Neut % (Auto) 72.3 H Lymph % (Auto) 13.7 [place] % (Auto) 13.5 H Eos % (Auto) 0.1 Baso % (Auto) 0.4 Neut # (Auto) 6.3 Lymph # (Auto) 1.2 [place] # (Auto) 1.2 H Eos # (Auto) 0.0 Baso # (Auto) 0.0 WBC Differential . Differential Comment Auto diff final Puncture Site Patient Temperature O2 Saturation ABG pH ABG pCO2 ABG pO2 ABG HCO3 ABG O2 Content ABG Base Excess ABG Methemoglobin Ken Test Hemoglobin Carboxyhemoglobin O2 Delivery Device Vent Setting Inspired O2 Critical Value Sodium 122 L* Potassium 3.9 Chloride 86 L Carbon Dioxide 23.6 Anion Gap 12 BUN 6 L Creatinine 0.44 L Estimated GFR Greater than 89 Random Glucose 129 H Calcium 8.2 L Total Bilirubin 0.7 AST 19 ALT 21 Alkaline Phosphatase 83 Troponin I Less than 0.02 L B-Natriuretic Peptide 104 H Total Protein 7.5 Albumin 3.7 03/31/18 04/01/18 23:39 12:12 WBC 3.3 L D RBC 3.21 L Hgb 11.7 L Hct 34.1 L MCV 106.2 H MCH 36.4 H MCHC 34.2 RDW 15.4 Plt Count 148 L MPV 9.0 Neut % (Auto) 88.4 H Lymph % (Auto) 8.6 L [place] % (Auto) 2.9 Eos % (Auto) 0.0 Baso % (Auto) 0.1 Neut # (Auto) 2.9 Lymph # (Auto) 0.3 L [place] # (Auto) 0.1 Eos # (Auto) 0.0 Baso # (Auto) 0.0 WBC Differential . Differential Comment Auto diff final Puncture Site Left radial Patient Temperature 98.6 O2 Saturation 97 ABG pH 7.36 L ABG pCO2 46 H ABG pO2 246 H ABG HCO3 25 ABG O2 Content 15.2 ABG Base Excess 0.7 ABG Methemoglobin 0.5 Ken Test Present Hemoglobin 10.7 L Carboxyhemoglobin 2.7 O2 Delivery Device Bipap Vent Setting Ipap=15 epap=7 Inspired O2 50 Critical Value No Sodium Potassium Chloride Carbon Dioxide Anion Gap BUN Creatinine Estimated GFR Random Glucose Calcium Total Bilirubin AST ALT Alkaline Phosphatase Troponin I B-Natriuretic Peptide Total Protein Albumin - Imaging Impressions Chest X-Ray 03/31/18 22:05 CONCLUSION: No acute cardiopulmonary disease demonstrated. Stable COPD changes. Assessment and Plan - Assessment (1) COPD (chronic obstructive pulmonary disease) Code(s): J44.9 - Chronic obstructive pulmonary disease, unspecified Status: Acute (2) Alcohol abuse Code(s): F10.10 - Alcohol abuse, uncomplicated Status: Chronic (3) Hyponatremia Code(s): E87.1 - Hypo-osmolality and hyponatremia Status: Acute - Plan Chronic Respiratory Failure w/ Acute Exacerbation and Respiratory Failure On BIPAP for significantly increased work of breathing and Hypoxia w/ O2 sat 80 % on RA. CXR w/ no acute infiltrates. -will continue w/ Levaquin. -Solu-Medrol. -DuoNeb, Symbicort, Mucinex. -smoking cessation instruction. -incentive spirometry. -PT eval. Alcohol Abuse Ongoing. -CIWA protocol. -Seizure Precautions. -MVT/Thiamine/Folate replacement. Hyponatremia Likely hypovolemic. Na 122 on admission. Improved to 127 with fluids. -d/c IVFs at this time and place on fluid restriction. -follow BMP. Check mg and phos levels. DVT Prophylaxis: SCD/Teds
--- NOTE | 2018-04-01 13:12 | ECG ---
Date Performed: 03/31/2018 Time Performed: 22:06:48 PTAGE: 62 years EKG: ATRIAL FLUTTER/TACHYCARDIA WITH RAPID VENTRICULAR RESPONSE LEFT POSTERIOR FASCICULAR BLOCK ABNORMAL ECG NO PREVIOUS TRACING DOCTOR: Sergey Knox Interpretating Date/Time 04/01/2018 13:08:39
[2018-04-01 13:25] LABS: Alanine Aminotransferase 18 U/L (12-78); Albumin 3.1 g/dL (3.4-5.0); Alkaline Phosphatase 71 U/L (45-117); Anion Gap 0 meq/L (5-15); Aspartate Aminotransferase 13 U/L (15-37); Blood Urea Nitrogen 8 mg/dL (7-18); Calcium 7.9 mg/dL (8.5-10.1); Chloride 98 meq/L (98-107); Glomerular Filtration Rate Greater Than 89 mL/min (>89); Glucose,Random 134 mg/dL (74-106); Potassium 4.2 meq/L (3.5-5.1); Sodium 127 meq/L (136-145); Total Protein 6.3 g/dL (6.4-8.2)
[2018-04-02] MEDS: MethylPREDNISolone Sod Succinate Inj 40 MG/ML Vial IV.PUSH SCH ×4 (00:01→17:01)
[2018-04-02] MEDS: LORazepam 1 MG Tablet PO PRN ×4 (00:52→15:29)
[2018-04-02 07:35] LABS: Phosphorus 2.4 mg/dL (2.5-4.9)
[2018-04-02 07:39] LABS: Anion Gap 8 meq/L (5-15); Blood Urea Nitrogen 9 mg/dL (7-18); Calcium 7.7 mg/dL (8.5-10.1); Carbon Dioxide 32.2 meq/L (21.0-32.0); Chloride 94 meq/L (98-107); Glomerular Filtration Rate Greater Than 89 mL/min (>89); Glucose,Random 136 mg/dL (74-106); Sodium 134 meq/L (136-145)
[2018-04-02] MEDS: Sodium Chloride 0.9% 2 ML Flush BID IV.FLUSH SCH ×2 (08:41→20:26)
[2018-04-02] MEDS: guaiFENesin 600 MG ER Tablet PO SCH ×2 (08:41→20:26)
[2018-04-02] MEDS: Budesonide-Formoterol 160/4.5 MCG 6 GM Inhaler INH SCH ×2 (08:42→20:30)
[2018-04-02] MEDS: Senna/Docusate Sodium 8.6/50 MG Tablet PO SCH ×2 (08:42→20:26)
--- NOTE | 2018-04-02 09:44 | P.PNIM ---
Subjective Interval history: The patient was resting comfortably in bed. He said that he was a [facility] in the past and would be interested in looking into that again. He wants his lungs to be better and is trying to quit smoking cigarettes. Discussed with nursing. Physical Exam Vital signs: Vital Signs 04/01/18 10:00 04/01/18 10:19 04/01/18 12:00 Temperature 98.7 F Pulse Rate 100 H 105 H 99 H Respiratory Rate 22 Blood Pressure 140/87 Pulse Oximetry 100 04/01/18 12:32 04/01/18 12:34 04/01/18 14:00 Temperature Pulse Rate 79 102 H 104 H Respiratory Rate 25 H Blood Pressure Pulse Oximetry 04/01/18 15:00 04/01/18 16:00 04/01/18 16:29 Temperature 98.6 F Pulse Rate 98 H 108 H 80 Respiratory Rate 20 23 Blood Pressure 151/87 H Pulse Oximetry 97 04/01/18 16:42 04/01/18 18:00 04/01/18 19:00 Temperature Pulse Rate 102 H 114 H 116 H Respiratory Rate Blood Pressure Pulse Oximetry 04/01/18 19:53 04/01/18 20:00 04/01/18 21:00 Temperature 98.4 F Pulse Rate 102 H 110 H 112 H Respiratory Rate 16 20 Blood Pressure 136/80 Pulse Oximetry 97 99 04/01/18 22:00 04/01/18 23:00 04/02/18 00:00 Temperature 97.6 F Pulse Rate 96 H 102 H 106 H Respiratory Rate 20 Blood Pressure 142/86 H Pulse Oximetry 98 04/02/18 00:26 04/02/18 00:46 04/02/18 01:00 Temperature Pulse Rate 88 88 Respiratory Rate 20 Blood Pressure Pulse Oximetry 96 04/02/18 02:00 04/02/18 03:00 04/02/18 04:00 Temperature 97.4 F L Pulse Rate 90 89 92 H Respiratory Rate 20 Blood Pressure 149/86 H Pulse Oximetry 100 04/02/18 07:00 04/02/18 08:00 04/02/18 09:00 Temperature 97.7 F Pulse Rate 85 87 111 H Respiratory Rate 20 Blood Pressure 154/94 H Pulse Oximetry 99 04/02/18 09:29 Temperature Pulse Rate 97 H Respiratory Rate 15 Blood Pressure Pulse Oximetry 98 Intake & Output 04/01/18 04/02/18 04/02/18 18:59 06:59 18:59 Intake Total 1720 / 1720 390 / 390 Output Total 550 / 550 1050 / 1050 Balance 1170 / 1170 -660 / -660 Weight 50 kg Intake: IV 1000 / 1000 150 / 150 NS Inj 1,000 ML @ 125 mls/hr IV 1000 / 1000 .CONT .Q8H [facility] Rx#:[id number] Levaquin 750 mg Premix Inj 150 150 / 150 ML @ 100 mls/hr IV.SIG Q24H [facility]ATA Rx#:[id number] Oral 720 / 720 240 / 240 Output: Urine 550 / 550 1050 / 1050 Other: Date of Last Bowel Movement 04/01/18 04/01/18 04/02/18 # Bowel Movements 2 Narrative: GENERAL: No distress. SKIN: Focused skin assessment warm and dry. HEENT: PERRLA, EOMI. No scleral icterus or conjunctival pallor. No lid lag or facial droop. CARDIOVASCULAR: Regular rate and rhythm. No obvious murmurs to auscultation. RESPIRATORY: Diffuse wheezing. GASTROINTESTINAL: Abdomen soft, non-tender, nondistended. BS normal. MUSCULOSKELETAL: Extremities without clubbing, cyanosis, or edema. No obvious deformities. NEUROLOGICAL: Awake, alert and oriented x4. No focal neurologic deficits. Moving both upper and lower extremities spontaneously. Results - Labs CBC & Chem 7: 04/01/18 12:12 04/02/18 05:17 Laboratory Results - last 24 hr 04/01/18 04/01/18 04/02/18 12:12 12:12 05:17 WBC 3.3 L D RBC 3.21 L Hgb 11.7 L Hct 34.1 L MCV 106.2 H MCH 36.4 H MCHC 34.2 RDW 15.4 Plt Count 148 L MPV 9.0 Neut % (Auto) 88.4 H Lymph % (Auto) 8.6 L [place] % (Auto) 2.9 Eos % (Auto) 0.0 Baso % (Auto) 0.1 Neut # (Auto) 2.9 Lymph # (Auto) 0.3 L [place] # (Auto) 0.1 Eos # (Auto) 0.0 Baso # (Auto) 0.0 WBC Differential . Differential Comment Auto diff final Sodium 127 L 134 L Potassium 4.2 4.0 Chloride 98 D 94 L Carbon Dioxide 29.0 32.2 H Anion Gap 0 L 8 BUN 8 9 Creatinine 0.41 L 0.39 L Estimated GFR Greater than 89 Greater than 89 Random Glucose 134 H 136 H Calcium 7.9 L 7.7 L Phosphorus 2.4 L Magnesium 2.0 Total Bilirubin 0.5 AST 13 L ALT 18 Alkaline Phosphatase 71 Total Protein 6.3 L D Albumin 3.1 L D Assessment and Plan - Assessment (1) COPD (chronic obstructive pulmonary disease) Code(s): J44.9 - Chronic obstructive pulmonary disease, unspecified Status: Acute (2) Alcohol abuse Code(s): F10.10 - Alcohol abuse, uncomplicated Status: Chronic (3) Hyponatremia Code(s): E87.1 - Hypo-osmolality and hyponatremia Status: Acute - Plan Chronic Respiratory Failure w/ Acute Exacerbation and Respiratory Failure On BIPAP for significantly increased work of breathing and Hypoxia w/ O2 sat 80 % on RA. CXR w/ no acute infiltrates. -will continue w/ Levaquin IV. -Solu-Medrol IV. -DuoNeb, Symbicort, Mucinex. -smoking cessation instruction. -incentive spirometry. -PT eval. -BiPAP as needed. Alcohol Abuse Ongoing. -CIWA protocol. -Seizure Precautions. -MVT/Thiamine/Folate replacement. -CM EtOH consult. Hyponatremia Likely hypovolemic. Na 122 on admission. Improved. -continue fluid restriction. -follow BMP. DVT Prophylaxis: SCD/Teds
--- NOTE | 2018-04-02 09:59 | ECG ---
Date Performed: 04/01/2018 Time Performed: 16:47:22 PTAGE: 62 years EKG: Sinus tachycardia. Indeterminate axis Borderline ECG PREVIOUS TRACING : 03/31/2018 22.06 DOCTOR: Sergey Knox Interpretating Date/Time 04/02/2018 09:59:10
[2018-04-02] MEDS: Sod Chloride 0.9% Inj 1,000 ML IV.SIG SCH (17:45)
[2018-04-03] MEDS: MethylPREDNISolone Sod Succinate Inj 40 MG/ML Vial IV.PUSH SCH ×4 (01:26→17:22)
[2018-04-03] MEDS: Sod Chloride 0.9% Inj 1,000 ML IV.SIG SCH ×4 (01:28→21:32)
[2018-04-03 06:57] LABS: Anion Gap 5 meq/L (5-15); Blood Urea Nitrogen 11 mg/dL (7-18); Calcium 8.4 mg/dL (8.5-10.1); Carbon Dioxide 35.6 meq/L (21.0-32.0); Chloride 98 meq/L (98-107); Glomerular Filtration Rate Greater Than 89 mL/min (>89); Glucose,Random 139 mg/dL (74-106); Potassium 3.4 meq/L (3.5-5.1); Sodium 139 meq/L (136-145)
[2018-04-03] MEDS: guaiFENesin 600 MG ER Tablet PO SCH ×2 (08:15→21:32)
[2018-04-03] MEDS: Senna/Docusate Sodium 8.6/50 MG Tablet PO SCH ×2 (08:15→21:33)
[2018-04-03] MEDS: Budesonide-Formoterol 160/4.5 MCG 6 GM Inhaler INH SCH ×2 (08:16→21:33)
[2018-04-03] MEDS: Sodium Chloride 0.9% 2 ML Flush BID IV.FLUSH SCH ×2 (08:16→21:33)
[2018-04-03] MEDS ORDERED: Potassium Chloride 25 MEQ Effervescent Tablet PO ONE (10:28)
--- NOTE | 2018-04-03 10:33 | P.PNIM ---
Subjective Interval history: The patient was sitting up in bed. He said he was still feeling shaky. He says he needs to go directly to [facility] once he leaves the hospital. No acute complaints at this time. Physical Exam Vital signs: Vital Signs 04/02/18 10:39 04/02/18 11:49 04/02/18 12:00 Temperature 98.2 F Pulse Rate 111 H 115 H 114 H Respiratory Rate 24 Blood Pressure 146/78 H Pulse Oximetry 99 04/02/18 13:00 04/02/18 13:54 04/02/18 14:24 Temperature Pulse Rate 117 H 120 H 90 Respiratory Rate 14 Blood Pressure Pulse Oximetry 04/02/18 15:00 04/02/18 15:41 04/02/18 15:44 Temperature 98.1 F Pulse Rate 118 H 124 H 117 H Respiratory Rate 22 Blood Pressure 143/81 H Pulse Oximetry 98 04/02/18 16:18 04/02/18 16:29 04/02/18 17:53 Temperature Pulse Rate 118 H 111 H 132 H Respiratory Rate 14 Blood Pressure Pulse Oximetry 04/02/18 19:00 04/02/18 19:10 04/02/18 19:14 Temperature Pulse Rate 114 H 114 H Respiratory Rate 18 Blood Pressure Pulse Oximetry 99 99 04/02/18 19:58 04/02/18 20:00 04/02/18 21:00 Temperature 98.4 F Pulse Rate 111 H 116 H Respiratory Rate 24 Blood Pressure 137/84 Pulse Oximetry 99 100 04/02/18 22:00 04/02/18 23:00 04/03/18 00:00 Temperature 98.1 F Pulse Rate 117 H 101 H 100 H Respiratory Rate 24 Blood Pressure 117/69 Pulse Oximetry 99 04/03/18 01:00 04/03/18 02:00 04/03/18 03:00 Temperature Pulse Rate 117 H 102 H 100 H Respiratory Rate Blood Pressure Pulse Oximetry 04/03/18 04:00 04/03/18 05:00 04/03/18 05:56 Temperature 98.2 F Pulse Rate 101 H 100 H 102 H Respiratory Rate 22 Blood Pressure 122/75 Pulse Oximetry 97 04/03/18 07:00 04/03/18 08:00 04/03/18 08:12 Temperature 98.4 F Pulse Rate 94 H 94 H Respiratory Rate 20 20 Blood Pressure 147/89 H Pulse Oximetry 100 98 04/03/18 09:00 Temperature Pulse Rate 105 H Respiratory Rate Blood Pressure Pulse Oximetry Intake & Output 04/02/18 04/03/18 04/03/18 18:59 06:59 18:59 Intake Total 1260 / 1260 2630 / 2630 Output Total 900 / 900 1000 / 1000 Balance 360 / 360 1630 / 1630 Weight 51.6 kg Intake: IV 2150 / 2150 Levaquin 750 mg Premix Inj 150 150 / 150 ML @ 100 mls/hr IV.SIG Q24H [facility] Rx#:[id number] NS Inj 1,000 ML @ 150 mls/hr IV 1999 / 1999 .SIG .Q6H40M AGATA Rx#:[id number] Oral 1260 / 1260 480 / 480 Output: Urine 900 / 900 1000 / 1000 Other: Date of Last Bowel Movement 04/02/18 04/02/18 04/02/18 # Bowel Movements 1 0 Narrative: GENERAL: No distress. SKIN: Focused skin assessment warm and dry. HEENT: PERRLA, EOMI. No scleral icterus or conjunctival pallor. No lid lag or facial droop. CARDIOVASCULAR: Regular rate and rhythm. No obvious murmurs to auscultation. RESPIRATORY: Diffuse wheezing, improved. GASTROINTESTINAL: Abdomen soft, non-tender, nondistended. BS normal. MUSCULOSKELETAL: Extremities without clubbing, cyanosis, or edema. No obvious deformities. NEUROLOGICAL: Awake, alert and oriented x4. No focal neurologic deficits. Moving both upper and lower extremities spontaneously. Results - Labs CBC & Chem 7: 04/01/18 12:12 04/03/18 04:55 Laboratory Results - last 24 hr 04/03/18 04:55 Sodium 139 Potassium 3.4 L Chloride 98 Carbon Dioxide 35.6 H Anion Gap 5 BUN 11 Creatinine 0.45 L Estimated GFR Greater than 89 Random Glucose 139 H Calcium 8.4 L Assessment and Plan - Assessment (1) COPD (chronic obstructive pulmonary disease) Code(s): J44.9 - Chronic obstructive pulmonary disease, unspecified Status: Acute (2) Alcohol abuse Code(s): F10.10 - Alcohol abuse, uncomplicated Status: Chronic (3) Hyponatremia Code(s): E87.1 - Hypo-osmolality and hyponatremia Status: Acute - Plan Chronic Respiratory Failure w/ Acute Exacerbation and Respiratory Failure On BIPAP for significantly increased work of breathing and Hypoxia w/ O2 sat 80 % on RA. CXR w/ no acute infiltrates. -will continue w/ Levaquin IV. -Solu-Medrol IV. -DuoNeb, Symbicort, Mucinex. -smoking cessation instruction. -incentive spirometry. -PT eval. -BiPAP as needed. Alcohol withdrawal Seems to be improving. -CIWA protocol. -Seizure precautions. -MVT/Thiamine/Folate replacement. -CM EtOH consult. -will need to go directly to [facility] following discharge. Hyponatremia Likely hypovolemic. Na 122 on admission. Improved. -continue fluid restriction. DVT Prophylaxis: SCD/Teds Discharge Planning: Hopefully discharge in the morning
[2018-04-03] MEDS ORDERED: Metoprolol Inj 5 MG/5 ML Vial IV.PUSH ONE (11:30)
--- NOTE | 2018-04-03 16:50 | ECG ---
Date Performed: 04/03/2018 Time Performed: 11:33:22 PTAGE: 62 years EKG: Sinus rhythm . Rightward axis Borderline ECG Compared to PREVIOUS TRACING , R progression is again normal DOCTOR: Yuly Rogers Interpretating Date/Time 04/03/2018 16:48:46
[2018-04-04] MEDS: MethylPREDNISolone Sod Succinate Inj 40 MG/ML Vial IV.PUSH SCH ×5 (00:02→23:51)
[2018-04-04] MEDS: Sod Chloride 0.9% Inj 1,000 ML IV.SIG SCH ×4 (04:52→23:50)
[2018-04-04] MEDS: Senna/Docusate Sodium 8.6/50 MG Tablet PO SCH ×2 (08:28→20:40)
[2018-04-04] MEDS: guaiFENesin 600 MG ER Tablet PO SCH ×2 (08:28→20:38)
[2018-04-04] MEDS: Budesonide-Formoterol 160/4.5 MCG 6 GM Inhaler INH SCH ×2 (08:29→20:37)
[2018-04-04] MEDS: Sodium Chloride 0.9% 2 ML Flush BID IV.FLUSH SCH ×2 (08:32→20:38)
--- NOTE | 2018-04-04 14:22 | P.PNIM ---
Subjective Interval history: The patient says that he is still a little shaky but the worst of the withdrawal has passed. He still feels very short of breath. He says that sometimes [facility] not have beds available. Discussed with nursing. Physical Exam Vital signs: Vital Signs 04/03/18 15:00 04/03/18 15:12 04/03/18 16:00 Temperature 98.0 F Pulse Rate 99 H 98 H 110 H Respiratory Rate 18 22 Blood Pressure 148/88 H Pulse Oximetry 99 04/03/18 17:00 04/03/18 18:00 04/03/18 19:00 Temperature Pulse Rate 95 H 91 H 90 Respiratory Rate Blood Pressure Pulse Oximetry 04/03/18 19:23 04/03/18 19:33 04/03/18 20:00 Temperature 98.5 F Pulse Rate 91 H 87 Respiratory Rate 22 20 Blood Pressure 155/90 H Pulse Oximetry 98 100 04/03/18 21:00 04/03/18 22:00 04/03/18 23:00 Temperature Pulse Rate 88 90 92 H Respiratory Rate Blood Pressure Pulse Oximetry 100 04/04/18 00:00 04/04/18 01:00 04/04/18 02:00 Temperature 98.2 F Pulse Rate 85 83 79 Respiratory Rate 20 Blood Pressure 145/90 H Pulse Oximetry 100 04/04/18 03:00 04/04/18 03:57 04/04/18 04:00 Temperature 97.5 F L Pulse Rate 67 73 77 Respiratory Rate 18 Blood Pressure 150/91 H Pulse Oximetry 100 04/04/18 05:00 04/04/18 06:00 04/04/18 07:00 Temperature Pulse Rate 72 69 64 Respiratory Rate Blood Pressure Pulse Oximetry 04/04/18 07:53 04/04/18 08:00 04/04/18 08:20 Temperature 97.7 F Pulse Rate 71 88 86 Respiratory Rate 16 16 Blood Pressure 168/90 H Pulse Oximetry 99 99 04/04/18 10:47 04/04/18 11:00 04/04/18 11:37 Temperature 98.5 F Pulse Rate 110 H 100 H 102 H Respiratory Rate 20 Blood Pressure 157/93 H Pulse Oximetry 97 04/04/18 12:00 04/04/18 13:03 04/04/18 13:31 Temperature 98.0 F Pulse Rate 102 H 107 H 115 H Respiratory Rate 20 22 Blood Pressure 157/93 H Pulse Oximetry 97 04/04/18 14:00 Temperature Pulse Rate 118 H Respiratory Rate Blood Pressure Pulse Oximetry Intake & Output 04/03/18 04/04/18 04/04/18 18:59 06:59 18:59 Intake Total 1500 / 1500 2390 / 2390 1000 / 1000 Output Total 825 / 825 2100 / 2100 Balance 675 / 675 290 / 290 1000 / 1000 Weight 52.7 kg Intake: IV 1000 / 1000 2150 / 2150 1000 / 1000 Levaquin 750 mg Premix Inj 150 150 / 150 ML @ 100 mls/hr IV.SIG Q24H [facility] Rx#:[id number] NS Inj 1,000 ML @ 150 mls/hr IV 1000 / 1000 2000 / 2000 1000 / 1000 .SIG .Q6H40M [facility]ATA Rx#:[id number] Oral 500 / 500 240 / 240 Output: Urine 825 / 825 2100 / 2100 Other: # Incontinent Voids 3 Date of Last Bowel Movement 04/02/18 04/02/18 # Bowel Movements 0 Narrative: GENERAL: No distress. SKIN: Focused skin assessment warm and dry. HEENT: PERRLA, EOMI. No scleral icterus or conjunctival pallor. No lid lag or facial droop. CARDIOVASCULAR: Regular rate and rhythm. No obvious murmurs to auscultation. RESPIRATORY: Diffuse wheezing, improved. GASTROINTESTINAL: Abdomen soft, non-tender, nondistended. BS normal. MUSCULOSKELETAL: Extremities without clubbing, cyanosis, or edema. No obvious deformities. NEUROLOGICAL: Awake, alert and oriented x4. No focal neurologic deficits. Moving both upper and lower extremities spontaneously. Results - Labs CBC & Chem 7: 04/01/18 12:12 04/03/18 04:55 Assessment and Plan - Assessment (1) COPD (chronic obstructive pulmonary disease) Code(s): J44.9 - Chronic obstructive pulmonary disease, unspecified Status: Acute (2) Alcohol abuse Code(s): F10.10 - Alcohol abuse, uncomplicated Status: Chronic (3) Hyponatremia Code(s): E87.1 - Hypo-osmolality and hyponatremia Status: Acute - Plan Chronic Respiratory Failure w/ Acute Exacerbation and Respiratory Failure On BIPAP for significantly increased work of breathing and Hypoxia w/ O2 sat 80 % on RA. CXR w/ no acute infiltrates. -will continue w/ Levaquin IV. -Solu-Medrol IV. -DuoNeb, Symbicort, Mucinex. -smoking cessation instruction. -incentive spirometry. -PT eval. -BiPAP as needed. Alcohol withdrawal Seems resolved. -CIWA protocol. -Seizure precautions. -MVT/Thiamine/Folate replacement. -CM EtOH consult. -will need to go directly to [facility] following discharge. Hyponatremia Likely hypovolemic. Na 122 on admission. Improved. -continue fluid restriction. Pancytopenia Likely s/t bone marrow suppression from EtOH. -follow CBC and transfuse as needed. DVT Prophylaxis: SCD/Teds Discharge Planning: D/c to [facility] once respiratory status stabilizes.
[2018-04-05 06:01] LABS: Hematocrit 33.3 % (39.0-51.0); Hemoglobin 11.5 gm/dL (13.0-17.0); Mean Corpuscular HGB Conc 34.4 % (32.0-36.0); Mean Corpuscular Hemoglobin 36.8 pg (27.0-34.0); Platelet Count 141 th/mm3 (150-450); Red Blood Count 3.11 mil/mm3 (4.50-5.90); Red Cell Distribution Width 15.1 % (11.6-17.2); White Blood Count 5.1 th/mm3 (4.0-11.0)
[2018-04-05 06:15] LABS: Anion Gap 6 meq/L (5-15); Blood Urea Nitrogen 9 mg/dL (7-18); Calcium 7.7 mg/dL (8.5-10.1); Carbon Dioxide 39.2 meq/L (21.0-32.0); Chloride 92 meq/L (98-107); Glomerular Filtration Rate Greater Than 89 mL/min (>89); Glucose,Random 127 mg/dL (74-106); Potassium 3.2 meq/L (3.5-5.1); Sodium 137 meq/L (136-145)
[2018-04-05] MEDS: MethylPREDNISolone Sod Succinate Inj 40 MG/ML Vial IV.PUSH SCH ×3 (06:30→17:00)
[2018-04-05] MEDS: Sod Chloride 0.9% Inj 1,000 ML IV.SIG SCH ×3 (09:59→17:32)
[2018-04-05] MEDS: Budesonide-Formoterol 160/4.5 MCG 6 GM Inhaler INH SCH ×2 (09:59→21:55)
[2018-04-05] MEDS: guaiFENesin 600 MG ER Tablet PO SCH ×2 (10:01→21:55)
[2018-04-05] MEDS: Sodium Chloride 0.9% 2 ML Flush BID IV.FLUSH SCH ×2 (10:02→21:55)
[2018-04-05] MEDS: Senna/Docusate Sodium 8.6/50 MG Tablet PO SCH ×2 (10:02→22:46)
--- NOTE | 2018-04-05 11:05 | P.DS ---
Date of admission: 03/31/18 23:38 Primary care physician: No Primary Care Physician Brief History from admission: HPI from the admitting physician: This is a 62-year-old Homeless male with a PMH of HTN, COPD, Alcohol Abuse and Tobacco Abuse who was brought to the ER by EMS for COPD and respiratory distress. Pt noted to have O2 sat 80% on RA, placed on CPAP by EMS w/ some improvement, however pt became agitated/combative, refusing CPAP, s/p Ativan on arrival w/ improvement, currently on BIPAP. Denies fever or chills. Reports non-productive cough x2-3 days w/ worsening SOB. On arrival, BP 181/110, HR 128 , O2 sat 100% on BiPAP 50% FiO2, Temp 100.4. CBC essentially unremarkable. Na 122. Troponin negative. CXR with no acute findings. Patient update on day of discharge: Patient reports he is feeling better today. He is stable on room air. No chest pain. DS: Diagnosis - Discharge Diagnosis (1) COPD exacerbation Status: Acute (2) Alcoholism /alcohol abuse Status: Acute (3) Tobacco abuse Status: Acute DS: Medications - Discharge Medications Prescriptions: budesonide-formoterol [Symbicort] 2 puff INH BID #1 inhaler prednisone [Deltasone] 20 mg PO BID #10 tab DS: Summary Hospital Course: 62-year-old male admitted with acute on chronic respiratory failure secondary to COPD exacerbation. Patient was treated with IV steroids, antibiotics, breathing treatments, and supplemental oxygen. His respiratory status improved. He was extensively counseled on cessation of tobacco use. Patient is also an alcoholic who has been experiencing withdrawals. He was treated per [facility] protocol. Withdrawal symptoms resolved. He was given multivitamin, thiamine, and folate replacement. Patient is advised to follow-up outpatient for continuing treatment for alcohol dependence. Hyponatremia during hospitalization, improved. He is also pancytopenic likely secondary to bone marrow suppression from chronic alcohol use. Blood counts remained stable. - Time Spent with Patient Total time spent providing and/or coordinating discharge services: Less than 30 minutes - Quality: VTE Deep Vein Thrombosis/Pulmonary Embolism Present on Admission: No Exam Vital signs: Vital Signs 04/04/18 11:37 04/04/18 12:00 04/04/18 13:03 Temperature 98.5 F 98.0 F Pulse Rate 102 H 102 H 107 H Respiratory Rate 20 20 Blood Pressure 157/93 H 157/93 H Pulse Oximetry 97 97 04/04/18 13:31 04/04/18 14:00 04/04/18 15:00 Temperature Pulse Rate 115 H 118 H 105 H Respiratory Rate 22 Blood Pressure Pulse Oximetry 04/04/18 16:00 04/04/18 16:14 04/04/18 17:00 Temperature 98.2 F Pulse Rate 103 H 105 H 94 H Respiratory Rate 20 18 Blood Pressure 178/96 H Pulse Oximetry 94 L 04/04/18 18:00 04/04/18 19:00 04/04/18 19:37 Temperature 98 F Pulse Rate 99 H 93 H 105 H Respiratory Rate 20 Blood Pressure 168/98 H Pulse Oximetry 97 04/04/18 19:45 04/04/18 20:00 04/04/18 21:32 Temperature Pulse Rate 102 H 108 H 109 H Respiratory Rate 22 Blood Pressure Pulse Oximetry 97 04/04/18 22:00 04/04/18 23:00 04/04/18 23:44 Temperature 98.3 F Pulse Rate 104 H 96 H 104 H Respiratory Rate 18 Blood Pressure 176/93 H Pulse Oximetry 97 04/05/18 00:07 04/05/18 01:00 04/05/18 02:00 Temperature Pulse Rate 90 90 86 Respiratory Rate Blood Pressure Pulse Oximetry 04/05/18 03:00 04/05/18 04:03 04/05/18 04:21 Temperature 97.4 F L Pulse Rate 86 79 82 Respiratory Rate 20 Blood Pressure 159/9 H Pulse Oximetry 98 04/05/18 05:00 04/05/18 06:03 04/05/18 07:00 Temperature Pulse Rate 72 72 75 Respiratory Rate Blood Pressure Pulse Oximetry 04/05/18 08:00 04/05/18 08:23 04/05/18 09:00 Temperature 98.5 F Pulse Rate 91 H 92 H 90 Respiratory Rate 16 Blood Pressure 159/83 H Pulse Oximetry 92 L 04/05/18 10:00 Temperature Pulse Rate 96 H Respiratory Rate Blood Pressure Pulse Oximetry Intake & Output 04/04/18 04/05/18 04/05/18 18:59 06:59 18:59 Intake Total 2480 / 2480 2550 / 2550 Output Total 1450 / 1450 3290 / 3290 Balance 1030 / 1030 -740 / -740 Weight 53.5 kg Intake: IV 1999 2150 / 2150 Levaquin 750 mg Premix Inj 150 150 / 150 ML @ 100 mls/hr IV.SIG Q24H [facility] Rx#:[id number] NS Inj 1,000 ML @ 150 mls/hr IV 1999 .SIG .Q6H40M [facility] Rx#:[id number] Oral 480 / 480 400 / 400 Output: Urine 1450 / 1450 3290 / 3290 Other: # Incontinent Voids 1 Date of Last Bowel Movement 04/02/18 04/02/18 04/02/18 # Bowel Movements 0 Narrative: GENERAL: Patient appears older than stated age, in no apparent distress. CARDIOVASCULAR: Normal rate and regular rhythm without murmurs, gallops, or rubs. RESPIRATORY: Air movement is fair. Markedly diminished breath sounds bilaterally. No wheezing or rhonchi. GASTROINTESTINAL: Abdomen soft, non-tender, non-distended. Normal active bowel sounds MUSCULOSKELETAL: Extremities without cyanosis, or edema. NEURO: Alert & Oriented x4 to person, place, time, situation. Moves all ext x4 PSYCH: Appropriate mood and affect. Results Procedures completed during hospitalization: None Labs on day of discharge: Labs from last 24 hours 04/05/18 04/05/18 05:25 05:25 WBC 5.1 RBC 3.11 L Hgb 11.5 L Hct 33.3 L MCV 107.0 H MCH 36.8 H MCHC 34.4 RDW 15.1 Plt Count 141 L MPV 9.0 Sodium 137 Potassium 3.2 L Chloride 92 L Carbon Dioxide 39.2 H Anion Gap 6 BUN 9 Creatinine 0.45 L Estimated GFR Greater than 89 Random Glucose 127 H Calcium 7.7 L - Impressions ITS Impressions Chest X-Ray 03/31/18 22:05 CONCLUSION: No acute cardiopulmonary disease demonstrated. Stable COPD changes. Discharge Plan - Discharge Disposition Patient Disposition: 01 Discharge Home - Discharge Condition Condition: Good - Discharge Order Discharge Orders: Discharge Order (Routine); Ordered 04/05/18 Ordered By: Carolina Daily - Physicians Team Primary Care Provider: Primary Care Physici,No Attending Provider: Carolina Daily
[2018-04-05] MEDS ORDERED: Lisinopril 5 MG Tablet PO ONE (11:27)
[2018-04-06] MEDS: Sod Chloride 0.9% Inj 1,000 ML IV.SIG SCH ×2 (05:15→16:07)
[2018-04-06] MEDS: MethylPREDNISolone Sod Succinate Inj 40 MG/ML Vial IV.PUSH SCH ×4 (05:16→17:58)
[2018-04-06] MEDS: guaiFENesin 600 MG ER Tablet PO SCH ×2 (09:16→20:10)
[2018-04-06] MEDS: Budesonide-Formoterol 160/4.5 MCG 6 GM Inhaler INH SCH ×2 (09:17→20:10)
[2018-04-06] MEDS: Senna/Docusate Sodium 8.6/50 MG Tablet PO SCH ×2 (09:17→20:10)
[2018-04-06] MEDS: Sodium Chloride 0.9% 2 ML Flush BID IV.FLUSH SCH ×2 (09:17→20:10)
--- NOTE | 2018-04-06 14:57 | P.PNIM ---
Subjective Interval history: Zabrina reports he is feeling ok, did not sleep well last night. Patient discharged yesterday, now awaiting placement. Physical Exam Vital signs: Vital Signs 04/05/18 15:00 04/05/18 16:00 04/05/18 17:00 Temperature 98.1 F Pulse Rate 109 H 108 H 117 H Respiratory Rate 16 Blood Pressure 166/98 H Pulse Oximetry 94 L 04/05/18 17:32 04/05/18 18:00 04/05/18 18:37 Temperature Pulse Rate 112 H Respiratory Rate Blood Pressure 143/90 H Pulse Oximetry 94 L 04/05/18 19:00 04/05/18 20:00 04/05/18 21:00 Temperature Pulse Rate 108 H 102 H 96 H Respiratory Rate 16 Blood Pressure 164/96 H Pulse Oximetry 94 L 04/05/18 22:00 04/05/18 23:00 04/06/18 00:00 Temperature Pulse Rate 112 H 94 H 80 Respiratory Rate Blood Pressure Pulse Oximetry 04/06/18 01:00 04/06/18 02:00 04/06/18 03:00 Temperature Pulse Rate 78 80 74 Respiratory Rate Blood Pressure Pulse Oximetry 04/06/18 04:00 04/06/18 05:00 04/06/18 06:00 Temperature Pulse Rate 66 68 72 Respiratory Rate 18 Blood Pressure 139/90 Pulse Oximetry 95 04/06/18 07:00 04/06/18 08:00 04/06/18 09:00 Temperature 98 F Pulse Rate 80 76 92 H Respiratory Rate 18 Blood Pressure 146/93 H Pulse Oximetry 96 04/06/18 10:00 04/06/18 11:00 04/06/18 12:00 Temperature Pulse Rate 92 H 100 H 78 Respiratory Rate Blood Pressure Pulse Oximetry 04/06/18 13:00 04/06/18 14:00 Temperature 97.8 F Pulse Rate 108 H 78 Respiratory Rate 18 Blood Pressure 119/78 Pulse Oximetry 96 Intake & Output 04/05/18 04/06/18 04/06/18 18:59 06:59 18:59 Intake Total 750 / 750 630 / 630 Output Total 1450 / 1450 1825 / 1825 Balance -700 / -700 -1195 / -1195 Weight 53.5 kg Intake: IV 150 / 150 Levaquin 750 mg Premix Inj 150 150 / 150 ML @ 100 mls/hr IV.SIG Q24H [facility] Rx#:[id number] Oral 750 / 750 480 / 480 Output: Urine 1450 / 1450 1825 / 1825 Other: Date of Last Bowel Movement 04/05/18 04/05/18 04/06/18 # Bowel Movements 1 Results - Labs CBC & Chem 7: 04/05/18 05:25 04/05/18 05:25 - Procedures None Assessment and Plan - Assessment (1) COPD exacerbation Code(s): J44.1 - Chronic obstructive pulmonary disease with (acute) exacerbation Status: Acute (2) Alcoholism /alcohol abuse Code(s): F10.20 - Alcohol dependence, uncomplicated Status: Acute (3) Tobacco abuse Code(s): Z72.0 - Tobacco use Status: Acute - Plan 62-year-old male admitted with acute on chronic respiratory failure secondary to COPD exacerbation. Patient was treated with IV steroids, antibiotics, breathing treatments, and supplemental oxygen. His respiratory status improved. He was extensively counseled on cessation of tobacco use. Patient is also an alcoholic who has been experiencing withdrawals. He was treated per [facility] protocol. Withdrawal symptoms resolved. He was given multivitamin, thiamine, and folate replacement. Patient is advised to follow-up outpatient for continuing treatment for alcohol dependence. Hyponatremia during hospitalization, improved. He is also pancytopenic likely secondary to bone marrow suppression from chronic alcohol use. Blood counts remained stable. Medically cleared for discharge but awaiting custodial placement. DC antibiotics. Transition to oral prednisone.
[2018-04-06] MEDS ORDERED: hydrALAZINE 25 MG Tablet PO ONE (21:00)
[2018-04-07] MEDS: guaiFENesin 600 MG ER Tablet PO SCH ×2 (09:28→20:14)
[2018-04-07] MEDS: predniSONE 20 MG Tablet PO SCH ×2 (09:28→20:14)
[2018-04-07] MEDS: Senna/Docusate Sodium 8.6/50 MG Tablet PO SCH ×2 (09:28→20:14)
[2018-04-07] MEDS: Sodium Chloride 0.9% 2 ML Flush BID IV.FLUSH SCH ×2 (09:29→20:14)
[2018-04-07] MEDS: Budesonide-Formoterol 160/4.5 MCG 6 GM Inhaler INH SCH ×2 (09:29→20:15)
--- NOTE | 2018-04-07 17:53 | P.PNIM ---
Subjective Interval history: Patient had a brief episode of hypoxemia last night. He required supplemental oxygen. He states he is feeling better this morning. Requesting sleep aid for tonight. Physical Exam Vital signs: Vital Signs 04/06/18 18:00 04/06/18 19:00 04/06/18 20:00 Temperature Pulse Rate 88 106 H 82 Respiratory Rate 20 Blood Pressure 120/84 Pulse Oximetry 100 04/06/18 20:26 04/06/18 21:00 04/06/18 22:00 Temperature Pulse Rate 80 76 Respiratory Rate Blood Pressure Pulse Oximetry 97 04/06/18 23:00 04/07/18 00:00 04/07/18 01:00 Temperature Pulse Rate 70 67 70 Respiratory Rate 16 Blood Pressure 128/84 Pulse Oximetry 100 04/07/18 02:00 04/07/18 03:00 04/07/18 04:00 Temperature Pulse Rate 64 68 66 Respiratory Rate 16 Blood Pressure 130/80 Pulse Oximetry 04/07/18 05:00 04/07/18 06:00 04/07/18 07:00 Temperature Pulse Rate 68 72 64 Respiratory Rate Blood Pressure Pulse Oximetry 04/07/18 08:00 04/07/18 09:00 04/07/18 10:00 Temperature 98.0 F Pulse Rate 64 60 80 Respiratory Rate 20 Blood Pressure 131/89 Pulse Oximetry 92 L 04/07/18 11:00 04/07/18 12:00 04/07/18 13:00 Temperature Pulse Rate 82 82 86 Respiratory Rate 20 Blood Pressure 98/73 L Pulse Oximetry 99 04/07/18 14:00 04/07/18 15:00 04/07/18 16:00 Temperature 97.8 F Pulse Rate 96 H 90 96 H Respiratory Rate 18 Blood Pressure 98/68 L Pulse Oximetry 99 Intake & Output 04/06/18 04/07/18 04/07/18 18:59 06:59 18:59 Intake Total 480 / 480 240 / 240 1000 / 1000 Output Total 800 / 800 800 / 800 Balance -320 / -320 -560 / -560 1000 / 1000 Weight 53.8 kg Intake: IV 1000 / 1000 Oral 480 / 480 240 / 240 Output: Urine 800 / 800 800 / 800 Other: Date of Last Bowel Movement 04/06/18 04/06/18 04/06/18 # Bowel Movements 1 Narrative: GENERAL: Patient appears older than stated age, in no apparent distress. CARDIOVASCULAR: Normal rate and regular rhythm without murmurs, gallops, or rubs. RESPIRATORY: Air movement is fair. Markedly diminished breath sounds bilaterally. No wheezing or rhonchi. GASTROINTESTINAL: Abdomen soft, non-tender, non-distended. Normal active bowel sounds MUSCULOSKELETAL: Extremities without cyanosis, or edema. NEURO: Alert & Oriented x4 to person, place, time, situation. Moves all ext x4 PSYCH: Appropriate mood and affect. Results - Labs CBC & Chem 7: 04/05/18 05:25 04/05/18 05:25 Laboratory Results - last 24 hr 04/06/18 18:55 POC Glucose 217 H - Procedures None Assessment and Plan - Assessment (1) COPD exacerbation Code(s): J44.1 - Chronic obstructive pulmonary disease with (acute) exacerbation Status: Acute (2) Alcoholism /alcohol abuse Code(s): F10.20 - Alcohol dependence, uncomplicated Status: Acute (3) Tobacco abuse Code(s): Z72.0 - Tobacco use Status: Acute - Plan 62-year-old male admitted with acute on chronic respiratory failure secondary to COPD exacerbation. Patient was treated with IV steroids, antibiotics, breathing treatments, and supplemental oxygen. His respiratory status improved. He was extensively counseled on cessation of tobacco use. Patient is also an alcoholic who has been experiencing withdrawals. He was treated per [facility] protocol. Withdrawal symptoms resolved. He was given multivitamin, thiamine, and folate replacement. Patient is advised to follow-up outpatient for continuing treatment for alcohol dependence. Hyponatremia during hospitalization, improved. He is also pancytopenic likely secondary to bone marrow suppression from chronic alcohol use. Blood counts remained stable. Medically cleared for discharge but awaiting terminal make up operator placement. Continue oral prednisone Continue supplemental oxygen. Encourage the patient to use incentive spirometer. Restart as needed at night for sleep.
--- NOTE | 2018-04-07 20:13 | ECG ---
Date Performed: 04/06/2018 Time Performed: 19:10:50 PTAGE: 62 years EKG: Sinus tachycardia Indeterminate axis ST junctional depression is nonspecific Borderline ECG PREVIOUS TRACING : 04/03/2018 11.33 Since the previous tracing, no significant change noted DOCTOR: Jerrell Nair Interpretating Date/Time 04/07/2018 20:11:19
[2018-04-08] MEDS: Senna/Docusate Sodium 8.6/50 MG Tablet PO SCH ×2 (08:26→20:08)
[2018-04-08] MEDS: Sodium Chloride 0.9% 2 ML Flush BID IV.FLUSH SCH ×2 (08:26→20:09)
[2018-04-08] MEDS: guaiFENesin 600 MG ER Tablet PO SCH ×2 (08:26→20:08)
[2018-04-08] MEDS: predniSONE 20 MG Tablet PO SCH ×2 (08:26→20:08)
--- NOTE | 2018-04-08 10:42 | P.PNIM ---
Subjective Interval history: Patient reports he is feeling okay today. Slept better last night. Still awaiting for long-term placement. Physical Exam Vital signs: Vital Signs 04/07/18 11:00 04/07/18 12:00 04/07/18 13:00 Temperature Pulse Rate 82 82 86 Respiratory Rate 20 Blood Pressure 98/73 L Pulse Oximetry 99 04/07/18 14:00 04/07/18 15:00 04/07/18 16:00 Temperature 97.8 F Pulse Rate 96 H 90 96 H Respiratory Rate 18 Blood Pressure 98/68 L Pulse Oximetry 99 04/07/18 17:00 04/07/18 18:00 04/07/18 18:09 Temperature Pulse Rate 110 H 100 H 99 H Respiratory Rate 22 Blood Pressure Pulse Oximetry 04/07/18 19:00 04/07/18 20:00 04/07/18 20:37 Temperature 98 F Pulse Rate 100 H 107 H Respiratory Rate 20 Blood Pressure 104/56 L Pulse Oximetry 99 99 04/07/18 21:00 04/07/18 22:00 04/07/18 23:00 Temperature Pulse Rate 100 H 111 H 95 H Respiratory Rate Blood Pressure Pulse Oximetry 04/08/18 00:00 04/08/18 01:00 04/08/18 02:00 Temperature 98.2 F Pulse Rate 86 89 87 Respiratory Rate 18 Blood Pressure 110/71 Pulse Oximetry 97 04/08/18 03:00 04/08/18 04:00 04/08/18 05:00 Temperature 98 F Pulse Rate 89 86 90 Respiratory Rate 18 Blood Pressure 97/63 L Pulse Oximetry 96 04/08/18 05:54 04/08/18 07:00 04/08/18 08:00 Temperature 98 F Pulse Rate 92 H 64 73 Respiratory Rate 18 Blood Pressure 115/68 Pulse Oximetry 96 Intake & Output 04/07/18 04/08/18 04/08/18 18:59 06:59 18:59 Intake Total 1580 / 1580 480 / 480 Output Total 575 / 575 800 / 800 Balance 1005 / 1005 -320 / -320 Weight 50 kg Intake: IV 1000 / 1000 Oral 580 / 580 480 / 480 Output: Urine 575 / 575 800 / 800 Other: Date of Last Bowel Movement 04/06/18 04/06/18 # Bowel Movements 1 Narrative: GENERAL: Patient appears older than stated age, in no apparent distress. CARDIOVASCULAR: Normal rate and regular rhythm without murmurs, gallops, or rubs. RESPIRATORY: Air movement is fair. Diminished breath sounds bilaterally. No wheezing or rhonchi. GASTROINTESTINAL: Abdomen soft, non-tender, non-distended. Normal active bowel sounds MUSCULOSKELETAL: Extremities without cyanosis, or edema. NEURO: Alert & Oriented x4 to person, place, time, situation. Moves all ext x4 PSYCH: Appropriate mood and affect. Results - Labs CBC & Chem 7: 04/05/18 05:25 04/05/18 05:25 - Procedures None Assessment and Plan - Assessment (1) COPD exacerbation Code(s): J44.1 - Chronic obstructive pulmonary disease with (acute) exacerbation Status: Acute (2) Alcoholism /alcohol abuse Code(s): F10.20 - Alcohol dependence, uncomplicated Status: Acute (3) Tobacco abuse Code(s): Z72.0 - Tobacco use Status: Acute - Plan 62-year-old male admitted with acute on chronic respiratory failure secondary to COPD exacerbation. Patient was treated with IV steroids, antibiotics, breathing treatments, and supplemental oxygen. His respiratory status improved. He was extensively counseled on cessation of tobacco use. Patient is also an alcoholic who has been experiencing withdrawals. He was treated per [facility] protocol. Withdrawal symptoms resolved. He was given multivitamin, thiamine, and folate replacement. Patient is advised to follow-up outpatient for continuing treatment for alcohol dependence. Hyponatremia during hospitalization, improved. He is also pancytopenic likely secondary to bone marrow suppression from chronic alcohol use. Blood counts remained stable. Medically cleared for discharge but awaiting exterminator placement. Continue oral prednisone Continue supplemental oxygen. Encourage the patient to use incentive spirometer. Restoril as needed at night for sleep. Discharge Planning: Patient is discharged. Awaiting long-term placement
[2018-04-09] MEDS: predniSONE 20 MG Tablet PO SCH ×2 (09:22→20:25)
[2018-04-09] MEDS: Senna/Docusate Sodium 8.6/50 MG Tablet PO SCH ×2 (09:22→20:25)
[2018-04-09] MEDS: guaiFENesin 600 MG ER Tablet PO SCH ×2 (09:22→20:25)
[2018-04-09] MEDS: Sodium Chloride 0.9% 2 ML Flush BID IV.FLUSH SCH ×2 (09:23→20:26)
[2018-04-09] MEDS: Budesonide-Formoterol 160/4.5 MCG 6 GM Inhaler INH SCH ×2 (10:00→20:29)
--- NOTE | 2018-04-09 15:19 | P.PNIM ---
Subjective Interval history: Patient reports he is feeling stronger. States he is able to ambulate better with the walker Physical Exam Vital signs: Vital Signs 04/08/18 16:00 04/08/18 17:00 04/08/18 18:00 Temperature 97.9 F Pulse Rate 97 H 98 H 104 H Respiratory Rate 18 Blood Pressure 102/62 Pulse Oximetry 93 L 04/08/18 19:00 04/08/18 20:00 04/08/18 21:00 Temperature 98.1 F Pulse Rate 97 H 97 H 89 Respiratory Rate 20 Blood Pressure 99/66 L Pulse Oximetry 96 04/08/18 22:00 04/08/18 23:00 04/09/18 00:00 Temperature 98 F Pulse Rate 92 H 91 H 90 Respiratory Rate 18 Blood Pressure 107/68 Pulse Oximetry 95 04/09/18 01:00 04/09/18 02:00 04/09/18 03:00 Temperature Pulse Rate 94 H 92 H 89 Respiratory Rate Blood Pressure Pulse Oximetry 04/09/18 04:00 04/09/18 05:00 04/09/18 05:56 Temperature 97.9 F Pulse Rate 84 84 85 Respiratory Rate 18 Blood Pressure 117/65 Pulse Oximetry 96 04/09/18 07:00 04/09/18 08:00 04/09/18 09:00 Temperature 97.9 F Pulse Rate 79 82 86 Respiratory Rate 18 Blood Pressure 131/80 Pulse Oximetry 97 04/09/18 10:00 04/09/18 12:00 Temperature 97.7 F Pulse Rate 90 96 H Respiratory Rate 18 Blood Pressure 119/76 Pulse Oximetry 99 Intake & Output 04/08/18 04/09/18 04/09/18 18:59 06:59 18:59 Intake Total 360 / 360 480 / 480 Output Total 625 / 625 800 / 800 Balance -265 / -265 -320 / -320 Weight 50.1 kg Intake: Oral 360 / 360 480 / 480 Output: Urine 625 / 625 800 / 800 Other: # Voids 3 Date of Last Bowel Movement 04/08/18 04/08/18 # Bowel Movements 1 1 Narrative: GENERAL: Patient appears older than stated age, in no apparent distress. CARDIOVASCULAR: Normal rate and regular rhythm without murmurs, gallops, or rubs. RESPIRATORY: Air movement is fair. Diminished breath sounds bilaterally. No wheezing or rhonchi. GASTROINTESTINAL: Abdomen soft, non-tender, non-distended. Normal active bowel sounds MUSCULOSKELETAL: Extremities without cyanosis, or edema. NEURO: Alert & Oriented x4 to person, place, time, situation. Moves all ext x4 PSYCH: Appropriate mood and affect. Results - Labs CBC & Chem 7: 04/05/18 05:25 04/05/18 05:25 - Procedures None Assessment and Plan - Assessment (1) COPD exacerbation Code(s): J44.1 - Chronic obstructive pulmonary disease with (acute) exacerbation Status: Acute (2) Alcoholism /alcohol abuse Code(s): F10.20 - Alcohol dependence, uncomplicated Status: Acute (3) Tobacco abuse Code(s): Z72.0 - Tobacco use Status: Acute - Plan 62-year-old male admitted with acute on chronic respiratory failure secondary to COPD exacerbation. Patient was treated with IV steroids, antibiotics, breathing treatments, and supplemental oxygen. His respiratory status improved. He was extensively counseled on cessation of tobacco use. Patient is also an alcoholic who has been experiencing withdrawals. He was treated per [facility] protocol. Withdrawal symptoms resolved. He was given multivitamin, thiamine, and folate replacement. Patient is advised to follow-up outpatient for continuing treatment for alcohol dependence. Hyponatremia during hospitalization, improved. He is also pancytopenic likely secondary to bone marrow suppression from chronic alcohol use. Blood counts remained stable. Medically cleared for discharge but awaiting custodial placement. Continue oral prednisone Continue supplemental oxygen. Encourage the patient to use incentive spirometer. Restoril as needed at night for sleep. Discharge Planning: Patient is discharged. Awaiting long-term placement We will continue rehab efforts. Physical therapy daily. He may be able to be discharged back to the community if he gets strong enough.
[2018-04-10] MEDS: guaiFENesin 600 MG ER Tablet PO SCH ×2 (09:38→21:01)
[2018-04-10] MEDS: Senna/Docusate Sodium 8.6/50 MG Tablet PO SCH ×2 (09:38→21:02)
[2018-04-10] MEDS: predniSONE 20 MG Tablet PO SCH ×2 (09:38→21:01)
[2018-04-10] MEDS: Budesonide-Formoterol 160/4.5 MCG 6 GM Inhaler INH SCH ×4 (09:39→21:00)
[2018-04-10] MEDS: Sodium Chloride 0.9% 2 ML Flush BID IV.FLUSH SCH ×2 (09:42→21:02)
--- NOTE | 2018-04-10 15:03 | P.PNIM ---
Subjective Interval history: Patient reports he is feeling okay today. He is trying to ambulate more with a walker. Feeling stronger. Physical Exam Vital signs: Vital Signs 04/09/18 16:00 04/09/18 17:00 04/09/18 18:00 Temperature 98.0 F Pulse Rate 84 86 84 Respiratory Rate 18 Blood Pressure 109/70 Pulse Oximetry 96 04/09/18 19:00 04/09/18 20:00 04/09/18 21:00 Temperature 97.9 F Pulse Rate 84 98 H 92 H Respiratory Rate 20 Blood Pressure 135/77 Pulse Oximetry 97 04/09/18 21:51 04/09/18 22:00 04/09/18 23:00 Temperature Pulse Rate 90 88 Respiratory Rate Blood Pressure Pulse Oximetry 99 04/10/18 00:00 04/10/18 01:00 04/10/18 02:00 Temperature 98.0 F Pulse Rate 89 92 H 88 Respiratory Rate 18 Blood Pressure 119/69 Pulse Oximetry 96 04/10/18 03:00 04/10/18 04:00 04/10/18 05:00 Temperature 98.1 F Pulse Rate 84 87 81 Respiratory Rate 18 Blood Pressure 145/83 H Pulse Oximetry 99 04/10/18 06:00 04/10/18 07:00 04/10/18 09:51 Temperature 98.2 F Pulse Rate 86 84 86 Respiratory Rate 18 Blood Pressure 126/77 Pulse Oximetry 95 04/10/18 12:00 Temperature 98.7 F Pulse Rate 74 Respiratory Rate 18 Blood Pressure 144/85 H Pulse Oximetry 100 Intake & Output 04/09/18 04/10/18 04/10/18 18:59 06:59 18:59 Intake Total 960 / 960 960 / 960 Output Total 800 / 800 700 / 700 Balance 160 / 160 260 / 260 Weight 50 kg Intake: Oral 960 / 960 960 / 960 Output: Urine 800 / 800 700 / 700 Other: Date of Last Bowel Movement 04/08/18 04/08/18 04/08/18 # Bowel Movements 1 Results - Labs CBC & Chem 7: 04/05/18 05:25 04/05/18 05:25 - Procedures None Assessment and Plan - Assessment (1) COPD exacerbation Code(s): J44.1 - Chronic obstructive pulmonary disease with (acute) exacerbation Status: Acute (2) Alcoholism /alcohol abuse Code(s): F10.20 - Alcohol dependence, uncomplicated Status: Acute (3) Tobacco abuse Code(s): Z72.0 - Tobacco use Status: Acute - Plan 62-year-old male admitted with acute on chronic respiratory failure secondary to COPD exacerbation. Patient was treated with IV steroids, antibiotics, breathing treatments, and supplemental oxygen. His respiratory status improved. He was extensively counseled on cessation of tobacco use. Patient is also an alcoholic who has been experiencing withdrawals. He was treated per [facility] protocol. Withdrawal symptoms resolved. He was given multivitamin, thiamine, and folate replacement. Patient is advised to follow-up outpatient for continuing treatment for alcohol dependence. Hyponatremia during hospitalization, improved. He is also pancytopenic likely secondary to bone marrow suppression from chronic alcohol use. Blood counts remained stable. Medically cleared for discharge but awaiting group home placement. Continue oral prednisone Continue supplemental oxygen. Encourage the patient to use incentive spirometer. Restoril as needed at night for sleep. Discharge Planning: Patient is discharged. Awaiting long-term placement We will continue rehab efforts. Physical therapy daily. If he gets strong enough, he may be return his prior living arrangement but he would rather go to a long-term facility.
[2018-04-10] MEDS: Temazepam 15 MG Capsule PO PRN (21:01)
[2018-04-11] MEDS: Senna/Docusate Sodium 8.6/50 MG Tablet PO SCH ×2 (09:56→20:28)
[2018-04-11] MEDS: Sodium Chloride 0.9% 2 ML Flush BID IV.FLUSH SCH ×2 (09:57→20:30)
[2018-04-11] MEDS: guaiFENesin 600 MG ER Tablet PO SCH ×2 (09:57→20:30)
[2018-04-11] MEDS: predniSONE 20 MG Tablet PO SCH ×2 (09:57→20:30)
--- NOTE | 2018-04-11 11:58 | P.PNIM ---
Subjective Interval history: This is a 62-year-old Homeless male with a PMH of HTN, COPD, Alcohol Abuse and Tobacco Abuse who was brought to the ER by EMS for COPD and respiratory distress. Pt noted to have O2 sat 80% on RA, placed on CPAP by EMS w/ some improvement, however pt became agitated/combative, refusing CPAP, s/p Ativan on arrival w/ improvement, currently on BIPAP. Denies fever or chills. Reports non-productive cough x2-3 days w/ worsening SOB. On arrival, BP 181/110, HR 128 , O2 sat 100% on BiPAP 50% FiO2, Temp 100.4. CBC essentially unremarkable. Na 122. Troponin negative. CXR with no acute findings. 10-6 The patient was on BiPAP. He said that he was trying to quit drinking and smoking. He said he felt a little shaky. Does not have much of an appetite. No acute complaints at this time. 10-7 The patient was resting comfortably in bed. He said that he was a [employer] in the past and would be interested in looking into that again. He wants his lungs to be better and is trying to quit smoking cigarettes. Discussed with nursing. 10-8 The patient was sitting up in bed. He said he was still feeling shaky. He says he needs to go directly to [facility] once he leaves the hospital. No acute complaints at this time. 10-9 The patient says that he is still a little shaky but the worst of the withdrawal has passed. He still feels very short of breath. He says that sometimes [facility] does not have beds available. Discussed with nursing. 10-10 AWAIT PLACEMENT 10-11 Patient reports he is feeling ok, did not sleep well last night. Patient discharged yesterday, now awaiting placement. 10-12 Patient had a brief episode of hypoxemia last night. He required supplemental oxygen. He states he is feeling better this morning. Requesting sleep aid for tonight. 10-13 Patient reports he is feeling okay today. Slept better last night. Still awaiting for long-term placement. 10-14 Patient reports he is feeling stronger. States he is able to ambulate better with the walker 10-15 Patient reports he is feeling okay today. He is trying to ambulate more with a walker. Feeling stronger. 10-16 PATIENT WITHOUT ANY NEW COMPLAINTS AWAITS SAFE PLACEMENT DW RN AND PT AND CM Physical Exam Vital signs: Vital Signs 04/10/18 12:00 04/10/18 13:00 04/10/18 14:00 Temperature 98.7 F Pulse Rate 78 82 80 Respiratory Rate 18 Blood Pressure 144/85 H Pulse Oximetry 100 04/10/18 15:00 04/10/18 15:04 04/10/18 15:06 Temperature 98.7 F Pulse Rate 84 80 Respiratory Rate 18 Blood Pressure 124/72 Pulse Oximetry 99 95 04/10/18 16:00 04/10/18 17:00 04/10/18 18:00 Temperature 97.9 F Pulse Rate 79 86 86 Respiratory Rate 18 Blood Pressure 122/80 Pulse Oximetry 96 04/10/18 19:25 04/10/18 20:00 04/10/18 22:00 Temperature 98.0 F Pulse Rate 84 91 H Respiratory Rate 18 Blood Pressure 113/74 Pulse Oximetry 96 98 04/11/18 04:00 04/11/18 08:00 Temperature 98.7 F 97.8 F Pulse Rate 75 78 Respiratory Rate 18 20 Blood Pressure 131/77 121/69 Pulse Oximetry 97 Intake & Output 04/10/18 04/11/18 04/11/18 18:59 06:59 18:59 Intake Total 1100 / 1100 950 / 950 Output Total 1200 / 1200 500 / 500 Balance -100 / -100 450 / 450 Weight 50.7 kg Intake: Oral 1100 / 1100 950 / 950 Output: Urine 1200 / 1200 500 / 500 Other: Date of Last Bowel Movement 04/08/18 04/10/18 Narrative: GENERAL: Patient appears older than stated age, in no apparent distress. CARDIOVASCULAR: Normal rate and regular rhythm without murmurs, gallops, or rubs. RESPIRATORY: Air movement is fair. Diminished breath sounds bilaterally. No wheezing or rhonchi. GASTROINTESTINAL: Abdomen soft, non-tender, non-distended. Normal active bowel sounds MUSCULOSKELETAL: Extremities without cyanosis, or edema. NEURO: Alert & Oriented x4 to person, place, time, situation. Moves all ext x4 PSYCH: Appropriate mood and affect. Results - Labs CBC & Chem 7: 04/05/18 05:25 04/05/18 05:25 - Procedures None Assessment and Plan - Assessment (1) COPD exacerbation Code(s): J44.1 - Chronic obstructive pulmonary disease with (acute) exacerbation Status: Acute (2) Alcoholism /alcohol abuse Code(s): F10.20 - Alcohol dependence, uncomplicated Status: Acute (3) Tobacco abuse Code(s): Z72.0 - Tobacco use Status: Acute - Plan 62-year-old male admitted with acute on chronic respiratory failure secondary to COPD exacerbation. Patient was treated with IV steroids, antibiotics, breathing treatments, and supplemental oxygen. His respiratory status improved. He was extensively counseled on cessation of tobacco use. Patient is also an alcoholic who has been experiencing withdrawals. He was treated per [facility] protocol. Withdrawal symptoms resolved. He was given multivitamin, thiamine, and folate replacement. Patient is advised to follow-up outpatient for continuing treatment for alcohol dependence. Hyponatremia during hospitalization, improved. He is also pancytopenic likely secondary to bone marrow suppression from chronic alcohol use. Blood counts remained stable. Medically cleared for discharge but awaiting manager terminal placement. Continue oral prednisone Continue supplemental oxygen. Encourage the patient to use incentive spirometer. Restoril as needed at night for sleep. Discharge Planning: Patient is discharged. Awaiting long-term placement We will continue rehab efforts. Physical therapy daily. If he gets strong enough, he may be return his prior living arrangement but he would rather go to a long-term facility. Code Status: FULL CODE Discussed Condition With: RN AND PT AND CM Discharge Planning: WHEN SAFE PLACE FOR DC
[2018-04-11] MEDS: Budesonide-Formoterol 160/4.5 MCG 6 GM Inhaler INH SCH ×2 (14:01→20:33)
[2018-04-12] MEDS: predniSONE 20 MG Tablet PO SCH ×2 (08:00→20:41)
[2018-04-12] MEDS: guaiFENesin 600 MG ER Tablet PO SCH ×2 (08:00→20:41)
[2018-04-12] MEDS: Sodium Chloride 0.9% 2 ML Flush BID IV.FLUSH SCH ×2 (08:01→20:42)
[2018-04-12] MEDS: Senna/Docusate Sodium 8.6/50 MG Tablet PO SCH ×2 (08:01→20:41)
[2018-04-12] MEDS: Budesonide-Formoterol 160/4.5 MCG 6 GM Inhaler INH SCH ×2 (08:02→20:41)
--- NOTE | 2018-04-12 11:11 | P.PNIM ---
Subjective Interval history: Follow up COPD. Patient complains of increase sputum production. No fever or chills. Awaiting placement. Physical Exam Vital signs: Vital Signs 04/11/18 12:00 04/11/18 16:00 04/11/18 19:26 Temperature 97.4 F L 97.3 F L 98.1 F Pulse Rate 88 90 88 Respiratory Rate 19 20 18 Blood Pressure 130/72 144/87 H 130/71 Pulse Oximetry 84 L 95 98 04/11/18 20:00 04/12/18 00:00 04/12/18 04:00 Temperature 98.4 F 98.1 F Pulse Rate 78 77 74 Respiratory Rate 17 17 Blood Pressure 120/75 111/67 Pulse Oximetry 94 L 98 04/12/18 08:00 Temperature 97.6 F Pulse Rate 69 Respiratory Rate 20 Blood Pressure 109/61 Pulse Oximetry 95 Intake & Output 04/11/18 04/12/18 04/12/18 18:59 06:59 18:59 Intake Total 960 / 960 240 / 240 Output Total 900 / 900 Balance 960 / 960 -660 / -660 Weight 51.6 kg Intake: Oral 960 / 960 240 / 240 Other 0 / 0 Output: Urine 900 / 900 Other: Date of Last Bowel Movement 04/11/18 04/10/18 04/10/18 # Bowel Movements 2 Narrative: GENERAL: Patient appears older than stated age, in no apparent distress. CARDIOVASCULAR: Normal rate and regular rhythm without murmurs, gallops, or rubs. RESPIRATORY: Air movement is fair. Diminished breath sounds bilaterally. No wheezing or rhonchi. GASTROINTESTINAL: Abdomen soft, non-tender, non-distended. Normal active bowel sounds MUSCULOSKELETAL: Extremities without cyanosis, or edema. NEURO: Alert & Oriented x4 to person, place, time, situation. Moves all ext x4 PSYCH: Appropriate mood and affect. Results - Labs CBC & Chem 7: 04/05/18 05:25 04/05/18 05:25 - Procedures None Assessment and Plan - Assessment (1) COPD exacerbation Code(s): J44.1 - Chronic obstructive pulmonary disease with (acute) exacerbation Status: Acute (2) Alcoholism /alcohol abuse Code(s): F10.20 - Alcohol dependence, uncomplicated Status: Acute (3) Tobacco abuse Code(s): Z72.0 - Tobacco use Status: Acute - Plan 62-year-old male admitted with acute on chronic respiratory failure secondary to COPD exacerbation. Patient was treated with IV steroids, antibiotics, breathing treatments, and supplemental oxygen. His respiratory status improved. He was extensively counseled on cessation of tobacco use. Patient is also an alcoholic who has been experiencing withdrawals. He was treated per [facility] protocol. Withdrawal symptoms resolved. He was given multivitamin, thiamine, and folate replacement. Patient is advised to follow-up outpatient for continuing treatment for alcohol dependence. Hyponatremia during hospitalization, improved. He is also pancytopenic likely secondary to bone marrow suppression from chronic alcohol use. Blood counts remained stable. Medically cleared for discharge but awaiting electrical electronics technician placement. Continue oral prednisone Continue supplemental oxygen. Encourage the patient to use incentive spirometer. Restoril as needed at night for sleep. DuoNeb scheduled due to COPD Discussed Condition With: Patient and tombstone erector Planning: Patient is discharged. Awaiting long-term placement We will continue rehab efforts. Physical therapy daily. If he gets strong enough, he may be return his prior living arrangement but he would rather go to a long-term facility.
[2018-04-12] MEDS: Temazepam 15 MG Capsule PO PRN (20:45)
[2018-04-13] MEDS: Senna/Docusate Sodium 8.6/50 MG Tablet PO SCH ×2 (09:37→21:54)
[2018-04-13] MEDS: guaiFENesin 600 MG ER Tablet PO SCH ×2 (09:39→21:53)
[2018-04-13] MEDS: predniSONE 20 MG Tablet PO SCH (09:40)
[2018-04-13] MEDS: Budesonide-Formoterol 160/4.5 MCG 6 GM Inhaler INH SCH ×2 (09:40→22:35)
[2018-04-13] MEDS: Sodium Chloride 0.9% 2 ML Flush BID IV.FLUSH SCH ×2 (09:40→21:54)
--- NOTE | 2018-04-13 13:33 | P.PN ---
Subjective Interval history: no complains good po- no nuasea or vomiting no pain cough- "rarely" Physical Exam Vital signs: Vital Signs 04/12/18 13:36 04/12/18 16:00 04/12/18 16:30 Temperature 97.4 F L Pulse Rate 74 100 H 100 H Respiratory Rate 18 18 Blood Pressure 119/68 Pulse Oximetry 04/12/18 19:40 04/12/18 20:00 04/13/18 00:00 Temperature 96 F L 98.0 F Pulse Rate 97 H 96 H 70 Respiratory Rate 18 16 16 Blood Pressure 104/55 L 106/72 Pulse Oximetry 97 95 96 04/13/18 04:00 04/13/18 07:39 04/13/18 08:00 Temperature 98.2 F 97.3 F L Pulse Rate 74 80 80 Respiratory Rate 16 16 22 Blood Pressure 101/71 113/66 Pulse Oximetry 98 98 04/13/18 11:29 04/13/18 12:00 Temperature 97.7 F Pulse Rate 83 84 Respiratory Rate 18 23 Blood Pressure 122/75 Pulse Oximetry 99 Intake & Output 04/12/18 04/13/18 04/13/18 18:59 06:59 18:59 Output Total 800 / 800 700 / 700 Balance -800 / -800 -700 / -700 Weight 52.6 kg Output: Urine 800 / 800 700 / 700 Other: Date of Last Bowel Movement 04/10/18 04/10/18 # Bowel Movements 2 Narrative: GENERAL: in no apparent distress. CARDIOVASCULAR: Normal rate and regular rhythm without murmurs, gallops, or rubs. RESPIRATORY: Air movement is fair. Diminished breath sounds bilaterally. No wheezing or rhonchi. GASTROINTESTINAL: Abdomen soft, non-tender, non-distended. Normal active bowel sounds MUSCULOSKELETAL: Extremities without cyanosis, or edema. NEURO: Alert & Oriented x4 to person, place, time, situation. Moves all ext x4 PSYCH: Appropriate mood and affect. gait- - up and ambuated with a walker Results - Labs CBC & Chem 7: 04/05/18 05:25 04/05/18 05:25 - Procedures None Assessment and Plan - Assessment (1) COPD exacerbation Code(s): J44.1 - Chronic obstructive pulmonary disease with (acute) exacerbation Status: Acute (2) Alcoholism /alcohol abuse Code(s): F10.20 - Alcohol dependence, uncomplicated Status: Acute (3) Tobacco abuse Code(s): Z72.0 - Tobacco use Status: Acute - Plan 62-year-old male admitted with acute on chronic respiratory failure secondary to COPD exacerbation. Patient was treated with IV steroids, antibiotics, breathing treatments, and supplemental oxygen. His respiratory status improved. He was extensively counseled on cessation of tobacco use. Patient is also an alcoholic who has been experiencing withdrawals. He was treated per [facility] protocol. Withdrawal symptoms resolved. He was given multivitamin, thiamine, and folate replacement. Patient is advised to follow-up outpatient for continuing treatment for alcohol dependence. Hyponatremia during hospitalization, improved. He is also pancytopenic likely secondary to bone marrow suppression from chronic alcohol use. Blood counts remained stable. Medically cleared for discharge but awaiting alf placement. Continue oral prednisone - on 20 mg po bid- decrease to 10 mg po bid today 04/13 Continue supplemental oxygen. Encourage the patient to use incentive spirometer. Restoril as needed at night for sleep. Elizabeth sladen Discussed Condition With: Patient and wool hanker Planning: Patient is discharged. Awaiting long-term placement We will continue rehab efforts. Physical therapy daily. If he gets strong enough, he may be return his prior living arrangement but he would rather go to a long-term facility.
[2018-04-13] MEDS: Temazepam 15 MG Capsule PO PRN (21:53)
[2018-04-13] MEDS: predniSONE 10 MG Tablet PO SCH (21:53)
[2018-04-14] MEDS: predniSONE 10 MG Tablet PO SCH ×2 (09:45→21:09)
[2018-04-14] MEDS: guaiFENesin 600 MG ER Tablet PO SCH ×2 (09:46→21:09)
[2018-04-14] MEDS: Senna/Docusate Sodium 8.6/50 MG Tablet PO SCH ×2 (09:46→21:10)
[2018-04-14] MEDS: Sodium Chloride 0.9% 2 ML Flush BID IV.FLUSH SCH ×2 (09:47→21:16)
[2018-04-14] MEDS: Budesonide-Formoterol 160/4.5 MCG 6 GM Inhaler INH SCH ×2 (09:47→21:18)
--- NOTE | 2018-04-14 13:05 | P.PN ---
Subjective Interval history: no complains Physical Exam Vital signs: Vital Signs 04/13/18 16:00 04/13/18 19:23 04/13/18 20:00 Temperature 97.8 F 97 F L Pulse Rate 112 H 99 H 97 H Respiratory Rate 23 18 18 Blood Pressure 119/68 116/77 Pulse Oximetry 99 95 98 04/14/18 00:00 04/14/18 04:00 04/14/18 07:00 Temperature 97.2 F L 97.6 F Pulse Rate 81 69 63 Respiratory Rate 18 18 16 Blood Pressure 143/90 H 118/73 Pulse Oximetry 98 98 04/14/18 08:00 04/14/18 12:00 Temperature 97.7 F 98.1 F Pulse Rate 64 76 Respiratory Rate 22 23 Blood Pressure 130/75 116/68 Pulse Oximetry 99 100 Intake & Output 04/13/18 04/14/18 04/14/18 18:59 06:59 18:59 Intake Total 460 / 460 460 / 460 Output Total 600 / 600 600 / 600 Balance -140 / -140 -140 / -140 Weight 52.6 kg Intake: Oral 460 / 460 460 / 460 Other 0 / 0 Output: Urine 600 / 600 600 / 600 Other: # Voids 1 # Incontinent Voids 1 Date of Last Bowel Movement 04/12/18 04/13/18 # Bowel Movements 2 Narrative: GENERAL: in no apparent distress. CARDIOVASCULAR: Normal rate and regular rhythm without murmurs, gallops, or rubs. RESPIRATORY: Air movement is fair. Diminished breath sounds bilaterally. No wheezing or rhonchi. GASTROINTESTINAL: Abdomen soft, non-tender, non-distended. Normal active bowel sounds MUSCULOSKELETAL: Extremities without cyanosis, or edema. NEURO: Alert & Oriented x4 to person, place, time, situation. Moves all ext x4 PSYCH: Appropriate mood and affect. gait- - up and ambulated with a walker Results - Labs CBC & Chem 7: 04/05/18 05:25 04/05/18 05:25 - Procedures None Assessment and Plan - Assessment (1) COPD exacerbation Code(s): J44.1 - Chronic obstructive pulmonary disease with (acute) exacerbation Status: Acute (2) Alcoholism /alcohol abuse Code(s): F10.20 - Alcohol dependence, uncomplicated Status: Acute (3) Tobacco abuse Code(s): Z72.0 - Tobacco use Status: Acute - Plan 62-year-old male admitted with acute on chronic respiratory failure secondary to COPD exacerbation. Patient was treated with IV steroids, antibiotics, breathing treatments, and supplemental oxygen. His respiratory status improved. He was extensively counseled on cessation of tobacco use. Patient is also an alcoholic who has been experiencing withdrawals. He was treated per [facility] protocol. Withdrawal symptoms resolved. He was given multivitamin, thiamine, and folate replacement. Patient is advised to follow-up outpatient for continuing treatment for alcohol dependence. Hyponatremia during hospitalization, improved. He is also pancytopenic likely secondary to bone marrow suppression from chronic alcohol use. Blood counts remained stable. Medically cleared for discharge but awaiting longterm placement. Continue oral prednisone - on 20 mg po bid- decrease to 10 mg po bid today 04/13 Continue supplemental oxygen. Encourage the patient to use incentive spirometer. Restoril as needed at night for sleep. Elizabeth pryor Discussed Condition With: Patient and carver hand Planning: Patient is discharged. Awaiting long-term placement We will continue rehab efforts. Physical therapy daily. If he gets strong enough, he may be return his prior living arrangement but he would rather go to a long-term facility.
[2018-04-14] MEDS: Temazepam 15 MG Capsule PO PRN (21:13)
[2018-04-15] MEDS: predniSONE 10 MG Tablet PO SCH ×2 (09:43→21:27)
[2018-04-15] MEDS: Senna/Docusate Sodium 8.6/50 MG Tablet PO SCH ×2 (09:43→21:28)
[2018-04-15] MEDS: guaiFENesin 600 MG ER Tablet PO SCH ×2 (09:43→21:27)
[2018-04-15] MEDS: Budesonide-Formoterol 160/4.5 MCG 6 GM Inhaler INH SCH ×2 (09:44→22:03)
[2018-04-15] MEDS: Sodium Chloride 0.9% 2 ML Flush BID IV.FLUSH SCH ×2 (09:44→21:29)
--- NOTE | 2018-04-15 13:17 | P.PN ---
Subjective Interval history: no complains up and ambulating with a cane Physical Exam Vital signs: Vital Signs 04/14/18 13:37 04/14/18 15:55 04/14/18 16:00 Temperature 98.0 F Pulse Rate 71 92 H Respiratory Rate 16 22 Blood Pressure 127/67 Pulse Oximetry 98 98 04/14/18 19:58 04/14/18 20:00 04/15/18 00:00 Temperature 98 F 98 F Pulse Rate 91 H 75 75 Respiratory Rate 16 18 18 Blood Pressure 113/74 114/61 Pulse Oximetry 96 97 95 04/15/18 04:00 04/15/18 08:00 04/15/18 08:46 Temperature 97.4 F L 97.7 F Pulse Rate 74 70 74 Respiratory Rate 20 15 20 Blood Pressure 101/64 113/82 Pulse Oximetry 97 100 97 04/15/18 12:55 Temperature Pulse Rate 74 Respiratory Rate 18 Blood Pressure Pulse Oximetry Intake & Output 04/14/18 04/15/18 04/15/18 18:59 06:59 18:59 Intake Total 480 / 480 200 / 200 Balance 480 / 480 200 / 200 Weight 52.6 kg Intake: Oral 480 / 480 200 / 200 Other: # Voids 3 2 Date of Last Bowel Movement 04/13/18 Narrative: GENERAL: in no apparent distress. CARDIOVASCULAR: Normal rate and regular rhythm without murmurs, gallops, or rubs. RESPIRATORY: Air movement is fair. Diminished breath sounds bilaterally. No wheezing or rhonchi. GASTROINTESTINAL: Abdomen soft, non-tender, non-distended. Normal active bowel sounds MUSCULOSKELETAL: Extremities without cyanosis, or edema. NEURO: Alert & Oriented x4 to person, place, time, situation. Moves all ext x4 PSYCH: Appropriate mood and affect. gait- - up and ambulated with a walker Results - Labs CBC & Chem 7: 04/05/18 05:25 04/05/18 05:25 - Procedures None Assessment and Plan - Assessment (1) COPD exacerbation Code(s): J44.1 - Chronic obstructive pulmonary disease with (acute) exacerbation Status: Acute (2) Alcoholism /alcohol abuse Code(s): F10.20 - Alcohol dependence, uncomplicated Status: Acute (3) Tobacco abuse Code(s): Z72.0 - Tobacco use Status: Acute - Plan 62-year-old male admitted with acute on chronic respiratory failure secondary to COPD exacerbation. Patient was treated with IV steroids, antibiotics, breathing treatments, and supplemental oxygen. His respiratory status improved. He was extensively counseled on cessation of tobacco use. Patient is also an alcoholic who has been experiencing withdrawals. He was treated per [facility] protocol. Withdrawal symptoms resolved. He was given multivitamin, thiamine, and folate replacement. Patient is advised to follow-up outpatient for continuing treatment for alcohol dependence. Hyponatremia during hospitalization, improved. He is also pancytopenic likely secondary to bone marrow suppression from chronic alcohol use. Blood counts remained stable. Medically cleared for discharge but awaiting marine oil terminal superintendent placement. Continue oral prednisone - on 20 mg po bid- decrease to 10 mg po bid today 04/13 Continue supplemental oxygen. Encourage the patient to use incentive spirometer. Restoril as needed at night for sleep. Elizabeth pryor Discussed Condition With: Patient and sheeting puller Planning: Patient is discharged. Awaiting long-term placement We will continue rehab efforts. Physical therapy daily. If he gets strong enough, he may be return his prior living arrangement but he would rather go to a long-term facility.
[2018-04-15] MEDS: Temazepam 15 MG Capsule PO PRN (21:27)
[2018-04-16] MEDS: predniSONE 10 MG Tablet PO SCH ×2 (08:46→20:55)
[2018-04-16] MEDS: guaiFENesin 600 MG ER Tablet PO SCH ×2 (08:46→20:55)
[2018-04-16] MEDS: Senna/Docusate Sodium 8.6/50 MG Tablet PO SCH ×2 (08:46→20:55)
[2018-04-16] MEDS: Sodium Chloride 0.9% 2 ML Flush BID IV.FLUSH SCH ×2 (08:48→20:56)
[2018-04-16] MEDS: Budesonide-Formoterol 160/4.5 MCG 6 GM Inhaler INH SCH ×2 (08:48→20:56)
--- NOTE | 2018-04-16 11:29 | P.PN ---
Subjective Interval history: no complains Physical Exam Vital signs: Vital Signs 04/15/18 12:00 04/15/18 12:55 04/15/18 16:00 Temperature 98 F 97.9 F Pulse Rate 101 H 74 110 H Respiratory Rate 18 Blood Pressure 130/83 97/73 L Pulse Oximetry 98 96 04/15/18 19:42 04/15/18 20:00 04/16/18 00:00 Temperature 98.3 F 98.3 F Pulse Rate 102 H 102 H 95 H Respiratory Rate 18 Blood Pressure 114/87 103/67 Pulse Oximetry 97 96 04/16/18 04:00 04/16/18 07:30 04/16/18 08:00 Temperature 97.2 F L 97.7 F Pulse Rate 86 86 88 Respiratory Rate 20 Blood Pressure 128/82 109/77 Pulse Oximetry 100 100 Intake & Output 04/15/18 04/16/18 04/16/18 18:59 06:59 18:59 Intake Total 480 / 480 Output Total 400 / 400 Balance 480 / 480 -400 / -400 Weight 51.7 kg Intake: Oral 480 / 480 Output: Urine 400 / 400 Other: # Voids 4 Date of Last Bowel Movement 04/13/18 Narrative: GENERAL: in no apparent distress. CARDIOVASCULAR: Normal rate and regular rhythm without murmurs, gallops, or rubs. RESPIRATORY: Air movement is fair. Diminished breath sounds bilaterally. No wheezing or rhonchi. NEURO: Alert & Oriented x4 to person, place, time, situation. Moves all ext x4 gait- - up and ambulated with a walker Results - Labs CBC & Chem 7: 04/05/18 05:25 04/05/18 05:25 - Procedures None Assessment and Plan - Assessment (1) COPD exacerbation Code(s): J44.1 - Chronic obstructive pulmonary disease with (acute) exacerbation Status: Acute (2) Alcoholism /alcohol abuse Code(s): F10.20 - Alcohol dependence, uncomplicated Status: Acute (3) Tobacco abuse Code(s): Z72.0 - Tobacco use Status: Acute - Plan 62-year-old male admitted with acute on chronic respiratory failure secondary to COPD exacerbation. Patient was treated with IV steroids, antibiotics, breathing treatments, and supplemental oxygen. His respiratory status improved. He was extensively counseled on cessation of tobacco use. Patient is also an alcoholic who has been experiencing withdrawals. He was treated per [facility] protocol. Withdrawal symptoms resolved. He was given multivitamin, thiamine, and folate replacement. Patient is advised to follow-up outpatient for continuing treatment for alcohol dependence. Hyponatremia during hospitalization, improved. He is also pancytopenic likely secondary to bone marrow suppression from chronic alcohol use. Blood counts remained stable. Medically cleared for discharge but awaiting termite exterminator helper placement. Continue oral prednisone - on 20 mg po bid- decrease to 10 mg po bid today 04/13 Continue supplemental oxygen. Encourage the patient to use incentive spirometer. Restoril as needed at night for sleep. Elizabeth sladen Discussed Condition With: Patient and customs appraiser Planning: Patient is discharged. Awaiting long-term placement We will continue rehab efforts. Physical therapy daily. If he gets strong enough, he may be return his prior living arrangement but he would rather go to a long-term facility.
[2018-04-16] MEDS: Temazepam 15 MG Capsule PO PRN (21:00)
[2018-04-17] MEDS: predniSONE 10 MG Tablet PO SCH ×2 (09:39→22:43)
[2018-04-17] MEDS: Senna/Docusate Sodium 8.6/50 MG Tablet PO SCH ×3 (09:39→22:46)
[2018-04-17] MEDS: Sodium Chloride 0.9% 2 ML Flush BID IV.FLUSH SCH ×2 (09:39→22:44)
[2018-04-17] MEDS: guaiFENesin 600 MG ER Tablet PO SCH ×2 (09:39→22:43)
[2018-04-17] MEDS: Budesonide-Formoterol 160/4.5 MCG 6 GM Inhaler INH SCH ×2 (09:40→22:44)
--- NOTE | 2018-04-17 10:45 | P.PN ---
Subjective Interval history: no complains good po had a good BM Physical Exam Vital signs: Vital Signs 04/16/18 12:00 04/16/18 16:00 04/16/18 20:00 Temperature 97.5 F L 97.7 F 98.0 F Pulse Rate 90 97 H 97 H Respiratory Rate 18 18 Blood Pressure 148/89 H 138/87 135/88 Pulse Oximetry 100 98 98 04/17/18 00:00 04/17/18 04:00 04/17/18 08:00 Temperature 98.0 F 97.5 F L 97.8 F Pulse Rate 83 74 94 H Respiratory Rate 18 17 Blood Pressure 107/69 100/70 136/79 Pulse Oximetry 97 98 100 Intake & Output 04/16/18 04/17/18 04/17/18 18:59 06:59 18:59 Weight 52.6 kg Other: # Voids 4 Date of Last Bowel Movement 04/16/18 # Bowel Movements 0 Narrative: GENERAL: in no apparent distress. RESPIRATORY: no complains NEURO: Alert & Oriented x4 to person, place, time, situation. Moves all ext x4 gait- - up and ambulating Results - Labs CBC & Chem 7: 04/05/18 05:25 04/05/18 05:25 - Procedures None Assessment and Plan - Assessment (1) COPD exacerbation Code(s): J44.1 - Chronic obstructive pulmonary disease with (acute) exacerbation Status: Acute (2) Alcoholism /alcohol abuse Code(s): F10.20 - Alcohol dependence, uncomplicated Status: Acute (3) Tobacco abuse Code(s): Z72.0 - Tobacco use Status: Acute - Plan 62-year-old male admitted with acute on chronic respiratory failure secondary to COPD exacerbation. Patient was treated with IV steroids, antibiotics, breathing treatments, and supplemental oxygen. His respiratory status improved. He was extensively counseled on cessation of tobacco use. Patient is also an alcoholic who has been experiencing withdrawals. He was treated per [facility] protocol. Withdrawal symptoms resolved. He was given multivitamin, thiamine, and folate replacement. Patient is advised to follow-up outpatient for continuing treatment for alcohol dependence. Hyponatremia during hospitalization, improved. He is also pancytopenic likely secondary to bone marrow suppression from chronic alcohol use. Blood counts remained stable. Medically cleared for discharge but awaiting exterminator placement. Continue oral prednisone - on 20 mg po bid- decrease to 10 mg po bid today 04/13 Continue supplemental oxygen. Encourage the patient to use incentive spirometer. Restoril as needed at night for sleep. Elizabeth pryor Discussed Condition With: Patient and tailer off Planning: Patient is discharged. Awaiting long-term placement We will continue rehab efforts. Physical therapy daily. If he gets strong enough, he may be return his prior living arrangement but he would rather go to a long-term facility.
[2018-04-17] MEDS: Temazepam 15 MG Capsule PO PRN (22:43)
[2018-04-18] MEDS: predniSONE 10 MG Tablet PO SCH (08:53)
[2018-04-18] MEDS: guaiFENesin 600 MG ER Tablet PO SCH ×2 (08:53→22:00)
[2018-04-18] MEDS: Senna/Docusate Sodium 8.6/50 MG Tablet PO SCH ×2 (08:53→22:00)
[2018-04-18] MEDS: Sodium Chloride 0.9% 2 ML Flush BID IV.FLUSH SCH ×2 (08:53→22:01)
[2018-04-18] MEDS: Budesonide-Formoterol 160/4.5 MCG 6 GM Inhaler INH SCH ×2 (08:54→22:02)
--- NOTE | 2018-04-18 10:30 | P.PN ---
Subjective Interval history: no complains good po on the computer area- playing solitaire "winning" Physical Exam Vital signs: Vital Signs 04/17/18 12:00 04/17/18 15:08 04/17/18 16:00 Temperature 97.8 F 98.2 F Pulse Rate 75 87 Respiratory Rate 17 17 Blood Pressure 132/77 130/75 Pulse Oximetry 99 99 97 04/17/18 20:00 04/18/18 00:00 04/18/18 04:00 Temperature 97.5 F L 97.8 F 97.6 F Pulse Rate 88 86 66 Respiratory Rate 20 16 16 Blood Pressure 154/87 H 141/86 H 111/66 Pulse Oximetry 99 98 97 04/18/18 08:00 Temperature 97.7 F Pulse Rate 66 Respiratory Rate 16 Blood Pressure 135/84 Pulse Oximetry 99 Intake & Output 04/17/18 04/18/18 04/18/18 18:59 06:59 18:59 Intake Total 1200 / 1200 480 / 480 Output Total 1400 / 1400 Balance -200 / -200 480 / 480 Weight 51.4 kg Intake: Oral 1200 / 1200 480 / 480 Output: Urine 1400 / 1400 Other: # Voids 6 Date of Last Bowel Movement 04/16/18 # Bowel Movements 1 Narrative: GENERAL: in no apparent distress. RESPIRATORY:- clear, no rales, no wheezes regular rhythm NEURO: Alert & Oriented x4 to person, place, time, situation. Moves all ext x4 gait- - up and ambulating Results - Labs CBC & Chem 7: 04/05/18 05:25 04/05/18 05:25 - Procedures None Assessment and Plan - Assessment (1) COPD exacerbation Code(s): J44.1 - Chronic obstructive pulmonary disease with (acute) exacerbation Status: Acute (2) Alcoholism /alcohol abuse Code(s): F10.20 - Alcohol dependence, uncomplicated Status: Acute (3) Tobacco abuse Code(s): Z72.0 - Tobacco use Status: Acute - Plan 62-year-old male admitted with Acute on chronic respiratory failure secondary to COPD exacerbation. Patient was treated with IV steroids, antibiotics, breathing treatments, and supplemental oxygen. His respiratory status improved. He was extensively counseled on cessation of tobacco use. Patient is also an alcoholic who has been experiencing withdrawals. He was treated per [facility] protocol. Withdrawal symptoms resolved. He was given multivitamin, thiamine, and folate replacement. Patient is advised to follow-up outpatient for continuing treatment for alcohol dependence. Hyponatremia during hospitalization, improved. He is also pancytopenic likely secondary to bone marrow suppression from chronic alcohol use. Blood counts remained stable. Medically cleared for discharge but awaiting long term care social worker placement. Continue oral prednisone - decrease to 10 mg po bid 04/13. Taper to 5 mg bid today 04/18 Continue supplemental oxygen. Encourage the patient to use incentive spirometer. Restoril as needed at night for sleep. 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 Awaiting long-term placement We will continue rehab efforts. Physical therapy daily. Iup and ambulating patient refused to go to [facility] because he refused to give up his SS check
[2018-04-18] MEDS: predniSONE 5 MG Tablet PO SCH (22:00)
[2018-04-18] MEDS: Temazepam 15 MG Capsule PO PRN (22:14)
[2018-04-19] MEDS: predniSONE 5 MG Tablet PO SCH (08:32)
[2018-04-19] MEDS: guaiFENesin 600 MG ER Tablet PO SCH (08:32)
[2018-04-19] MEDS: Senna/Docusate Sodium 8.6/50 MG Tablet PO SCH (08:32)
[2018-04-19] MEDS: Sodium Chloride 0.9% 2 ML Flush BID IV.FLUSH SCH (08:32)
[2018-04-19] MEDS: Budesonide-Formoterol 160/4.5 MCG 6 GM Inhaler INH SCH (08:33)
[2018-04-19 09:59] VITALS: BP 149/79; PULSE 88; RESP 20; TEMP 99.3; O2SAT 98
--- NOTE | 2018-04-19 10:54 | P.DS ---
Date of admission: 03/31/18 23:38 Primary care physician: No Primary Care Physician Brief History from admission: HPI from the admitting physician: This is a 62-year-old Homeless male with a PMH of HTN, COPD, Alcohol Abuse and Tobacco Abuse who was brought to the ER by EMS for COPD and respiratory distress. Pt noted to have O2 sat 80% on RA, placed on CPAP by EMS w/ some improvement, however pt became agitated/combative, refusing CPAP, s/p Ativan on arrival w/ improvement, currently on BIPAP. Denies fever or chills. Reports non-productive cough x2-3 days w/ worsening SOB. On arrival, BP 181/110, HR 128 , O2 sat 100% on BiPAP 50% FiO2, Temp 100.4. CBC essentially unremarkable. Na 122. Troponin negative. CXR with no acute findings. DS: Medications - Discharge Medications Prescriptions: albuterol sulfate [ProAir HFA] 1 puff INHALATION Q4-6H PRN #1 inhaler PRN Reason: Shortness Of Breath Or Wheezing budesonide-formoterol [Symbicort] 2 puff INH BID #1 inhaler carvedilol [Coreg] 3.125 mg PO BID #60 tab lisinopril [Prinivil] 5 mg PO DAILY #30 tab prednisone 5 mg PO DAILY #4 tab DS: Summary Hospital Course: Acute on chronic respiratory failure secondary to COPD exacerbation. Patient was treated with IV steroids, antibiotics, breathing treatments, and supplemental oxygen. His respiratory status improved. He was extensively counseled on cessation of tobacco use. Patient is also an alcoholic who has been experiencing withdrawals. He was treated per [facility] protocol. Withdrawal symptoms resolved. He was given multivitamin, thiamine, and folate replacement. Patient is advised to follow-up outpatient for continuing treatment for alcohol dependence. Hyponatremia during hospitalization, improved. He is also pancytopenic likely secondary to bone marrow suppression from chronic alcohol use. Blood counts remained stable. Patient refused to go to residential facility, not wanting to give up his check. Agreeable to being discharged otherwise as he did demonstrate strengthening with physical therapy. Patient has met maximal benefit from hospitalization is clinically stable for discharge with a prednisone taper. - Time Spent with Patient Total time spent providing and/or coordinating discharge services: Less than 30 minutes - Quality: VTE Deep Vein Thrombosis/Pulmonary Embolism Present on Admission: No Exam Vital signs: Vital Signs 04/18/18 12:00 04/18/18 16:00 04/18/18 20:00 Temperature 98.0 F 97.7 F 97.9 F Pulse Rate 90 103 H 95 H Respiratory Rate 16 16 17 Blood Pressure 120/76 145/71 H 135/83 Pulse Oximetry 98 98 99 04/18/18 20:03 04/19/18 00:00 04/19/18 00:04 Temperature 97.9 F Pulse Rate 96 H 96 H 98 H Respiratory Rate 18 Blood Pressure 119/73 Pulse Oximetry 96 04/19/18 04:00 04/19/18 04:05 04/19/18 08:00 Temperature 97.7 F 99.3 F Pulse Rate 81 79 88 Respiratory Rate 18 20 Blood Pressure 124/77 149/79 H Pulse Oximetry 97 98 Intake & Output 04/18/18 04/19/18 04/19/18 18:59 06:59 18:59 Intake Total 620 / 620 240 / 240 Output Total 2100 / 2100 400 / 400 Balance -1480 / -1480 -160 / -160 Weight 52.5 kg Intake: Oral 620 / 620 240 / 240 Output: Urine 2100 / 2100 400 / 400 Other: # Bowel Movements 1 0 Narrative: Clear lungs bilaterally, unlabored breathing Awake and alert No acute distress Results Procedures completed during hospitalization: None - Impressions ITS Impressions Chest X-Ray 03/31/18 22:05 CONCLUSION: No acute cardiopulmonary disease demonstrated. Stable COPD changes. Discharge Plan - Discharge Disposition Patient Disposition: Discharge Home - Discharge Condition Condition: Good - Discharge Order Discharge Orders: Discharge Order (Routine); Ordered 04/19/18 Ordered By: Alverto Grant - Physicians Team Primary Care Provider: Primary Care Gissell Sebastian Attending Provider: Alverto Grant Other Providers: Rehab,[facility] ; Healthcare,[place] ; Rehab,[facility] ; [facility]
== END 2018-04-19 13:06 | disposition home or self-care (01) ==
LOC: NEPE 21:55 → NEDA 23:38 → HCIS 04-01 02:22 → N04 04-11 03:10
PROVIDERS: ADMIT Hospitalist; ATTEND Hospitalist

== ENCOUNTER 2018-05-17 00:09 | Inpatient (IN) ==
[2018-05-17 01:41] LABS: Baso % (Auto) 0.2 % (0.0-2.0); Hematocrit 40.6 % (39.0-51.0); Hemoglobin 13.9 gm/dL (13.0-17.0); Lymph # (Auto) 1.2 th/mm3 (1.0-4.8); Lymph % (Auto) 13.2 % (9.0-44.0); Mean Corpuscular HGB Conc 34.3 % (32.0-36.0); Mean Corpuscular Hemoglobin 35.2 pg (27.0-34.0); Mean Corpuscular Volume 102.5 fL (80.0-100.0); Mean Platelet Volume 9.1 fL (7.0-11.0); Mono # (Auto) 0.7 th/mm3 (0.0-0.9); Mono % (Auto) 8.4 % (0.0-8.0); Neut # (Auto) 6.8 th/mm3 (1.8-7.7); Neut % (Auto) 78.2 % (16.0-70.0); Platelet Count 199 th/mm3 (150-450); Red Blood Count 3.96 mil/mm3 (4.50-5.90); Red Cell Distribution Width 14.9 % (11.6-17.2); White Blood Count 8.7 th/mm3 (4.0-11.0)
--- NOTE | 2018-05-17 01:51 | XR ---
EXAM DATE: 05/17/2018 1:45 AM EST AGE/SEX: 62 years / Male INDICATIONS: Chest pain. CLINICAL DATA: This is the patient's initial encounter. Patient reports that signs and symptoms have been present for 1 day and indicates a pain score of 2/10. MEDICAL/SURGICAL HISTORY: . Hypertension. Chronic obstructive pulmonary disease. None. COMPARISON: [facility] [place]ST 1V SINGLE AP, 05/08/2018. . FINDINGS: Single AP view the chest. Calcified granuloma at the lateral right lung base. The lungs ar e otherwise clear. Cardiomediastinal silhouette within normal limits. No evidence of pleural effusi on or pneumothorax. Multiple old left-sided rib fractures. CONCLUSION: No acute cardiopulmonary disease identified. Electronically signed by: Chris Diaz MD 05/17/2018 1:50 AM EST
[2018-05-17 01:54] LABS: Activated Partial Thrombo Time 25.8 sec (23.4-31.7); Prothrombin Time 10.2 sec (9.8-11.6)
[2018-05-17 01:55] LABS: Alanine Aminotransferase 65 U/L (12-78); Albumin 3.9 g/dL (3.4-5.0); Anion Gap 16 meq/L (5-15); Aspartate Aminotransferase 48 U/L (15-37); Blood Urea Nitrogen 17 mg/dL (7-18); Calcium 8.9 mg/dL (8.5-10.1); Carbon Dioxide 24.5 meq/L (21.0-32.0); Chloride 88 meq/L (98-107); Glomerular Filtration Rate Greater Than 89 mL/min (>89); Glucose,Random 74 mg/dL (74-106); Lipase 77 U/L (73-393); Magnesium 1.9 mg/dL (1.5-2.5); Potassium 4.2 meq/L (3.5-5.1); Sodium 128 meq/L (136-145)
[2018-05-17 01:59] LABS: Alkaline Phosphatase 113 U/L (45-117); Creatine Kinase 236 U/L (39-308); Total Protein 7.7 g/dL (6.4-8.2); Troponin I 0.35 ng/mL (0.02-0.05)
--- NOTE | 2018-05-17 02:47 | CT ---
EXAM DATE: 05/17/2018 2:33 AM EST AGE/SEX: 62 years / Male INDICATIONS: Bilateral leg pain. CLINICAL DATA: This is the patient's initial encounter. Patient reports that signs and symptoms have been present for 1 day and indicates a pain score of 8/10. MEDICAL/SURGICAL HISTORY: Alzheimer's disease. Anemia. Chronic obstructive pulmonary disease. Al cohol abuse, cord compression . Hip replacement RADIATION DOSE: 12.26 CTDI (mGy) ; Combined studies COMPARISON: [facility] [place], CHEST 2V PA&LAT, 03/14/2018. . TECHNIQUE: Contiguous axial images were acquired using a multirow detector CT scanner without contra st. Multiplanar reconstruction in the sagittal and coronal planes was performed. Using automated exp osure control and adjustment of the mA and/or kV according to patient size, radiation dose was kept a s low as reasonably achievable to obtain optimal diagnostic quality images. DICOM format image data is available electronically for review and comparison. FINDINGS: Multiple compression fracture deformities are identified in the thoracic spine. Comparison is made to prior lateral chest radiograph of 03/14/2018. Moderate superior and inferior endplate concavity and a pproximately 50% decreased height centrally at T5 is likely unchanged. Moderate severity superior and inferior endplate concavity at T6 with approximately 70% decreased height is likely unchanged. There is sclerosis at the inferior aspect of this vertebral body. Moderate severity endplate concavity and approximately 60% decreased height at T9 is unchanged. Mild endplate concavity and approximately 20% decreased height at T10 is unchanged. There is no evidence of bony retropulsion at these levels. Bon e alignment within normal limits. Central canal diameter is within normal limits at all levels. Neural foraminal diameters are within n ormal limits at all levels. Diffuse aortic calcification. Coronary artery calcification. Aortic diameter within normal limits. 1 cm left adrenal nodule with Hounsfield unit values indicating adenoma. CONCLUSION: Multiple compression fracture deformities of the thoracic spine. The shapes of the vertebral bodies a re grossly unchanged from the lateral chest radiograph of 03/14/2018. Relative sclerosis at the inferi or aspect of the T6 vertebral body suggests that this fracture may be more acute than the other fract ures. No bony retropulsion at any level. Central canal diameter within normal limits at all levels. Electronically signed by: Chris Diaz MD 05/17/2018 2:46 AM EST
--- NOTE | 2018-05-17 02:51 | CT ---
EXAM DATE: 05/17/2018 2:38 AM EST AGE/SEX: 62 years / Male INDICATIONS: Bilateral leg pain. CLINICAL DATA: This is the patient's initial encounter. Patient reports that signs and symptoms have been present for 1 day and indicates a pain score of 6/10. MEDICAL/SURGICAL HISTORY: Seizures. Anemia. Chronic obstructive pulmonary disease. Alcohol abuse , cord compression. . Right hip replacement RADIATION DOSE: 12.26 CTDI (mGy) ; Combined studies COMPARISON: [facility], CHEST 2V PA&LAT, 03/14/2018. . TECHNIQUE: Contiguous axial images were acquired with a multirow detector CT scanner without contras t. Multiplanar reconstructions in the sagittal and coronal plane were also performed. Using automate d exposure control and adjustment of the mA and/or kV according to patient size, radiation dose was k ept as low as reasonably achievable to obtain optimal diagnostic quality images. DICOM format image data is available electronically for review and comparison. FINDINGS: Severe anterior wedge deformity and approximately 80% decreased height of the T12 vertebral body is g rossly unchanged from the prior lateral chest x-ray of 03/14/2018. Mild inferior endplate concavity and approximately 10% decreased height of L3. Mild inferior endplate concavity and approximately 20% decreased height of L4. These findings indicate age-indeterminate co mpression fracture deformities. No evidence of bony retropulsion. Broad-based disc bulge left greater than right and mild bilateral facet arthrosis at L4-5. Mild left neural foraminal narrowing at this level. Central canal diameter within normal limits. Broad-based di sc bulge mildly flattening the anterior aspect of the thecal sac at L5-S1. Mild left neural foraminal narrowing. No significant central canal narrowing at any level of the lumbar spine. Aortic calcification and renal artery calcification noted. CONCLUSION: 1. Severe compression fracture deformity of T12 grossly unchanged from prior chest radiograph. 2. Mild age-indeterminate compression fracture deformities of L3 and L4. No bony retropulsion. 3. Degenerative findings lower lumbar spine. Central canal diameter is within normal limits at all l evels. Electronically signed by: Chris Diaz MD 05/17/2018 2:50 AM EST
--- NOTE | 2018-05-17 03:25 | ED ---
HPI General Chief complaint: Extremity Injury, Lower Stated complaint: bilateral leg pain Time Seen by Provider: 05/17/18 00:10 Source: patient Mode of arrival: ambulatory Limitations: no limitations History of Present Illness HPI narrative: The patient is a 62 year old male who presents to the [facility] emergency department with a history of 2 concerns that he presents with today, #1 he reports having problems with shortness of breath that he attributes to his COPD. The patient denies having any associated chest pain. He denies having any nausea or vomiting. He denies having any diaphoresis associated with this. Patient denies having any prior history of heart disease. The patient second complaint that concerns him today is a 6-month history of lower extremity weakness. He reports that he has been seen for this in the past, however no specific diagnosis has been made. He denies any new back pain, recent injury or fall. The patient reports that he has been using a cane and a walker to assist with mobility. The patient denies having a primary care physician. On review of systems otherwise, the patient denies having any known recent fevers. He does report that his cough has been more productive recently of white sputum. He denies having any neck pain, abdominal pain, vomiting, diarrhea, urinary symptoms, loss of bowel or bladder control, or unexplained fevers. Related Data Previous Rx's Medication Instructions Recorded albuterol sulfate [ProAir HFA] 1 puff INHALATION Q4-6H PRN #1 04/05/18 inhaler budesonide-formoterol [Symbicort] 2 puff INH BID #1 inhaler 04/05/18 lisinopril [Prinivil] 5 mg PO DAILY #30 tab 04/05/18 carvedilol [Coreg] 3.125 mg PO BID #60 tab 04/19/18 prednisone 5 mg PO DAILY #4 tab 04/19/18 albuterol sulfate 1 inh INHALATION Q6H PRN #8 g 05/14/18 methylprednisolone [Medrol ([place])] See Label Instructions PO PER PKG 05/14/18 DIR #21 each Allergies Allergy/AdvReac Type Severity Reaction Status Date / Time No Known Allergies Allergy Verified 05/08/18 12:44 Review of Systems ROS: all other systems reviewed are negative [facility] Medical History Medical History Generalized weakness (Acute) COPD (chronic obstructive pulmonary disease) (Acute) Anemia (Acute) Thrombocytopenia concurrent with and due to alcoholism (Acute) Noncompliance (Acute) Tobacco abuse (Acute) Alcohol abuse (Acute) Homeless (Acute) Alcohol related seizure (Acute) Surgical History Surgical History History of right hip replacement (Acute) Family History Family History Other Family history of hypertension Social History Social History Substance History: Past History Second Hand Smoke Exposure: Yes Smoking Status: Current every day smoker Tobacco Type: Cigarettes Packs Per Day: 1 Cigarettes Per Day: 20.0 How Often Do You Have a Drink Containing Alcohol: 4 or more times a week Hx Recent Travel: No Recent Travel in [facility] within the Last 8 Weeks: No Recent Out of Country Travel within the Last 8 Weeks: No Immunization History Tetanus Immunization: Unsure Exam Const General: cooperative and well developed Nutritional Appearance: thin Orientation: alert, awake and oriented x3 HENMT Head: normocephalic and atraumatic Nose: no nasal discharge and no epistaxis Mouth: moist mucous membranes Throat: posterior oropharynx normal and uvula midline Eyes Sclera: normal sclerae Pupils: PERRL Neck Neck: no meningeal signs, trachea midline and no JVD Resp Effort & Inspection: no use of accessory muscles Auscultation: clear to auscultation bilaterally Cardio Rate: regular rate Rhythm: regular rhythm Heart Sounds: no murmurs GI Inspection: non-distended Palpation: soft, no hepatosplenomegaly, no guarding, not rigid and nontender Auscultation: normal bowel sounds Back/Spine/Pelvis Back: no CVA tenderness Skin General: dry skin (warm) Neuro General: alert, awake and oriented x3 Cranial Nerves: CN's II-XI intact bilaterally Speech: speech normal Motor: no movement abnormalities noted and strength abnormal (Strength is 5/5 in bilateral upper extremities, strength is 4/5 in bilateral lower extremities.) Sensory Exam: no sensory deficits noted Extrem General: normal to inspection (2+ pulses in all 4 extremities.), no calf tenderness, no clubbing, no cyanosis and no edema Psych Mood: congruent mood Affect: normal affect Judgment: judgment good Course Initial Documented Vital Signs Temperature 98.2 F 05/17/18 00:20 Pulse Rate 88 05/17/18 00:20 Respiratory Rate 20 05/17/18 00:20 Blood Pressure 101/64 05/17/18 00:20 Pulse Oximetry 94 L 05/17/18 00:20 Last Documented Vital Signs Temperature 97.9 F 05/17/18 05:13 Pulse Rate 93 H 05/17/18 05:13 Respiratory Rate 16 05/17/18 05:13 Blood Pressure 86/67 L 05/17/18 05:13 Pulse Oximetry 100 05/17/18 06:17 Medical Decision Making MDM Narrative Medical decision making narrative: During the course of the patient's emergency department visit, the patient's history, examination, and differential diagnosis were reviewed with the patient. The patient was placed on a environmental monitoring technician with oximetry and frequent blood pressure monitoring. The patient had IV access obtained and blood work sent for analysis. Diagnostic evaluation was started regarding the patient's lower extremity weakness and shortness of breath. The patient was initially provided a DuoNeb x1. The patient's diagnostic evaluation is remarkable for a white count of 8.7, hemoglobin 13.9, platelets 199, neutrophil percent 78.2.PT 10.2, PTT 25.8, chemistry is remarkable for a sodium of 128, chloride 88, anion gap 16, creatinine 0.56, total bilirubin 1.1, AST 48, CPK 236, CK-MB 14, troponin I is elevated at 0.35, BNP is 1338, lipase 77. The chest x-ray showed no acute cardiopulmonary disease, CT scan of the T-spine showed multiple compression fracture deformities of the thoracic spine, relative sclerosis at the inferior aspect of the T6 vertebral body suggesting that this fracture may be more acute than the others which appear to be chronic, no bony retropulsion, central canal diameter within normal limits at all levels. CT scan of the lumbar spine shows severe compression fracture deformity at T12 grossly unchanged from prior chest radiograph, mild age-indeterminate compression fracture deformities of L3 and L4. No bony retropulsion, degenerative changes, central canal diameter is within normal limits at all levels. The patient was given aspirin 324 mg p.o. x1, nitroglycerin 1 inch to the chest wall. The patient's case including history, pertinent physical examination findings, and laboratory studies were discussed with Dr. Cintron. It was agreed that the patient would be admitted to the hospitalist service. The patient's results were discussed with the patient, including the plan of care. I explained that further testing and/ or monitoring is indicated based on the patient's history, examination, and/ or laboratory findings. Therefore, I recommended admission for additional evaluation. The patient expressed understanding and was agreeable with this plan. The patient was admitted to the hospital in guarded condition and sent to a bed under the care of the [facility] service. Medical Screen Exam Complete: Yes Emergency Medical Condition: Yes Differential Diagnosis Differential Diagnosis: Cord compression, versus acute coronary syndrome, versus COPD exacerbation, versus malingering Medical Records Medical records reviewed: Yes I reviewed the patient's medical records. Lab Data Lab results reviewed: Yes I reviewed the patient's lab results. Result diagrams: 05/17/18 01:35 05/17/18 01:35 Lab Results 05/17/18 05/17/18 05/17/18 Range/Units 01:35 01:35 01:35 WBC 8.7 (4.0-11.0) th/mm3 RBC 3.96 L (4.50-5.90) mil/mm3 Hgb 13.9 (13.0-17.0) gm/dL Hct 40.6 (39.0-51.0) % MCV 102.5 H (80.0-100.0) fL MCH 35.2 H (27.0-34.0) pg MCHC 34.3 (32.0-36.0) % RDW 14.9 (11.6-17.2) % Plt Count 199 D (150-450) th/mm3 MPV 9.1 (7.0-11.0) fL Neut % (Auto) 78.2 H (16.0-70.0) % Lymph % (Auto) 13.2 (9.0-44.0) % Karnes % (Auto) 8.4 H (0.0-8.0) % Eos % (Auto) 0.0 (0.0-4.0) % Baso % (Auto) 0.2 (0.0-2.0) % Neut # (Auto) 6.8 (1.8-7.7) th/mm3 Lymph # (Auto) 1.2 (1.0-4.8) th/mm3 Karnes # (Auto) 0.7 (0.0-0.9) th/mm3 Eos # (Auto) 0.0 (0.0-0.4) th/mm3 Baso # (Auto) 0.0 (0.0-0.2) th/mm3 WBC Differential . Differential Comment Auto diff final PT 10.2 (9.8-11.6) sec INR 1.0 Ratio APTT 25.8 (23.4-31.7) sec Sodium 128 L (136-145) meq/L Potassium 4.2 (3.5-5.1) meq/L Chloride 88 L (98-107) meq/L Carbon Dioxide 24.5 (21.0-32.0) meq/L Anion Gap 16 H (5-15) meq/L BUN 17 (7-18) mg/dL Creatinine 0.56 L (0.60-1.30) mg/dL Estimated GFR Greater than 89 (>89) mL/min Random Glucose 74 (74-106) mg/dL Calcium 8.9 (8.5-10.1) mg/dL Magnesium 1.9 (1.5-2.5) mg/dL Total Bilirubin 1.1 H (0.2-1.0) mg/dL AST 48 H (15-37) U/L ALT 65 (12-78) U/L Alkaline Phosphatase 113 (45-117) U/L Total Creatine Kinase 236 (39-308) U/L CK-MB (CK-2) 14.0 H (0.5-3.6) ng/mL Troponin I 0.35 H (0.02-0.05) ng/mL B-Natriuretic Peptide (0-100) pg/mL Total Protein 7.7 (6.4-8.2) g/dL Albumin 3.9 (3.4-5.0) g/dL Lipase 77 (73-393) U/L 05/17/18 Range/Units 01:35 WBC (4.0-11.0) th/mm3 RBC (4.50-5.90) mil/mm3 Hgb (13.0-17.0) gm/dL Hct (39.0-51.0) % MCV (80.0-100.0) fL MCH (27.0-34.0) pg MCHC (32.0-36.0) % RDW (11.6-17.2) % Plt Count (150-450) th/mm3 MPV (7.0-11.0) fL Neut % (Auto) (16.0-70.0) % Lymph % (Auto) (9.0-44.0) % Karnes % (Auto) (0.0-8.0) % Eos % (Auto) (0.0-4.0) % Baso % (Auto) (0.0-2.0) % Neut # (Auto) (1.8-7.7) th/mm3 Lymph # (Auto) (1.0-4.8) th/mm3 Karnes # (Auto) (0.0-0.9) th/mm3 Eos # (Auto) (0.0-0.4) th/mm3 Baso # (Auto) (0.0-0.2) th/mm3 WBC Differential Differential Comment PT (9.8-11.6) sec INR Ratio APTT (23.4-31.7) sec Sodium (136-145) meq/L Potassium (3.5-5.1) meq/L Chloride (98-107) meq/L Carbon Dioxide (21.0-32.0) meq/L Anion Gap (5-15) meq/L BUN (7-18) mg/dL Creatinine (0.60-1.30) mg/dL Estimated GFR (>89) mL/min Random Glucose (74-106) mg/dL Calcium (8.5-10.1) mg/dL Magnesium (1.5-2.5) mg/dL Total Bilirubin (0.2-1.0) mg/dL AST (15-37) U/L ALT (12-78) U/L Alkaline Phosphatase (45-117) U/L Total Creatine Kinase (39-308) U/L CK-MB (CK-2) (0.5-3.6) ng/mL Troponin I (0.02-0.05) ng/mL B-Natriuretic Peptide 1338 H (0-100) pg/mL Total Protein (6.4-8.2) g/dL Albumin (3.4-5.0) g/dL Lipase (73-393) U/L Imaging Data Radiologist's impression: Chest X-Ray 05/17/18 01:12 CONCLUSION: No acute cardiopulmonary disease identified. Lumbar Spine CT 05/17/18 01:12 CONCLUSION: 1. Severe compression fracture deformity of T12 grossly unchanged from prior chest radiograph. 2. Mild age-indeterminate compression fracture deformities of L3 and L4. No bony retropulsion. 3. Degenerative findings lower lumbar spine. Central canal diameter is within normal limits at all levels. Thoracic Spine CT 05/17/18 01:12 CONCLUSION: Multiple compression fracture deformities of the thoracic spine. The shapes of the vertebral bodies are grossly unchanged from the lateral chest radiograph of 03/14/2018. Relative sclerosis at the inferior aspect of the T6 vertebral body suggests that this fracture may be more acute than the other fractures. No bony retropulsion at any level. Central canal diameter within normal limits at all levels. ECG Data Attestation: I personally reviewed and interpreted this ECG as follows: Interpretation: The patient had an EKG done on arrival. The patient's EKG reveals sinus rhythm heart rate of 89, right axis deviation, QRS duration is 94 ms, QTC [address] segment elevation, T waves are inverted in V4, V5, V6. Discharge Plan Discharge Disposition Patient Disposition: 30 Still Patient Discharge Details Diagnosis: Non-ST elevated myocardial infarction (non-STEMI), Bilateral leg weakness Physicians Team ED Provider: Pao Herrera Primary Care Provider: Primary Care Romulo,Gissell Attending Provider: Nathaniel Schaeffer Other Providers: Andres Alexis Discharge Interventions Interventions: ED Discharge Assessment Last Done: 05/17/18 05:25 Status ED Status: Left Department Discharge Information Discharge Date/Time: 05/17/18 05:26
[2018-05-17] MEDS ORDERED: Heparin 10,000 UNITS/10 ML Vial (for IV use) IV.PUSH STA (03:57)
[2018-05-17] MEDS: Heparin Drip 25,000 UNIT/250 ML BAG IV.CONT PRN (04:21)
[2018-05-17 09:50] LABS: Chol/HDL Ratio 1.58 Ratio; Thyroid Stimulating Hormone 2.62 uIU/mL (0.358-3.740); Troponin I 0.29 ng/mL (0.02-0.05)
[2018-05-17] MEDS ORDERED: Influenza (Quadrivalent) Vaccine 0.5 ML Syringe IM ONE (10:00)
[2018-05-17] MEDS ORDERED: Heparin 10,000 UNITS/10 ML Vial (for IV use) IV.PUSH PRN ×2 (10:02→10:17)
[2018-05-17] MEDS ORDERED: Haloperidol Inj 5 MG/ML Ampul IV.PUSH PRN (10:27)
--- NOTE | 2018-05-17 10:39 | P.HP ---
History of Present Illness Primary Care Physician: No Primary Care Physician Chief Complaint: Shortness of breath, chest pain History of Present Illness: 62-year-old male for past medical history of COPD, alcohol abuse presented to the ED for evaluation of worsening symptoms of shortness of breath associated with white production sputum without any febrile episode. Patient also reported substernal chest pain and was found to have elevated cardiac enzymes. Patient also reported a 6-month history of lower extremities weakness without any numbness or associated back pain. Denies any recent fall or trauma. He states, continues to smokes up to 3 cigarettes/day and occasionally has some vodka shots, however over the past few days has had no beer. Abnormal lab include elevated BNP, low sodium. Patient denies any GI bleed . Inpatient Certification: I certify that the inpatient services were ordered in accordance with Medicare regulations governing the order. This includes certification that hospital inpatient services are reasonable and necessary and in the case of services not specified as inpatient-only under 42 CFR 419.22(n), that they are appropriately provided as inpatient services in accordance to with the 2-midnight benchmark under 43 CFR 412.3(e) Estimated Total Length of Stay (Days): 2 Plans for Post Hospital Care: Not yet determined Review of Systems All other systems reviewed negative except as stated in HPI PMFSH - History History Provided By: Patient - Medical History Medical History: Medical History (Last Reviewed 05/17/18 @ 05:31 by Pao Herrera MD) Generalized weakness (Acute) COPD (chronic obstructive pulmonary disease) (Acute) Anemia (Acute) Thrombocytopenia concurrent with and due to alcoholism (Acute) Noncompliance (Acute) Tobacco abuse (Acute) Alcohol abuse (Acute) Homeless (Acute) Alcohol related seizure (Acute) - Surgical History Surgical History: Surgical History (Last Reviewed 05/17/18 @ 05:31 by Pao Herrera MD) History of right hip replacement (Acute) - Family History Family History: Family History (Last Reviewed 05/17/18 @ 05:31 by Pao Herrera MD) Other Family history of hypertension - Tobacco History Second Hand Smoke Exposure: Yes Tobacco Use In Past 30 Days: Yes Smoking Status: Current every day smoker Tobacco Type: Cigarettes Packs Per Day: 1 Cigarettes Per Day: 20.0 - Alcohol History How Often Do You Have a Drink Containing Alcohol: 4 or more times a week - Substance Use History Substance History: Past History - Substance Use Type Marijuana Status: Sustained Remission Route Used: Inhalation Reason for Use: Curiosity, Fit In, Get High, Peer Pressure, Socialization - Travel History History of Recent Travel: No Recent Travel in the [place] Within the Last 8 Weeks: No Recent Travel Out of the Country Within the Last 8 Weeks: No - Immunization History Tetanus Immunization: Unsure Hx Influenza Vaccine This Season: No Medications and Allergies Active Medications: Active Medications Albuterol (Duoneb Neb (Prn)) 1 ampul NEB Q2HR NEB PRN PRN Reason: SHORTNESS OF BREATH Albuterol (Duoneb Neb ([place])) 1 ampul NEB Q6HR WHILE AWAKE NEB [place] Budesonide/Formoterol Fumarate (Symbicort 160/4.5 Mcg Inh) 2 puff INH BID [place] Flumazenil (Romazecon Inj) 0.2 mg IV.PUSH Q1M PRN PRN Reason: OVERSEDATION Furosemide (Lasix Inj) 20 mg IV.PUSH BID@0900,1800 [place] Guaifenesin (Mucinex Er) 600 mg PO BID [place] Haloperidol Lactate (Haldol Inj) 1 mg IV.PUSH Q15M PRN PRN Reason: for severe agitation Heparin Sodium (Porcine) (Heparin Inj) 2,500 units IV.PUSH UNSCH PRN PRN Reason: aPTT 25-39 Heparin Sodium (Porcine) (Heparin Inj) 5,000 units IV.PUSH UNSCH PRN PRN Reason: aPTT < 25 Heparin Sodium/Dextrose (Heparin/D5w 25,000 U/250 Ml) 25,000 unit in 250 mls @ 9 mls/hr IV.CONT TITRATE PRN; Protocol PRN Reason: Per Protocol Last Admin: 05/17/18 04:21 Dose: 900 units/hr, 9 mls/hr Lorazepam (Ativan) 1 mg PO Q4H PRN PRN Reason: for CIWA 8-10 Lorazepam (Ativan) 2 mg PO Q2H PRN PRN Reason: for CIWA 11-14 Lorazepam (Ativan Inj) 2 mg IV.PUSH Q2H PRN PRN Reason: for CIWA 11-14 Lorazepam (Ativan Inj) 2 mg IV.PUSH Q1H PRN PRN Reason: for CIWA 15-20 Lorazepam (Ativan Inj) 2 mg IV.PUSH Q15M PRN PRN Reason: for CIWA > 20 Lorazepam (Ativan Inj) 1 mg IV.PUSH Q4H PRN PRN Reason: for CIWA 8-10 Methylprednisolone Sodium Succinate (Solumedrol Inj) 40 mg IV.PUSH Q12HR [facility] Nitroglycerin (Nitro-Bid 2% Oint) 1 inch TOPICAL Q6HR [facility] Last Admin: 05/17/18 06:57 Dose: Not Given Ondansetron HCl (Zofran Inj) 4 mg IV.PUSH Q6H PRN PRN Reason: NAUSEA OR VOMITING Potassium Chloride (K-Dur) 20 meq PO DAILY [facility] Sodium Chloride (Ns Inj) 2 ml IV.FLUSH BID [facility] Last Admin: 05/17/18 08:23 Dose: Not Given Sodium Chloride (Ns Inj) 2 ml IV.FLUSH UNSCH PRN PRN Reason: FLUSH AFTER USING IV ACCESS Thiamine HCl (Vitamin B1) 100 mg PO BID [facility] Tiotropium [place] (Spiriva 18 Mcg Inh) 18 mcg INH DAILY [facility] Allergies Allergy/AdvReac Type Severity Reaction Status Date / Time No Known Allergies Allergy Verified 05/08/18 12:44 Exam Vital signs: Vital Signs 05/17/18 00:20 05/17/18 01:00 05/17/18 01:48 Temperature 98.2 F Pulse Rate 88 90 87 Respiratory Rate 20 16 16 Blood Pressure 101/64 Pulse Oximetry 94 L 100 97 05/17/18 03:42 05/17/18 05:13 05/17/18 06:17 Temperature 97.9 F Pulse Rate 91 H 93 H Respiratory Rate 16 16 Blood Pressure 98/58 L 86/67 L Pulse Oximetry 99 100 100 05/17/18 08:15 05/17/18 08:18 05/17/18 08:21 Temperature 97.6 F Pulse Rate 96 H Respiratory Rate 17 Blood Pressure 89/60 L Pulse Oximetry 98 99 99 Intake & Output 05/16/18 05/17/18 05/17/18 18:59 06:59 18:59 Weight 48 kg Other: Date of Last Bowel Movement 05/17/18 05/17/18 Weight On Admission 48 kg Narrative: GENERAL: NAD SKIN: Warm and dry. HEAD: Atraumatic. Normocephalic. EYES: Pupils equal and round. No scleral icterus. No injection or drainage. ENT: No nasal bleeding or discharge. Mucous membranes pink and moist. NECK: Trachea midline. No JVD. CARDIOVASCULAR: Regular rate and rhythm. RESPIRATORY: No accessory muscle use. Clear to auscultation. Breath sounds equal bilaterally. GASTROINTESTINAL: Abdomen soft, non-tender, nondistended. Hepatic and splenic margins not palpable. MUSCULOSKELETAL: Extremities without clubbing, cyanosis, or edema. No obvious deformities. NEUROLOGICAL: Awake and alert. No obvious cranial nerve deficits. Motor grossly within normal limits. Five out of 5 muscle strength in the arms and legs. Normal speech. PSYCHIATRIC: Appropriate mood and affect; insight and judgment normal. Results - Labs CBC & Chem 7: 05/17/18 01:35 05/17/18 01:35 Labs: Laboratory Results - last 24 hr 05/17/18 05/17/18 05/17/18 01:35 01:35 01:35 WBC 8.7 RBC 3.96 L Hgb 13.9 Hct 40.6 MCV 102.5 H MCH 35.2 H MCHC 34.3 RDW 14.9 Plt Count 199 D MPV 9.1 Neut % (Auto) 78.2 H Lymph % (Auto) 13.2 [place] % (Auto) 8.4 H Eos % (Auto) 0.0 Baso % (Auto) 0.2 Neut # (Auto) 6.8 Lymph # (Auto) 1.2 [place] # (Auto) 0.7 Eos # (Auto) 0.0 Baso # (Auto) 0.0 WBC Differential . Differential Comment Auto diff final PT 10.2 INR 1.0 APTT 25.8 Sodium 128 L Potassium 4.2 Chloride 88 L Carbon Dioxide 24.5 Anion Gap 16 H BUN 17 Creatinine 0.56 L Estimated GFR Greater than 89 Random Glucose 74 Calcium 8.9 Magnesium 1.9 Total Bilirubin 1.1 H AST 48 H ALT 65 Alkaline Phosphatase 113 Total Creatine Kinase 236 CK-MB (CK-2) 14.0 H Troponin I 0.35 H B-Natriuretic Peptide Total Protein 7.7 Albumin 3.9 Triglycerides Cholesterol LDL Cholesterol, Calc HDL Cholesterol Cholesterol/HDL Ratio Lipase 77 TSH 05/17/18 05/17/18 01:35 08:55 WBC RBC Hgb Hct MCV MCH MCHC RDW Plt Count MPV Neut % (Auto) Lymph % (Auto) [place] % (Auto) Eos % (Auto) Baso % (Auto) Neut # (Auto) Lymph # (Auto) [place] # (Auto) Eos # (Auto) Baso # (Auto) WBC Differential Differential Comment PT INR APTT Sodium Potassium Chloride Carbon Dioxide Anion Gap BUN Creatinine Estimated GFR Random Glucose Calcium Magnesium Total Bilirubin AST ALT Alkaline Phosphatase Total Creatine Kinase 102 CK-MB (CK-2) Troponin I 0.29 H B-Natriuretic Peptide 1338 H Total Protein Albumin Triglycerides 63 Cholesterol 128 LDL Cholesterol, Calc 34 HDL Cholesterol 81.0 H Cholesterol/HDL Ratio 1.58 Lipase TSH 2.620 - Imaging Impressions Chest X-Ray 05/17/18 01:12 CONCLUSION: No acute cardiopulmonary disease identified. Lumbar Spine CT 05/17/18 01:12 CONCLUSION: 1. Severe compression fracture deformity of T12 grossly unchanged from prior chest radiograph. 2. Mild age-indeterminate compression fracture deformities of L3 and L4. No bony retropulsion. 3. Degenerative findings lower lumbar spine. Central canal diameter is within normal limits at all levels. Thoracic Spine CT 05/17/18 01:12 CONCLUSION: Multiple compression fracture deformities of the thoracic spine. The shapes of the vertebral bodies are grossly unchanged from the lateral chest radiograph of 03/14/2018. Relative sclerosis at the inferior aspect of the T6 vertebral body suggests that this fracture may be more acute than the other fractures. No bony retropulsion at any level. Central canal diameter within normal limits at all levels. Caprini VTE Risk Assessment Caprini VTE Risk Assessment: Moderate/High Risk (score >= 2) Caprini Risk Assessment Model: Point Value = 1 Point Value = 2 Point Value = 3 Point Value = 5 Age 41-60 Minor surgery BMI > 25 kg/m2 Swollen legs Varicose veins or History of unexplained or recurrent spontaneous Oral contraceptives or hormone replacement Sepsis (< 1 month) Serious lung disease, including pneumonia (< 1 month) Abnormal pulmonary function Acute myocardial infarction Congestive heart failure (< 1 month) History of inflammatory bowel disease Medical patient at bed rest Age 61-74 Arthroscopic surgery Major open surgery (> 45 min) Laparoscopic surgery (> 45 min) Malignancy Confined to bed (> 72 hours) Immobilizing plaster cast Central venous access Age >= 75 History of VTE Family history of VTE Factor V Leiden Prothrombin [id number] Lupus anticoagulant Anticardiolipin antibodies Elevated serum homocysteine Heparin-induced thrombocytopenia Other congenital or acquired thrombophilia Stroke (< 1 month) Elective arthroplasty Hip, pelvis, or leg fracture Acute spinal cord injury (< 1 month) Prophylaxis Regimen: Total Risk Factor Score Risk Level Prophylaxis Regimen 0-1 Low Early ambulation 2 Moderate Order ONE of the following: *Sequential Compression Device (SCD) *Heparin 5000 units SQ BID 3-4 Higher Order ONE of the following medications: *Heparin 5000 units SQ TID *Enoxaparin/Lovenox 40 mg SQ daily (WT < 150 kg, CrCl > 30 mL/min) *Enoxaparin/Lovenox 30 mg SQ daily (WT < 150 kg, CrCl > 10-29 mL/min) *Enoxaparin/Lovenox 30 mg SQ BID (WT < 150 kg, CrCl > 30 mL/min) AND/OR *Sequential Compression Device (SCD) 5 or more Highest Order ONE of the following medications: *Heparin 5000 units SQ TID (Preferred with Epidurals) *Enoxaparin/Lovenox 40 mg SQ daily (WT < 150 kg, CrCl > 30 mL/min) *Enoxaparin/Lovenox 30 mg SQ daily (WT < 150 kg, CrCl > 10-29 mL/min) *Enoxaparin/Lovenox 30 mg SQ BID (WT < 150 kg, CrCl > 30 mL/min) AND *Sequential Compression Device (SCD) Assessment and Plan - Plan 62-year-old man with Non-ST elevation DC ACS rule out protocol with serial cardiac enzyme and EKGs Currently on heparin drip, nitroglycerin, aspirin. Beta-yaima currently contraindicated secondary to low BP Cardiology consultation and considering left heart catheterization versus stress Test Check 2D echo, lipid profile COPD exacerbation Start Solu-Medrol 40 mg IV every 12 hours, Spiriva, Symbicort, schedule and as needed DuoNeb, Mucinex, azithromycin Maintain oxygen saturation above 92% Tobacco abuse Tobacco counseling cessation provided Alcohol abuse - Start CIWA protocol, cuco monitor for withdraw symptoms, ativan prn for anxiety; cessation counseling provided. Hyponatremia Secondary to beer potomania Secondary to elevated BNP, will hold on starting IV fluid hydration CHF exacerbation of unknown type Start Lasix 40 mg twice daily IV Check 2D echo Lower extremity weakness and pain Thoracic spine CT lumbar spine CT noted and reviewed with finding noted below : -Severe compression fracture deformity of T12 grossly unchanged from prior chest radiograph. -Multiple compression fracture deformities of the thoracic spine. The shapes of the vertebral bodies are grossly unchanged from the lateral chest radiograph of 03/14/2018. PT consult to treat and eval DVT prophylaxis: Heparin
[2018-05-17 11:00] LABS: INR 1.1 Ratio
[2018-05-17 11:01] LABS: Activated Partial Thrombo Time 78.7 sec (23.4-31.7)
[2018-05-17] MEDS: MethylPREDNISolone Sod Succinate Inj 40 MG/ML Vial IV.PUSH SCH (12:47)
[2018-05-17] MEDS: Sod Chloride 0.9% Inj 1,000 ML IV.CONT SCH (12:48)
[2018-05-17] MEDS ORDERED: Regadenoson Inj 0.4 MG/5 ML Syringe IV.PUSH ONE (14:16)
--- NOTE | 2018-05-17 15:23 | NM ---
EXAM DATE: 05/17/2018 3:16 PM EST AGE/SEX: 62 years / Male INDICATIONS:Angina. . Coronary artery disease. CLINICAL DATA: This is the patient's initial encounter. Patient reports that signs and symptoms have been present for 1 day and indicates a pain score of 3/10. MEDICAL/SURGICAL HISTORY: Chronic obstructive pulmonary disease. . Right hip replacement. COMPARISON: No prior exams available for comparison. DOSE: 8.5 mCi Tc 99m Myoview at rest 26.3 mCi [id number] at stress 0.4 mg Lexiscan STRESS SYMPTOMS: Chest tightness. EJECTION FRACTION: 40 % TECHNIQUE: The patient underwent pharmacologic stress with infusion of prescribed dose. Continuous ECG tracing was monitored during stress. Gated SPECT imaging was performed after stress and conventi onal SPECT imaging was performed at rest. The examination was performed on a SPECT/CT scanner, both attenuation and non-corrected datasets were reviewed. FINDINGS: Distribution: The maximum perfused segment at stress is in the posterior basal wall. Perfusion Study: There is severely diminished perfusion to the anterior wall extending to the cardi ac apex, moderately diminished perfusion to the majority of the lateral wall and septum. This pattern is preserved at rest without definite redistribution. Gated Study: Moderate anterior and apical hypokinesis. The ejection fraction is calculated at 40%. RISK CATEGORY: Intermediate (1-3 % Annual Mortality Rate) CONCLUSION: 1. Large, moderate to severe fixed left coronary territory perfusion abnormalities without definite redistribution. 2. Moderate LV dysfunction Electronically signed by: Hernandez Caputo MD 05/17/2018 3:22 PM EST
--- NOTE | 2018-05-17 15:37 | ECG ---
Date Performed: 05/17/2018 Time Performed: 00:31:16 PTAGE: 62 years EKG: Sinus rhythm MARKED RIGHT AXIS DEVIATION PATTERN CONSISTENT WITH PULMONARY DISEASE SEPTAL MYOCARDIAL INFARCTION M ODERATE T-WAVE ABNORMALITY, CONSIDER ANTEROLATERAL ISCHEMIA ABNORMAL ECG Compared to PREVIOUS TRACING , the anterior T-wave abnormality is new. Clinical correlation needed fo r ischemia. PREVIOUS TRACIN05/14/2018 11.34.47 DOCTOR: Stoney Herrera Interpretating Date/Time 05/17/2018 15:37:22
[2018-05-17 17:30] LABS: Troponin I 0.16 ng/mL (0.02-0.05)
--- NOTE | 2018-05-17 17:57 | ECHRPT ---
Indication: heart failure CONCLUSIONS Normal left ventricular size. Wall thickness is normal. The left ventricular systolic function is severely reduced with an estimated ejection fraction in th e range of 30-35%. Trace mitral valve regurgitation. The estimated pulmonary arterial pressure is 18 mmHg. BP: / HR: Rhythm: MEASUREMENTS (Male / Female) Normal Values Technical Quality: 2D ECHO LV Diastolic Diameter PLAX 4.5 cm 4.2 - 5.9 / 3.9 - 5.3 cm LV Systolic Diameter PLAX 3.2 cm IVS Diastolic Thickness 1.1 cm 0.6 - 1.0 / 0.6 - 0.9 cm LVPW Diastolic Thickness 1.0 cm 0.6 - 1.0 / 0.6 - 0.9 cm LV Relative Wall Thickness 0.5 RV Internal Dim ED PLAX 2.4 cm LVOT Diameter 1.9 cm Aortic Root Diameter 2.8 cm LA Systolic Diameter LX 2.3 cm 3.0 - 4.0 / 2.7 - 3.8 cm LV Ejection Fraction MOD BP 52.2 % >= 55 % LV Ejection Fraction MOD 4C 34.1 % LV Ejection Fraction 4C AL 32.5 % LV Ejection Fraction MOD 2C 64.3 % LV Ejection Fraction 2C AL 65.0 % M-MODE Aortic Root Diameter MM 3.7 cm LA Systolic Diameter MM 3.9 cm LA Ao Ratio MM 1.1 AV Cusp Separation MM 2.1 cm DOPPLER AV Peak Velocity 120.0 cm/s AV Peak Gradient 5.8 mmHg LVOT Peak Velocity 68.6 cm/s LVOT Peak Gradient 1.9 mmHg AV Area Cont Eq pk 1.6 cm Mitral E Point Velocity 49.6 cm/s Mitral A Point Velocity 76.0 cm/s Mitral E to A Ratio 0.7 LV E' Lateral Velocity 6.6 cm/s Mitral E to LV E' Lateral Ratio 7.5 LV E' Septal Velocity 4.0 cm/s Mitral E to LV E' Septal Ratio 12.4 TR Peak Velocity 137.0 cm/s TR Peak Gradient 8.0 mmHg Right Atrial Pressure 10.0 mmHg Pulmonary Artery Systolic Pressu 17.5 mmHg Right Ventricular Systolic Press 17.5 mmHg PV Peak Velocity 99.1 cm/s PV Peak Gradient 3.9 mmHg FINDINGS LEFT VENTRICLE Normal left ventricular size. Wall thickness is normal. The left ventricular systolic function is severely reduced with an estimated ejection fraction in th e range of 30-35%. RIGHT VENTRICLE Normal right ventricular size and systolic function. LEFT ATRIUM The left atrial size is normal. RIGHT ATRIUM The right atrial size is normal. ATRIAL SEPTUM Normal atrial septal thickness without atrial level shunting by limited color doppler interrogation. AORTA The aortic root and proximal ascending aorta are normal in size on limited imaging. MITRAL VALVE Trace mitral valve regurgitation. AORTIC VALVE Trileaflet aortic valve. No aortic valve stenosis or regurgitation. TRICUSPID VALVE The estimated pulmonary arterial pressure is 18 mmHg. PULMONARY VALVE No pulmonary valve regurgitation or stenosis. VESSELS The inferior vena cava is normal in size. PERICARDIUM No pericardial effusion. Diomedes Hernandes MD, FACC, FSCAI (Electronically Signed) Final Date:17 May 2018 17:56
[2018-05-17] MEDS: Budesonide-Formoterol 160/4.5 MCG 6 GM Inhaler INH SCH (20:23)
[2018-05-17] MEDS: guaiFENesin 600 MG ER Tablet PO SCH (20:24)
--- NOTE | 2018-05-18 01:07 | MB ---
cc: Devin Dodd DO DATE: 05/17/2018 REASON FOR CONSULTATION: Elevated troponin. HISTORY OF PRESENT ILLNESS: Neptali Skaggs is a 62-year-old male who presents to [facility] for a multitude of complaints. He notes some shortness of breath associated with white productive sputum and mild coughing. He states that the shortness of breath happens with any activity. He has also noticed that he gets it slightly more when lying flat. He has also had some substernal chest pain, which appears when he is short of breath, but it is sharp in nature. Lastly, he has had a 6-month history of lower extremity weakness without any numbness or associated back pain. He notes bruising on his upper extremities and is unsure how this happened. He states that he drinks regularly, but the last drink was 2-3 days ago and was a couple of vodka shots. PAST MEDICAL HISTORY: 1. COPD. 2. Tobacco abuse. 3. Alcohol abuse. 4. Alcohol-related seizures. 5. Anemia. 6. Thrombocytopenia. PAST SURGICAL HISTORY: Right hip replacement. ALLERGIES: NO KNOWN DRUG ALLERGIES. MEDICATIONS: 1. Symbicort 160/4.5 b.i.d. 2. Lisinopril 5 mg daily. 3. Albuterol every 4-6 hours as needed. 4. Coreg 3.125 mg b.i.d. 5. Prednisone 5 mg daily. FAMILY HISTORY: He denies premature coronary artery disease or sudden cardiac within the family. SOCIAL HISTORY: The patient smokes around a pack a day. He also smokes marijuana. He drinks multiple times per week, usually vodka but occasionally beer. REVIEW OF SYSTEMS: Fourteen systems were reviewed including osteopathic. Pertinent positives and negatives above, otherwise negative. PHYSICAL EXAMINATION: VITAL SIGNS: Temperature 97.6, heart rate 96, blood pressure 90/60, respirations 17, pulse oximetry 98% on room air. GENERAL: The patient appears overall cachectic and thin. No acute distress. Alert and awake. HEENT: Extraocular muscles intact. Mucous membranes moist. NECK: Supple. No JVD at 45 degrees. No carotid bruits heard bilaterally. Carotid upstroke is brisk in nature. HEART: Regular rate and rhythm. Positive first and second heart tones with no murmurs, gallops, or rubs. LUNGS: Decreased breath sounds bilaterally. ABDOMEN: Soft, nontender, nondistended. No organomegaly noted. EXTREMITIES: No clubbing, cyanosis, or edema. Femoral and distal pulses are intact bilaterally. NEUROLOGIC: Cranial nerves 2-12 grossly intact. SKIN: Warm, dry, and intact. OSTEOPATHIC: No kyphoscoliosis or lordosis. LABORATORY DATA: Hemoglobin 13.9, hematocrit 40.6, platelets 199. Potassium 4.2, BUN 17, creatinine 0.56. Troponin 0.35, decreasing to 0.29. BNP 1338. Electrocardiogram (05/17/2018 at 0031): Sinus rhythm, septal myocardial infarction, ST-T wave changes, possibly due to ischemia. IMPRESSION: 1. Shortness of breath, most likely due to congestive heart failure exacerbation of unknown type. 2. Elevated troponins. 3. Chronic obstructive pulmonary disease exacerbation. 4. Tobacco abuse. 5. Alcohol abuse. 6. Lower extremity weakness and pain. RECOMMENDATIONS: 1. Mr. Skaggs presented with his main complaint of shortness of breath and was found to have an elevated troponin and BNP. 2. More than likely, he has a congestive heart failure exacerbation of unknown type. 3. He does have a minimally elevated troponin, but this is decreasing. It is most likely type 2 due to a congestive heart failure exacerbation. 4. We will have him undergo an echocardiogram and pharmacologic nuclear stress testing. 5. If stress test is negative, he will be continued to be treated medically for congestive heart failure. 6. If stress test shows no ischemia, most likely his heart failure is due to alcohol abuse, and he is recommended cessation. 7. He should continue on his heart failure medications including carvedilol and lisinopril as possible with his borderline hypotension. 8. He will need to be diuresed, but this will once again have to be careful with his borderline hypotension. 9. I spoke to him for greater than 3 minutes about tobacco cessation. I also spoke to him about decreasing his alcohol use, although he seems somewhat uninterested in this and does not believe he has a problem. 10. Lower extremity weakness will be worked up per the primary team. Thank you for allowing me to see Neptali Skaggs. If there are any questions, please do not hesitate to call. DO WESLEY Back/aislinn , 11:49 PM , 12:01 AM
[2018-05-18 01:37] LABS: Baso % (Auto) 0.1 % (0.0-2.0); Hematocrit 27.7 % (39.0-51.0); Hemoglobin 9.9 gm/dL (13.0-17.0); Lymph # (Auto) 0.9 th/mm3 (1.0-4.8); Lymph % (Auto) 19.5 % (9.0-44.0); Mean Corpuscular HGB Conc 35.8 % (32.0-36.0); Mean Corpuscular Hemoglobin 35.6 pg (27.0-34.0); Mean Corpuscular Volume 99.6 fL (80.0-100.0); Mean Platelet Volume 8.4 fL (7.0-11.0); Mono # (Auto) 0.7 th/mm3 (0.0-0.9); Mono % (Auto) 14.6 % (0.0-8.0); Neut # (Auto) 3.1 th/mm3 (1.8-7.7); Neut % (Auto) 65.8 % (16.0-70.0); Platelet Count 147 th/mm3 (150-450); Red Blood Count 2.78 mil/mm3 (4.50-5.90); Red Cell Distribution Width 14.1 % (11.6-17.2); White Blood Count 4.8 th/mm3 (4.0-11.0)
[2018-05-18 02:21] LABS: Alanine Aminotransferase 39 U/L (12-78); Albumin 2.5 g/dL (3.4-5.0); Alkaline Phosphatase 68 U/L (45-117); Anion Gap 5 meq/L (5-15); Aspartate Aminotransferase 29 U/L (15-37); Blood Urea Nitrogen 18 mg/dL (7-18); Calcium 7.8 mg/dL (8.5-10.1); Carbon Dioxide 32.7 meq/L (21.0-32.0); Chloride 94 meq/L (98-107); Glomerular Filtration Rate Greater Than 89 mL/min (>89); Glucose,Random 152 mg/dL (74-106); Potassium 3.3 meq/L (3.5-5.1); Sodium 132 meq/L (136-145)
[2018-05-18] MEDS: Tiotropium Bromide 18 MCG/ACT Inhaler INH SCH (09:17)
[2018-05-18] MEDS: Budesonide-Formoterol 160/4.5 MCG 6 GM Inhaler INH SCH ×2 (09:18→21:40)
[2018-05-18] MEDS: guaiFENesin 600 MG ER Tablet PO SCH ×2 (09:19→21:38)
--- NOTE | 2018-05-18 12:32 | P.PN ---
Subjective Interval history: Follow-up acute on chronic systolic CHF/COPD exacerbation May 18, 2018-patient seen and examined, a negative stress test. Improving wheezing and patient denies any chest pain. Physical Exam Vital signs: Vital Signs 05/17/18 12:46 05/17/18 13:00 05/17/18 13:17 Temperature 98.2 F Pulse Rate 78 84 80 Respiratory Rate 17 16 Blood Pressure 83/55 L Pulse Oximetry 99 05/17/18 16:00 05/17/18 17:00 05/17/18 18:00 Temperature Pulse Rate 82 78 78 Respiratory Rate Blood Pressure Pulse Oximetry 05/17/18 18:14 05/17/18 19:00 05/17/18 20:00 Temperature 98 F 98.3 F Pulse Rate 83 100 H 105 H Respiratory Rate 17 20 Blood Pressure 90/58 L 85/52 L Pulse Oximetry 99 97 05/17/18 20:27 05/17/18 21:00 05/17/18 22:00 Temperature Pulse Rate 99 H 111 H 92 H Respiratory Rate 16 Blood Pressure Pulse Oximetry 97 05/17/18 23:00 05/18/18 00:00 05/18/18 01:00 Temperature 98 F Pulse Rate 100 H 100 H 89 Respiratory Rate 20 Blood Pressure 85/53 L Pulse Oximetry 97 05/18/18 02:00 05/18/18 03:00 05/18/18 04:00 Temperature 98.2 F Pulse Rate 86 85 86 Respiratory Rate 20 Blood Pressure 82/51 L Pulse Oximetry 96 05/18/18 05:00 05/18/18 05:44 05/18/18 07:00 Temperature Pulse Rate 82 86 75 Respiratory Rate Blood Pressure Pulse Oximetry 05/18/18 07:32 05/18/18 07:42 05/18/18 08:00 Temperature 97.4 F L Pulse Rate 81 80 82 Respiratory Rate 18 20 Blood Pressure 92/60 L Pulse Oximetry 96 100 100 05/18/18 09:00 05/18/18 10:00 05/18/18 12:00 Temperature 98.1 F Pulse Rate 84 86 95 H Respiratory Rate 18 Blood Pressure 70/42 L Pulse Oximetry 97 Intake & Output 05/17/18 05/18/18 05/18/18 18:59 06:59 18:59 Intake Total 240 / 240 240 / 240 Output Total 200 / 200 500 / 500 Balance 40 / 40 -260 / -260 Weight 49.5 kg Intake: Oral 240 / 240 240 / 240 Output: Urine 200 / 200 500 / 500 Other: Date of Last Bowel Movement 05/17/18 05/15/18 # Bowel Movements 0 Narrative: GENERAL: NAD SKIN: Warm and dry. HEAD: Atraumatic. Normocephalic. EYES: Pupils equal and round. No scleral icterus. No injection or drainage. ENT: No nasal bleeding or discharge. Mucous membranes pink and moist. NECK: Trachea midline. No JVD. CARDIOVASCULAR: Regular rate and rhythm. RESPIRATORY: No accessory muscle use. Clear to auscultation. Breath sounds equal bilaterally. GASTROINTESTINAL: Abdomen soft, non-tender, nondistended. Hepatic and splenic margins not palpable. MUSCULOSKELETAL: Extremities without clubbing, cyanosis, or edema. No obvious deformities. NEUROLOGICAL: Awake and alert. No obvious cranial nerve deficits. Motor grossly within normal limits. Five out of 5 muscle strength in the arms and legs. Normal speech. PSYCHIATRIC: Appropriate mood and affect; insight and judgment normal. Results - Labs CBC & Chem 7: 05/18/18 01:30 05/18/18 01:30 Laboratory Results - last 24 hr 05/17/18 05/17/18 05/18/18 16:19 17:45 01:30 WBC RBC Hgb Hct MCV MCH MCHC RDW Plt Count MPV Neut % (Auto) Lymph % (Auto) Johnson % (Auto) Eos % (Auto) Baso % (Auto) Neut # (Auto) Lymph # (Auto) [place] # (Auto) Eos # (Auto) Baso # (Auto) WBC Differential Differential Comment APTT 40.1 H D Sodium 132 L Potassium 3.3 L D Chloride 94 L Carbon Dioxide 32.7 H Anion Gap 5 BUN 18 Creatinine 0.77 Estimated GFR Greater than 89 Random Glucose 152 H Calcium 7.8 L D Total Bilirubin 0.5 AST 29 ALT 39 Alkaline Phosphatase 68 Total Creatine Kinase 78 Troponin I 0.16 H Total Protein 5.0 L D Albumin 2.5 L D 05/18/18 05/18/18 05/18/18 01:30 01:30 07:01 WBC 4.8 RBC 2.78 L Hgb 9.9 L D Hct 27.7 L MCV 99.6 MCH 35.6 H MCHC 35.8 RDW 14.1 Plt Count 147 L MPV 8.4 Neut % (Auto) 65.8 Lymph % (Auto) 19.5 Johnson % (Auto) 14.6 H Eos % (Auto) 0.0 Baso % (Auto) 0.1 Neut # (Auto) 3.1 Lymph # (Auto) 0.9 L [place] # (Auto) 0.7 Eos # (Auto) 0.0 Baso # (Auto) 0.0 WBC Differential . Differential Comment Auto diff final APTT 39.1 H 54.6 H D Sodium Potassium Chloride Carbon Dioxide Anion Gap BUN Creatinine Estimated GFR Random Glucose Calcium Total Bilirubin AST ALT Alkaline Phosphatase Total Creatine Kinase Troponin I Total Protein Albumin - Imaging Impressions Myocardial Perfusion Scan Nuc Med 05/17/18 00:00 CONCLUSION: 1. Large, moderate to severe fixed left coronary territory perfusion abnormalities without definite redistribution. 2. Moderate LV dysfunction Assessment and Plan - Plan 62-year-old man with Non-ST elevation ID Appreciate input from cardiology, patient underwent negative stress test Elevated cardiac enzymes likely secondary to CHF exacerbation COPD exacerbation Continue Solu-Medrol 40 mg IV every 12 hours, Spiriva, Symbicort, schedule and as needed DuoNeb, Mucinex, azithromycin Maintain oxygen saturation above 92% Tobacco abuse Tobacco counseling cessation provided Alcohol abuse - Continue CIWA protocol, rally monitor for withdraw symptoms, ativan prn for anxiety; cessation counseling provided. Hyponatremia Secondary to beer potomania Secondary to elevated BNP, will hold on starting IV fluid hydration Acute on chronic systolic CHF exacerbation of unknown type Secondary to low BP, will decrease Lasix to 20 mg IV daily 2D echo with EF of 30-35% Hypotension Will give low bolus NS 250 cc x1 Start midodrine 5 mg 3 times daily Lower extremity weakness and pain Thoracic spine CT lumbar spine CT noted and reviewed with finding noted below : -Severe compression fracture deformity of T12 grossly unchanged from prior chest radiograph. -Multiple compression fracture deformities of the thoracic spine. The shapes of the vertebral bodies are grossly unchanged from the lateral chest radiograph of 03/14/2018. PT consult to treat and eval DVT prophylaxis: Heparin
[2018-05-18] MEDS: Heparin Drip 25,000 UNIT/250 ML BAG IV.CONT PRN (12:46)
[2018-05-18] MEDS ORDERED: Sodium Chlor 0.9% Inj 250 ML IV.SIG ONE ×2 (12:50→14:35)
[2018-05-18] MEDS: MethylPREDNISolone Sod Succinate Inj 40 MG/ML Vial IV.PUSH SCH ×2 (13:24)
[2018-05-18] MEDS: Sod Chloride 0.9% Inj 1,000 ML IV.CONT SCH (15:45)
[2018-05-19] MEDS: MethylPREDNISolone Sod Succinate Inj 40 MG/ML Vial IV.PUSH SCH ×3 (00:28→22:39)
[2018-05-19 06:51] LABS: Hematocrit 25.3 % (39.0-51.0); Hemoglobin 8.9 gm/dL (13.0-17.0); Mean Corpuscular HGB Conc 35.1 % (32.0-36.0); Mean Corpuscular Volume 102.5 fL (80.0-100.0); Mean Platelet Volume 9.8 fL (7.0-11.0); Platelet Count 133 th/mm3 (150-450); Red Blood Count 2.47 mil/mm3 (4.50-5.90); Red Cell Distribution Width 14.5 % (11.6-17.2); White Blood Count 4.3 th/mm3 (4.0-11.0)
[2018-05-19 07:16] LABS: Anion Gap 5 meq/L (5-15); Calcium 7.5 mg/dL (8.5-10.1); Carbon Dioxide 30.6 meq/L (21.0-32.0); Chloride 99 meq/L (98-107); Glomerular Filtration Rate Greater Than 89 mL/min (>89); Glucose,Random 184 mg/dL (74-106); Potassium 3.7 meq/L (3.5-5.1); Sodium 135 meq/L (136-145)
[2018-05-19 07:22] LABS: Blood Urea Nitrogen 16 mg/dL (7-18)
--- NOTE | 2018-05-19 07:41 | ECG ---
Date Performed: 05/17/2018 Time Performed: 09:54:14 PTAGE: 62 years EKG: Sinus rhythm Rightward axis Anteroseptal and lateral ST-T changes may be due to myocardial ischemia Abnormal ECG PREVIOUS TRACING : 05/17/2018 00.31 Since the previous tracing, no significant change noted DOCTOR: Renny Iglesias Interpretating Date/Time 05/19/2018 07:39:21
[2018-05-19] MEDS: Tiotropium Bromide 18 MCG/ACT Inhaler INH SCH (08:14)
[2018-05-19] MEDS: Budesonide-Formoterol 160/4.5 MCG 6 GM Inhaler INH SCH ×2 (08:15→20:17)
[2018-05-19] MEDS: guaiFENesin 600 MG ER Tablet PO SCH ×2 (09:30→20:15)
--- NOTE | 2018-05-19 11:53 | P.PN ---
Subjective Interval history: Follow-up acute on chronic systolic CHF/COPD exacerbation May 18, 2018-patient seen and examined, a negative stress test. Improving wheezing and patient denies any chest pain. May 19, 2018-patient seen and examined, BP soft but patient is asymptomatic . +cough associated with chest discomfort. Physical Exam Vital signs: Vital Signs 05/18/18 12:00 05/18/18 12:52 05/18/18 13:00 Temperature 98.1 F Pulse Rate 92 H 87 84 Respiratory Rate 18 19 Blood Pressure 70/42 L Pulse Oximetry 97 05/18/18 13:27 05/18/18 13:51 05/18/18 14:00 Temperature Pulse Rate 86 Respiratory Rate Blood Pressure 84/57 L 71/43 L Pulse Oximetry 05/18/18 15:00 05/18/18 15:13 05/18/18 15:31 Temperature 97.8 F Pulse Rate 90 85 Respiratory Rate 16 Blood Pressure 84/54 L 65/41 L Pulse Oximetry 98 05/18/18 15:40 05/18/18 16:00 05/18/18 17:00 Temperature Pulse Rate 84 82 Respiratory Rate Blood Pressure 74/47 L 78/47 L Pulse Oximetry 05/18/18 18:00 05/18/18 19:00 05/18/18 20:00 Temperature 98.3 F Pulse Rate 84 85 88 Respiratory Rate 16 Blood Pressure 83/53 L Pulse Oximetry 98 05/18/18 21:00 05/18/18 21:12 05/18/18 22:00 Temperature Pulse Rate 84 82 86 Respiratory Rate 16 Blood Pressure Pulse Oximetry 97 05/18/18 23:00 05/19/18 00:00 05/19/18 01:00 Temperature 98.2 F Pulse Rate 92 H 92 H 94 H Respiratory Rate 16 Blood Pressure 89/53 L Pulse Oximetry 97 05/19/18 02:00 05/19/18 03:00 05/19/18 04:00 Temperature 98.3 F Pulse Rate 84 98 H 84 Respiratory Rate 16 Blood Pressure 92/60 L Pulse Oximetry 05/19/18 05:00 05/19/18 06:00 05/19/18 07:00 Temperature Pulse Rate 86 82 81 Respiratory Rate Blood Pressure Pulse Oximetry 05/19/18 07:36 05/19/18 08:00 05/19/18 09:26 Temperature 97.9 F Pulse Rate 88 91 H Respiratory Rate 16 20 Blood Pressure 96/60 L 89/53 L Pulse Oximetry 98 98 05/19/18 09:35 05/19/18 09:53 Temperature Pulse Rate Respiratory Rate Blood Pressure 81/44 L 97/53 L Pulse Oximetry Intake & Output 05/18/18 05/19/18 05/19/18 18:59 06:59 18:59 Intake Total 2290 / 2290 240 / 240 Output Total 925 / 925 250 / 250 Balance 1365 / 1365 -10 / -10 Weight 49.4 kg Intake: IV 1250 / 1250 Heparin/D5W 25,000 U/250 mL 25, 250 / 250 000 unit In 250 ml @ 900 UNITS/ HR 9 mls/hr IV.CONT TITRATE PRN Rx#:[id number] NS Inj 1,000 ML @ 42 mls/hr IV. 500 / 500 CONT .[id number] AGATA Rx#:[id number] NS Inj 250 ML @ Wide Open IV. 500 / 500 SIG BOLUS ONE Rx#:[id number] Oral 1040 / 1040 240 / 240 Output: Urine 925 / 925 250 / 250 Other: Date of Last Bowel Movement 05/15/18 05/15/18 05/15/18 Narrative: GENERAL: NAD SKIN: Warm and dry. HEAD: Atraumatic. Normocephalic. EYES: Pupils equal and round. No scleral icterus. No injection or drainage. ENT: No nasal bleeding or discharge. Mucous membranes pink and moist. NECK: Trachea midline. No JVD. CARDIOVASCULAR: Regular rate and rhythm. RESPIRATORY: No accessory muscle use. Clear to auscultation. Breath sounds equal bilaterally. GASTROINTESTINAL: Abdomen soft, non-tender, nondistended. Hepatic and splenic margins not palpable. MUSCULOSKELETAL: Extremities without clubbing, cyanosis, or edema. No obvious deformities. NEUROLOGICAL: Awake and alert. No obvious cranial nerve deficits. Motor grossly within normal limits. Five out of 5 muscle strength in the arms and legs. Normal speech. PSYCHIATRIC: Appropriate mood and affect; insight and judgment normal. Results - Labs CBC & Chem 7: 05/19/18 05:38 05/19/18 05:38 Laboratory Results - last 24 hr 05/19/18 05/19/18 05/19/18 05:38 05:38 05:38 WBC 4.3 RBC 2.47 L Hgb 8.9 L Hct 25.3 L MCV 102.5 H MCH 36.0 H MCHC 35.1 RDW 14.5 Plt Count 133 L MPV 9.8 APTT 52.8 H Sodium 135 L Potassium 3.7 Chloride 99 Carbon Dioxide 30.6 Anion Gap 5 BUN 16 Creatinine 0.50 L Estimated GFR Greater than 89 Random Glucose 184 H Calcium 7.5 L Assessment and Plan - Plan 62-year-old man with Elevated Troponin I Appreciate input from cardiology, patient underwent negative stress test Elevated cardiac enzymes likely secondary to CHF exacerbation and not from ACS COPD exacerbation Continue Solu-Medrol 40 mg IV every 12 hours, Spiriva, Symbicort, schedule and as needed DuoNeb, Mucinex, azithromycin Maintain oxygen saturation above 92% Tobacco abuse Tobacco counseling cessation provided Alcohol abuse - Continue CIWA protocol, rally monitor for withdraw symptoms, ativan prn for anxiety; cessation counseling provided. Hyponatremia Secondary to beer potomania Secondary to elevated BNP Acute on chronic systolic CHF exacerbation of unknown type Secondary to low BP, Lasix 20 mg IV daily however with holding parameters 2D echo with EF of 30-35%. CAMILO-I contraindicated d/t hypotension Hypotension s/p bolus NS 250 cc x2 on 05/18 Start Florinef and continue midodrine 5 mg 3 times daily Lower extremity weakness and pain Thoracic spine CT lumbar spine CT noted and reviewed with finding noted below : -Severe compression fracture deformity of T12 grossly unchanged from prior chest radiograph. -Multiple compression fracture deformities of the thoracic spine. The shapes of the vertebral bodies are grossly unchanged from the lateral chest radiograph of 03/14/2018. PT to treat and eval DVT prophylaxis: B-SCD
[2018-05-19] MEDS: Senna/Docusate Sodium 8.6/50 MG Tablet PO PRN (13:31)
[2018-05-19] MEDS ORDERED: Melatonin 5 MG Tablet PO ONE (22:00)
[2018-05-20 07:06] LABS: Hematocrit 25.5 % (39.0-51.0); Mean Corpuscular HGB Conc 35.2 % (32.0-36.0); Mean Corpuscular Hemoglobin 36.2 pg (27.0-34.0); Mean Platelet Volume 9.5 fL (7.0-11.0); Platelet Count 134 th/mm3 (150-450); Red Blood Count 2.47 mil/mm3 (4.50-5.90); Red Cell Distribution Width 14.6 % (11.6-17.2); White Blood Count 6.1 th/mm3 (4.0-11.0)
[2018-05-20] MEDS: Budesonide-Formoterol 160/4.5 MCG 6 GM Inhaler INH SCH ×2 (08:26→20:43)
[2018-05-20] MEDS: Tiotropium Bromide 18 MCG/ACT Inhaler INH SCH (08:26)
[2018-05-20] MEDS: guaiFENesin 600 MG ER Tablet PO SCH ×2 (08:26→20:43)
[2018-05-20] MEDS: MethylPREDNISolone Sod Succinate Inj 40 MG/ML Vial IV.PUSH SCH ×2 (11:42→23:41)
--- NOTE | 2018-05-20 11:44 | P.PN ---
Subjective Interval history: Follow-up acute on chronic systolic CHF/COPD exacerbation May 18, 2018-patient seen and examined, a negative stress test. Improving wheezing and patient denies any chest pain. May 19, 2018-patient seen and examined, BP soft but patient is asymptomatic . +cough associated with chest discomfort. May 20, 2018-patient seen and examined, still complains of chest discomfort with cough. BP improving. Physical Exam Vital signs: Vital Signs 05/19/18 12:00 05/19/18 13:00 05/19/18 14:00 Temperature 97.6 F Pulse Rate 78 88 78 Respiratory Rate 16 Blood Pressure 106/65 Pulse Oximetry 100 05/19/18 14:52 05/19/18 15:00 05/19/18 16:00 Temperature 98.0 F Pulse Rate 79 81 94 H Respiratory Rate 16 16 Blood Pressure 110/70 Pulse Oximetry 100 05/19/18 17:00 05/19/18 18:00 05/19/18 19:00 Temperature Pulse Rate 88 96 H 87 Respiratory Rate Blood Pressure Pulse Oximetry 05/19/18 20:00 05/19/18 20:11 05/19/18 21:00 Temperature 98.0 F Pulse Rate 90 72 100 H Respiratory Rate 20 20 Blood Pressure 111/67 Pulse Oximetry 98 96 05/19/18 22:00 05/19/18 23:00 05/20/18 00:00 Temperature 98.0 F Pulse Rate 108 H 103 H 108 H Respiratory Rate 18 Blood Pressure 121/71 Pulse Oximetry 99 05/20/18 01:00 05/20/18 02:00 05/20/18 03:00 Temperature Pulse Rate 107 H 102 H 89 Respiratory Rate Blood Pressure Pulse Oximetry 05/20/18 04:00 05/20/18 05:00 05/20/18 06:00 Temperature 98.0 F Pulse Rate 92 H 85 94 H Respiratory Rate 20 Blood Pressure 120/78 Pulse Oximetry 99 05/20/18 07:00 05/20/18 08:00 05/20/18 08:13 Temperature 98.5 F Pulse Rate 104 H 92 H 102 H Respiratory Rate 16 20 Blood Pressure 152/92 H Pulse Oximetry 99 05/20/18 09:00 05/20/18 10:00 05/20/18 11:00 Temperature Pulse Rate 102 H 88 103 H Respiratory Rate Blood Pressure Pulse Oximetry Intake & Output 05/19/18 05/20/18 05/20/18 18:59 06:59 18:59 Intake Total 1090 / 1090 360 / 360 Output Total 750 / 750 125 / 125 Balance 340 / 340 235 / 235 Weight 49.3 kg Intake: IV 150 / 150 Heparin/D5W 25,000 U/250 mL 25, 150 / 150 000 unit In 250 ml @ 900 UNITS/ HR 9 mls/hr IV.CONT TITRATE PRN Rx#:[id number] Oral 940 / 940 360 / 360 Output: Urine 750 / 750 125 / 125 Other: Date of Last Bowel Movement 05/19/18 05/19/18 05/19/18 # Bowel Movements 1 Narrative: GENERAL: NAD SKIN: Warm and dry. HEAD: Atraumatic. Normocephalic. EYES: Pupils equal and round. No scleral icterus. No injection or drainage. ENT: No nasal bleeding or discharge. Mucous membranes pink and moist. NECK: Trachea midline. No JVD. CARDIOVASCULAR: Regular rate and rhythm. RESPIRATORY: No accessory muscle use. Clear to auscultation. Breath sounds equal bilaterally. GASTROINTESTINAL: Abdomen soft, non-tender, nondistended. Hepatic and splenic margins not palpable. MUSCULOSKELETAL: Extremities without clubbing, cyanosis, or edema. No obvious deformities. NEUROLOGICAL: Awake and alert. No obvious cranial nerve deficits. Motor grossly within normal limits. Five out of 5 muscle strength in the arms and legs. Normal speech. PSYCHIATRIC: Appropriate mood and affect; insight and judgment normal. Results - Labs CBC & Chem 7: 05/20/18 06:00 05/19/18 05:38 Laboratory Results - last 24 hr 05/20/18 06:00 WBC 6.1 RBC 2.47 L Hgb 9.0 L Hct 25.5 L MCV 103.0 H MCH 36.2 H MCHC 35.2 RDW 14.6 Plt Count 134 L MPV 9.5 - Procedures none Assessment and Plan - Plan 62-year-old man with Elevated Troponin I Appreciate input from cardiology, patient underwent negative stress test Elevated cardiac enzymes likely secondary to CHF exacerbation and not from ACS Heparin d./ema; d/c Nitro paste COPD exacerbation Continue Solu-Medrol 40 mg IV every 12 hours, Spiriva, Symbicort, schedule and as needed DuoNeb, Mucinex, azithromycin Maintain oxygen saturation above 92% Tobacco abuse Tobacco counseling cessation provided Alcohol abuse - Continue [facility] protocol, rally monitor for withdraw symptoms, ativan prn for anxiety; cessation counseling provided. Hyponatremia Secondary to beer potomania Secondary to elevated BNP Acute on chronic systolic CHF exacerbation of unknown type Switch to PO lasix 2D echo with EF of 30-35%. Initially CAMILO-I contraindicated 2/2 hypotension; however now will start Lisinopril 5mg daily Hypotension-Resolved s/p bolus NS 250 cc x2 on 05/18 d/c Florinef and midodrine 5 mg 3 times daily Lower extremity weakness and pain Thoracic spine CT lumbar spine CT noted and reviewed with finding noted below : -Severe compression fracture deformity of T12 grossly unchanged from prior chest radiograph. -Multiple compression fracture deformities of the thoracic spine. The shapes of the vertebral bodies are grossly unchanged from the lateral chest radiograph of 03/14/2018. PT to treat and eval DVT prophylaxis: B-SCD Transfer to Med/surg
[2018-05-20] MEDS: LORazepam 1 MG Tablet PO PRN ×2 (12:03→20:49)
[2018-05-21 07:02] LABS: Hemoglobin 9.8 gm/dL (13.0-17.0); Lymph # (Auto) 0.4 th/mm3 (1.0-4.8); Lymph % (Auto) 7.8 % (9.0-44.0); Mean Corpuscular HGB Conc 34.9 % (32.0-36.0); Mean Corpuscular Hemoglobin 36.5 pg (27.0-34.0); Mean Corpuscular Volume 104.5 fL (80.0-100.0); Mean Platelet Volume 9.1 fL (7.0-11.0); Mono # (Auto) 0.3 th/mm3 (0.0-0.9); Mono % (Auto) 6.2 % (0.0-8.0); Neut # (Auto) 4.5 th/mm3 (1.8-7.7); Platelet Count 131 th/mm3 (150-450); Red Blood Count 2.68 mil/mm3 (4.50-5.90); Red Cell Distribution Width 14.7 % (11.6-17.2); White Blood Count 5.2 th/mm3 (4.0-11.0)
[2018-05-21 07:10] LABS: Albumin 2.7 g/dL (3.4-5.0); Anion Gap 9 meq/L (5-15); Aspartate Aminotransferase 45 U/L (15-37); Blood Urea Nitrogen 16 mg/dL (7-18); Carbon Dioxide 29.9 meq/L (21.0-32.0); Chloride 95 meq/L (98-107); Glomerular Filtration Rate Greater Than 89 mL/min (>89); Glucose,Random 139 mg/dL (74-106); Potassium 3.5 meq/L (3.5-5.1); Sodium 134 meq/L (136-145)
[2018-05-21 07:11] LABS: Alanine Aminotransferase 47 U/L (12-78)
[2018-05-21 07:13] LABS: Alkaline Phosphatase 58 U/L (45-117); Total Protein 5.5 g/dL (6.4-8.2)
[2018-05-21] MEDS: guaiFENesin 600 MG ER Tablet PO SCH ×2 (08:42→21:00)
[2018-05-21] MEDS: Tiotropium Bromide 18 MCG/ACT Inhaler INH SCH (08:43)
[2018-05-21] MEDS: Budesonide-Formoterol 160/4.5 MCG 6 GM Inhaler INH SCH ×2 (08:43→21:00)
[2018-05-21] MEDS ORDERED: Metoprolol Inj 5 MG/5 ML Vial IV.PUSH ONE (09:15)
[2018-05-21] MEDS ORDERED: Digoxin Inj 500 MCG/2 ML Ampul IV.PUSH ONE (09:15)
[2018-05-21] MEDS: MethylPREDNISolone Sod Succinate Inj 40 MG/ML Vial IV.PUSH SCH (10:59)
[2018-05-21] MEDS: Metoprolol Tartrate 25 MG Tablet PO SCH ×2 (10:59→21:00)
[2018-05-21] MEDS: Furosemide 20 MG Tablet PO SCH (11:00)
--- NOTE | 2018-05-21 11:25 | P.PN ---
Subjective Interval history: Follow-up acute on chronic systolic CHF/COPD exacerbation May 18, 2018-patient seen and examined, a negative stress test. Improving wheezing and patient denies any chest pain. May 19, 2018-patient seen and examined, BP soft but patient is asymptomatic . +cough associated with chest discomfort. May 20, 2018-patient seen and examined, still complains of chest discomfort with cough. BP improving. May 21, 2018-patient seen and examined, HR elevated and patient was given Digoxin x1. No Chest pain. Physical Exam Vital signs: Vital Signs 05/20/18 11:44 05/20/18 12:00 05/20/18 13:00 Temperature 98.6 F Pulse Rate 96 H 88 90 Respiratory Rate 20 Blood Pressure 107/71 Pulse Oximetry 99 05/20/18 13:02 05/20/18 14:00 05/20/18 15:00 Temperature Pulse Rate 88 102 H 94 H Respiratory Rate 18 Blood Pressure Pulse Oximetry 05/20/18 16:00 05/20/18 16:16 05/20/18 17:00 Temperature 98.4 F Pulse Rate 104 H 102 H 96 H Respiratory Rate 18 Blood Pressure 121/77 Pulse Oximetry 98 05/20/18 18:00 05/20/18 19:00 05/20/18 19:25 Temperature Pulse Rate 96 H 102 H 91 H Respiratory Rate 19 Blood Pressure Pulse Oximetry 99 05/20/18 19:57 05/20/18 20:00 05/20/18 21:00 Temperature 98 F Pulse Rate 102 H 96 H 98 H Respiratory Rate 18 Blood Pressure 92/59 L Pulse Oximetry 98 05/20/18 22:00 05/20/18 23:00 05/20/18 23:43 Temperature 98 F Pulse Rate 102 H 93 H 97 H Respiratory Rate 19 Blood Pressure 103/64 Pulse Oximetry 99 05/21/18 00:00 05/21/18 01:00 05/21/18 02:00 Temperature Pulse Rate 93 H 90 98 H Respiratory Rate Blood Pressure Pulse Oximetry 05/21/18 03:06 05/21/18 04:00 05/21/18 05:00 Temperature 98 F Pulse Rate 92 H 95 H 85 Respiratory Rate 20 Blood Pressure 135/91 H Pulse Oximetry 99 05/21/18 06:00 05/21/18 07:46 05/21/18 08:00 Temperature 97.5 F L Pulse Rate 84 84 92 H Respiratory Rate 16 18 Blood Pressure 130/82 Pulse Oximetry 99 99 Intake & Output 05/20/18 05/21/18 05/21/18 18:59 06:59 18:59 Intake Total 720 / 720 420 / 420 Output Total 1405 / 1405 400 / 400 Balance -685 / -685 Weight 50.2 kg Intake: Oral 720 / 720 420 / 420 Output: Urine 1405 / 1405 400 / 400 Other: Date of Last Bowel Movement 05/20/18 05/20/18 05/20/18 # Bowel Movements 1 1 Narrative: GENERAL: NAD SKIN: Warm and dry. HEAD: Atraumatic. Normocephalic. EYES: Pupils equal and round. No scleral icterus. No injection or drainage. ENT: No nasal bleeding or discharge. Mucous membranes pink and moist. NECK: Trachea midline. No JVD. CARDIOVASCULAR: Regular rate and rhythm. RESPIRATORY: No accessory muscle use. Clear to auscultation. Breath sounds equal bilaterally. GASTROINTESTINAL: Abdomen soft, non-tender, nondistended. Hepatic and splenic margins not palpable. MUSCULOSKELETAL: Extremities without clubbing, cyanosis, or edema. No obvious deformities. NEUROLOGICAL: Awake and alert. No obvious cranial nerve deficits. Motor grossly within normal limits. Five out of 5 muscle strength in the arms and legs. Normal speech. PSYCHIATRIC: Appropriate mood and affect; insight and judgment normal. Results - Labs CBC & Chem 7: 05/21/18 06:29 05/21/18 06:29 Laboratory Results - last 24 hr 05/21/18 05/21/18 06:29 06:29 WBC 5.2 RBC 2.68 L Hgb 9.8 L Hct 28.0 L MCV 104.5 H MCH 36.5 H MCHC 34.9 RDW 14.7 Plt Count 131 L MPV 9.1 Neut % (Auto) 86.0 H Lymph % (Auto) 7.[address] [place] % (Auto) 6.2 Eos % (Auto) 0.0 Baso % (Auto) 0.0 Neut # (Auto) 4.5 Lymph # (Auto) 0.[address] [place] # (Auto) 0.3 Eos # (Auto) 0.0 Baso # (Auto) 0.0 WBC Differential . Differential Comment Auto diff final Sodium 134 L Potassium 3.5 Chloride 95 L Carbon Dioxide 29.9 Anion Gap 9 BUN 16 Creatinine 0.53 L Estimated GFR Greater than 89 Random Glucose 139 H Calcium 8.0 L Total Bilirubin 0.3 AST 45 H ALT 47 Alkaline Phosphatase 58 Total Protein 5.5 L Albumin 2.7 L - Procedures none Assessment and Plan - Plan 62-year-old man with Elevated Troponin I Appreciate input from cardiology, patient underwent negative stress test Elevated cardiac enzymes likely secondary to CHF exacerbation and not from ACS Heparin d./ema; d/c Nitro paste COPD exacerbation d/c Solu-Medrol 40 mg IV every 12 hours and start Prednisone 20mg daily. Continue Spiriva, Symbicort, schedule and as needed DuoNeb, Mucinex, azithromycin Maintain oxygen saturation above 92% Tobacco abuse Tobacco counseling cessation provided Alcohol abuse - Continue CIWA protocol, rally monitor for withdraw symptoms, ativan prn for anxiety; cessation counseling provided. Hyponatremia Secondary to beer potomania Secondary to elevated BNP Acute on chronic systolic CHF exacerbation of unknown type On Lasix 20mg daily 2D echo with EF of 30-35%. Now on Lisinopril 5mg daily Hypotension-Resolved s/p bolus NS 250 cc x2 on 05/18 s/p Florinef and midodrine 5 mg 3 times daily Tachycardia s/p Digoxin IV x 1 Currently on Lopressor 25mg PO BID Lower extremity weakness and pain Thoracic spine CT lumbar spine CT noted and reviewed with finding noted below : -Severe compression fracture deformity of T12 grossly unchanged from prior chest radiograph. -Multiple compression fracture deformities of the thoracic spine. The shapes of the vertebral bodies are grossly unchanged from the lateral chest radiograph of 03/14/2018. PT to treat and eval DVT prophylaxis: B-SCD Transfer to Med/surg
[2018-05-21] MEDS: LORazepam 1 MG Tablet PO PRN (12:15)
[2018-05-21] MEDS: Lisinopril 5 MG Tablet PO SCH (12:16)
--- NOTE | 2018-05-21 12:38 | P.PNCA ---
Subjective Interval history: Pt without complaints: asked by RN to see PT for AF Medications and Allergies Active Medications: Active Medications Albuterol (Duoneb Neb (Prn)) 1 ampul NEB Q2HR NEB PRN PRN Reason: SHORTNESS OF BREATH Albuterol (Duoneb Neb (Saturnino)) 1 ampul NEB Q6HR WHILE AWAKE NEB [facility] Last Admin: 05/21/18 07:45 Dose: 1 ampul Budesonide/Formoterol Fumarate (Symbicort 160/4.5 Mcg Inh) 2 puff INH BID [facility] Last Admin: 05/21/18 08:43 Dose: 2 puff Flumazenil (Romazecon Inj) 0.2 mg IV.PUSH Q1M PRN PRN Reason: OVERSEDATION Furosemide (Lasix) 20 mg PO DAILY [facility] Last Admin: 05/21/18 11:00 Dose: 20 mg Guaifenesin (Mucinex Er) 600 mg PO BID [facility] Last Admin: 05/21/18 08:42 Dose: 600 mg Haloperidol Lactate (Haldol Inj) 1 mg IV.PUSH Q15M PRN PRN Reason: for severe agitation Heparin Sodium (Porcine) (Heparin Inj) 2,500 units IV.PUSH UNSCH PRN PRN Reason: aPTT 25-39 Heparin Sodium (Porcine) (Heparin Inj) 5,000 units IV.PUSH UNSCH PRN PRN Reason: aPTT < 25 Lisinopril (Prinivil) 5 mg PO DAILY [facility] Last Admin: 05/21/18 12:16 Dose: 5 mg Lorazepam (Ativan) 1 mg PO Q4H PRN PRN Reason: for CIWA 8-10 Last Admin: 05/21/18 12:15 Dose: 1 mg Lorazepam (Ativan) 2 mg PO Q2H PRN PRN Reason: for CIWA 11-14 Lorazepam (Ativan Inj) 2 mg IV.PUSH Q2H PRN PRN Reason: for CIWA 11-14 Lorazepam (Ativan Inj) 2 mg IV.PUSH Q1H PRN PRN Reason: for CIWA 15-20 Lorazepam (Ativan Inj) 2 mg IV.PUSH Q15M PRN PRN Reason: for CIWA > 20 Lorazepam (Ativan Inj) 1 mg IV.PUSH Q4H PRN PRN Reason: for CIWA 8-10 Metoprolol Tartrate (Lopressor) 25 mg PO BID [facility] Last Admin: 05/21/18 10:59 Dose: 25 mg Ondansetron HCl (Zofran Inj) 4 mg IV.PUSH Q6H PRN PRN Reason: NAUSEA OR VOMITING Potassium Chloride (K-Dur) 20 meq PO DAILY [facility] Last Admin: 05/21/18 08:41 Dose: 20 meq Prednisone (Deltasone) 20 mg PO DAILY [facility] Senna/Docusate Sodium (Jacey-Colace) 1 tab PO BID PRN PRN Reason: CONSTIPATION Last Admin: 05/19/18 13:31 Dose: 1 tab Sodium Chloride (Ns Inj) 2 ml IV.FLUSH BID [facility] Last Admin: 05/21/18 08:42 Dose: 2 ml Sodium Chloride (Ns Inj) 2 ml IV.FLUSH UNSCH PRN PRN Reason: FLUSH AFTER USING IV ACCESS Thiamine HCl (Vitamin B1) 100 mg PO BID [facility] Last Admin: 05/21/18 08:42 Dose: 100 mg Tiotropium [place] (Spiriva 18 Mcg Inh) 18 mcg INH DAILY [facility] Last Admin: 05/21/18 08:43 Dose: 18 mcg Allergies Allergy/AdvReac Type Severity Reaction Status Date / Time No Known Allergies Allergy Verified 05/08/18 12:44 Physical Exam Vital signs: Vital Signs 05/20/18 13:00 05/20/18 13:02 05/20/18 14:00 Temperature Pulse Rate 90 88 102 H Respiratory Rate 18 Blood Pressure Pulse Oximetry 05/20/18 15:00 05/20/18 16:00 05/20/18 16:16 Temperature 98.4 F Pulse Rate 94 H 104 H 102 H Respiratory Rate 18 Blood Pressure 121/77 Pulse Oximetry 98 05/20/18 17:00 05/20/18 18:00 05/20/18 19:00 Temperature Pulse Rate 96 H 96 H 102 H Respiratory Rate Blood Pressure Pulse Oximetry 05/20/18 19:25 05/20/18 19:57 05/20/18 20:00 Temperature 98 F Pulse Rate 91 H 102 H 96 H Respiratory Rate 19 18 Blood Pressure 92/59 L Pulse Oximetry 99 98 05/20/18 21:00 05/20/18 22:00 05/20/18 23:00 Temperature Pulse Rate 98 H 102 H 93 H Respiratory Rate Blood Pressure Pulse Oximetry 05/20/18 23:43 05/21/18 00:00 05/21/18 01:00 Temperature 98 F Pulse Rate 97 H 93 H 90 Respiratory Rate 19 Blood Pressure 103/64 Pulse Oximetry 99 05/21/18 02:00 05/21/18 03:06 05/21/18 04:00 Temperature 98 F Pulse Rate 98 H 92 H 95 H Respiratory Rate 20 Blood Pressure 135/91 H Pulse Oximetry 99 05/21/18 05:00 05/21/18 06:00 05/21/18 07:46 Temperature Pulse Rate 85 84 84 Respiratory Rate 16 Blood Pressure Pulse Oximetry 99 05/21/18 08:00 Temperature 97.5 F L Pulse Rate 92 H Respiratory Rate 18 Blood Pressure 130/82 Pulse Oximetry 99 Intake & Output 05/20/18 05/21/18 05/21/18 18:59 06:59 18:59 Intake Total 720 / 720 420 / 420 Output Total 1405 / 1405 400 / 400 Balance -685 / -685 20 / 20 Weight 50.2 kg Intake: Oral 720 / 720 420 / 420 Output: Urine 1405 / 1405 400 / 400 Other: Date of Last Bowel Movement 05/20/18 05/20/18 05/20/18 # Bowel Movements 1 1 - Constitutional no acute distress - Routine HEENT Exam Head: Present: normocephalic - Routine Respiratory Exam Present: decreased breath sounds - Routine Cardiovascular Exam Present: RRR Results 05/21/18 06:29 05/21/18 06:29 Cardiac Enzymes 05/21/18 Range/Units 06:29 AST 45 H (15-37) U/L CBC 05/20/18 05/21/18 Range/Units 06:00 06:29 WBC 6.1 5.2 (4.0-11.0) th/mm3 RBC 2.47 L 2.68 L (4.50-5.90) mil/mm3 Hgb 9.0 L 9.8 L (13.0-17.0) gm/dL Hct 25.5 L 28.0 L (39.0-51.0) % Plt Count 134 L 131 L (150-450) th/mm3 Neut # (Auto) 4.5 (1.8-7.7) th/mm3 Lymph # (Auto) 0.4 L (1.0-4.8) th/mm3 Mcpherson # (Auto) 0.3 (0.0-0.9) th/mm3 Eos # (Auto) 0.0 (0.0-0.4) th/mm3 Baso # (Auto) 0.0 (0.0-0.2) th/mm3 Comprehensive Metabolic Panel 05/21/18 Range/Units 06:29 Sodium 134 L (136-145) meq/L Potassium 3.5 (3.5-5.1) meq/L Chloride 95 L (98-107) meq/L Carbon Dioxide 29.9 (21.0-32.0) meq/L BUN 16 (7-18) mg/dL Creatinine 0.53 L (0.60-1.30) mg/dL Calcium 8.0 L (8.5-10.1) mg/dL AST 45 H (15-37) U/L ALT 47 (12-78) U/L Alkaline Phosphatase 58 (45-117) U/L Total Protein 5.5 L (6.4-8.2) g/dL Albumin 2.7 L (3.4-5.0) g/dL Intake and Output 05/20/18 05/21/18 05/21/18 22:59 06:59 14:59 Intake Total 720 / 720 420 / 420 Output Total 1405 / 1405 400 / 400 Balance -685 / -685 Intake: Oral 720 / 720 420 / 420 Output: Urine 1405 / 1405 400 / 400 Other: Date of Last Bowel Movement 05/19/18 05/20/18 05/20/18 # Bowel Movements 1 1 Weight 50.2 kg Assessment and Plan - Assessment (1) Atrial fibrillation Code(s): I48.91 - Unspecified atrial fibrillation Status: Acute Plan: new PAF- continue metoprolol, CHADS VASC = 1, CHF--aspirin (2) Ischemic cardiomyopathy Code(s): I25.5 - Ischemic cardiomyopathy Status: Acute Plan: EF 35-40% on nuc and ECHO, nuc with anterior infarct -aspirin, CAMILO and BB -available PRN
[2018-05-21] MEDS: Senna/Docusate Sodium 8.6/50 MG Tablet PO PRN (18:58)
[2018-05-21] MEDS ORDERED: Metoprolol Tartrate 25 MG Tablet PO SCH (21:00)
[2018-05-22] MEDS: Metoprolol Tartrate 25 MG Tablet PO SCH ×2 (09:43→21:05)
[2018-05-22] MEDS: Furosemide 20 MG Tablet PO SCH (09:43)
[2018-05-22] MEDS: guaiFENesin 600 MG ER Tablet PO SCH ×2 (09:43→21:06)
[2018-05-22] MEDS: Lisinopril 5 MG Tablet PO SCH (09:44)
[2018-05-22] MEDS: predniSONE 20 MG Tablet PO SCH (09:51)
--- NOTE | 2018-05-22 11:24 | P.DS ---
Date of admission: 05/17/18 03:56 Primary care physician: No Primary Care Physician Brief History from admission: 62-year-old male for past medical history of COPD, alcohol abuse presented to the ED for evaluation of worsening symptoms of shortness of breath associated with white production sputum without any febrile episode. Patient also reported substernal chest pain and was found to have elevated cardiac enzymes. Patient also reported a 6-month history of lower extremities weakness without any numbness or associated back pain. Denies any recent fall or trauma. He states, continues to smokes up to 3 cigarettes/day and occasionally has some vodka shots, however over the past few days has had no beer. Abnormal lab include elevated BNP, low sodium. Patient denies any GI bleed . DS: Summary Hospital Course: While in hospital, patient was treated for: Elevated Troponin I Appreciate input from cardiology, patient underwent negative stress test Elevated cardiac enzymes likely secondary to CHF exacerbation and not from ACS Heparin d./ema; d/c Nitro paste COPD exacerbation d/c Solu-Medrol 40 mg IV every 12 hours and continue prednisone 20mg daily. Continue Spiriva, Symbicort, schedule and as needed DuoNeb, Mucinex, azithromycin Maintain oxygen saturation above 92% Tobacco abuse Tobacco counseling cessation provided Alcohol abuse - Continue CIWA protocol, rally monitor for withdraw symptoms, ativan prn for anxiety; cessation counseling provided. Hyponatremia Secondary to beer potomania Secondary to elevated BNP Acute on chronic systolic CHF exacerbation On Lasix 20mg daily 2D echo with EF of 30-35%. Now on Lisinopril 5mg daily Hypotension-Resolved s/p bolus NS 250 cc x2 on 05/18 s/p Florinef and midodrine 5 mg 3 times daily Atrial fibrillation s/p Digoxin IV x 1 Currently on Lopressor 25mg PO BID, aspirin Ischemic cardiomyopathy Continue with Lopressor 25 mg p.o. twice daily, lisinopril, aspirin Lower extremity weakness and pain Thoracic spine CT lumbar spine CT noted and reviewed with finding noted below : -Severe compression fracture deformity of T12 grossly unchanged from prior chest radiograph. -Multiple compression fracture deformities of the thoracic spine. The shapes of the vertebral bodies are grossly unchanged from the lateral chest radiograph of 03/14/2018. PT to treat and eval DVT prophylaxis: B-SCD - Time Spent with Patient Total time spent providing and/or coordinating discharge services: Greater than 30 minutes - Quality: VTE Deep Vein Thrombosis/Pulmonary Embolism Present on Admission: No Exam Vital signs: Vital Signs 05/21/18 12:00 05/21/18 13:00 05/21/18 14:00 Temperature 98.0 F Pulse Rate 110 H 97 H 104 H Respiratory Rate 20 Blood Pressure 118/74 Pulse Oximetry 98 05/21/18 14:27 05/21/18 15:00 05/21/18 16:00 Temperature 98.4 F Pulse Rate 97 H 94 H 97 H Respiratory Rate 18 18 Blood Pressure 118/74 Pulse Oximetry 98 05/21/18 17:00 05/21/18 18:00 05/21/18 19:00 Temperature Pulse Rate 104 H 110 H 110 H Respiratory Rate Blood Pressure Pulse Oximetry 05/21/18 19:45 05/21/18 20:00 05/21/18 21:00 Temperature 97.8 F Pulse Rate 123 H 126 H 113 H Respiratory Rate 20 18 Blood Pressure 110/60 Pulse Oximetry 98 98 05/21/18 22:00 05/21/18 23:00 05/22/18 00:00 Temperature Pulse Rate 100 H 100 H 106 H Respiratory Rate 16 Blood Pressure 95/68 L Pulse Oximetry 100 05/22/18 01:00 05/22/18 02:00 05/22/18 03:00 Temperature Pulse Rate 100 H 92 H 91 H Respiratory Rate Blood Pressure Pulse Oximetry 05/22/18 04:00 05/22/18 05:00 05/22/18 06:00 Temperature 98.8 F Pulse Rate 90 88 88 Respiratory Rate 18 Blood Pressure 105/73 Pulse Oximetry 100 05/22/18 07:00 05/22/18 07:33 05/22/18 08:00 Temperature 97.8 F Pulse Rate 97 H 77 93 H Respiratory Rate 16 18 Blood Pressure 109/69 Pulse Oximetry 94 L 98 05/22/18 09:00 05/22/18 10:00 Temperature Pulse Rate 95 H 84 Respiratory Rate Blood Pressure Pulse Oximetry Intake & Output 05/21/18 05/22/18 05/22/18 18:59 06:59 18:59 Intake Total 960 / 960 480 / 480 Output Total 1250 / 1250 500 / 500 Balance -290 / -290 -20 / -20 Weight 51 kg Intake: Oral 960 / 960 480 / 480 Output: Urine 1250 / 1250 500 / 500 Other: Date of Last Bowel Movement 05/20/18 05/20/18 05/20/18 Narrative: GENERAL: NAD SKIN: Warm and dry. HEAD: Atraumatic. Normocephalic. EYES: Pupils equal and round. No scleral icterus. No injection or drainage. ENT: No nasal bleeding or discharge. Mucous membranes pink and moist. NECK: Trachea midline. No JVD. CARDIOVASCULAR: Regular rate and rhythm. RESPIRATORY: No accessory muscle use. Clear to auscultation. Breath sounds equal bilaterally. GASTROINTESTINAL: Abdomen soft, non-tender, nondistended. Hepatic and splenic margins not palpable. MUSCULOSKELETAL: Extremities without clubbing, cyanosis, or edema. No obvious deformities. NEUROLOGICAL: Awake and alert. No obvious cranial nerve deficits. Motor grossly within normal limits. Five out of 5 muscle strength in the arms and legs. Normal speech. PSYCHIATRIC: Appropriate mood and affect; insight and judgment normal. Results Procedures completed during hospitalization: none - Impressions ITS Impressions Myocardial Perfusion Scan Nuc Med 05/17/18 00:00 CONCLUSION: 1. Large, moderate to severe fixed left coronary territory perfusion abnormalities without definite redistribution. 2. Moderate LV dysfunction Chest X-Ray 05/17/18 01:12 CONCLUSION: No acute cardiopulmonary disease identified. Lumbar Spine CT 05/17/18 01:12 CONCLUSION: 1. Severe compression fracture deformity of T12 grossly unchanged from prior chest radiograph. 2. Mild age-indeterminate compression fracture deformities of L3 and L4. No bony retropulsion. 3. Degenerative findings lower lumbar spine. Central canal diameter is within normal limits at all levels. Thoracic Spine CT 05/17/18 01:12 CONCLUSION: Multiple compression fracture deformities of the thoracic spine. The shapes of the vertebral bodies are grossly unchanged from the lateral chest radiograph of 03/14/2018. Relative sclerosis at the inferior aspect of the T6 vertebral body suggests that this fracture may be more acute than the other fractures. No bony retropulsion at any level. Central canal diameter within normal limits at all levels. Discharge Plan - Discharge Disposition Patient Disposition: Discharge to SNF - Discharge Condition Condition: Fair - Discharge Order Discharge Orders: Discharge Order (Routine); Ordered 05/22/18 Ordered By: Nathaniel Schaeffer - Physicians Team Primary Care Provider: Primary Care Physici,No Attending Provider: Nathaniel Schaeffer Other Providers: Andres Alexis MD
[2018-05-22] MEDS: Budesonide-Formoterol 160/4.5 MCG 6 GM Inhaler INH SCH ×2 (11:50→21:05)
[2018-05-22] MEDS: Tiotropium Bromide 18 MCG/ACT Inhaler INH SCH (11:50)
[2018-05-23] MEDS: guaiFENesin 600 MG ER Tablet PO SCH ×2 (09:29→21:22)
[2018-05-23] MEDS: Lisinopril 5 MG Tablet PO SCH (09:30)
[2018-05-23] MEDS: predniSONE 20 MG Tablet PO SCH (09:30)
[2018-05-23] MEDS: Budesonide-Formoterol 160/4.5 MCG 6 GM Inhaler INH SCH ×2 (09:30→21:22)
[2018-05-23] MEDS: Metoprolol Tartrate 25 MG Tablet PO SCH ×2 (09:30→21:22)
[2018-05-23] MEDS: Furosemide 20 MG Tablet PO SCH (09:30)
[2018-05-23] MEDS: Tiotropium Bromide 18 MCG/ACT Inhaler INH SCH (09:31)
--- NOTE | 2018-05-23 12:04 | P.PN ---
Subjective Interval history: Follow-up acute on chronic systolic CHF/COPD exacerbation May 23, 2018-patient seen and examined, Reports some blurry vision otherwise stable. No shortness of breath or chest pain. Awaiting for discharge disposition. Physical Exam Vital signs: Vital Signs 05/22/18 13:00 05/22/18 14:00 05/22/18 14:29 Temperature Pulse Rate 95 H 92 H 99 H Respiratory Rate 16 Blood Pressure Pulse Oximetry 05/22/18 15:00 05/22/18 16:00 05/22/18 16:48 Temperature 97.9 F Pulse Rate 90 89 Respiratory Rate 18 Blood Pressure 87/63 L 93/59 L Pulse Oximetry 97 05/22/18 17:00 05/22/18 18:00 05/22/18 19:00 Temperature Pulse Rate 90 92 H 88 Respiratory Rate Blood Pressure Pulse Oximetry 05/22/18 19:32 05/22/18 20:00 05/22/18 21:00 Temperature 97.9 F Pulse Rate 96 H 90 88 Respiratory Rate 18 16 Blood Pressure 92/60 L Pulse Oximetry 98 100 05/22/18 22:00 05/22/18 22:56 05/22/18 23:00 Temperature Pulse Rate 88 84 Respiratory Rate Blood Pressure 97/60 L Pulse Oximetry 05/23/18 00:00 05/23/18 01:00 05/23/18 02:00 Temperature 98.2 F Pulse Rate 87 74 79 Respiratory Rate 16 Blood Pressure 93/66 L Pulse Oximetry 98 05/23/18 03:00 05/23/18 03:40 05/23/18 04:00 Temperature 98.3 F Pulse Rate 73 68 65 Respiratory Rate 16 Blood Pressure 101/66 Pulse Oximetry 100 05/23/18 05:00 05/23/18 06:00 05/23/18 07:00 Temperature Pulse Rate 66 67 68 Respiratory Rate Blood Pressure Pulse Oximetry 05/23/18 07:38 05/23/18 08:00 05/23/18 09:00 Temperature 97.9 F Pulse Rate 99 H 60 62 Respiratory Rate 16 18 Blood Pressure 106/71 Pulse Oximetry 97 99 05/23/18 10:00 05/23/18 11:00 Temperature Pulse Rate 69 73 Respiratory Rate Blood Pressure Pulse Oximetry Intake & Output 05/22/18 05/23/18 05/23/18 18:59 06:59 18:59 Intake Total 760 / 760 480 / 480 Output Total 850 / 850 350 / 350 Balance -90 / -90 130 / 130 Weight 52 kg Intake: Oral 760 / 760 480 / 480 Output: Urine 850 / 850 350 / 350 Other: Date of Last Bowel Movement 05/20/18 05/22/18 05/21/18 # Bowel Movements 0 Narrative: GENERAL: NAD SKIN: Warm and dry. HEAD: Atraumatic. Normocephalic. EYES: Pupils equal and round. No scleral icterus. No injection or drainage. ENT: No nasal bleeding or discharge. Mucous membranes pink and moist. NECK: Trachea midline. No JVD. CARDIOVASCULAR: Regular rate and rhythm. RESPIRATORY: No accessory muscle use. Clear to auscultation. Breath sounds equal bilaterally. GASTROINTESTINAL: Abdomen soft, non-tender, nondistended. Hepatic and splenic margins not palpable. MUSCULOSKELETAL: Extremities without clubbing, cyanosis, or edema. No obvious deformities. NEUROLOGICAL: Awake and alert. No obvious cranial nerve deficits. Motor grossly within normal limits. Five out of 5 muscle strength in the arms and legs. Normal speech. PSYCHIATRIC: Appropriate mood and affect; insight and judgment normal. Results - Labs CBC & Chem 7: 05/21/18 06:29 05/21/18 06:29 - Procedures none Assessment and Plan - Plan 62-year-old man with Elevated Troponin I Appreciate input from cardiology, patient underwent negative stress test Elevated cardiac enzymes likely secondary to CHF exacerbation and not from ACS Heparin d./ema; d/c Nitro paste COPD exacerbation-Improved s/p Solu-Medrol 40 mg IV every 12 hours and continue prednisone 20mg daily. Continue Spiriva, Symbicort, schedule and as needed DuoNeb, Mucinex, azithromycin Maintain oxygen saturation above 92% Tobacco abuse Tobacco counseling cessation provided Alcohol abuse - Continue CIWA protocol, cuco monitor for withdraw symptoms, ativan prn for anxiety; cessation counseling provided. Hyponatremia Secondary to beer potomania Secondary to elevated BNP Acute on chronic systolic CHF exacerbation On Lasix 20mg daily 2D echo with EF of 30-35%. Now on Lisinopril 5mg daily Hypotension-Resolved s/p bolus NS 250 cc x2 on 05/18 s/p Florinef and midodrine 5 mg 3 times daily Atrial fibrillation s/p Digoxin IV x 1 Currently on Lopressor 25mg PO BID, aspirin Rate controlled Ischemic cardiomyopathy Continue with Lopressor 25 mg p.o. twice daily, lisinopril, aspirin Lower extremity weakness and pain Thoracic spine CT lumbar spine CT noted and reviewed with finding noted below : -Severe compression fracture deformity of T12 grossly unchanged from prior chest radiograph. -Multiple compression fracture deformities of the thoracic spine. The shapes of the vertebral bodies are grossly unchanged from the lateral chest radiograph of 03/14/2018. PT to treat and eval DVT prophylaxis: B-SCD
[2018-05-24] MEDS: Senna/Docusate Sodium 8.6/50 MG Tablet PO PRN (08:50)
[2018-05-24] MEDS: Tiotropium Bromide 18 MCG/ACT Inhaler INH SCH (08:51)
[2018-05-24] MEDS: predniSONE 20 MG Tablet PO SCH (08:52)
[2018-05-24] MEDS: guaiFENesin 600 MG ER Tablet PO SCH ×2 (08:52→22:37)
[2018-05-24] MEDS: Budesonide-Formoterol 160/4.5 MCG 6 GM Inhaler INH SCH ×2 (08:52→22:37)
[2018-05-24] MEDS: Furosemide 20 MG Tablet PO SCH (08:52)
[2018-05-24] MEDS: Lisinopril 5 MG Tablet PO SCH (08:52)
[2018-05-24] MEDS: Metoprolol Tartrate 25 MG Tablet PO SCH ×2 (08:56→22:37)
--- NOTE | 2018-05-24 12:37 | P.PN ---
Subjective Interval history: telemetry- sinus rate 70s no chest pains or shortness of breath states he had been up and ambujalting today "twice already" with a walker voiding- grossly cler urine good po Physical Exam Vital signs: Vital Signs 05/23/18 13:00 05/23/18 14:00 05/23/18 14:04 Temperature Pulse Rate 65 74 72 Respiratory Rate 14 Blood Pressure Pulse Oximetry 05/23/18 15:00 05/23/18 16:00 05/23/18 17:00 Temperature 98.0 F Pulse Rate 76 78 80 Respiratory Rate 18 Blood Pressure 102/57 L Pulse Oximetry 100 05/23/18 18:00 05/23/18 19:00 05/23/18 19:42 Temperature Pulse Rate 76 80 72 Respiratory Rate 16 Blood Pressure Pulse Oximetry 05/23/18 20:00 05/23/18 21:00 05/23/18 22:00 Temperature 97.9 F Pulse Rate 72 78 78 Respiratory Rate 16 Blood Pressure 94/53 L Pulse Oximetry 97 05/23/18 23:00 05/23/18 23:39 05/24/18 00:00 Temperature 97.6 F Pulse Rate 78 81 82 Respiratory Rate 16 Blood Pressure 109/68 Pulse Oximetry 99 05/24/18 01:00 05/24/18 02:00 05/24/18 03:00 Temperature Pulse Rate 71 66 62 Respiratory Rate Blood Pressure Pulse Oximetry 05/24/18 03:44 05/24/18 04:00 05/24/18 05:00 Temperature 98.4 F Pulse Rate 72 63 67 Respiratory Rate 16 Blood Pressure 104/57 L Pulse Oximetry 98 05/24/18 06:00 05/24/18 07:00 05/24/18 07:47 Temperature Pulse Rate 60 56 L 63 Respiratory Rate 22 Blood Pressure Pulse Oximetry 98 05/24/18 08:00 05/24/18 09:00 05/24/18 10:00 Temperature 98.3 F Pulse Rate 58 L 66 88 Respiratory Rate 18 Blood Pressure 115/64 Pulse Oximetry 100 05/24/18 10:59 05/24/18 11:00 05/24/18 12:05 Temperature 98.6 F Pulse Rate 63 63 66 Respiratory Rate 18 18 Blood Pressure 124/86 Pulse Oximetry 98 Intake & Output 05/23/18 05/24/18 05/24/18 18:59 06:59 18:59 Intake Total 680 / 680 240 / 240 Output Total 950 / 950 350 / 350 Balance -270 / -270 -110 / -110 Weight 53 kg Intake: Oral 680 / 680 240 / 240 Output: Urine 950 / 950 350 / 350 Other: Date of Last Bowel Movement 05/21/18 05/23/18 # Bowel Movements 0 0 Narrative: GENERAL: NAD, oriented x 3, interactive SKIN: Warm and dry. HEAD: Atraumatic. Normocephalic. EYES: Pupils equal and round. No scleral icterus. No injection or drainage. CARDIOVASCULAR: Regular rate and rhythm. RESPIRATORY: No accessory muscle use. Clear to auscultation. Breath sounds equal bilaterally. GASTROINTESTINAL: Abdomen soft, non-tender, nondistended. Hepatic and splenic margins not palpable. MUSCULOSKELETAL: Extremities without clubbing, cyanosis, or edema. No obvious deformities. NEUROLOGICAL: Awake and alert. No obvious cranial nerve deficits. Motor grossly within normal limits. Five out of 5 muscle strength in the arms and legs. Normal speech. Results - Labs CBC & Chem 7: 05/21/18 06:29 05/21/18 06:29 - Procedures none Assessment and Plan - Plan 62-year-old man with Elevated Troponin I Appreciate input from cardiology, patient underwent negative stress test Elevated cardiac enzymes likely secondary to CHF exacerbation and not from ACS Heparin d./ema; d/c Nitro paste COPD exacerbation-Improved s/p Solu-Medrol 40 mg IV every 12 hours and continue prednisone 20mg daily. Continue Spiriva, Symbicort, schedule and as needed DuoNeb, Mucinex, azithromycin Maintain oxygen saturation above 92% Tobacco abuse Tobacco counseling cessation provided Alcohol abuse - Continue CIWA protocol, cuco monitor for withdraw symptoms, ativan prn for anxiety; cessation counseling provided. Hyponatremia Secondary to beer potomania Secondary to elevated BNP Acute on chronic systolic CHF exacerbation On Lasix 20mg daily 2D echo with EF of 30-35%. Now on Lisinopril 5mg daily Hypotension-Resolved s/p bolus NS 250 cc x2 on 05/18 s/p Florinef and midodrine 5 mg 3 times daily Atrial fibrillation- now in SR s/p Digoxin IV x 1 Currently on Lopressor 25mg PO BID, aspirin Rate controlled Ischemic cardiomyopathy Continue with Lopressor 25 mg p.o. twice daily, lisinopril, aspirin Lower extremity weakness and pain Thoracic spine CT lumbar spine CT noted and reviewed with finding noted below : -Severe compression fracture deformity of T12 grossly unchanged from prior chest radiograph. -Multiple compression fracture deformities of the thoracic spine. The shapes of the vertebral bodies are grossly unchanged from the lateral chest radiograph of 03/14/2018. PT to treat and eval DVT prophylaxis: B-SCD
[2018-05-25] MEDS: predniSONE 20 MG Tablet PO SCH (08:47)
[2018-05-25] MEDS: Furosemide 20 MG Tablet PO SCH (08:47)
[2018-05-25] MEDS: guaiFENesin 600 MG ER Tablet PO SCH (08:47)
[2018-05-25] MEDS: Tiotropium Bromide 18 MCG/ACT Inhaler INH SCH (08:48)
[2018-05-25] MEDS: Budesonide-Formoterol 160/4.5 MCG 6 GM Inhaler INH SCH ×2 (08:48→23:18)
[2018-05-25] MEDS: Metoprolol Tartrate 25 MG Tablet PO SCH ×2 (10:26→23:18)
--- NOTE | 2018-05-25 10:53 | P.PN ---
Subjective Interval history: no complains eating good no nausea or vomiting good po up and ambulated already Physical Exam Vital signs: Vital Signs 05/24/18 10:59 05/24/18 11:00 05/24/18 12:00 Temperature 98.6 F Pulse Rate 63 63 67 Respiratory Rate 18 Blood Pressure 124/86 Pulse Oximetry 98 05/24/18 12:05 05/24/18 13:00 05/24/18 14:00 Temperature Pulse Rate 66 78 80 Respiratory Rate 18 Blood Pressure Pulse Oximetry 05/24/18 14:49 05/24/18 15:00 05/24/18 16:00 Temperature 97.9 F Pulse Rate 60 74 92 H Respiratory Rate 21 Blood Pressure 93/55 L Pulse Oximetry 100 05/24/18 17:00 05/24/18 18:00 05/24/18 19:00 Temperature Pulse Rate 76 78 80 Respiratory Rate Blood Pressure Pulse Oximetry 05/24/18 19:42 05/24/18 20:00 05/24/18 21:00 Temperature 98.1 F Pulse Rate 72 80 69 Respiratory Rate 20 18 Blood Pressure 96/62 L Pulse Oximetry 97 05/24/18 22:00 05/24/18 23:00 05/25/18 00:00 Temperature 98.4 F Pulse Rate 64 79 79 Respiratory Rate 16 Blood Pressure 106/64 Pulse Oximetry 96 05/25/18 01:00 05/25/18 02:00 05/25/18 03:00 Temperature Pulse Rate 70 61 72 Respiratory Rate Blood Pressure Pulse Oximetry 05/25/18 04:00 05/25/18 05:00 05/25/18 06:00 Temperature 98.3 F Pulse Rate 69 60 68 Respiratory Rate 16 Blood Pressure 110/75 Pulse Oximetry 98 05/25/18 09:44 Temperature Pulse Rate 71 Respiratory Rate 16 Blood Pressure Pulse Oximetry 98 Intake & Output 05/24/18 05/25/18 05/25/18 18:59 06:59 18:59 Intake Total 720 / 720 480 / 480 Output Total 600 / 600 675 / 675 Balance 120 / 120 -195 / -195 Weight 52 kg Intake: Oral 720 / 720 480 / 480 Output: Urine 600 / 600 675 / 675 Other: Date of Last Bowel Movement 05/23/18 05/23/18 Narrative: NAD, oriented x 3, interactive SKIN: Warm and dry. HEAD: Atraumatic. Normocephalic. EYES: Pupils equal and round. No scleral icterus. No injection or drainage. CARDIOVASCULAR: Regular rate and rhythm. RESPIRATORY: No accessory muscle use. Clear to auscultation. GASTROINTESTINAL: Abdomen soft, non-tender, MUSCULOSKELETAL: Extremities without clubbing, cyanosis, or edema. No obvious deformities. NEUROLOGICAL: Awake and alert. No obvious cranial nerve deficits. Motor grossly within normal limits. Five out of 5 muscle strength in the arms and legs. Normal speech. Results - Labs CBC & Chem 7: 05/21/18 06:29 05/21/18 06:29 - Procedures none Assessment and Plan - Plan 62-year-old man with Elevated Troponin I- noc hest pains/shortness of breath Acute on chronic systolic CHF exacerbation- stable On Lasix 20mg daily 2D echo with EF of 30-35%.+ Lisinopril 5mg daily Appreciate input from cardiology, patient underwent negative stress test Elevated cardiac enzymes likely secondary to CHF exacerbation and not from ACS Heparin d./ema; d/c Nitro paste COPD exacerbation-Improved s/p Solu-Medrol 40 mg IV every 12 hours and continue prednisone 20mg daily. - decrease to 10 mg daily Continue Spiriva, Symbicort, schedule and as needed DuoNeb, Mucinex, azithromycin Maintain oxygen saturation above 92% Tobacco abuse Tobacco counseling cessation provided Alcohol abuse - no DTs Continue CIWA protocol, cuco monitor for withdraw symptoms, ativan prn for anxiety; cessation counseling provided. Hyponatremia Secondary to beer potomania Secondary to elevated BNP Hypotension-Resolved s/p bolus NS 250 cc x2 on 05/18 s/p Florinef and midodrine 5 mg 3 times daily Atrial fibrillation- now in SR s/p Digoxin IV x 1 Currently on Lopressor 25mg PO BID, aspirin Rate controlled Ischemic cardiomyopathy Continue with Lopressor 25 mg p.o. twice daily, lisinopril, aspirin Lower extremity weakness and pain- improved Thoracic spine CT lumbar spine CT noted and reviewed with finding noted below : -Severe compression fracture deformity of T12 grossly unchanged from prior chest radiograph. -Multiple compression fracture deformities of the thoracic spine. The shapes of the vertebral bodies are grossly unchanged from the lateral chest radiograph of 03/14/2018. PT to treat and eval DVT prophylaxis: B-SCD patient states he is getting paid- tomorrow and go to a [employer] - DC in am d/w CM- if we get him under Hospice- we may find a facility for him possibly [facility]
[2018-05-25] MEDS: Lisinopril 5 MG Tablet PO SCH (12:37)
[2018-05-26 05:05] VITALS: O2SAT 99
--- NOTE | 2018-05-26 07:47 | P.PN ---
Subjective Interval history: no complains good po voiding well up and ambulating - with a walker states he got his check last night $750.00 Physical Exam Vital signs: Vital Signs 05/25/18 08:00 05/25/18 09:00 05/25/18 09:44 Temperature 97.7 F Pulse Rate 60 66 71 Respiratory Rate 18 16 Blood Pressure 100/64 Pulse Oximetry 99 98 05/25/18 10:00 05/25/18 11:00 05/25/18 12:00 Temperature 97.9 F Pulse Rate 68 69 70 Respiratory Rate 20 Blood Pressure 100/65 Pulse Oximetry 99 05/25/18 12:37 05/25/18 13:00 05/25/18 14:00 Temperature Pulse Rate 75 70 Respiratory Rate Blood Pressure 83/52 L Pulse Oximetry 05/25/18 15:00 05/25/18 16:00 05/25/18 17:00 Temperature 97.5 F L Pulse Rate 71 69 79 Respiratory Rate 20 Blood Pressure 93/59 L Pulse Oximetry 98 05/25/18 18:00 05/25/18 19:00 05/25/18 20:00 Temperature 98.6 F Pulse Rate 73 80 80 Respiratory Rate 18 Blood Pressure 117/76 Pulse Oximetry 98 05/25/18 21:00 05/25/18 22:00 05/25/18 23:00 Temperature Pulse Rate 74 77 73 Respiratory Rate Blood Pressure Pulse Oximetry 05/26/18 00:00 05/26/18 01:00 05/26/18 02:00 Temperature 98.1 F Pulse Rate 73 74 75 Respiratory Rate 16 Blood Pressure 107/63 Pulse Oximetry 98 05/26/18 03:00 05/26/18 04:00 05/26/18 05:00 Temperature 98.2 F Pulse Rate 77 71 60 Respiratory Rate 16 Blood Pressure 111/70 Pulse Oximetry 99 05/26/18 06:00 Temperature Pulse Rate 71 Respiratory Rate Blood Pressure Pulse Oximetry Intake & Output 05/25/18 05/26/18 05/26/18 18:59 06:59 18:59 Intake Total 900 / 900 480 / 480 Output Total 1225 / 1225 450 / 450 Balance -325 / -325 30 / 30 Weight 51.5 kg Intake: Oral 900 / 900 480 / 480 Output: Urine 1225 / 1225 450 / 450 Other: Date of Last Bowel Movement 05/25/18 05/25/18 # Bowel Movements 2 Narrative: NAD, oriented x 3, interactive Warm and dry. HEAD: Atraumatic. Normocephalic. EYES: Pupils equal and round. No scleral icterus. No injection or drainage. CARDIOVASCULAR: Regular rate and rhythm. RESPIRATORY: Clear to auscultation. GASTROINTESTINAL: Abdomen soft, non-tender, MUSCULOSKELETAL: Extremities without clubbing, cyanosis, or edema. NEUROLOGICAL: Awake and alert. No obvious cranial nerve deficits. Motor grossly within normal limits. Five out of 5 muscle strength in the arms and legs. Normal speech. Results - Labs CBC & Chem 7: 05/21/18 06:29 05/21/18 06:29 - Procedures none Assessment and Plan - Plan 62-year-old man with Elevated Troponin I- noc hest pains/shortness of breath Acute on chronic systolic CHF exacerbation- stable On Lasix 20mg daily 2D echo with EF of 30-35%.+ Lisinopril 5mg daily Appreciate input from cardiology, patient underwent negative stress test Elevated cardiac enzymes likely secondary to CHF exacerbation and not from ACS Heparin d./ema; d/c Nitro paste COPD exacerbation-Improved s/p Solu-Medrol 40 mg IV every 12 hours and continue prednisone 20mg daily. - decrease to 10 mg daily Continue Spiriva, Symbicort, schedule and as needed DuoNeb, Mucinex, azithromycin Maintain oxygen saturation above 92% Tobacco abuse Tobacco counseling cessation provided Alcohol abuse - no DTs counselled Hyponatremia- Improved Secondary to beer potomania Secondary to elevated BNP Hypotension-Resolved s/p bolus NS 250 cc x2 on 05/18 s/p Florinef and midodrine 5 mg 3 times daily Atrial fibrillation- now in SR Currently on Lopressor 25mg PO BID, aspirin Rate controlled Ischemic cardiomyopathy- not in failure Continue with Lopressor 25 mg p.o. twice daily, lisinopril, aspirin Lower extremity weakness and pain- improved Thoracic spine CT lumbar spine CT noted and reviewed with finding noted below : -Severe compression fracture deformity of T12 grossly unchanged from prior chest radiograph. -Multiple compression fracture deformities of the thoracic spine. The shapes of the vertebral bodies are grossly unchanged from the lateral chest radiograph of 03/14/2018. PT to treat and eval DVT prophylaxis: B-SCD DC to [facility] today- request CM to assist
--- NOTE | 2018-05-26 07:59 | P.DS ---
Date of admission: 05/17/18 03:56 Primary care physician: No Primary Care Physician Anticipated date of discharge: 05/26/18 Brief History from admission: 62-year-old male for past medical history of COPD, alcohol abuse presented to the ED for evaluation of worsening symptoms of shortness of breath associated with white production sputum without any febrile episode. Patient also reported substernal chest pain and was found to have elevated cardiac enzymes. Patient also reported a 6-month history of lower extremities weakness without any numbness or associated back pain. Denies any recent fall or trauma. He states, continues to smokes up to 3 cigarettes/day and occasionally has some vodka shots, however over the past few days has had no beer. Abnormal lab include elevated BNP, low sodium. Patient denies any GI bleed . Patient update on day of discharge: awake andl elrt, no wheezes, interactive good po DS: Summary Hospital Course: 62-year-old man with Elevated Troponin I- noc hest pains/shortness of breath Acute on chronic systolic CHF exacerbation- stable On Lasix 20mg daily 2D echo with EF of 30-35%.+ Lisinopril 5mg daily Appreciate input from cardiology, patient underwent negative stress test Elevated cardiac enzymes likely secondary to CHF exacerbation and not from ACS COPD exacerbation-Improved s/p Solu-Medrol 40 mg IV every 12 hours and continue prednisone 20mg daily. - decrease to 10 mg daily Continue Spiriva, Symbicort, schedule and as needed DuoNeb, Mucinex, azithromycin Maintain oxygen saturation above 92% Prednisone 10 mg daily x 3 days then 5 mg po daiy x 3 days then DC Tobacco abuse Tobacco counseling cessation provided Alcohol abuse - no DTs counselled Hyponatremia- Improved Secondary to beer potomania Secondary to elevated BNP Hypotension-Resolved s/p bolus NS 250 cc x2 on 05/18 s/p Florinef and midodrine 5 mg 3 times daily Atrial fibrillation- now in SR Currently on Lopressor 25mg PO BID, aspirin Rate controlled Ischemic cardiomyopathy- not in failure Continue with Lopressor 25 mg p.o. twice daily, lisinopril, aspirin Lower extremity weakness and pain- improved Thoracic spine CT lumbar spine CT noted and reviewed with finding noted below : -Severe compression fracture deformity of T12 grossly unchanged from prior chest radiograph. -Multiple compression fracture deformities of the thoracic spine. The shapes of the vertebral bodies are grossly unchanged from the lateral chest radiograph of 03/14/2018. PT to treat and eval DVT prophylaxis: B-SCD DC to [facility] today- d/w CM- accepted- and once there - he will sign up with Hospice - Time Spent with Patient Total time spent providing and/or coordinating discharge services: - Quality: VTE Deep Vein Thrombosis/Pulmonary Embolism Present on Admission: No Exam Vital signs: Vital Signs 05/25/18 08:00 05/25/18 09:00 05/25/18 09:44 Temperature 97.7 F Pulse Rate 60 66 71 Respiratory Rate 18 16 Blood Pressure 100/64 Pulse Oximetry 99 98 05/25/18 10:00 05/25/18 11:00 05/25/18 12:00 Temperature 97.9 F Pulse Rate 68 69 70 Respiratory Rate 20 Blood Pressure 100/65 Pulse Oximetry 99 05/25/18 12:37 05/25/18 13:00 05/25/18 14:00 Temperature Pulse Rate 75 70 Respiratory Rate Blood Pressure 83/52 L Pulse Oximetry 05/25/18 15:00 05/25/18 16:00 05/25/18 17:00 Temperature 97.5 F L Pulse Rate 71 69 79 Respiratory Rate 20 Blood Pressure 93/59 L Pulse Oximetry 98 05/25/18 18:00 05/25/18 19:00 05/25/18 20:00 Temperature 98.6 F Pulse Rate 73 80 80 Respiratory Rate 18 Blood Pressure 117/76 Pulse Oximetry 98 05/25/18 21:00 05/25/18 22:00 05/25/18 23:00 Temperature Pulse Rate 74 77 73 Respiratory Rate Blood Pressure Pulse Oximetry 05/26/18 00:00 05/26/18 01:00 05/26/18 02:00 Temperature 98.1 F Pulse Rate 73 74 75 Respiratory Rate 16 Blood Pressure 107/63 Pulse Oximetry 98 05/26/18 03:00 05/26/18 04:00 05/26/18 05:00 Temperature 98.2 F Pulse Rate 77 71 60 Respiratory Rate 16 Blood Pressure 111/70 Pulse Oximetry 99 05/26/18 06:00 Temperature Pulse Rate 71 Respiratory Rate Blood Pressure Pulse Oximetry Intake & Output 05/25/18 05/26/18 05/26/18 18:59 06:59 18:59 Intake Total 900 / 900 480 / 480 Output Total 1225 / 1225 450 / 450 Balance -325 / -325 30 / 30 Weight 51.5 kg Intake: Oral 900 / 900 480 / 480 Output: Urine 1225 / 1225 450 / 450 Other: Date of Last Bowel Movement 05/25/18 05/25/18 # Bowel Movements 2 Results Procedures completed during hospitalization: none - Impressions ITS Impressions Myocardial Perfusion Scan Nuc Med 05/17/18 00:00 CONCLUSION: 1. Large, moderate to severe fixed left coronary territory perfusion abnormalities without definite redistribution. 2. Moderate LV dysfunction Chest X-Ray 05/17/18 01:12 CONCLUSION: No acute cardiopulmonary disease identified. Lumbar Spine CT 05/17/18 01:12 CONCLUSION: 1. Severe compression fracture deformity of T12 grossly unchanged from prior chest radiograph. 2. Mild age-indeterminate compression fracture deformities of L3 and L4. No bony retropulsion. 3. Degenerative findings lower lumbar spine. Central canal diameter is within normal limits at all levels. Thoracic Spine CT 05/17/18 01:12 CONCLUSION: Multiple compression fracture deformities of the thoracic spine. The shapes of the vertebral bodies are grossly unchanged from the lateral chest radiograph of 03/14/2018. Relative sclerosis at the inferior aspect of the T6 vertebral body suggests that this fracture may be more acute than the other fractures. No bony retropulsion at any level. Central canal diameter within normal limits at all levels. Discharge Plan - Discharge Disposition Patient Disposition: [facility] Hospice/Med Facility - Discharge Condition Condition: Fair - Discharge Order Discharge Orders: Discharge Order (Routine); Ordered 05/22/18 Ordered By: Nathaniel Schaeffer - Physicians Team Primary Care Provider: Primary Care Physici,No Attending Provider: Nancy Jamison Other Providers: Andres Alexis MD ; Carrie Cooper ; [facility]
[2018-05-26] MEDS ORDERED: Lisinopril 5 MG Tablet PO SCH (09:00)
[2018-05-26] MEDS ORDERED: predniSONE 10 MG Tablet PO SCH (09:00)
[2018-05-26] MEDS: Metoprolol Tartrate 25 MG Tablet PO SCH (09:13)
[2018-05-26] MEDS: Furosemide 20 MG Tablet PO SCH (09:14)
[2018-05-26] MEDS: Tiotropium Bromide 18 MCG/ACT Inhaler INH SCH (09:14)
[2018-05-26] MEDS: Budesonide-Formoterol 160/4.5 MCG 6 GM Inhaler INH SCH (09:15)
[2018-05-26 13:33] VITALS: BP 101/67; RESP 20; TEMP 98
[2018-05-26 13:48] VITALS: PULSE 72
== END 2018-05-26 12:40 | disposition hospice, inpatient (51) ==
LOC: NEPC 00:09 → NEDA 03:56 → HCIS 04:53
PROVIDERS: ADMIT Internal Medicine; ATTEND Internal Medicine